=== PATIENT | male | born 1975 | race African-American/Black ===

== ENCOUNTER 2017-11-22 15:20 | Inpatient (IN) | payer MEDICARE, MEDICAID ==
[~2017-11-22 15:20] MED LIST: Atropine Sulfate 1 mg/10 ml Syringe ONE; EPINEPHrine 1 MG/10 ML Abboject SYRINGE ONE; ISOVUE-370 76%-LOCM 1 ML ONE
[2017-11-22] MEDS ORDERED: Atropine Sulfate 1 mg/10 ml Syringe ONE (15:35)
[2017-11-22 16:07] LABS: Actual Bicarbonate (HCO3a) 18.8 mEq/L (22-26); Base Excess (BEa) -6.4 mEq/L (0 (+/-) 2.5); CO2 Tension 36.2 mmHg (35.0-45.0); Hematocrit-ABG 41.8 % (42.0-52.0); O2 Tension (PaO2) 56.2 mmHg (80.0-100.0); pH, Arterial 7.33 (7.35-7.45)
[2017-11-22 16:08] LABS: Analyzer IN Cardio ER; Calcium, Ionized 0.9 mmol/L (1.12-1.30); Puncture Site LRA
--- NOTE | 2017-11-22 16:08 | RAD ---
PORTABLE CHEST: 11/22/17 HISTORY: Dyspnea. Lethargy. Weakness. COMPARISON: 01/05/16. Cardiomegaly. There is vascular congestion. No evidence of focal consolidation. IMPRESSION: Suboptimal study due to overlying artifact. There is evidence of cardiomegaly and mild vascular engor gement. POS: [facility]
[2017-11-22 16:19] LABS: Hemoglobin 12.4 g/dL (14.0-18.0); Mean Corpuscular HGB CONC 31.2 g/dL (32.0-36.0); Mean Corpuscular Hemoglobin 26.2 pg (27.0-31.0); Mean Platelet Volume 6.5 fL (7.4-10.4); Platelet Count 136 thou/uL (130-400); RBC Distribution Width 19.8 % (11.5-14.5); Red Blood Cell (RBC) Count 4.72 mill/uL (4.70-6.10); White Blood Cell (WBC) Count 6.1 thou/uL (4.8-10.8)
[2017-11-22 16:22] LABS: INR-International Normal Ratio 1.5; PTT 34.4 SEC (22.9-36.1); Prothrombin Time 18.9 SEC (12.0-14.7)
--- NOTE | 2017-11-22 16:33 | CT ---
CTA OF CHEST AND ABDOMEN WITH CONTRAST: Date: 11/22/17 COMPARISON: None. HISTORY: Abdominal pain and diarrhea for 4-5 days. Back and abdominal pain. Patient is a dialysis patient. TECHNIQUE: Multiple contiguous axial images were obtained in a CTA of the chest and abdomen with contrast. 3D sa gittal and coronal MIP reformats were performed. FINDINGS: The heart is enlarged. Calcifications are seen in the coronary arteries. No hilar or mediastinal lymp hadenopathy seen. Atelectasis is seen in the lung bases. No suspicious infiltrates are seen. No pneumothorax or pleural effusions are present. The liver, adrenal glands, spleen, and pancreas are unremarkable. The kidneys are small and atrophic. The left kidney contains a hypodensity measuring 1.6 cm in size, which likely represents a cyst. The gallbladder has been removed. There is a small amount of ascites. The large and small bowel are unremarkable. No abdominal adenopat hy is seen. The aorta is normal in caliber without evidence of aneurysmal dilatation or dissection. The celiac tr unk, SMA, and KILO are patent. A single renal artery is seen on each side without significant atherosc lerotic disease. Mild atherosclerotic disease is seen in the distal aorta and common iliac arteries. Diffuse soft tissue anasarca is seen. Degenerative changes are seen in the spine. IMPRESSION: 1. No evidence of aortic dissection or aneurysmal dilatation. 2. Small atrophic kidneys. 3. Left renal cyst. 4. Ascites. POS: [facility]
[2017-11-22 16:40] LABS: CKMB 2.2 ng/mL (0-6.6)
[2017-11-22 16:50] LABS: Acanthocytes SLIGHT = 1-5 cells (100X) (None Seen); Anisocytosis SLIGHT = 6-15 cells (100X) (0-5/hpf); Eosinophils 3 % (0-10); Hypochromia SLIGHT = 6-15 cells (100X) (0-5/hpf); Lymphocytes 9 % (21-51); MDiff Complete? YES; Monocytes 3 % (0-10); Neutrophil 85 % (42-75); PLT Morphology Comment Appears Adequate; Polychromasia SLIGHT = 2-3 cells (100X) (0-2/hpf); Target Cells SLIGHT = 2-5 cells (100X) (0-1/hpf); Tear Drops SLIGHT = 2-5 cells (100X) (0-1/hpf)
[2017-11-22] MEDS ORDERED: Norepinephrine 8 MG/250 ML BAG IVPB SCH ×4 (17:00→19:00)
[2017-11-22 17:02] LABS: ALT (SGPT) 13 U/L (8-55); AST (SGOT) 27 U/L (5-34); Albumin 3.4 g/dL (3.5-5.0); Alkaline Phosphatase 102 U/L (40-150); Anion Gap 25 mmol/L (10-20); BUN (Urea Nitrogen) 84 mg/dL (8.9-20.6); CK (CPK) 52 U/L (30-200); Calc. Creatinine Clearance 0 mL/min (70-130); Calcium 7.7 mg/dL (7.8-10.44); Carbon Dioxide 17 mmol/L (22-29); Chloride 101 mmol/L (98-107); Estimated GFR-MDRD 5; Globulin 3.5 g/dL (2.4-3.5); Glucose 192 mg/dL (70-105); Potassium 6.7 mmol/L (3.5-5.1); Protein, Total 6.9 g/dL (6.0-8.3); Sodium 136 mmol/L (136-145)
[2017-11-22] MEDS ORDERED: Norepinephrine 8 MG/0.9% NS 250 ML IVPB SCH (18:39)
[2017-11-22] MEDS ORDERED: Acetaminophen 325 MG TAB PO PRN (18:39)
[2017-11-22] MEDS ORDERED: Sodium Chloride 0.9% 1,000 ML IV SCH (18:39)
[2017-11-22] MEDS ORDERED: HYDROcodone/Acetaminophen 5/325 mg Tablet PO PRN (18:39)
[2017-11-22] MEDS ORDERED: Piperacillin/Tazobactam 4.5 GM in Sodium Chloride 0.9% 100 ML IVPB SCH ×2 (19:00→23:59)
--- NOTE | 2017-11-22 19:02 | RAD ---
PORTABLE UPRIGHT FRONTAL CHEST RADIOGRAPH 11/22/17 at 6:21 p.m. COMPARISON: 11/22/17 at 3:48 p.m. HISTORY: Central line placement. FINDINGS: There is a left sided vascular catheter inserted via left internal jugular approach, distal tip overl danielle the region of the SVC/brachiocephalic junction. There is enlargement of the cardiac silhouette, stable. Stable pulmonary vascular congestion. Bilateral interstitial prominence noted. IMPRESSION: Left sided vascular catheter with no pneumothorax. POS: [facility]
[2017-11-22 19:46] LABS: Anion Gap 22 mmol/L (10-20); BUN (Urea Nitrogen) 81 mg/dL (8.9-20.6); Calc. Creatinine Clearance 0 mL/min (70-130); Calcium 7.8 mg/dL (7.8-10.44); Carbon Dioxide 16 mmol/L (22-29); Chloride 103 mmol/L (98-107); Estimated GFR-MDRD 5; Glucose 106 mg/dL (70-105); Potassium 4.9 mmol/L (3.5-5.1); Sodium 136 mmol/L (136-145)
[2017-11-22 19:51] LABS: Troponin I 0.217 ng/mL (< 0.028)
[2017-11-22] MEDS: Docusate 100 MG CAP PO SCH (20:19)
[2017-11-22] MEDS: Famotidine/PF 20 mg/2ml Vial SLOW IVP SCH (20:19)
--- NOTE | 2017-11-22 20:53 | HP ---
DATE OF ADMISSION: 11/22/2017 CHIEF COMPLAINT: Acute abdominal pain. HISTORY OF PRESENT ILLNESS: This is a 42-year-old -[place] male with a known history of end-stage renal disease on hemodialysis. Patient was in his usual state of health, undergoing hemodialysis on Mondays, Wednesdays, and Fridays. Last Tuesday, 3 days ago, he started noticing some abdominal pain associated with some diarrhea. It continued until the weekend and this morning , his pain was excruciating with persistent cramps. His pain rated as 8/10 in intensity, associated with cramps and diarrhea, and he has been having multiple episodes of diarrhea, which is more watery in nature and not associated with any blood in the stool. He came to the ER, his blood pressures were in 70s and his heart rate was 40 and had an EKG which showed bradycardia with a possible heart block, but patient was given IV fluid hydration with 2 liters of fluid boluses. His blood pressures went up to like 90s and he was being still very lethargic, so he was started on BiPAP as his saturations were low. Following which, he became more alert. Patient was started on Levophed for his persistent low blood pressures. Patient otherwise suffers with high blood pressures at home. Patient was seen in the ICU, he was alert and oriented and he was having hypothermia, so he was started on warming blankets while in the ICU and on Levophed drip. Critical Care was consulted from the ER and also Cardiology was called because of the bradycardia. Patient denies having any chest pain at this time. No nausea at this time. No vomiting. His diarrhea has stopped at 12:00 noon this morning. PAST MEDICAL HISTORY: 1. End-stage renal disease. 2. Hypertension. PAST SURGICAL HISTORY: 1. AV fistula on his right arm. 2. Cholecystectomy. 3. Skull tonsillectomy. FAMILY HISTORY: His cousin is on dialysis and multiple members of his family who are diabetic and with high blood pressures. SOCIAL HISTORY: Patient is a known smoker. He continues to smoke. No history of alcohol, no history of illicit drug use. ALLERGIES: No known drug allergies. HOME MEDICATIONS: 1. Amoxicillin and azithromycin. 2. Coreg 25 mg p.o. b.i.d. 3. Clonidine 0.3 mg p.o. t.i.d. 4. Lasix 80 mg p.o. b.i.d. 5. Hydralazine 50 mg p.o. b.i.d. 6. Nifedipine 90 mg p.o. daily. 7. Pantoprazole 40 mg p.o. b.i.d. REVIEW OF SYSTEMS: All 12 systems are reviewed with the patient thoroughly and found to be negative at this time, except the one was described in the HPI. The following complete review of systems was negative, unless otherwise mentioned in the HPI or below: Constitutional: Weight loss or gain, sense of well-being, ability to conduct usual activities, exercise tolerance. Skin/ Breast: Rash, itching, changes in hair growth or loss, nail changes, breast lumps, tenderness, swelling, nipple discharge. Eyes: Vision, double vision, tearing, blind spots, pain. ENT/Mouth: Headaches (location, time of onset, duration, precipitating factors), vertigo, lightheadedness, injury. Vision, double vision, tearing, blind spots, pain, nose bleeding, colds, obstruction, discharge, dental difficulties, gingival bleeding, dentures, neck stiffness, pain, tenderness, masses in thyroid or other areas. Cardiovascular: Precordial pain, substernal distress, palpitations, syncope, dyspnea on exertion , orthopnea, nocturnal paroxysmal dyspnea, edema, cyanosis, hypertension, heart murmurs, varicosities, phlebitis, claudication. Respiratory: Pain, shortness of breath, wheezing, stridor, cough, hemoptysis, fever or night sweats. Gastrointestinal: Poor appetite, dysphagia, indigestion, abdominal pain, heartburn, eructation, nausea, vomiting, hematemesis, jaundice, constipation, or diarrhea, abnormal stools (isidra-colored, tarry, bloody, greasy, foul-smelling ), flatulence, hemorrhoids, recent changes in bowel habits. Genitourinary: Urgency, frequency, dysuria, nocturia, hematuria, polyuria, oliguria, unusual ( or change in) color of urine, stones, hesitancy, change in size of stream, dribbling, acute retention or incontinence, libido, potency. Musculoskeletal: Pain, swelling, redness or heat of muscles or joints, limitation, of motion, muscular weakness, atrophy, cramps. Neurologic/Psychiatric: Convulsions, paralyzes, tremor, incoordination, paresthesias, difficulties with memory of speech, sensory or motor disturbances, or muscular coordination (ataxia, tremor) , emotional problems, anxiety, depression, previous psychiatric care, unusual perceptions, hallucinations. Allergy/Immunologic: Skin rash, anemia, bleeding tendency, polydipsia, polyuria, intolerance to heat or cold. PHYSICAL EXAMINATION: VITAL SIGNS: Blood pressures were 95/58 on Levophed drip. GENERAL: The patient is seen lying in the bed, supine, does not appear to be in acute distress at this time. HEENT: Atraumatic, normocephalic. PERRLA. Extraocular movements were intact. Oral mucosa is pink and moist. NECK: No JVD, No thyromegaly CARDIOVASCULAR: S1, S2 normal. No murmurs, rubs, or gallops. LUNGS: Bilateral air entry was equal. No wheezing, no crackles. ABDOMEN: Soft, nontender, no guarding, no rebound tenderness. Bowel sounds normal. MUSCULOSKELETAL: No calf tenderness. No pedal edema. No joint tenderness, no joint swelling. SKIN: No cyanosis, no erythema, no rash, no pallor. 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 No focal deficits were noted. PSYCHIATRIC: No signs of consolidation. No signs of alex. LYMPHADENOPATHY: No evidence of generized lymphnodes noted. LABORATORY DATA: Sodium is 136, potassium is 6.7, chloride is 101, BUN is 84, creatinine is 12.8. Blood sugar is 192. Lactic acid is 2.2. Troponin is 0.210. BNP is 11,143. WBC 6.1, hemoglobin is 12.4, hematocrit is 39.6, platelets are 136. Blood gases initially was 7.3, pH and pCO2 of 36, pO2 was 56.2. ASSESSMENT AND PLAN: 1. Acute hypotension, likely cardiogenic shock. 2. Acute diarrhea with severe dehydration. 3. Acute hypothermia. 4. Acute bradycardia. 5. Acute hyperkalemia. 6. Non ST-elevation myocardial infarction. 7. Acute hypoxic respiratory failure. PLAN: 1. Plan is to admit this patient to the ICU and closely monitor the patient. Patient has been started on Levophed while in the ER. I will continue with the Levophed at this time, as the patient has signs of septic shock, but no source of infection could be found, as patient had come in because of severe diarrhea with crampy abdominal pain and with low blood pressures with mildly elevated CRP. At this time, we will treat the patient empirically with antibiotics with Zosyn and levofloxacin. We will get the blood cultures and stool cultures. 2. Patient has acute hypoxic respiratory failure when he came in and was improved on the BiPAP. We will closely monitor his respiratory status while he is in the ICU and Pulmonary and Critical Care has been consulted. His chest x- ray looks fine. There is no evidence of any acute infiltrate at this time. 3. Possibly acute cardiogenic shock, patient has markedly elevated BNP with no evidence of an acute volume overload status and evidence of hypotension and bradycardia, possibly patient could have had acute cardiogenic shock. We will consult Cardiology at this time and we will follow up with their recommendations. We will do a 2D echo to look for any evidence of wall-motion abnormality and we will closely follow the heart enzymes. 4. The patient had hyperkalemia. Nephrology has been consulted, who planned to see the patient and possibly do the dialysis today. 5. Deep venous thrombosis prophylaxis as SCDs and we will continue the patient on Lovenox 30 mg. I spent 70 minutes with this patient of this one hour as critical care time. MANAS
[2017-11-22 20:55] VITALS: BMI 37.0
[2017-11-23 00:13] LABS: HBCM Index 0.07 S/CO (0-0.79); HBSAg Index 0.56 S/CO (0-0.99); Hep A IgM AB Non-Reactive (NonReactive); Hep A IgM S/CO 0.15 S/CO (0-0.79); Hep B Surf Ag Non-Reactive S/CO (NonReactive); Hep C IgG Ab Non-Reactive (NonReactive); Hep C Index 0.12 S/CO (0-0.79); Hepatitis B Core IGM Abs Non-Reactive (NonReactive)
--- NOTE | 2017-11-23 00:18 | CON ---
DATE OF CONSULTATION: 11/22/2017 NEPHROLOGY CONSULT NOTE CONSULTING PHYSICIAN: Jared Rodriguez MD REASON FOR CONSULTATION: End-stage renal disease evaluation and care. REASON FOR ADMISSION: Abdominal pain. HISTORY OF PRESENT ILLNESS: A 42-year-old male with history of end-stage renal disease, hypertension , who came to the hospital with abdominal pain and Nephrology was consulted. Patient was found to villalpando ve potassium of 6.9 with fluid overload and hypotension and respiratory failure, and hypoxemia. The patient denies any chest pain, no fever or chills. Complains of abdominal pain, no nausea, vomit ing, no fever or chills. No skin rash. PAST MEDICAL HISTORY: Positive for end-stage renal disease and hypotension. PAST SURGICAL HISTORY: AV fistula placement, cholecystectomy, tonsillectomy. HOME MEDICATIONS: Coreg, clonidine, Lasix, hydralazine, nifedipine, pantoprazole. ALLERGIES: No known drug allergies. SOCIAL HISTORY: No smoking, alcohol, or illicit drug abuse. FAMILY HISTORY: No history of kidney disease. REVIEW OF SYSTEMS: The following complete review of systems was negative, unless otherwise mentioned in the HPI or below: Constitutional: Weight loss or gain, ability to conduct usual activities. Sk in: Rash, itching. Eyes: Double vision, pain. ENT/Mouth: Nose bleeding, neck stiffness, pain, te nderness. Cardiovascular: Palpitations, dyspnea on exertion, orthopnea. Respiratory: Shortness of breath, wheezing, cough, hemoptysis, fever or night sweats. Gastrointestinal: Poor appetite, abdom inal pain, heartburn, nausea, vomiting, constipation, or diarrhea. Genitourinary: Urgency, frequenc y, dysuria, nocturia. Musculoskeletal: Pain, swelling. Neurologic/Psychiatric: Anxiety, depressio n. Allergy/Immunologic: Skin rash, bleeding tendency. PHYSICAL EXAMINATION: GENERAL: This is an obese male, in no apparent distress. VITAL SIGNS: Temperature 97.5, pulse 83, respiratory 21, blood pressure 102/75. HEENT: Atraumatic, normocephalic. Oral mucosa is moist. NECK: Supple, no masses. HEART: S1, S2 heard. Rate and rhythm regular. RESPIRATORY: Clear. MUSCULOSKELETAL: No tenderness, no edema. DERMATOLOGIC: No skin rash. NEUROLOGIC: Alert, awake. PSYCHIATRIC: Normal affect. LABS: Hemoglobin is 12.4, potassium is 4.9, BUN is 81, creatinine 0.8. ASSESSMENT AND PLAN: 1. End-stage renal disease. Plan is to have dialysis as elevated BNP, fluid overload. Plan is to r emove fluid. 2. Acidosis, better. 3. Hypertension, stable. 4. Anemia. Hemoglobin is stable. Plan is to have emergent dialysis. Dialysis nurse notified. We will continue on dialysis as tolerat ed. Limit potassium in the diet. Thank you for the consult.
[2017-11-23 05:57] LABS: Cardiac Risk 4.4 (Less than 4.5)
--- NOTE | 2017-11-23 08:44 | CON ---
DATE OF CONSULTATION: 11/22/2017 REASON FOR CONSULTATION: Third degree AV block. HISTORY OF PRESENT ILLNESS: Mr. Rodriguez is an unfortunate 42-year-old gentleman with previous histo ry of end-stage renal disease, he recently missed dialysis. He states he had gastroenteritis with si gnificant diarrhea. He presented to the emergency room with weakness, fatigue, and diarrhea, in octavia tion to abdominal discomfort. On my visit, his abdominal discomfort has improved. His potassium was 6.7. He appeared to have 2:1 AV block versus third degree AV block. Blood pressure initially was m arginal, but then was in the 90s-100s. Heart rate was also in the 80s. Narrow complex noted. PAST MEDICAL HISTORY: As above including hypertension. PAST SURGICAL HISTORY: Cholecystectomy, tonsillectomy. FAMILY HISTORY: Negative for CAD. SOCIAL HISTORY: Positive tobacco use. Negative alcohol use. ALLERGIES: None. HOME MEDICATIONS: Include Coreg, clonidine, Lasix, hydralazine, nifedipine, pantoprazole. REVIEW OF SYSTEMS: Ten-point review of systems is reviewed and is as above, otherwise negative. PHYSICAL EXAMINATION: GENERAL: Patient is a pleasant male who is in no acute distress. He does appear older than his stat ed age. VITAL SIGNS: Blood pressure 120/89, pulse 80, respirations 20. NEUROLOGIC: The patient is alert and oriented times 3 with no focal neurologic deficits. HEENT: Sclerae without icterus. Mouth has moist mucous membranes with normal pallor. NECK: No JVD. Carotid upstroke brisk. No bruits bilaterally. LUNGS: Clear to auscultation with unlabored respirations. BACK: No scoliosis or kyphosis. CARDIAC: Regular rate and rhythm with normal S1 and S2. No S3 or S4 noted. No significant rubs, mu rmurs, thrills, or gallops noted throughout the precordium. PMI is not displaced. There is no wyatt ternal heave. ABDOMEN: Soft, nontender, nondistended. No peritoneal signs present. No hepatosplenomegaly. No ab normal striae. EXTREMITIES: 2+ femoral and 2+ dorsalis pedis pulses. No cyanosis, clubbing, or edema. SKIN: No gross abnormalities. PERTINENT LABORATORY DATA AND IMAGING: Hemoglobin 12.4, potassium as above. EKG as above. IMPRESSION: 1. Third degree AV block. 2. Hyperkalemia. 3. End-stage renal disease. RECOMMENDATIONS: From a CV standpoint, third degree AV block is likely secondary to hyperkalemia. U rgent dialysis will ensue. I did contemplate to proceeding with a temporary pacemaker. I have reass ured we can get his potassium down once dialysis started within 20-30 minutes, which would be the rolando e at a time needed for urgent temporary pacemaker. At this point, since he appears stable, we will o bserve. If he developed some mental status changes or worsening bradycardia, we would then proceed w ith temporary pacemaker. He did respond to atropine in the ER, which can also be used. I did spend 40 minutes of critical care time.
[2017-11-23] MEDS ORDERED: Piperacillin/Tazobactam 2.25 GM in Sodium Chloride 0.9% 100 ML IVPB SCH (09:00)
--- NOTE | 2017-11-23 09:10 | CON ---
DATE OF CONSULTATION: 11/23/2017 CONSULTING PHYSICIAN: Hospitalist group. REASON FOR CONSULTATION: Acute respiratory failure. HISTORY OF PRESENT ILLNESS: A 42-year-old male, who is end-stage renal disease patient. He missed d ialysis on Tuesday, because he felt so poorly. He has been having abdominal pain and diarrhea. Becau se of the abdominal pain and weakness, he presented to the ER last night. He was found to be in deco mpensated heart failure. He was acutely dialyzed. He also had complete heart block when he came in that resolved with dialysis. It is suspected that he may have a heart valve infection on an echo don e this morning, but final read from the cobbler apprentice is pending. He feels better this morning. He i s not having near as much short of breath, though still having some abdominal pain. PAST MEDICAL HISTORY: 1. End-stage renal disease. 2. Hypertension. 3. Obesity. 4. Diastolic cardiac dysfunction. PAST SURGICAL HISTORY: Cholecystectomy, AV fistula right arm, and tonsillectomy. FAMILY MEDICAL HISTORY: Remarkable for end-stage renal disease in multiple family members with diabe augusto mellitus and hypertension. SOCIAL HISTORY: Smoker. Does not consume alcohol. ALLERGIES: None. MEDICATIONS: Prior to admission, amoxicillin, Coreg, clonidine, Lasix, hydralazine, nifedipine, and pantoprazole. REVIEW OF SYSTEMS: Twelve-point review of systems is otherwise negative except as mentioned above. PHYSICAL EXAMINATION: VITAL SIGNS: Temperature 98, pulse 77, blood pressure 120/89, O2 sat 97%, respiratory rate 18. GENERAL: He is awake and alert and in no profound distress. HEENT EXAM: Sclerae muddy. Oropharynx clear. NECK: No JVD. LUNGS: Clear to auscultation. CARDIOVASCULAR: S1 and S2 regular. ABDOMEN: Soft, slightly protuberant. EXTREMITIES: Has a large right forearm AV fistula. LABORATORY DATA: White blood cell count 6.1, hematocrit 39.6, platelet count 136. Sodium 136, potas sium 4.9, chloride 103, CO2 of 16, BUN 81, creatinine 12.8, glucose 106. Chest x-ray showed cardiome cortes with changes consistent with congestive heart failure. ASSESSMENT: 1. Possible endocarditis. 2. Decompensated renal failure. 3. Congestive heart failure. 4. History of end-stage renal disease. PLAN: His respiratory status is better with dialysis. We will await the findings of the Cardiology group in regard to endocarditis. He is continuing empiric IV antibiotics. It looks like he has been weaned off the vasopressors. We will follow closely with you. The above encompassed 40 minutes of critical care time.
[2017-11-23] MEDS: Docusate 100 MG CAP PO SCH ×2 (09:18→22:18)
[2017-11-23] MEDS: Aspirin 325 MG TAB PO SCH (09:18)
[2017-11-23] MEDS: Enoxaparin Sodium 30 MG/0.3 ML SYRINGE SC SCH (09:19)
[2017-11-23] MEDS ORDERED: Loratadine 10 MG TAB PO PRN (13:05)
[2017-11-23] MEDS ORDERED: VANCOMYCIN IVPB PRN (13:38)
--- NOTE | 2017-11-23 13:39 | PDOC.PN ---
- Subjective Encounter Start Date: 11/23/17 Encounter Start Time: 13:00 Samantha is seen today, he feels much beter, c/o Cogh and congestion, Echo was done today with possible signs of vegetation but waiting on official report. - Objective Resuscitation Status: Resuscitation Status FULL:Full Resuscitation MAR Reviewed: Yes Vital Signs & Weight: Vital Signs (12 hours) Temp Pulse Resp Pulse Ox 11/23/17 12:00 98.3 F 11/23/17 08:05 98.2 F 75 20 94 L 11/23/17 08:00 98.2 F 11/23/17 07:08 92 L 11/23/17 03:00 98 F Weight Weight 229 lb 4.492 oz Most Recent Monitor Data Heart Rate from ECG 82 NIBP 154/108 NIBP BP-Mean 123 Respiration from ECG 18 SpO2 95 I&O: 11/22/17 11/23/17 11/24/17 06:59 06:59 06:59 Intake Total 1146 490 Output Total 0 Balance 1146 490 Result Diagrams: 11/22/17 15:42 11/22/17 19:00 Radiology Reviewed by me: Yes EKG Reviewed by me: Yes Phys Exam - Physical Examination HEENT: PERRLA, moist MMs Neck: no nodes, no JVD Respiratory: no wheezing, no rales Cardiovascular: RRR, no significant murmur Gastrointestinal: soft, non-tender Musculoskeletal: no edema, pulses present Neurological: non-focal, normal sensation Psychiatric: normal affect, A&O x 3 Dx/Plan (1) Septic shock Code(s): A41.9 - SEPSIS, UNSPECIFIED ORGANISM; R65.21 - SEVERE SEPSIS WITH SEPTIC SHOCK Status: Acute Comment: Will continue with IV Levoflox, Zosyn and Vancomycin, for possible source of infection Endocarditis, Will Consult ID if Endocarditis is confirmed, blood Cultures pending. (2) Endocarditis Code(s): I38 - ENDOCARDITIS, VALVE UNSPECIFIED Status: Acute Comment: Waiitng on official Report, Cardiology following. Added vancomycin per renal dosing. (3) Bradycardia Code(s): R00.1 - BRADYCARDIA, UNSPECIFIED Status: Acute Comment: Stable Now , Likely resolved with HD and Correction hyperkalemia. (4) Hyperkalemia Code(s): E87.5 - HYPERKALEMIA Status: Acute (5) Hypertension Code(s): I10 - ESSENTIAL (PRIMARY) HYPERTENSION Status: Acute Comment: Poorly controlled now, Will restart his home MEds. start hydralzine, will avoid BB and Clonidine for their HR reducing effects. (6) ESRD (end stage renal disease) on dialysis Code(s): N18.6 - END STAGE RENAL DISEASE; Z99.2 - DEPENDENCE ON RENAL DIALYSIS Status: Chronic Comment: Pt will recieve HD today per renal. Will continue to Monitor. - Plan cont current plan of care, continue antibiotics, PT/OT, incentive spirometry, DVT proph w/lovenox * . - Discharge Day Encounter end time: 13:35 Review of Systems - Review of Systems Constitutional: negative: fever, chills, sweats, weakness, malaise, other Eyes: negative: Pain, Vision Change, Conjunctivae Inflammation, Eyelid Inflammation, Redness, Other ENT: negative: Ear Pain, Ear Discharge, Nose Pain, Nose Discharge, Nose Congestion, Mouth Pain, Mouth Swelling, Throat Pain, Throat Swelling, Other Respiratory: Cough, Sputum Cardiovascular: negative: chest pain, palpitations, orthopnea, paroxysmal nocturnal dyspnea, edema, light headedness, other Gastrointestinal: negative: Nausea, Vomiting, Abdominal Pain, Diarrhea, Constipation, Melena, Hematochezia, Other Genitourinary: negative: Dysuria, Frequency, Incontinence, Hematuria, Retention , Other Skin: negative: Rash, Lesions, Vlad, Bruising, Other Neurological: negative: Weakness, Numbness, Incoordination, Change in Speech, Confusion, Seizures, Other - Medications/Allergies Allergies/Adverse Reactions: Allergies Allergy/AdvReac Type Severity Reaction Status Date / Time No Known Allergies Allergy Verified 11/22/17 23:28 Medications: Current Medications Acetaminophen (Tylenol) 650 mg PO Q4H PRN PRN Reason: Headache/Fever or Pain Hydrocodone Bitart/Acetaminophen (Corona 5/325) 1 tab PO Q4H PRN PRN Reason: Moderate Pain (4-6) Aspirin (Aspirin) 325 mg PO DAILY [facility] Last Admin: 11/23/17 09:18 Dose: 325 mg Benzonatate (Tessalon) 100 mg PO TID [facility] Docusate Sodium (Colace) 100 mg PO BID [facility] Last Admin: 11/23/17 09:18 Dose: Not Given Enoxaparin Sodium (Lovenox) 30 mg SC 0900 [facility] Last Admin: 11/23/17 09:19 Dose: 30 mg Famotidine (Pepcid) 20 mg SLOW IVP QPM [facility] Last Admin: 11/22/17 20:19 Dose: 20 mg Hydralazine HCl (Apresoline) 100 mg PO BID [facility] Norepinephrine Bitartrate 8 mg (/ Sodium Chloride) 258 mls @ 0 mls/hr IVPB INF MARAH; As Directed PRN Reason: Protocol Levofloxacin 500 mg/ Device 100 mls @ 100 mls/hr IVPB Q2D [facility] Piperacillin Sod/Tazobactam (Sod 2.25 gm/ Sodium Chloride) 100 mls @ 200 mls/ hr IVPB 0900,2100 [facility] Last Admin: 11/23/17 12:43 Dose: 100 mls Vancomycin HCl 1 gm/ Device 200 mls @ 200 mls/hr IVPB Q12HR [facility] Loratadine (Claritin) 10 mg PO DAILYPRN PRN PRN Reason: Allergies Miscellaneous Medication (Pharmacy To Dose) 1 each IVPB PRN PRN PRN Reason: . Pantoprazole Sodium (Protonix) 40 mg PO BID [facility] Last Admin: 11/23/17 09:18 Dose: 40 mg
[2017-11-23] MEDS ORDERED: Vancomycin HCl 750 MG in Sodium Chloride 0.9% 250 ML 250 ML IVPB SCH (13:45)
[2017-11-23] MEDS ORDERED: Vancomycin HCl 1 GM in Premix Bag 1 BAG IVPB SCH ×2 (13:45→21:00)
[2017-11-23] MEDS ORDERED: Vancomycin HCl 1.25 GM in Sodium Chloride 0.9% 250 ML 250 ML IVPB SCH (13:45)
[2017-11-23] MEDS ORDERED: HOLD VANCOMYCIN FOR LEVEL >20 FS SCH (13:45)
[2017-11-23] MEDS ORDERED: Vancomycin HCl 500 MG in Sodium Chloride 0.9% 100 ML IVPB SCH (13:45)
[2017-11-23] MEDS ORDERED: Vancomycin Sliding Scale 1 EACH FS ONE (13:45)
[2017-11-23] MEDS ORDERED: Vancomycin HCl 1.5 GM in Sodium Chloride 0.9% 250 ML 300 ML IVPB SCH (13:45)
[2017-11-23 13:55] LABS: Hemoglobin 12.6 g/dL (14.0-18.0); Mean Corpuscular HGB CONC 30.9 g/dL (32.0-36.0); Mean Corpuscular Hemoglobin 26.2 pg (27.0-31.0); Mean Corpuscular Volume 84.8 fl (80.0-94.0); Mean Platelet Volume 6.6 fL (7.4-10.4); Platelet Count 129 thou/uL (130-400); RBC Distribution Width 19.6 % (11.5-14.5); Red Blood Cell (RBC) Count 4.81 mill/uL (4.70-6.10); White Blood Cell (WBC) Count 6.9 thou/uL (4.8-10.8)
[2017-11-23 14:05] LABS: Anion Gap 18 mmol/L (10-20); BUN (Urea Nitrogen) 30 mg/dL (8.9-20.6); Calc. Creatinine Clearance 22 mL/min (70-130); Calcium 8.3 mg/dL (7.8-10.44); Carbon Dioxide 24 mmol/L (22-29); Chloride 101 mmol/L (98-107); Estimated GFR-MDRD 11; Glucose 117 mg/dL (70-105); Potassium 3.7 mmol/L (3.5-5.1); Sodium 139 mmol/L (136-145)
[2017-11-23 14:11] LABS: Anisocytosis MODERATE=16-30 cells (100X) (0-5/hpf); Elliptocytes SLIGHT = 2-5 cells (100X) (0-1/hpf); Eosinophils 2 % (0-10); Hypochromia SLIGHT = 6-15 cells (100X) (0-5/hpf); Lymphocytes 10 % (21-51); MDiff Complete? YES; Monocytes 3 % (0-10); Neutrophil 85 % (42-75); Ovalocytes SLIGHT = 2-5 cells (100X) (0-1/hpf); PLT Morphology Comment Appears Decreased; Polychromasia MODERATE = 3-4 cells (100X) (0-2/hpf); Schistocytes SLIGHT = 2-5 cells (100X) (0-1/hpf); Target Cells MODERATE= 6-15 cells (100X) (0-1/hpf); Tear Drops SLIGHT = 2-5 cells (100X) (0-1/hpf)
--- NOTE | 2017-11-23 15:37 | EKG ---
Test Reason : Blood Pressure : / mmHG Vent. Rate : 057 BPM Atrial Rate : 074 BPM P-R Int : 000 ms QRS Dur : 112 ms QT Int : 548 ms P-R-T Axes : 054 267 144 degrees QTc Int : 533 ms Sinus rhythm with 2nd degree A-V block (Mobitz I) Incomplete right bundle branch block T wave abnormality, consider lateral ischemia Abnormal ECG Confirmed by TANYA PERALTA ([id number]) on 11/23/2017 3:37:22 PM Referred By: JOE Confirmed By:TANYA PERALTA
[2017-11-23] MEDS: Benzonatate 100 MG CAP PO SCH ×2 (16:18→22:18)
[2017-11-23] MEDS: hydrALAZINE 25 MG TAB PO SCH (17:41)
--- NOTE | 2017-11-23 18:54 | PRG ---
DATE OF SERVICE: 11/23/2017 HISTORY OF PRESENT ILLNESS: Mr. Rodriguez is doing much better. His potassium has normalized. His A V block has dissipated. He is now in sinus rhythm. PHYSICAL EXAMINATION: VITAL SIGNS: Blood pressure 144/112, pulse 80, temperature afebrile. LUNGS: Clear to auscultation. HEART: Regular rate and rhythm. ABDOMEN: Soft, nontender, nondistended. EXTREMITIES: No edema. IMPRESSION: 1. Third degree arteriovenous block. 2. End-stage renal disease. RECOMMENDATIONS: AV block secondary to hyperkalemia. This is not resolved as has his complete heart block. At this point, I would continue current treatment. We will review his echo. Otherwise, I h ave no further recommendations.
--- NOTE | 2017-11-23 19:06 | PRG ---
DATE OF SERVICE: 11/23/2017 SUBJECTIVE: Patient was seen and examined at bedside and overnight events noted. Patient denies any shortness of breath or chest pain or palpitation. No history of nausea or vomiting or diarrhea or f ever or chills or cramps. OBJECTIVE: GENERAL: This is an obese male, in no apparent distress, seen in the ICU, feeling better. VITAL SIGNS: Temperature 98.0, pulse 91, respiratory rate 20, blood pressure 144/112. HEENT: Atraumatic, normocephalic, oral mucosa is moist. NECK: Supple. CARDIOVASCULAR: S1, S2 heard, rate and rhythm regular. RESPIRATORY: Clear to auscultation. GASTROINTESTINAL: Abdomen is soft. MUSCULOSKELETAL: 1+ edema. DERMATOLOGIC: No skin rash. NEUROLOGIC: Alert and awake and oriented x3. No focal neurologic deficits. Moving all the extremit ies. PSYCHIATRIC: Mood and affect normal. LABORATORY DATA: Potassium is 3.7, BUN is 30, creatinine is 6.6. ASSESSMENT AND PLAN: 1. End-stage renal disease. Had dialysis yesterday. Plan is to have dialysis today then continue d ialysis Tuesday, Tuesday, and Tuesday. 2. Hypertension, stable. 3. Edema, controlled. 4. Fluid overload. 5. Acute hypoxic respiratory failure, breathing better, feeling better. 6. Hypoalbuminemia. 7. Anemia, which is chronic and seems to be from chronic kidney disease. Continue dialysis as tolerated. The patient again advised to limit salt and fluid intake. We will aziza andre.
[2017-11-23] MEDS: Famotidine/PF 20 mg/2ml Vial SLOW IVP SCH (22:18)
[2017-11-24] MEDS: Piperacillin/Tazobactam 2.25 GM in Sodium Chloride 0.9% 100 ML IVPB SCH ×2 (01:51→13:26)
[2017-11-24 05:12] LABS: #Basophils 0.1 thou/uL (0.0-0.2); #Eosinphils 0.1 thou/uL (0.0-0.7); #Lymphocytes 1.2 thou/uL (1.20-3.40); #Monocytes 0.5 thou/uL (0.11-0.59); #Neutrophils 3.2 thou/uL (1.40-6.50); %Basophils 1.2 % (0.0-1.0); %Eosinophils 2.1 % (0.0-10.0); %Lymphocytes 23.5 % (21.0-51.0); %Monocytes 9.8 % (0.0-10.0); %Neutrophils 63.4 % (42.0-75.0); Hemoglobin 12.3 g/dL (14.0-18.0); Mean Corpuscular HGB CONC 31.1 g/dL (32.0-36.0); Mean Corpuscular Hemoglobin 26.6 pg (27.0-31.0); Mean Corpuscular Volume 85.6 fl (80.0-94.0); Mean Platelet Volume 6.4 fL (7.4-10.4); Platelet Count 123 thou/uL (130-400); RBC Distribution Width 19.6 % (11.5-14.5)
[2017-11-24 05:28] LABS: Anion Gap 15 mmol/L (10-20); BUN (Urea Nitrogen) 39 mg/dL (8.9-20.6); Calc. Creatinine Clearance 18 mL/min (70-130); Calcium 8.3 mg/dL (7.8-10.44); Carbon Dioxide 28 mmol/L (22-29); Chloride 102 mmol/L (98-107); Estimated GFR-MDRD 9; Glucose 78 mg/dL (70-105); Potassium 4.4 mmol/L (3.5-5.1); Sodium 141 mmol/L (136-145)
--- NOTE | 2017-11-24 08:09 | PRG ---
DATE OF SERVICE: 11/24/2017 The patient is awake, alert, doing well this morning, he has no complaints. PHYSICAL EXAMINATION: VITAL SIGNS: Temperature is 98.4, pulse 72, respiration 20, O2 sat 97% on room air, blood pressure 1 43/108, 24 hour intake 2000, output 1000 all through hemodialysis. HEENT: Unremarkable. NECK: No JVD. CHEST: Clear, without wheezes or rhonchi. CARDIAC: S1, S2 regular, without murmur. ABDOMEN: Soft, nontender. EXTREMITIES: No edema. LABORATORY DATA: White blood cell count 5, hematocrit 39.4, platelet count 123. Sodium 141, potassi um 4.4, chloride 102, CO2 28, BUN 39, creatinine 8.0, glucose 78. ASSESSMENT: 1. Possible endocarditis - had a suspected vegetation on mitral valve. 2. Decompensated renal failure. 3. Congestive heart failure. 4. History of end-stage renal disease. PLAN: 1. He can be transferred out to telemetry. 2. He may end up needing a MCKENNA - I will defer to Cardiology on this. 3. In the meantime he will continue antibiotic therapy and renal replacement therapy as indicated by the Nephrology Service. 4. He no longer needs BiPAP.
[2017-11-24] MEDS: Enoxaparin Sodium 30 MG/0.3 ML SYRINGE SC SCH (09:48)
[2017-11-24] MEDS: hydrALAZINE 25 MG TAB PO SCH ×2 (09:48→21:30)
[2017-11-24] MEDS: Aspirin 325 MG TAB PO SCH (09:48)
[2017-11-24] MEDS: Benzonatate 100 MG CAP PO SCH ×3 (09:49→21:31)
[2017-11-24] MEDS: Docusate 100 MG CAP PO SCH ×2 (09:49→21:30)
--- NOTE | 2017-11-24 10:34 | PRG ---
Patient Name: JORGE SHEIKH Date of service: 11/24/2017 Subjective: Patient was seen and examined at bedside and overnight events noted. Patient denies any shortness of breath or chest pain or palpitation. No history of nausea or vomiting or diarrhea or fever or chills or cramps. Objective: General: This is an obese male in no apparent distress. Vital signs: Temperature 98.4, pulse 94, respiratory rate 20, blood pressure 143/108. HEENT: Atraumatic, normocephalic. Oral mucosa is moist. Neck: Supple. Cardiovascular: S1 S2 heard. Rate and rhythm regular. Respiratory: Clear to auscultation. Gastrointestinal: Abdomen is soft. Musculoskeletal: No tenderness. No edema. Dermatologic: No skin rash. Neurologic: Alert and awake and oriented X3. No focal neurologic deficits. Moving all the extremit ies. Psychiatric: Mood and affect normal. LABORATORY DATA: Potassium is 4.4, BUN 39, creatinine 3.02. ASSESSMENT AND PLAN: 1. End-stage renal disease. We will continue on dialysis Tuesday, Tuesday, and Tuesday 2. Hypertension, stable. 3. Edema. We will remove fluid with dialysis and fluid overload. Advised to limit fluid intake. 4. Acute hypoxic respiratory failure. 5. Anemia. Plan is to continue on dialysis as tolerated.
[2017-11-24] MEDS ORDERED: NIFEdipine XL 90 MG TAB PO SCH (14:30)
[2017-11-24] MEDS ORDERED: cloNIDine 0.3 MG TAB PO SCH (14:30)
[2017-11-24] MEDS ORDERED: guaiFENesin/Codeine Phosphate 200 mg/20 mg 10 ml UD Cup PO PRN (16:48)
[2017-11-24] MEDS ORDERED: Loperamide HCl 2 MG CAP PO PRN (16:49)
[2017-11-24] MEDS: Saccharomyces boulardii 250 MG CAP PO SCH (21:30)
[2017-11-24] MEDS: Famotidine 20 MG TAB PO SCH (21:30)
[2017-11-24] MEDS: cloNIDine 0.3 MG TAB PO SCH (21:30)
[2017-11-25] MEDS: Piperacillin/Tazobactam 2.25 GM in Sodium Chloride 0.9% 100 ML IVPB SCH ×2 (00:47→12:05)
[2017-11-25] MEDS: Docusate 100 MG CAP PO SCH ×2 (08:52→20:37)
[2017-11-25] MEDS: Benzonatate 100 MG CAP PO SCH ×3 (08:53→20:37)
[2017-11-25] MEDS ORDERED: NIFEdipine XL 90 MG TAB PO SCH (09:00)
[2017-11-25] MEDS ORDERED: Fluticasone Propionate Nasal Spray 16 gm Bottle NASAL SCH (09:00)
[2017-11-25] MEDS: cloNIDine 0.3 MG TAB PO SCH ×2 (09:01→20:38)
[2017-11-25] MEDS: hydrALAZINE 25 MG TAB PO SCH ×2 (09:01→20:38)
[2017-11-25] MEDS: Aspirin 325 MG TAB PO SCH (09:02)
[2017-11-25] MEDS: Enoxaparin Sodium 30 MG/0.3 ML SYRINGE SC SCH (09:02)
[2017-11-25] MEDS: Saccharomyces boulardii 250 MG CAP PO SCH ×3 (09:02→20:39)
[2017-11-25 11:25] VITALS: TEMP 97.6
[2017-11-25] MEDS ORDERED: diphenhydrAMINE 50 MG CAP PO PRN (12:17)
[2017-11-25] MEDS ORDERED: diphenhydrAMINE 25 MG CAP PO PRN (12:17)
--- NOTE | 2017-11-25 15:27 | DIS ---
DATE OF ADMISSION: 11/22/2017 DATE OF DISCHARGE: 11/25/2017 ADMITTING DIAGNOSIS: Acute cardiogenic shock. DISCHARGE DIAGNOSIS: Acute cardiogenic shock. SECONDARY DIAGNOSES: 1. Severe diarrhea with dehydration. 2. Possible endocarditis which is ruled out. 3. Acute hypothermia. 4. Acute bradycardia. 5. Acute hyperkalemia. 6. Non-ST elevation myocardial infarction from demand ischemia. 7. Acute hypoxic respiratory failure. CONSULTANTS INVOLVED IN THIS CARE: 1. Dr. Cameron Espinal. 2. Cardiology, Dr. Dalton. 3. Dr. Charles. INVESTIGATIONS DONE DURING THIS ADMISSION: A 2D echo showing an evidence of good ejection fraction a nd has a suspicious evidence of vegetation of the mitral valve leaflet, which was later ruled out by Cardiology. There were no other clinical signs and no murmur. HISTORY OF PRESENT ILLNESS AND HOSPITAL COURSE: In brief, this is a 42-year-old -[place] mal e who presented with a sudden onset of weakness and abdominal pain, found to have a sudden drop in hi s blood pressures and bradycardic to 40s and had a sudden decompensated heart failure. The patient w as acutely dialyzed and was also found to have a complete heart block. When he came to the ER, the p atient had a severe hyperkalemia. Following dialysis, the patient's symptoms improved and the heart rate has gone up to 80. He had a 2D echo did not show any evidence of valvular abnormalities, but sh owed a suspicion for a heart valve vegetation, which was later ruled out by Cardiology. The patient was initially empirically started on IV antibiotics with vancomycin, Zosyn and levofloxacin. Patient continues to have cough which has been there for a long time according to him, has severe allergies. 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 The patient showed good improvement and there was no evidence of endocarditis per Ca rdiology, so all the antibiotics were discontinued and the patient was discharged home in stable cond ition. PHYSICAL EXAMINATION: VITAL SIGNS: Blood pressure is 133/89, heart rate is 82, respirations 14, saturation 92% on room air . GENERAL: The patient is moderately built, moderately nourished, does not appear to be in any acute d istress. CARDIOVASCULAR: S1, S2 normal. No murmurs, rubs or gallops. LUNGS: Bilateral air entry was equal. No wheezing, no crackles. ABDOMEN: Soft, nontender. No guarding or rebound tenderness. Bowel sounds normal. MUSCULOSKELETAL: No calf tenderness. No pedal edema. No joint tenderness. No joint swelling. SKIN: No cyanosis, no erythema, no rash, no pallor. CENTRAL NERVOUS SYSTEM: Cranial nerve examination II-XII intact. No focal deficits were noted. DISCHARGE MEDICATIONS: 1. Coreg 25 mg p.o. daily. 2. Clonidine 0.3 mg p.o. b.i.d. 3. Nifedipine 90 mg p.o. daily. 4. Hydralazine 100 mg p.o. b.i.d. 5. Pantoprazole 40 mg p.o. b.i.d. HOME MEDICATIONS AND NEW MEDICATIONS: 1. Aspirin 325 mg p.o. daily. 2. Nasonex spray. 3. Afrin nasal spray. 4. Loratadine 10 mg p.o. daily. 5. Guaifenesin cough drops 10 mL q.6 hours p.r.n. for cough. DISCHARGE INSTRUCTIONS: 1. Continue activity as tolerated. Advised to follow up with Nephrology per his schedule. 2. Advised to follow up with Cardiology in 1-2 weeks. 3. Advised to follow up with primary care physician in 1-2 weeks. 4. Continue renal diet. Dictation physician, Jared Rodriguez, has spent 35 minutes with this patient on the day of discharge.
[2017-11-25] MEDS: Famotidine 20 MG TAB PO SCH (20:38)
[2017-11-25 20:41] VITALS: BP 131/88
[2017-11-25] MEDS ORDERED: Oxymetazoline HCl 0.05% ( 15 ML ) NASAL SCH (21:00)
--- NOTE | 2017-11-26 07:35 | PRG ---
DATE OF SERVICE: 11/25/2017 SUBJECTIVE: Patient was seen and examined at bedside and overnight events noted. Patient denies any shortness of breath or chest pain or palpitation. No history of nausea or vomiting or diarrhea or f ever or chills or cramps. OBJECTIVE: GENERAL: This is a well-built male in no acute distress. VITAL SIGNS: Temperature 97, pulse 82, respiratory rate 18, blood pressure 183/89. HEENT: Atraumatic, normocephalic, oral mucosa is moist. NECK: Supple. CARDIOVASCULAR: S1, S2, heard. Rate and rhythm regular. RESPIRATORY: Clear to auscultation. GASTROINTESTINAL: Abdomen is soft. MUSCULOSKELETAL: No tenderness, no edema. DERMATOLOGIC: No skin rash. NEUROLOGIC: Alert and awake and oriented x3, no focal neurologic deficits. Moving all the extremiti es. PSYCHIATRIC: Mood and affect normal LABORATORY DATA: Potassium is 4.4, BUN 79, creatinine 8.02. ASSESSMENT AND PLAN: 1. End-stage renal disease, on hemodialysis. 2. Hypertension. 3. Edema. Continue on dialysis Tuesday, Tuesday, and Tuesday.
--- NOTE | 2017-11-26 19:48 | EKG ---
Test Reason : ER INDICATION Blood Pressure : / mmHG Vent. Rate : 047 BPM Atrial Rate : 063 BPM P-R Int : 000 ms QRS Dur : 110 ms QT Int : 584 ms P-R-T Axes : 013 248 145 degrees QTc Int : 516 ms Complete Heart Block Right superior axis deviation Pulmonary disease pattern T wave abnormality, consider anterolateral ischemia Prolonged QT Left ventricular hypertrophy Abnormal ECG Confirmed by KAREY ACOSTA, ALICIA Sherman ([id number]), editor map SUMAYA NAIR ([id number]) on 11/26/2017 7:48:34 PM Referred By: Confirmed By:ALICIA EDEN MD
== END 2017-11-25 20:57 | disposition home or self-care (01) | DRG 280 ==
LOC: ERS 15:20 → CCU 16:48 → 2NO 11-24 13:37
PROVIDERS: ADMIT Family Medicine; ATTEND Family Medicine
PROC: 5A1D70Z Performance of Urinary Filtration, Intermittent, Less than 6 Hours Per Day (ICD-10-PCS; principal; 2017-11-22)
PROC: 02HV33Z Insertion of Infusion Device into Superior Vena Cava, Percutaneous Approach (ICD-10-PCS; 2017-11-22)
PROC: 5A09357 Assistance with Respiratory Ventilation, Less than 24 Consecutive Hours, Continuous Positive Airway Pressure (ICD-10-PCS; 2017-11-22)
PROC: 5A1D70Z Performance of Urinary Filtration, Intermittent, Less than 6 Hours Per Day (ICD-10-PCS; 2017-11-23)
PROC: 5A1D70Z Performance of Urinary Filtration, Intermittent, Less than 6 Hours Per Day (ICD-10-PCS; 2017-11-25)
DX: I13.2 Hypertensive heart and chronic kidney disease with heart failure and with stage 5 chronic kidney disease, or end stage renal disease (principal); R57.0 Cardiogenic shock; I21.A1 Myocardial infarction type 2; J96.01 Acute respiratory failure with hypoxia; I44.2 Atrioventricular block, complete; I95.9 Hypotension, unspecified; T68.XXXA Hypothermia, initial encounter; N18.6 End stage renal disease; E87.5 Hyperkalemia; I12.0 Hypertensive chronic kidney disease with stage 5 chronic kidney disease or end stage renal disease; R00.1 Bradycardia, unspecified; E88.09 Other disorders of plasma-protein metabolism, not elsewhere classified; Z99.2 Dependence on renal dialysis; F17.210 Nicotine dependence, cigarettes, uncomplicated; R19.7 Diarrhea, unspecified; E86.0 Dehydration; E66.9 Obesity, unspecified; Z68.37 Body mass index [BMI] 37.0-37.9, adult; D63.1 Anemia in chronic kidney disease; Z79.82 Long term (current) use of aspirin; I50.9 Heart failure, unspecified
CPT/HCPCS: 36415; 36556; 71045; 71275; 80048; 80053; 80061; 80074; 82550; 82553; 82805; 83605; 83630; 83880; 84484; 85025; 85610; 85652; 85730; 86140; 87040; 87045; 87046; 87324; 87449; 87899; 90935; 93005; 93010; 93306; 94660; 94760; 96360; 96361; 96374; 99292; A4216; G0257; J0171; J0461; J1650; J1956; J2543; J3370; J7050; S0028

== ENCOUNTER 2018-12-14 10:15 | Day surgery (SDC) | payer MEDICARE, MEDICAID ==
[2018-12-13 10:47] VITALS: BMI 32.9
[2018-12-14] MEDS ORDERED: Lidocaine 1% PF 5 ML VIAL ONE (12:54)
[2018-12-14] MEDS ORDERED: PHENYLEPHRINE-NS 100 MCG/ML 10 ML SYRINGE ONE (12:54)
[2018-12-14] MEDS ORDERED: PROPOFOL 200 MG/20 ML VIAL ONE (12:54)
--- NOTE | 2018-12-14 13:48 | OP ---
DATE OF PROCEDURE: 12/14/2018 VALANCE CUTTER SURGEON: None. PROCEDURE PERFORMED: Colonoscopy with snare polypectomy. INDICATIONS: A 43-year-old man with history of colon polyps seen on last colonoscopy on 08/31/2018. Polypectomy could not be performed on that exam due to the patient's intolerance and oxygen desaturation. He is here for repeat colonoscopy with polypectomy. MEDICATIONS: See Anesthesia record. FINDINGS: After discussion of the risks, benefits, and alternatives of the procedure, informed consent was obtained and witnessed. Pre-endoscopic cardiopulmonary examination was satisfactory. Time-out was performed before sedation was achieved. Sedation was achieved with Anesthesia assistance in the endoscopy unit. Digital rectal exam was performed, which demonstrated some external hemorrhoids. A Pentax adult colonoscope was inserted into the anus and passed forward to the cecum in the usual fashion. The cecal base was identified by the appendiceal orifice as well as the ileocecal valve. The terminal ileum was not intubated. The colonoscope was slowly withdrawn in a gradual and circumferential manner with careful examination of the entire colonic mucosa. The quality of the prep was adequate. In the ascending colon, there was a 15-mm pedunculated polyp. This was completely removed with hot snare and retrieved for pathology. In the transverse colon, there was a 20-mm pedunculated polyp. This was completely removed with hot snare and retrieved for pathology. In the sigmoid colon, there was another approximately 20 mm polyp. This was also pedunculated. It was completely removed with hot snare and retrieved for pathology. There was some scattered diverticulosis noted. Retroflexion in the rectum demonstrated some internal hemorrhoids. The colonoscope was completely withdrawn and the patient allowed to recover. The patient tolerated the procedure well. There were no immediate postprocedure complications. IMPRESSION: 1. A 15-mm ascending colon polyp, completely removed with hot snare and retrieved for pathology. 2. A 20-mm transverse colon polyp, completely removed with hot snare and retrieved for pathology. 3. A 20-mm sigmoid colon polyp, completely removed with hot snare and retrieved for pathology. 4. Scattered diverticulosis. 5. Internal and external hemorrhoids. RECOMMENDATIONS: 1. Follow up pathology on the colon polyps. 2. Plan to repeat colonoscopy at a 3-year interval for surveillance. 3. Any of the patient's siblings over age 32 should also be screened for colon cancer. Job ID: [id number]
== END 2018-12-14 15:00 | disposition home or self-care (01) ==
LOC: SDC 10:15
PROVIDERS: ATTEND Internal Medicine
PROC: 0DBK8ZX Excision of Ascending Colon, Via Natural or Artificial Opening Endoscopic, Diagnostic (ICD-10-PCS; principal; 2018-12-14)
PROC: 0DBL8ZX Excision of Transverse Colon, Via Natural or Artificial Opening Endoscopic, Diagnostic (ICD-10-PCS; 2018-12-14)
PROC: 0DBN8ZX Excision of Sigmoid Colon, Via Natural or Artificial Opening Endoscopic, Diagnostic (ICD-10-PCS; 2018-12-14)
DX: D12.2 Benign neoplasm of ascending colon (principal); D12.3 Benign neoplasm of transverse colon; D12.5 Benign neoplasm of sigmoid colon; K57.30 Diverticulosis of large intestine without perforation or abscess without bleeding; K64.8 Other hemorrhoids; F17.210 Nicotine dependence, cigarettes, uncomplicated; I12.0 Hypertensive chronic kidney disease with stage 5 chronic kidney disease or end stage renal disease; N18.6 End stage renal disease; G47.33 Obstructive sleep apnea (adult) (pediatric); Z79.899 Other long term (current) drug therapy; Z99.2 Dependence on renal dialysis; Z98.890 Other specified postprocedural states
CPT/HCPCS: 88305; J2001; J2704

== ENCOUNTER 2018-12-19 17:17 | Observation (INO) | payer MEDICARE, MEDICAID ==
[~2018-12-19 17:17] MED LIST changes: -Atropine Sulfate 1 mg/10 ml Syringe ONE; -EPINEPHrine 1 MG/10 ML Abboject SYRINGE ONE; -ISOVUE-370 76%-LOCM 1 ML ONE; +PROPOFOL 200 MG/20 ML VIAL ONE
[2018-12-19 17:43] LABS: #Basophils 0.1 thou/uL (0.0-0.2); #Eosinphils 0.3 thou/uL (0.0-0.7); #Lymphocytes 1.5 thou/uL (1.20-3.40); #Monocytes 0.7 thou/uL (0.11-0.59); #Neutrophils 4.3 thou/uL (1.40-6.50); %Basophils 1.1 % (0.0-1.0); %Eosinophils 4.9 % (0.0-10.0); %Monocytes 10.6 % (0.0-10.0); %Neutrophils 61.4 % (42.0-75.0); Hemoglobin 12.5 g/dL (14.0-18.0); Mean Corpuscular HGB CONC 30.2 g/dL (32.0-36.0); Mean Corpuscular Hemoglobin 25.2 pg (27.0-31.0); Mean Corpuscular Volume 83.4 fL (78.0-98.0); Mean Platelet Volume 11.8 fL (7.4-10.4); Platelet Count 171 thou/uL (130-400); RBC Distribution Width 18.5 % (11.5-14.5); Red Blood Cell (RBC) Count 4.96 mill/uL (4.70-6.10)
[2018-12-19 18:07] LABS: ALT (SGPT) 11 U/L (8-55); AST (SGOT) 12 U/L (5-34); Albumin 3.3 g/dL (3.5-5.0); Alkaline Phosphatase 134 U/L (40-150); Anion Gap 15 mmol/L (10-20); BUN (Urea Nitrogen) 36 mg/dL (8.9-20.6); Bilirubin, Total 0.6 mg/dL (0.2-1.2); Calc. Creatinine Clearance 0 mL/min (70-130); Calcium 8.8 mg/dL (7.8-10.44); Carbon Dioxide 34 mmol/L (22-29); Chloride 100 mmol/L (98-107); Estimated GFR-MDRD 8; Glucose 79 mg/dL (70-105); Potassium 4.1 mmol/L (3.5-5.1); Protein, Total 6.3 g/dL (6.0-8.3); Sodium 145 mmol/L (136-145)
[2018-12-19 19:34] LABS: INR-International Normal Ratio 1.2; PTT 34.5 SEC (22.9-36.1); Prothrombin Time 15.4 SEC (12.0-14.7)
--- NOTE | 2018-12-19 21:27 | RAD ---
CHEST ONE VIEW 12/19/18 HISTORY: Chest pain. COMPARISON: Radiograph 11/22/17. Heart size is markedly enlarged. Moderate edema. Small effusions. No pneumothorax. IMPRESSION: Findings suggesting mild decompensated congestive heart failure. POS: [facility]
[2018-12-20] MEDS ORDERED: Zolpidem Tartrate 5 MG TAB PO PRN (00:25)
[2018-12-20] MEDS ORDERED: Acetaminophen 325 MG TAB PO PRN (00:25)
[2018-12-20] MEDS ORDERED: Ondansetron PF 4 MG/2 ML Vial IVP PRN (00:25)
[2018-12-20] MEDS ORDERED: cloNIDine 0.1 MG TAB PO PRN (00:27)
[2018-12-20] MEDS ORDERED: Promethazine HCl 25 MG/ML VIAL IM/IV PRN (02:15)
[2018-12-20] MEDS ORDERED: Ondansetron HCl/PF 4 MG/2 ML Vial IVP PRN (02:15)
--- NOTE | 2018-12-20 02:16 | CON ---
DATE OF CONSULTATION: 12/19/2018 HISTORY OF PRESENT ILLNESS: Mr. Rodriguez is a pleasant 43-year-old gentleman, whom I was asked to see by the emergency room physician secondary to rectal bleeding. He underwent a colonoscopy on 12/14 with three large polyps removed; one 14 mm in the ascending colon, one 2 cm pedunculated in the transverse colon, another 1.1 x 2 cm pedunculated in the transverse colon as well. These were all removed by hot snare polypectomy. He did well until today, when he began to have bleeding. He has passed nothing but blood, probably 10 times today. It is fairly red. There has been no associated pain. He has not been having chest pain or shortness of breath. His hemoglobin on arrival today here 12.5 at 1735 hours, white count was 7, platelets were 171. INR is 1.2. BUN and creatinine of 36 and 8.8. Sodium 145 and potassium 4.1. He has a history of end-stage renal disease, on dialysis secondary to hypertension. He dialyzes on Tuesday, Tuesday, and Tuesday. He is without complaints presently. PAST MEDICAL HISTORY: 1. End-stage renal disease, on dialysis. 2. He had gastric ulcers, which were benign with no H pylori on 11/22/2015. 3. Hypertension. PAST SURGICAL HISTORY: Includes cholecystectomy and tonsillectomy as well. ALLERGIES: NONE KNOWN. MEDICATIONS: At home, 1. Coreg. 2. Nifedipine. 3. Lasix. 4. Hydralazine. 5. Clonidine. SOCIAL HISTORY: He does not smoke. He does not drink. FAMILY HISTORY: Noncontributory. PHYSICAL EXAMINATION: VITAL SIGNS: Blood pressure 146/108, pulse has been in the 80s. He is afebrile. GENERAL: He is alert and oriented to person, place, and time. He is sitting comfortably in bed. He has no IV fluids going. NECK: Supple. LUNGS: Clear. HEART: Regular rate and rhythm without clicks or murmurs. ABDOMEN: Soft and nontender. There is no rebound or guarding. EXTREMITIES: No clubbing, cyanosis, or edema. LABORATORY STUDIES: As per HPI. ASSESSMENT: Lower gastrointestinal bleeding likely related to postpolypectomy bleed from large polyps removed on the of this month. PLAN: I have asked Operating Room to go to endoscopy now. He has not eaten since 4:00 p.m. I will do unprepped colonoscopy for control of bleeding. Job ID: [id number]
--- NOTE | 2018-12-20 02:35 | OP ---
DATE OF PROCEDURE: 12/19/2018 PROCEDURE PERFORMED: Colonoscopy with control of hemorrhage. PREPROCEDURE DIAGNOSIS: Lower gastrointestinal hemorrhage, hemoglobin 12.5, stable vital signs. He has been bleeding for 3 days. He came to the emergency room today. He underwent a colonoscopy with polypectomy with three large polyps removed, one from the transverse, one from the ascending, and one from the sigmoid and this was on 12/14. These were all over 3 cm in size, pedunculated. POSTPROCEDURE DIAGNOSES: 1. There was a polypectomy site at cecum area. Proximal colon was nonbleeding. There were two other polypectomy sites, one in the transverse and one in the sigmoid with a visible vessel. These both were injected with 1:10,000 epinephrine, 2 mL each and then clipped with hemoclips, the more distal has had 2 clips on. Both these sites had active oozing at the time of endoscopy. At the conclusion of procedure, there was no active bleeding. 2. Diverticulosis, nonbleeding. RECOMMENDATIONS: 1. H and H in the morning. Hep-Lock IV. Clear liquids. 2. Comprehensive metabolic profile in the morning. This patient is a dialysis patient. He may need to be dialyzed here tomorrow. ANESTHESIA: TIVA. DESCRIPTION OF PROCEDURE: The patient was informed of the risks, benefits, and possible complications of endoscopy including perforation, reaction to medication, aspiration as well as the indication of his control of hemorrhage from the large polypectomy sites from five days ago. The patient signed informed consent. He was brought unprepped to the endoscopy suite. He had last eaten 7 hours previously. He was sedated gradually and he remained stable throughout the procedure. The endoscope was advanced through the anal canal and gently advanced through the colon to the cecum. There was old blood but no large clots. This was irrigated with about a liter of sterile water. The polypectomy site in the very proximal ascending colon was identified. This may have been in the cecum, but no active bleeding was identified. No visible vessel seen with clot. In the ascending colon, hepatic flexure region possibly is difficult to tell. There was a visible vessel with clot. It was oozing. It was injected with 1:10,000 epinephrine and clip was placed here with hemostasis achieved. Another polypectomy site was identified in the left colon with slight oozing. It was injected with epinephrine as well and then clipped x2 with good hemostasis. At the conclusion of this, the entire colon was re-evaluated. No active bleeding sites were identified. No reaccumulation of fresh blood was noted. Retroflexed views in the rectum were normal. There were scattered diverticulosis throughout the colon. The scope was removed. The patient tolerated the procedure well. There were no complications. Job ID: [id number]
--- NOTE | 2018-12-20 03:54 | HP ---
CHIEF COMPLAINT: Bright red blood per rectum. Patient was recently having a colonoscopy and had multiple polyps removed. Patient was discharged, cleared, and stable at time of discharge, presented to the hospital with GI bleeding, bright red blood per rectum post scope. Patient had been evaluated by GI in the ER. Patient was taken to the OR for colonoscopy emergently due to the bleed. Patient otherwise states he had no other associated symptoms or complaints. No alleviating or aggravating factors noted. Patient was seen and examined. All questions answered. REVIEW OF SYSTEMS: All other systems reviewed. Pertinent positive noted in the HPI, otherwise negative. PAST MEDICAL HISTORY: Positive for CHF; hypertension; ESRD, dialysis Tuesday, Tuesday, and Tuesday; and GI bleed. ALLERGIES: NO KNOWN DRUG ALLERGIES. HOME MEDICATIONS: Coreg, p.r.n. clonidine, and nifedipine. FAMILY HISTORY: Negative. SOCIAL HISTORY: Nonsmoker and nondrinker. PHYSICAL EXAMINATION: VITAL SIGNS: Blood pressure 158/114, pulse of 84, respiratory rate of 16, temperature of 98.1, and O2 saturations of 95% on room air. GENERAL: Patient is lying in bed comfortably, in no acute distress. HEENT: Pupils equal, round, and reactive to light and accommodation. Extraocular muscles intact. Oral cavity moist and pink. NECK: Supple, mobile, and nontender. Thyroid noted. RESPIRATORY: Regular respiratory rate. No respiratory distress. Clear to auscultation bilaterally. CARDIOVASCULAR: Sinus rhythm. S1, S2. No murmurs, rubs, or gallops appreciated. ABDOMINAL: Positive bowel sounds. Soft and nontender. No rebound or guarding noted. EXTREMITIES: 2+ peripheral pulses noted. No cyanosis, clubbing, or edema. NEUROLOGICAL: Cranial nerves 2 through 12 intact. Alert and x3. LABORATORY: CBC shows normal, except for hemoglobin of 12.5. Basic metabolic panel normal, except for creatinine of 8.84. ASSESSMENT AND PLAN: 1. Gastrointestinal bleed. 2. Hypertension. 3. Anemia. 4. End-stage renal disease. 5. Metabolic bone disease. PLAN: 1. Patient to go to scope per GI to rule out GI bleed. 2. We will consult Nephrology as well for dialysis. We will trend the hemoglobin with transfusion if blood transfusion is needed. Otherwise, patient wishes to remain a full code. Further management per patient's progression through the case. Case and plan were discussed with the patient at length. He understood and agreed to this plan. Job ID: [id number]
[2018-12-20 06:59] LABS: #Basophils 0.1 thou/uL (0.0-0.2); #Eosinphils 0.3 thou/uL (0.0-0.7); #Lymphocytes 1.4 thou/uL (1.20-3.40); #Monocytes 0.8 thou/uL (0.11-0.59); #Neutrophils 6.1 thou/uL (1.40-6.50); %Basophils 1.1 % (0.0-1.0); %Lymphocytes 15.7 % (21.0-51.0); %Monocytes 9.4 % (0.0-10.0); %Neutrophils 70.7 % (42.0-75.0); Hemoglobin 10.8 g/dL (14.0-18.0); Mean Corpuscular HGB CONC 30.5 g/dL (32.0-36.0); Mean Corpuscular Hemoglobin 25.3 pg (27.0-31.0); Mean Platelet Volume 11.6 fL (7.4-10.4); Platelet Count 160 thou/uL (130-400); RBC Distribution Width 18.2 % (11.5-14.5); Red Blood Cell (RBC) Count 4.26 mill/uL (4.70-6.10); White Blood Cell (WBC) Count 8.6 thou/uL (4.8-10.8)
[2018-12-20 07:31] LABS: Anion Gap 18 mmol/L (10-20); BUN (Urea Nitrogen) 42 mg/dL (8.9-20.6); Calc. Creatinine Clearance 13 mL/min (70-130); Calcium 8.6 mg/dL (7.8-10.44); Carbon Dioxide 24 mmol/L (22-29); Chloride 100 mmol/L (98-107); Estimated GFR-MDRD 8; Glucose 74 mg/dL (70-105); Potassium 4.2 mmol/L (3.5-5.1); Sodium 138 mmol/L (136-145)
[2018-12-20] MEDS ORDERED: Carvedilol 25 MG TAB PO SCH (08:00)
[2018-12-20] MEDS ORDERED: NIFEdipine XL 90 MG TAB PO SCH (09:00)
[2018-12-20 16:00] VITALS: BMI 32.1
[2018-12-20 16:13] LABS: HBSAg Index 0.24 S/CO (0-0.99); Hep B Surf Ag Non-Reactive S/CO (NonReactive)
[2018-12-20 16:18] LABS: HBSAB Concentration 289.32 mIU/mL; Hep B Surf AB Reactive (NonReactive)
[2018-12-20 18:15] VITALS: BP 130/90; TEMP 98.5
--- NOTE | 2018-12-21 03:44 | CON ---
DATE OF CONSULTATION: 12/20/2018 CONSULTING PHYSICIAN: Chema Delatorre DO REASON FOR CONSULTATION: End-stage renal disease evaluation. REASON FOR ADMISSION: GI bleed. HISTORY OF PRESENT ILLNESS: A 43-year-old male with history of CHF, hypertension, came to the hospital with GI bleed and was evaluated by GI and had procedures done. Nephrology consult for maintenance hemodialysis. He gets dialysis on Tuesday, Tuesday, and Tuesday, dialysis for today. The patient is still weak since he has not started eating. PAST MEDICAL HISTORY: Positive for CHF, hypertension, end-stage renal disease, and GI bleed. PAST SURGICAL HISTORY: Dialysis access placement, fistula placement, and cholecystectomy. HOME MEDICATIONS: Reviewed. ALLERGIES: TO COCONUT. SOCIAL HISTORY: No smoking, alcohol, or illicit drugs. FAMILY HISTORY: No history of any kidney disease. REVIEW OF SYSTEMS: CONSTITUTIONAL: Negative for weight loss or gain, ability to conduct usual activities. SKIN: Negative for rash, itching. EYES: Negative for double vision, pain. ENT/MOUTH: Negative for nose bleeding, neck stiffness, pain, tenderness. CARDIOVASCULAR: Negative for palpitations, dyspnea on exertion, orthopnea. RESPIRATORY: Negative for shortness of breath, wheezing, cough, hemoptysis, fever or night sweats. GASTROINTESTINAL: Negative for poor appetite, abdominal pain, heartburn, nausea, vomiting, constipation, or diarrhea. GENITOURINARY: Negative for urgency, frequency, dysuria, nocturia. PHYSICAL EXAMINATION: GENERAL: Reveals a well-built male, in no apparent distress. VITAL SIGNS: Temperature 98.1, pulse 79, respiratory rate 18, and blood pressure 94/57. HEENT: Atraumatic and normocephalic. Oral mucosa is moist. NECK: Supple. CVS: S1 and S2 heard. Regular rate and rhythm. RESPIRATORY: Clear. GASTROINTESTINAL: Abdomen is soft. MUSCULOSKELETAL: 1+ edema. DERMATOLOGIC: No skin rash. NEUROLOGIC: Alert and awake. PSYCHIATRIC: Mood and affect normal. LABORATORY DATA: Hemoglobin is 11.0. Potassium is 4.2, BUN is 42, and creatinine is 9.3. ASSESSMENT AND PLAN: 1. End-stage renal disease. Continue dialysis today and then Tuesday, Tuesday, and Tuesday as tolerated. 2. Hyperkalemia, mild. 3. Edema, controlled. 4. Hypertension. 5. Anemia. Follow with GI. 6. Plan is to continue on dialysis as tolerated. Job ID: [id number]
--- NOTE | 2018-12-21 04:55 | DIS ---
DATE OF ADMISSION: 12/19/2018 DATE OF DISCHARGE: 12/20/2018 CONDITION: At the time of discharge, stable and improved. DISCHARGED DISPOSITION: Home. PRIMARY CARE PHYSICIAN: Dr. Homero Gonzales. DISCHARGE DIAGNOSES: 1. Acute gastrointestinal bleed due to post polypectomy bleeding. H and H stable now. 2. End-stage renal disease, on chronic hemodialysis. SECONDARY DISCHARGE DIAGNOSES: 1. Hypertension. 2. Recent gastrointestinal bleed, status post colonoscopy with polypectomy. DISCHARGE MEDICATIONS: As follows: 1. Carvedilol 25 p.o. b.i.d. 2. Catapres 0.1 mg p.o. p.r.n. 3. Nifedipine 90 mg daily. IN-HOUSE CONSULTATION: Gastroenterology, Dr. Greenwood. PROCEDURES DONE IN THE HOSPITAL: 1. Colonoscopy by Dr. Greenwood which showed polypectomy site bleed which was injected with epinephrine and clipped with hemoclips. Diverticulosis without bleeding was seen. 2. Maintenance hemodialysis. HISTORY OF PRESENTING ILLNESS: Mr. Rodriguez is a 43-year-old male with past medical history as mentioned above, who has recently undergone removal of 3 large polyps on 12/14/2018 due to rectal bleed; came back to the emergency room for persistent more rectal bleed for 3 days. His hemoglobin dropped down from 12.5 to 10.8 and GI was consulted and he was admitted for further evaluation and care. Please see admission history and physical dictated by Dr. Delatorre on 12/20/2018. HOSPITAL COURSE: Dr. Greenwood took the patient for colonoscopy again and he was found to have post polypectomy bleeding, which was injected with epinephrine and hemoclipped. His H and H were trended and improved and remained stable throughout. Discharge hemoglobin is 11. He is eating a regular diet. He underwent hemodialysis by his sales and merchandising associate, Dr. Charles, while in the hospital. He was seen and examined prior to discharge. PHYSICAL EXAMINATION: VITAL SIGNS: Temperature 98.1, heart rate 79, blood pressure 91/56 and 92/54. GENERAL: No acute distress. Awake, alert, and oriented x3. CHEST: Clear to auscultation bilaterally. Rate rhythm is regular. The patient will be discharged home if his blood pressure stays stable and does not drop any further, and if he does not have any evidence of dizziness or lightheadedness. Job ID: [id number]
== END 2018-12-20 18:24 | disposition home or self-care (01) ==
LOC: ERS 17:17 → ERHOLD 21:32 → 2SW 12-20 02:01
PROVIDERS: ADMIT Internal Medicine; ATTEND Internal Medicine
PROC: 0W3P8ZZ Control Bleeding in Gastrointestinal Tract, Via Natural or Artificial Opening Endoscopic (ICD-10-PCS; principal; 2018-12-19)
DX: K91.840 Postprocedural hemorrhage of a digestive system organ or structure following a digestive system procedure (principal); K57.30 Diverticulosis of large intestine without perforation or abscess without bleeding; G47.33 Obstructive sleep apnea (adult) (pediatric); I13.2 Hypertensive heart and chronic kidney disease with heart failure and with stage 5 chronic kidney disease, or end stage renal disease; N18.6 End stage renal disease; I50.9 Heart failure, unspecified; D63.1 Anemia in chronic kidney disease; F17.210 Nicotine dependence, cigarettes, uncomplicated; E88.89 Other specified metabolic disorders; E87.5 Hyperkalemia; Z79.899 Other long term (current) drug therapy; Z91.018 Allergy to other foods; Z99.2 Dependence on renal dialysis
CPT/HCPCS: 45382; 71045; 80048; 80053; 82274; 85014; 85018; 85025 ×2; 85610; 85730; 86706; 86850; 86900; 86901; 87340; 96360; 99285; G0378; 36415; 90935; G0257; J2704

== ENCOUNTER 2020-09-08 07:22 | Inpatient (IN) | payer MEDICARE, MEDICAID ==
[2020-09-08] MEDS ORDERED: Ketamine 50 MG/ML (10ML VIAL) ONE (07:35)
[2020-09-08] MEDS ORDERED: Norepinephrine 8 MG/0.9% NS 250 ML ONE (07:37)
[2020-09-08] MEDS ORDERED: EPINEPHrine 1 MG/ML AMP ONE (07:44)
[2020-09-08] MEDS ORDERED: EPINEPHrine 1 MG/10 ML Abboject SYRINGE ONE ×2 (07:45)
[2020-09-08 07:50] LABS: Actual Bicarbonate (HCO3a) 9.7 mEq/L (22-28); Analyzer IN Cardio ER; Base Excess (BEa) -18.7 mEq/L (-2.0 to +3.0); CO2 Tension 31.5 mmHg (35.0-45.0); Calcium, Ionized (arterial) 1.63 mmol/L (1.12-1.30); Carboxyhemoglobin (COHb) 1.1 gm% (0.0-3.0); Hemoglobin (Hb) 14.1 g/dL (14.0-18.0); O2 Tension (PaO2), arterial 141.7 mmHg (80.0-100.0); Potassium - ABG Lab 6.36 mmol/L (3.70-5.30)
[2020-09-08 07:51] LABS: pH, Arterial 7.11 (7.35-7.45)
[2020-09-08 07:52] LABS: ALV-art Gradient 531.925 mmHg (0-20); Peep/CPAP 7.5 cmH2O; Puncture Site RFA
[2020-09-08 07:56] LABS: Hemoglobin 13.9 g/dL (14.0-18.0); Mean Corpuscular HGB CONC 31.1 g/dL (32.0-36.0); Mean Corpuscular Hemoglobin 24.9 pg (27.0-31.0); Platelet Count 180 thou/uL (130-400); RBC Distribution Width 22.5 % (11.5-14.5); Red Blood Cell (RBC) Count 5.58 mill/uL (4.70-6.10); White Blood Cell (WBC) Count 16.5 thou/uL (4.8-10.8)
[2020-09-08 08:01] LABS: ALT (SGPT) 14 U/L (8-55); AST (SGOT) 27 U/L (5-34); Alkaline Phosphatase 168 U/L (40-110); Anion Gap 32 mmol/L (10-20); BUN (Urea Nitrogen) 35 mg/dL (8.9-20.6); Bilirubin, Total 1.9 mg/dL (0.2-1.2); Calc. Creatinine Clearance 0 mL/min (70-130); Calcium 10.5 mg/dL (7.8-10.44); Carbon Dioxide 10 mmol/L (22-29); Chloride 99 mmol/L (98-107); Globulin 4.8 g/dL (2.4-3.5); Glucose 95 mg/dL (70-105); Protein, Total 7.8 g/dL (6.0-8.3); Sodium 133 mmol/L (136-145)
[2020-09-08 08:03] LABS: INR-International Normal Ratio 2.4; Prothrombin Time 26.9 sec (12.0-14.7)
[2020-09-08 08:04] LABS: PTT 51.9 sec (22.9-36.1)
[2020-09-08 08:14] LABS: Potassium 8.1 mmol/L (3.5-5.1)
[2020-09-08 08:17] LABS: Anisocytosis MODERATE=16-30 cells (100X) (0-5/hpf); Band 2 % (5-11); Lymphocytes 11 % (21-51); MDiff Complete? YES; Monocytes 2 % (0-10); Neutrophil 85 % (42-75); Nucleated RBC 3 % (0); Platelet Morphology Comment Appears Adequate; Polychromasia MODERATE = 3-4 cells (100X) (0-2/hpf); Target Cells SLIGHT = 2-5 cells (100X) (0-1/hpf)
[2020-09-08 08:44] LABS: SARS-CoV-2 NAA Rapid Test Not Detected (NotDetected)
--- NOTE | 2020-09-08 09:07 | RAD ---
PORTABLE CHEST 1 VIEW: DATE: 09/08/2020. TIME: 8:54 AM. HISTORY: Central line placement, respiratory failure. FINDINGS/IMPRESSION: There has been interval placement of a left internal jugular central venous catheter with tip in the projection of the confluence of the brachiocephalic veins. No pneumothoraces are seen. The remainde r of the exam is otherwise stable. POS: OFF
[2020-09-08] MEDS ORDERED: Ondansetron PF 4 MG/2 ML Vial IVP PRN (09:38)
[2020-09-08] MEDS ORDERED: Senokot S 8.6-50 MG TAB PER TUBE PRN (09:38)
[2020-09-08] MEDS ORDERED: Acetaminophen 325 MG TAB PER TUBE PRN (09:38)
[2020-09-08] MEDS ORDERED: Bisacodyl 10 MG SUPP PR PRN (09:38)
[2020-09-08] MEDS ORDERED: Ventilator Sedation Protocol 1 EACH FS SCH (09:38)
[2020-09-08] MEDS ORDERED: Calcium Carbonate 500 MG ChewTAB PER TUBE PRN (09:38)
[2020-09-08] MEDS ORDERED: hydrALAZINE 20 MG/ML VIAL SLOW IVP PRN (09:38)
[2020-09-08] MEDS ORDERED: Ondansetron ODT 4 MG TAB SL PRN (09:38)
[2020-09-08] MEDS ORDERED: Propofol 1,000 MG/100 ML VIAL IV PRN (09:45)
[2020-09-08] MEDS ORDERED: Fentanyl BOLUS 250 ML IVPB PRN (09:45)
[2020-09-08] MEDS ORDERED: Morphine 2 MG/ML VIAL SLOW IVP PRN (09:45)
[2020-09-08] MEDS ORDERED: fentaNYL Citrate/PF 2,000 MCG in Sodium Chloride 0.9% 60 ML IV SCH (09:45)
[2020-09-08] MEDS ORDERED: Lorazepam 2 MG/ML VIAL SLOW IVP PRN (09:45)
[2020-09-08] MEDS ORDERED: Propofol BOLUS 1,000 MG/100 ML VIAL IV PRN (09:45)
[2020-09-08 10:00] LABS: HBSAg Index 0.15 S/CO (0-0.99); Hep B Surf Ag Non-Reactive S/CO (NonReactive)
--- NOTE | 2020-09-08 11:00 | PDOC.HHP ---
Hospitalist HPI - History of Present Illness Cardiac arrest History of Present Illness: 45-year-old -[place] male who was transferred from [place] emergency room to [facility] for higher level of treatment, patient had a cardiac arrest, patient had successful resuscitation and subsequently he was transferred here. Patient is intubated so unable to obtain any history but based on medical record early this morning he was taken to [place] emergency room, patient was unresponsive, he had no pulse and CPR was started, IV access was also obtained and patient was intubated, As per report patient had ventricular fibrillation required shock, patient was found with hyperkalemia, patient was treated with D50 with insulin, sodium bicarbonate, patient was started on amiodarone drip, Initially patient was hypotensive, after intubation chest x-ray was done which showed cardiomegaly and pulmonary vascular congestion, EKG showed A. fib, After transfer patient was evaluated by nephrology, patient was transferred to our hospital with helicopter, when I saw this patient at that time patient condition was critical, ED Course: Patient was given epinephrine drip, sodium bicarbonate, dextrose 50 in water, calcium chloride, 8 g emergency room Hospitalist ROS - Review of Systems ROS unobtainable: due to endotracheal tube - Medication Medications: Vital Signs (12 hours) Pulse BP Pulse Ox 09/08/20 09:05 78 136/117 H 94 L Weight Weight 188 lb 4.396 oz Medication Instructions Recorded Confirmed Type cloNIDine [Catapres] 0.2 mg PO TID 01/05/16 08/28/20 History Acetaminophen [Tylenol] 650 mg PO BID PRN 08/27/20 08/27/20 History Amiodarone [Cordarone] 200 mg PO BID 08/27/20 08/27/20 History Amoxicillin/Potassium Clav 500 mg PO DAILY 08/27/20 08/27/20 History [Augmentin] Apixaban [Eliquis] 2.5 mg PO BID 08/27/20 08/27/20 History Benzonatate [Tessalon] 100 mg PO TID PRN 08/27/20 08/27/20 History Lactobacillus Rhamnosus GG 1 capsule PO DAILY 08/27/20 08/27/20 History [Culturelle] Metoprolol Tartrate [Lopressor] 25 mg PO BID 08/27/20 08/27/20 History Midodrine HCl [ProAmatine] 5 mg PO TID 08/27/20 08/27/20 History Pantoprazole [Protonix] 40 mg PO BID 08/27/20 08/27/20 History Potassium Chloride [K-Dur] 40 meq PO BID 08/27/20 08/27/20 History Sevelamer Carbonate [Renvela] 3,200 mg PO TID 08/27/20 08/27/20 History Resuscitation Status - Order Detail: 09/08/20 08:50 Resuscitation Status Routine Resuscitation Status: FULL: Full Resuscitation Allergies coconut Allergy (Unknown, Verified 12/23/19 02:55) Anaphylaxis patient reported throat swells kiwi Allergy (Unknown, Verified 08/27/20 21:25) lisinopril Allergy (Unknown, Verified 08/27/20 21:25) losartan Allergy (Unknown, Verified 08/27/20 21:25) Hospitalist History - Past Medical History Other Medical History: Chronic diastolic heart failure Hypertension ESRD on hemodialysis Hypertensive heart disease Restrictive cardiomyopathy Anemia of renal disease Chronic anticoagulation Atrial fibrillation Secondary hyperparathyroidism of renal origin Education noncompliance Obesity - Past Surgical History Other Surgical History: Fistula right arm Cholecystectomy Past psychiatric history reviewed and negative - Family History Other Family History: No strong family history of premature coronary artery disease stroke or cancer - Social History Other Social History: Patient has history of smoking about 1 pack/day, no alcohol or other illicit drug abuse - Exam General Appearance: NAD, ill appearing General - other findings: Intubated Eye: PERRL, anicteric sclera ENT: normocephalic atraumatic, no oropharyngeal lesions Neck: supple Neck - other findings: Elevated JVD, left IJ central line Heart: no murmur, no gallops, irregular Respiratory - other findings: bilateral coarse breath sound Gastrointestinal: soft, non-distended, normal bowel sounds Extremities: no clubbing, 1+ LE edema Skin: normal turgor Hospitalist Results - Labs Result Diagrams: 09/08/20 07:35 09/08/20 07:35 Lab results: WBC 16.5 thou/uL (4.8-10.8) H 09/08/20 07:35 Hgb 13.9 g/dL (14.0-18.0) L 09/08/20 07:35 Hct 44.7 % (42.0-52.0) 09/08/20 07:35 MCV 80.0 fL (78.0-98.0) 09/08/20 07:35 Plt Count 180 thou/uL (130-400) 09/08/20 07:35 Band Neuts % (Manual) 2 % (5-11) L 09/08/20 07:35 ABG pH 7.11 (7.35-7.45) L* 09/08/20 07:43 ABG pCO2 31.5 mmHg (35.0-45.0) L 09/08/20 07:43 ABG pO2 141.7 mmHg (80.0-100.0) H 09/08/20 07:43 Sodium 133 mmol/L (136-145) L 09/08/20 07:35 Potassium 8.1 mmol/L (3.5-5.1) H* 09/08/20 07:35 Chloride 99 mmol/L (98-107) 09/08/20 07:35 Carbon Dioxide 10 mmol/L (22-29) L 09/08/20 07:35 BUN 35 mg/dL (8.9-20.6) H 09/08/20 07:35 Creatinine 7.75 mg/dL (0.7-1.3) H 09/08/20 07:35 Glucose 95 mg/dL (70-105) 09/08/20 07:35 Lactic Acid 13.2 mmol/L (0.5-2.2) H* 09/08/20 07:44 Calcium 10.5 mg/dL (7.8-10.44) H 09/08/20 07:35 Total Bilirubin 1.9 mg/dL (0.2-1.2) H 09/08/20 07:35 AST 27 U/L (5-34) 09/08/20 07:35 ALT 14 U/L (8-55) 09/08/20 07:35 Alkaline Phosphatase 168 U/L (40-110) H 09/08/20 07:35 Troponin I 0.057 ng/mL (< 0.028) H 09/08/20 07:35 Serum Total Protein 7.8 g/dL (6.0-8.3) 09/08/20 07:35 Albumin 3.0 g/dL (3.5-5.0) L 09/08/20 07:35 - EKG Interpretation EKG: EKG showing currently sinus rhythm first-degree AV block, LVH - Radiology Interpretation Chest x-ray Status: image reviewed by me Additional Comment: Chest x-ray after central line placement showed no complication chest x-ray after intubation showing cardiomegaly pulmonary vascular congestion Hospitalist H&P A/P - Problem (1) Metabolic acidosis Code(s): E87.2 - ACIDOSIS Status: Acute Assessment and Plan: Bicarbonate given (2) Lactic acidosis Code(s): E87.2 - ACIDOSIS Status: Acute Assessment and Plan: Due to poor perfusion (3) Type 2 myocardial infarction due to arrhythmia Code(s): I49.9 - CARDIAC ARRHYTHMIA, UNSPECIFIED; I21.A1 - MYOCARDIAL INFARCTION TYPE 2 Status: Acute Assessment and Plan: Due to demand ischemia (4) Hyperkalemia Code(s): E87.5 - HYPERKALEMIA Status: Acute Assessment and Plan: Hyperkalemia cocktail treatment given (5) Cardiac arrest Code(s): I46.9 - CARDIAC ARREST, CAUSE UNSPECIFIED Status: Acute Assessment and Plan: S/p resuscitation, cardiac arrest most likely related with ventricular fibrillation from hyperkalemia (6) Ventricular fibrillation Code(s): I49.01 - VENTRICULAR FIBRILLATION Status: Acute Assessment and Plan: Required DC shock, likely due to hyperkalemia (7) Successful cardiopulmonary resuscitation Code(s): Z92.89 - PERSONAL HISTORY OF OTHER MEDICAL TREATMENT Status: Acute (8) Acute respiratory failure with hypoxia Code(s): J96.01 - ACUTE RESPIRATORY FAILURE WITH HYPOXIA Status: Acute (9) Obesity (BMI 30-39.9) Code(s): E66.9 - OBESITY, UNSPECIFIED Status: Chronic (10) Secondary hyperparathyroidism (of renal origin) Code(s): N25.81 - SECONDARY HYPERPARATHYROIDISM OF RENAL ORIGIN Status: Chronic (11) Anemia of renal disease Code(s): N18.9 - CHRONIC KIDNEY DISEASE, UNSPECIFIED; D63.1 - ANEMIA IN CHRONIC KIDNEY DISEASE Status: Chronic (12) Hypertension Code(s): I10 - ESSENTIAL (PRIMARY) HYPERTENSION Status: Chronic (13) ESRD (end stage renal disease) on dialysis Code(s): N18.6 - END STAGE RENAL DISEASE; Z99.2 - DEPENDENCE ON RENAL DIALYSIS Status: Chronic - Plan Plan: Plan Pulmonology consulted for ventilator management Nephrology consulted for immediate hemodialysis for hyperkalemia and metabolic acidosis Hypothermia protocol after resuscitation We will closely monitor in ICU Prognosis poor DVT prophylaxis heparin 5000 units subcu twice daily GI prophylaxis Protonix 40 mg IV daily CODE STATUS full code
[2020-09-08 11:01] LABS: Troponin I 0.082 ng/mL (< 0.028)
--- NOTE | 2020-09-08 11:21 | CON ---
DATE OF CONSULTATION: HISTORY OF PRESENT ILLNESS: Malachi Rodriguez is a 45-year-old gentleman, who was transferred from [facility], after he had an episode of what appears to be a ventricular arrhythmias. He is intubated and transferred here to [facility]. Apparently, he was hypoxic. His saturations were in the 70s as per the note. Now intubated. He is on Levophed, epinephrine, and amiodarone. In the ER locally here, he was found to be in ventricular tachycardia, where he was shocked and started on amiodarone drip. He has known history of hypertension. Severe deconditioning. He has been in this hospital here numerous times. PAST MEDICAL HISTORY: Previous extensive medical history well outlined includes past medical history of end-stage renal disease, he be on dialysis. History of respiratory failure and history of hypertension. PREVIOUS SURGERIES: Access. MEDICATIONS: His home medicine from the shelter includes; 1. Catapres 0.2. 2. Protonix 40. 3. . 4. Lopressor 25. 5. Amiodarone 200 b.i.d. ALLERGIES: LISINOPRIL AND LOSARTAN. PHYSICAL EXAMINATION: GENERAL: He has proptosis. VITAL SIGNS: His temperature is 97, his respiratory rate 22, saturations are 98%, and blood pressure is elevated at 159/118. CHEST: No rhonchi or crackles. CARDIAC: Normal S1 and S2. No gallops. ABDOMEN: No masses. NEUROLOGIC: Basically, he is unresponsive. He has no sedation on board right now. LABORATORY DATA: White count 16,000, H and H 13 and 43, and platelet count is normal. X-ray shows diffuse bilateral infiltrates. His pO2 is 141, pCO2 is 31, on 100%, PEEP of 7, pressure support 10, rate of 20. Creatinine 7, bicarb 35, potassium was 8, and lactic acid 3.2. Coronavirus negative. ASSESSMENT: 1. Status post cardiac arrest, appears underlying rhythm was ventricular in nature. 2. End-stage renal disease. 3. History of cardiomyopathy. He has a history of previous cardiac arrhythmias. 4. Respiratory failure. PLAN: Labs being ordered. Vent is being adjusted. Try and wean him off his pressors. Emergency dialysis for elevated potassium. Pulmonary/Critical Care will follow while in the ICU. He has seen Dr. Espinal here in our office. We will notify him. A 45-minute critical care time. Job ID: [id number]
[2020-09-08 11:59] LABS: Lactic Acid 13.3 mmol/L (0.5-2.2)
[2020-09-08] MEDS ORDERED: Norepinephrine 8 MG/0.9% NS 250 ML IVPB SCH (12:45)
--- NOTE | 2020-09-08 13:02 | CON ---
DATE OF CONSULTATION: 09/08/2020 CONSULTING PHYSICIAN: Dr. Tanner. REASON FOR CONSULTATION: End-stage renal disease evaluation and care. REASON FOR ADMISSION: Hyperkalemia and code blue with VFib arrest and altered mentation. HISTORY OF PRESENT ILLNESS: A 45-year-old male with history of end-stage renal disease, hypertension, atrial fibrillation, congestive heart failure, came to the hospital with above complaints. The patient was at the rehab in [place] and was found to have altered mentation and was unresponsive this morning, was found to be in VFib and had CPR with shocks. His potassium was elevated at 8 and was transferred life flighted to [place] and is currently in ICU, waiting for emergent dialysis. He remains intubated. No family members available. On review of the records and talking with the outpatient dialysis, he has not missed any dialysis, last dialysis was on Tuesday. PAST MEDICAL HISTORY: Positive for; 1. End-stage renal disease. 2. Hypertension. 3. CHF. 4. Atrial fibrillation. PAST SURGICAL HISTORY: 1. Dialysis access. 2. Cholecystectomy. HOME MEDICATIONS: Reviewed. ALLERGIES: COCONUT, LISINOPRIL, AND LOSARTAN. FAMILY HISTORY: No history of kidney disease. REVIEW OF SYSTEMS: Could not be obtained as he is intubated. PHYSICAL EXAMINATION: GENERAL: This is a well-built male, intubated. HEENT: Intubated. VITAL SIGNS: Reviewed. NECK: Supple. CVS: S1, S2 heard. RESPIRATORY: Coarse. GI: Abdomen is obese. MUSCULOSKELETAL: 1+ edema. NEUROLOGICAL: Intubated. LABORATORY DATA: Potassium 8.1, BUN is 35, creatinine 7.7. Lactate is 13.2. ASSESSMENT AND PLAN: 1. End-stage renal disease. Plan to have dialysis today emergently. 2. Hyperkalemia. 3. Hyponatremia. 4. Acidosis. 5. Lactic acidosis. 6. Acute hypoxic respiratory failure, intubated. 7. Hypoalbuminemia. 8. Cardiorenal syndrome. Prognosis is poor. Plan is to have emergent dialysis, dialysis nurse notified. Orders placed and consent signed. Thank you for the consult. We will follow. Job ID: [id number]
[2020-09-08] MEDS: Amiodarone 450 MG, Admixture Fee 1 EACH in Dextrose 5% in Water 250 ML IVPB SCH (13:15)
[2020-09-08] MEDS ORDERED: Sodium Bicarb 50 MEQ/50 ML Abboject 8.4% SYRINGE ONE (13:18)
[2020-09-08] MEDS ORDERED: Calcium Chloride 1 GM/10 ML Abboject SYRINGE ONE (13:18)
[2020-09-08 14:01] LABS: Troponin I 0.172 ng/mL (< 0.028)
[2020-09-08] MEDS: Heparin 5,000 UNITS/ML VIAL SC SCH ×2 (14:30→20:45)
[2020-09-08 15:28] LABS: Potassium 4.4 mmol/L (3.5-5.1)
--- NOTE | 2020-09-08 17:22 | CON ---
DATE OF CONSULTATION: REASON FOR CONSULTATION: Ventricular event. HISTORY OF PRESENT ILLNESS: Mr. Rodriguez is a 45-year-old gentleman who is in rehab. His potassium level was 8.1. He had a ventricular event. CPR ensued. He is currently intubated and sedated. Most of the history was obtained from his mother. She states he was not feeling well recently. No significant episodes of chest pain, pressure, or other associated symptoms were present. The patient does have a previous history of 2:1 block, but again was baring episode of hyperkalemia. He currently appears to be in atrial fibrillation. PAST MEDICAL HISTORY: End-stage renal disease, hypertension. MEDICATIONS: Include; 1. Catapres. 2. Protonix. 3. Lopressor. 4. Amiodarone. ALLERGIES: LISINOPRIL, LOSARTAN. REVIEW OF SYSTEMS: Unobtainable. He is currently intubated and sedated. PHYSICAL EXAMINATION: GENERAL: He is currently intubated and sedated. VITAL SIGNS: Blood pressure 104/82, pulse 100, respirations 20. NEUROLOGIC: The patient is alert and oriented x3 with no focal neurologic deficits. HEENT: Sclerae without icterus. Mouth has moist mucous membranes with normal pallor. NECK: No JVD. Carotid upstroke brisk. No bruits bilaterally. LUNGS: Clear to auscultation with unlabored respirations. BACK: No scoliosis or kyphosis. CARDIAC: Regular rate and rhythm with normal S1 and S2. No S3 or S4 noted. No significant rubs, murmurs, thrills, or gallops noted throughout the precordium. PMI is not displaced. There is no parasternal heave. ABDOMEN: Soft, nontender, nondistended. No peritoneal signs present. No hepatosplenomegaly. No abnormal striae. EXTREMITIES: 2+ femoral and 2+ dorsalis pedis pulses. No cyanosis, clubbing, or edema. SKIN: No gross abnormalities. PERTINENT LABS: Include a hemoglobin of 13.9. Creatinine 7.75. Lactic acid level 13.2. Potassium 8.1, now down to 4.4. IMPRESSION: 1. Ventricular event. 2. End-stage renal disease. 3. Hyperkalemia. RECOMMENDATIONS: As recent demise likely secondary to hyperkalemia, his potassium level has now been normalized on dialysis. We will recommend echo with Doppler. We will await the findings on his echo. His troponin has been within the margin noted for dialysis. Again, we will await his neurologic status for any further recommendations. Job ID: [id number]
[2020-09-09] MEDS ORDERED: Sodium Chloride For Inhalation 0.9% 3 ML NEB ONE (02:00)
[2020-09-09 04:57] LABS: ALT (SGPT) 37 U/L (8-55); AST (SGOT) 78 U/L (5-34); Albumin 2.5 g/dL (3.5-5.0); Alkaline Phosphatase 151 U/L (40-110); Anion Gap 22 mmol/L (10-20); BUN (Urea Nitrogen) 28 mg/dL (8.9-20.6); Calc. Creatinine Clearance 19 mL/min (70-130); Calcium 9.5 mg/dL (7.8-10.44); Carbon Dioxide 23 mmol/L (22-29); Chloride 98 mmol/L (98-107); Globulin 4.1 g/dL (2.4-3.5); Protein, Total 6.6 g/dL (6.0-8.3); Sodium 138 mmol/L (136-145)
[2020-09-09 05:08] LABS: Glucose 30 mg/dL (70-105)
[2020-09-09] MEDS ORDERED: Dextrose 50% Abboject 50 ML SYRINGE ONE ×2 (05:11→05:59)
[2020-09-09 05:18] LABS: Anisocytosis MODERATE=16-30 cells (100X) (0-5/hpf); Band 4 % (5-11); Hemoglobin 12.1 g/dL (14.0-18.0); Lymphocytes 14 % (21-51); MDiff Complete? YES; Mean Corpuscular HGB CONC 30.8 g/dL (32.0-36.0); Mean Corpuscular Hemoglobin 24.1 pg (27.0-31.0); Mean Corpuscular Volume 78.2 fL (78.0-98.0); Mean Platelet Volume 6.7 fL (7.4-10.4); Monocytes 5 % (0-10); Neutrophil 77 % (42-75); Nucleated RBC 1 % (0); Platelet Count 173 thou/uL (130-400); RBC Distribution Width 20.9 % (11.5-14.5); Red Blood Cell (RBC) Count 5.01 mill/uL (4.70-6.10); Target Cells SLIGHT = 2-5 cells (100X) (0-1/hpf); White Blood Cell (WBC) Count 13.8 thou/uL (4.8-10.8)
[2020-09-09] MEDS: Amiodarone 450 MG, Admixture Fee 1 EACH in Dextrose 5% in Water 250 ML IVPB SCH (05:25)
[2020-09-09] MEDS ORDERED: Dextrose 5% in Water 1,000 ML IV PRN (05:45)
[2020-09-09 08:02] LABS: Actual Bicarbonate (HCO3a) 24.7 mEq/L (22-28); Base Excess (BEa) 3.4 mEq/L (-2.0 to +3.0); Calcium, Ionized (arterial) 1.17 mmol/L (1.12-1.30); Carboxyhemoglobin (COHb) 1.2 gm% (0.0-3.0); Hemoglobin (Hb) 12.8 g/dL (14.0-18.0); O2 Tension (PaO2), arterial 103.1 mmHg (80.0-100.0); Potassium - ABG Lab 4.65 mmol/L (3.70-5.30)
[2020-09-09 08:03] LABS: pH, Arterial 7.56 (7.35-7.45)
[2020-09-09 08:04] LABS: Puncture Site LRA
--- NOTE | 2020-09-09 08:08 | RAD ---
Portable frontal chest radiograph: 09/09/2020 COMPARISON: 09/08/2020 HISTORY: Ventilated patient FINDINGS: Endotracheal tube and nasogastric tube in stable position. Stable left-sided vascular emani ter, distal tip directed towards the right subclavian region as before. Stable enlargement of the cardiac silhouette, which may signify cardiomegaly and/or pericardial effusion. Small bilateral pleur al effusions are suspected. Hazy nonspecific airspace disease noted bilaterally, most prominent in the right upper lobe region and the left base. IMPRESSION: Stable lines and tubes. Enlarged cardiac silhouette with interstitial and alveolar opacit y bilaterally suggesting pulmonary edema, infectious pneumonitis, and/or aspiration.
[2020-09-09] MEDS: Dextrose 50% Abboject 50 ML SYRINGE IVP PRN (08:10)
[2020-09-09] MEDS ORDERED: ZOSYN IVPB PRN (08:19)
[2020-09-09] MEDS: Dextrose 10% in Water 1,000 ML IV SCH ×2 (08:20→18:36)
--- NOTE | 2020-09-09 08:39 | PRG ---
DATE OF SERVICE: 09/09/2020 35 minutes critical care time. SUBJECTIVE: The patient remains intubated on mechanical ventilation. He will follow commands without difficulty. OBJECTIVE: VITAL SIGNS: Temperature 99.5, pulse 101, blood pressure 104/76. He is currently on amiodarone drip. 24-hour intake 447 mL, output 2100 by dialysis. HEENT: Unremarkable. NECK: Has a left IJ central line. LUNGS: Fairly clear. CARDIAC: S1, S2. Slightly tachycardic. ABDOMEN: Soft and nontender. EXTREMITIES: Have a right forearm AV fistula. LABORATORY DATA: Sodium , potassium 5, chloride 98, CO2 of 23, BUN 28, creatinine 5.8, glucose 30, has since been given D50 and his blood sugar is now 96. pH of 7.56, pCO2 of 28, PO2 of 103 on SIMV rate 20, tidal volume 500, PEEP 5, pressure support 10, FiO2 of 40%. White blood cell count 13.8, hematocrit 39.2, and platelet count 173. IMAGING DATA: His chest x-ray demonstrates cardiomegaly with a right upper lobe infiltrate versus pulmonary edema. The pulmonary edema has improved significantly since the film yesterday. ASSESSMENT: 1. Acute respiratory failure, requiring mechanical ventilation. 2. Status post cardiac arrest, secondary to ventricular arrhythmia. 3. Likely fluid overload at the time of admission - has since improved with dialysis. 4. End-stage renal disease. PLAN: 1. Decrease respiratory rate. The patient will likely need one more session of dialysis before considering extubation. 2. I have decreased his respiratory rate on mechanical ventilation. 3. He is on Protonix for GI prophylaxis and heparin for DVT prophylaxis. He is currently on no antibiotic coverage with the supposition that most of his respiratory failure is due to fluid overload. I would anticipate extubation as early as tomorrow. Job ID: [id number]
[2020-09-09] MEDS: Pantoprazole 40 MG VIAL IVP SCH (08:43)
[2020-09-09] MEDS: Heparin 5,000 UNITS/ML VIAL SC SCH ×2 (08:45→21:02)
--- NOTE | 2020-09-09 09:16 | PRG ---
DATE OF SERVICE: 09/09/2020 SUBJECTIVE: Mr. Rodriguez is awake. He is still intubated. He is sedated. He is off all pressors. He is following commands per the nurse. OBJECTIVE: VITAL SIGNS: Blood pressure 104/76, pulse 104, respirations 20. LUNGS: Rhonchi and rales bilaterally. HEART: Irregularly regular. ABDOMEN: Soft, nontender, nondistended. EXTREMITIES: No edema. LABORATORY DATA: Hemoglobin 12.1. Creatinine 5.87, glucose 30, potassium 5.0. IMPRESSION: 1. Ventricular dysrhythmia. 2. Atrial fibrillation. 3. End-stage renal disease. RECOMMENDATIONS: Mr. Rodriguez's ventricular dysrhythmia is likely secondary to hyperkalemia. He also has atrial fibrillation. After reviewing his previous EKGs, his last EKG in the hospital was in 2018 and was in sinus rhythm. It is unknown how long he has been in atrial fibrillation. At this point, would recommend discontinuing amiodarone and continuing rate control. We will likely consider anticoagulation therapy. Glucose is being treated by primary team. Echo with Doppler has been ordered to assess LVEF. Job ID: [id number]
[2020-09-09] MEDS: Piperacillin/Tazobactam 2.25 GM in Sodium Chloride 0.9% 100 ML IVPB SCH ×2 (14:28→21:02)
--- NOTE | 2020-09-09 17:11 | PRG ---
DATE OF SERVICE: SUBJECTIVE: The patient was seen and examined at ICU, remains intubated. OBJECTIVE: GENERAL: This is a well-built male, intubated, seen in ICU. VITAL SIGNS: Temperature 99.3, pulse 122, respiratory rate 27, blood pressure 100/66. HEENT: Intubated. CV: S1 and S2 heard. Tachycardia. RESPIRATORY: Coarse. GI: Abdomen is distended. MUSCULOSKELETAL: 1+ edema. DERMATOLOGIC: No skin rash. NEUROLOGIC: Intubated. LABORATORY DATA: Hemoglobin is 12.1. Potassium 5.0, BUN is 28, creatinine is 5.87. ASSESSMENT AND PLAN: 1. End-stage renal disease, on hemodialysis. Plan is to have dialysis today for mild hyperkalemia and fluid overload. We will continue dialysis Tuesday, Tuesday, and Tuesday. We will attempt to have dialysis tomorrow too. 2. Hyperkalemia, much better. 3. Hyponatremia. 4. Acidosis. 5. Acute hypoxic respiratory failure. 6. Hypoalbuminemia. 7. Cardiorenal syndrome. 8. We will attempt to remove fluid dialysis as tolerated. 9. Severe hypoalbuminemia. We will follow. We will continue dialysis. Plan to have dialysis today and then attempt to have dialysis tomorrow too. Job ID: [id number]
[2020-09-09] MEDS: Acetaminophen 650 MG/20.3 ML UDCUP PER TUBE PRN (21:37)
[2020-09-10] MEDS: Dextrose 10% in Water 1,000 ML IV SCH ×2 (04:53→08:16)
[2020-09-10 05:36] LABS: Anion Gap 19 mmol/L (10-20); BUN (Urea Nitrogen) 27 mg/dL (8.9-20.6); Calc. Creatinine Clearance 19 mL/min (70-130); Calcium 9.3 mg/dL (7.8-10.44); Carbon Dioxide 25 mmol/L (22-29); Chloride 95 mmol/L (98-107); Glucose 94 mg/dL (70-105); Potassium 4.9 mmol/L (3.5-5.1); Sodium 134 mmol/L (136-145)
[2020-09-10] MEDS: Piperacillin/Tazobactam 2.25 GM in Sodium Chloride 0.9% 100 ML IVPB SCH ×3 (05:52→21:17)
[2020-09-10 07:25] LABS: Hemoglobin 12.1 g/dL (14.0-18.0); Mean Corpuscular HGB CONC 30.2 g/dL (32.0-36.0); Mean Corpuscular Volume 79.5 fL (78.0-98.0); Mean Platelet Volume 7.7 fL (7.4-10.4); Platelet Count 147 thou/uL (130-400); Red Blood Cell (RBC) Count 5.03 mill/uL (4.70-6.10); White Blood Cell (WBC) Count 15.2 thou/uL (4.8-10.8)
--- NOTE | 2020-09-10 07:32 | PDOC.HOSPP ---
- Subjective Encounter Date: 09/09/20 Encounter Time: 14:00 Subjective: Patient intubated awake. - Objective Vital Signs & Weight: Vital Signs (12 hours) Temp Pulse Resp Pulse Ox 09/10/20 07:12 126 H 23 H 09/09/20 23:17 114 H 24 H 95 09/09/20 22:07 99.9 F H 09/09/20 21:37 100.5 F H 09/09/20 20:00 100.5 F H 93 L Weight Admit Weight 186 lb Weight 184 lb 1.376 oz Most Recent Monitor Data Heart Rate from ECG 106 NIBP 128/94 NIBP BP-Mean 105 Respiration from ECG 35 SpO2 94 I&O: 09/09/20 09/10/20 09/11/20 06:59 06:59 06:59 Intake Total 447 2321.3 Output Total 100 0 Balance 347 2321.3 Result Diagrams: 09/10/20 04:50 09/10/20 04:50 Additional Labs: Accuchecks 09/10/20 09/09/20 09/09/20 04:59 23:38 20:53 POC Glucose 83 99 95 09/09/20 09/09/20 09/09/20 16:17 11:58 08:29 POC Glucose 88 93 127 H 09/09/20 09/09/20 07:58 05:10 POC Glucose 58 L* 30 L* Hospitalist ROS - Review of Systems Other: Patient intubated - Medication Medications: Active Medications Generic Name Dose Route Start Last Admin Trade Name Freq PRN Reason Stop Dose Admin Acetaminophen 650 mg 09/09/20 21:10 09/09/20 21:37 Acetaminophen 650 Mg/20.3 Ml Udcup PER TUBE 650 mg Q4H PRN Administration Headache/Fever or Pain Albuterol/Ipratropium 3 ml 09/08/20 19:00 09/10/20 07:12 Ipratropium/Albuterol Sulfate 3 Ml Neb NEB 3 ml [id number] MARAH Administration Dextrose/Water 25 gm 09/09/20 05:45 09/09/20 08:10 Dextrose 50% Abboject 50 Ml Syringe IVP 25 gm PRN PRN Administration HYPOGLYCEMIA PROTOCOL Heparin Sodium (Porcine) 5,000 units 09/08/20 09:38 09/09/20 21:02 Heparin 5,000 Units/Ml Vial SC 5,000 units Q12HR MARAH Administration Dextrose/Water 1,000 mls @ 100 mls/hr 09/09/20 08:15 09/10/20 04:53 Dextrose 10% In Water IV 1,000 mls .Q10H MARAH Administration Piperacillin Sod/Tazobactam 100 mls @ 200 mls/hr 09/09/20 14:00 09/10/20 05:52 Sod 2.25 gm/ Sodium Chloride IVPB 100 mls Q8HR MARAH Administration Pantoprazole Sodium 40 mg 09/09/20 09:00 09/09/20 08:43 Pantoprazole 40 Mg Vial IVP 40 mg DAILY MARAH Administration - Exam Heart: negative: RRR, no murmur, no gallops, no rubs, normal peripheral pulses, irregular, diminshed peripheral pulses, murmur present, II/IV, III/IV Respiratory: negative: CTAB, no wheezes, no rales, no ronchi, normal chest expansion, no tachypnea, normal percussion, rales, rhonchi, tachypneic, wheezes Gastrointestinal: negative: soft, non-tender, non-distended, normal bowel sounds, no palpable masses, no hepatomegaly, no splenomegaly, no bruit, no guarding, no rigidity, tender to palpation, distended, diminished bowl sounds, voluntary guarding Extremities: 1+ LE edema Hosp A/P (1) Acute respiratory failure with hypoxia Code(s): J96.01 - ACUTE RESPIRATORY FAILURE WITH HYPOXIA Status: Acute (2) Cardiac arrest Code(s): I46.9 - CARDIAC ARREST, CAUSE UNSPECIFIED Status: Acute (3) Lactic acidosis Code(s): E87.2 - ACIDOSIS Status: Acute (4) Metabolic acidosis Code(s): E87.2 - ACIDOSIS Status: Acute (5) Successful cardiopulmonary resuscitation Code(s): Z92.89 - PERSONAL HISTORY OF OTHER MEDICAL TREATMENT Status: Acute (6) Ventricular fibrillation Code(s): I49.01 - VENTRICULAR FIBRILLATION Status: Acute (7) Anemia of renal disease Code(s): N18.9 - CHRONIC KIDNEY DISEASE, UNSPECIFIED; D63.1 - ANEMIA IN CHRONIC KIDNEY DISEASE Status: Chronic (8) ESRD (end stage renal disease) on dialysis Code(s): N18.6 - END STAGE RENAL DISEASE; Z99.2 - DEPENDENCE ON RENAL DIALYSIS Status: Chronic (9) Hyperkalemia Code(s): E87.5 - HYPERKALEMIA Status: Acute - Plan Patient continues to be intubated however off sedation and is awake. Mother is at the bedside who was updated. Patient's mother states that he recently was discharged from [facility] and was treated for cellulitis, diarrhea and pneumonia. He was then transferred to the swing bed for rehabilitation. We will get records from [facility]. Electrolytes are stable status post dialysis. Will start patient on antibiotics for possible aspiration pneumonia. Patient on DVT prophylaxis.
--- NOTE | 2020-09-10 08:04 | RAD ---
Portable frontal chest radiograph: 09/10/2020 COMPARISON: 09/09/2020 HISTORY: Ventilated patient FINDINGS: The endotracheal tube has been removed. Stable left-sided vascular catheter and nasogastric tube. Stable marked prominence of the cardiac silhouette suggesting cardiomegaly and/or pericardial effusion. There is diffuse interstitial and alveolar opacity bilaterally, similar when co mpared to the prior exam. IMPRESSION: No significant interval change aside from interval removal of the endotracheal tube.
--- NOTE | 2020-09-10 08:45 | PRG ---
DATE OF SERVICE: 09/10/2020 SUBJECTIVE: I was able to extubate the patient yesterday afternoon. He remains in the ICU. He is very somnolent, but he will wake up and follow commands for me appropriately. OBJECTIVE: VITAL SIGNS: Temperature 97.7, pulse 106, blood pressure 128/94, O2 saturation 94% on nasal cannula. HEENT: Unremarkable. NECK: No JVD. LUNGS: With crackles anteriorly. CARDIOVASCULAR: S1, S2. Regular. ABDOMEN: Soft. EXTREMITIES: Edematous. LABORATORY DATA: White blood cell count 15.2, hematocrit 40, platelet count 147. Sodium 139, potassium 4.9, chloride 95, CO2 of 25, BUN 27, creatinine 5.8, glucose 94. It should be noted he is on D10 drip at 100 mL/h. His x-ray shows pulmonary edema. ASSESSMENT: 1. Status post out of hospital arrest secondary to ventricular tachycardia. 2. Chronic renal failure, requiring intermittent hemodialysis. 3. Hypoglycemia, etiology unclear. PLAN: 1. I would keep him in the ICU today. 2. Decrease the D10 as the patient is becoming fluid overloaded. 3. Dialysis is expected today. 4. Try to start an enteral tube feeds as he does not appear to be in good shape to start a diet at this time. Job ID: [id number]
[2020-09-10 09:34] LABS: Anisocytosis MODERATE=16-30 cells (100X) (0-5/hpf); Band 2 % (5-11); Hypochromia SLIGHT = 6-15 cells (100X) (0-5/hpf); Lymphocytes 6 % (21-51); MDiff Complete? YES; Monocytes 9 % (0-10); Neutrophil 82 % (42-75); Nucleated RBC 1 % (0); Platelet Morphology Comment Appears Adequate; Polychromasia MODERATE = 3-4 cells (100X) (0-2/hpf); Schistocytes SLIGHT = 2-5 cells (100X) (0-1/hpf); Target Cells MODERATE= 6-15 cells (100X) (0-1/hpf)
[2020-09-10] MEDS: Heparin 5,000 UNITS/ML VIAL SC SCH ×2 (09:56→21:18)
[2020-09-10] MEDS: Pantoprazole 40 MG VIAL IVP SCH (09:56)
--- NOTE | 2020-09-10 11:45 | PRG ---
DATE OF SERVICE: 09/10/2020 SUBJECTIVE: The patient was seen at bedside. He was extubated yesterday. He is doing dialysis today with his schedule and is tolerating well. He is more awake today. OBJECTIVE: GENERAL: This is a well-built male in no apparent distress. VITAL SIGNS: Temperature 99.9, pulse 119, respiratory rate 20, blood pressure 119/80. HEENT: Atraumatic, normocephalic. NECK: Supple. CARDIOVASCULAR: S1 and S2 heard. Regular. RESPIRATORY: Coarse breath sounds. GASTROINTESTINAL: Abdomen is distended. MUSCULOSKELETAL: 1+ edema. DERMATOLOGIC: Chronic dry skin. NEUROLOGIC: Alert and awake. LABORATORY DATA: Potassium 4.9, BUN is 27, creatinine is 5.8. ASSESSMENT AND PLAN: 1. End-stage renal disease. Continue on dialysis. The patient is seen on dialysis and tolerating well. Attempt to have dialysis with fluid removal if tolerated. The patient got extubated yesterday. 2. Acute hypoxic respiratory failure, extubated yesterday. 3. Hyperkalemia, better. Monitor and limit potassium intake. 4. Hyponatremia. Limit fluid intake. 5. Acidosis. 6. Hypoalbuminemia. 7. Cardiorenal syndrome. 8. Severe hypoalbuminemia. The patient is status post recent cardiac arrest, ventricular fibrillation arrest, ventricular dysrhythmia. The patient remains high risk for complication during dialysis, so far tolerating okay. We will continue on dialysis as tolerated. Job ID: [id number]
[2020-09-10] MEDS ORDERED: Metoprolol Tartrate 5 MG/5 ML VIAL IVP ONE (20:45)
[2020-09-10] MEDS: Acetaminophen 650 MG/20.3 ML UDCUP PER TUBE PRN (21:17)
[2020-09-11 04:58] LABS: Anion Gap 17 mmol/L (10-20); BUN (Urea Nitrogen) 25 mg/dL (8.9-20.6); Calc. Creatinine Clearance 24 mL/min (70-130); Calcium 9.1 mg/dL (7.8-10.44); Carbon Dioxide 28 mmol/L (22-29); Chloride 95 mmol/L (98-107); Glucose 67 mg/dL (70-105); Potassium 4.5 mmol/L (3.5-5.1); Sodium 135 mmol/L (136-145)
[2020-09-11 05:20] LABS: Anisocytosis MODERATE=16-30 cells (100X) (0-5/hpf); Eosinophils 1 % (0-10); Hemoglobin 12.1 g/dL (14.0-18.0); Hypochromia SLIGHT = 6-15 cells (100X) (0-5/hpf); Lymphocytes 9 % (21-51); MDiff Complete? YES; Mean Corpuscular HGB CONC 30.7 g/dL (32.0-36.0); Mean Corpuscular Hemoglobin 24.2 pg (27.0-31.0); Mean Corpuscular Volume 78.7 fL (78.0-98.0); Mean Platelet Volume 6.7 fL (7.4-10.4); Monocytes 15 % (0-10); Neutrophil 75 % (42-75); Nucleated RBC 1 % (0); Platelet Count 136 thou/uL (130-400); RBC Distribution Width 22.5 % (11.5-14.5); Red Blood Cell (RBC) Count 5.02 mill/uL (4.70-6.10); Target Cells MODERATE= 6-15 cells (100X) (0-1/hpf); White Blood Cell (WBC) Count 13.4 thou/uL (4.8-10.8)
[2020-09-11] MEDS: Piperacillin/Tazobactam 2.25 GM in Sodium Chloride 0.9% 100 ML IVPB SCH ×3 (05:48→21:53)
--- NOTE | 2020-09-11 07:39 | PRG ---
DATE OF SERVICE: 09/11/2020 SUBJECTIVE: The patient is actually much more awake and interactive today. I had a good conversation with him. OBJECTIVE: VITAL SIGNS: Temperature 98.6, pulse 117, blood pressure 122/82, O2 saturation 98%. 24-hour intake 1851, output zero by urine, but 3000 by dialysis. HEENT: Unremarkable. NECK: No adenopathy or JVD. LUNGS: Fairly clear anteriorly. CARDIAC: S1 and S2. Regular. ABDOMEN: Soft and nontender. EXTREMITIES: Very little edema. IMAGING DATA: Chest x-ray shows cardiomegaly with maybe some mild pulmonary edema. LABORATORY DATA: White blood cell count 13.4, hematocrit 39.4, and platelet count 136. Sodium 135, potassium 4.5, chloride 95, CO2 of 28, BUN 25, creatinine 4.5, glucose 67. ASSESSMENT: 1. Status post acute hypoxic respiratory failure requiring mechanical ventilation. 2. Improving pulmonary edema. 3. Status post out of hospital arrest secondary to ventricular tachycardia. 4. Chronic renal failure, requiring intermittent hemodialysis. 5. Hypoglycemia of unclear etiology. PLAN: From my standpoint, the patient is stable enough to transfer to the intermediate care unit. He is on D10 drip at 30 mL/h. Hopefully with nutrition, his blood sugars will start to improve. His pulmonary status is stable. He does not need serial x-rays from this point going forward. Job ID: [id number]
--- NOTE | 2020-09-11 08:53 | RAD ---
PORTABLE CHEST: COMPARISON: Prior day's study. HISTORY: Respiratory distress. FINDINGS: Heart size is markedly enlarged. Unchanged position of the central line. NG tube has been removed. The interstitial alveolar lung changes are felt to be similar to the prior exam. IMPRESSION: Interval removal of the nasogastric tube. Otherwise, essentially stable chest. POS: AUDREY
--- NOTE | 2020-09-11 09:07 | PDOC.HOSPP ---
- Subjective Encounter Date: 09/10/20 Encounter Time: 12:30 Subjective: Patient up in bed extubated today. - Objective Vital Signs & Weight: Vital Signs (12 hours) Temp Pulse Resp Pulse Ox 09/11/20 08:51 108 H 27 H 09/11/20 04:00 98.6 F 09/11/20 00:00 99.1 F 09/10/20 23:28 114 H 24 H 96 Weight Admit Weight 186 lb Weight 182 lb 1.629 oz Most Recent Monitor Data Heart Rate from ECG 117 NIBP 122/82 NIBP BP-Mean 95 Respiration from ECG 26 SpO2 98 I&O: 09/10/20 09/11/20 09/12/20 06:59 06:59 06:59 Intake Total 2321.3 1851.8 Output Total 0 0 Balance 2321.3 1851.8 Result Diagrams: 09/11/20 03:50 09/11/20 03:50 Additional Labs: Accuchecks 09/11/20 09/10/20 04:02 12:31 POC Glucose 66 L 101 H Hospitalist ROS - Review of Systems Cardiovascular: denies: chest pain, palpitations, orthopnea, paroxysmal noc. dyspnea, edema, light headedness, other Gastrointestinal: denies: nausea, vomiting, abdominal pain, diarrhea, constipation, melena, hematochezia, other Genitourinary: denies: dysuria, frequency, incontinence, hematuria, retention, other - Medication Medications: Active Medications Generic Name Dose Route Start Last Admin Trade Name Freq PRN Reason Stop Dose Admin Acetaminophen 650 mg 09/09/20 21:10 09/10/20 21:17 Acetaminophen 650 Mg/20.3 Ml Udcup PER TUBE 650 mg Q4H PRN Administration Headache/Fever or Pain Albuterol/Ipratropium 3 ml 09/08/20 19:00 09/11/20 08:51 Ipratropium/Albuterol Sulfate 3 Ml Neb NEB 3 ml [id number] MARAH Administration Dextrose/Water 25 gm 09/09/20 05:45 09/09/20 08:10 Dextrose 50% Abboject 50 Ml Syringe IVP 25 gm PRN PRN Administration HYPOGLYCEMIA PROTOCOL Heparin Sodium (Porcine) 5,000 units 09/08/20 09:38 09/10/20 21:18 Heparin 5,000 Units/Ml Vial SC 5,000 units Q12HR MARAH Administration Piperacillin Sod/Tazobactam 100 mls @ 200 mls/hr 09/09/20 14:00 09/11/20 05:48 Sod 2.25 gm/ Sodium Chloride IVPB 100 mls Q8HR MARAH Administration Dextrose/Water 1,000 mls @ 30 mls/hr 09/10/20 08:06 09/10/20 08:16 Dextrose 10% In Water IV 1,000 mls .Q24H MARAH Administration - Exam Neck: negative: supple, symmetric, no JVD, no thyromegaly, no lymphadenopathy, no carotid bruit, JVD Heart: negative: RRR, no murmur, no gallops, no rubs, normal peripheral pulses, irregular, diminshed peripheral pulses, murmur present, II/IV, III/IV Respiratory: negative: CTAB, no wheezes, no rales, no ronchi, normal chest expansion, no tachypnea, normal percussion, rales, rhonchi, tachypneic, wheezes Hosp A/P (1) Acute respiratory failure with hypoxia Code(s): J96.01 - ACUTE RESPIRATORY FAILURE WITH HYPOXIA Status: Acute (2) Cardiac arrest Code(s): I46.9 - CARDIAC ARREST, CAUSE UNSPECIFIED Status: Acute (3) Lactic acidosis Code(s): E87.2 - ACIDOSIS Status: Acute (4) Metabolic acidosis Code(s): E87.2 - ACIDOSIS Status: Acute (5) Successful cardiopulmonary resuscitation Code(s): Z92.89 - PERSONAL HISTORY OF OTHER MEDICAL TREATMENT Status: Acute (6) Ventricular fibrillation Code(s): I49.01 - VENTRICULAR FIBRILLATION Status: Acute (7) Anemia of renal disease Code(s): N18.9 - CHRONIC KIDNEY DISEASE, UNSPECIFIED; D63.1 - ANEMIA IN CHRONIC KIDNEY DISEASE Status: Chronic (8) ESRD (end stage renal disease) on dialysis Code(s): N18.6 - END STAGE RENAL DISEASE; Z99.2 - DEPENDENCE ON RENAL DIALYSIS Status: Chronic (9) Hyperkalemia Code(s): E87.5 - HYPERKALEMIA Status: Acute - Plan Patient continues to be intubated however off sedation and is awake. Mother is at the bedside who was updated. Patient's mother states that he recently was discharged from [facility] and was treated for cellulitis, diarrhea and pneumonia. He was then transferred to the swing bed for rehabilitation. We will get records from [facility]. Electrolytes are stable status post dialysis. Will start patient on antibiotics for possible aspiration pneumonia. Patient on DVT prophylaxis. 09/10 patient extubated today doing well so far. no records from [facility] as of yet. We will continue antibiotic for now. Will replace electrolytes. Patient to be started on a diet. D10 discontinued. Blood sugars are stable. We will start patient on a low-dose metoprolol for tachycardia. He was on amiodarone which has been discontinued by cardiology.
[2020-09-11] MEDS: Pantoprazole 40 MG GRANULES PACKET PER TUBE SCH (09:46)
[2020-09-11] MEDS: Acetaminophen 650 MG/20.3 ML UDCUP PER TUBE PRN (09:46)
[2020-09-11] MEDS: Heparin 5,000 UNITS/ML VIAL SC SCH ×2 (09:47→21:53)
[2020-09-11] MEDS: Dextrose 10% in Water 1,000 ML IV SCH (09:55)
--- NOTE | 2020-09-11 11:33 | PRG ---
DATE OF SERVICE: 09/11/2020 SUBJECTIVE: Patient was seen and examined at bedside and overnight events noted. Patient denies shortness of breath or cramps or chest pain or palpitation. No Nausea or vomiting or diarrhea or fever or chills. OBJECTIVE: GENERAL: He is a well-built male, in no apparent distress. VITAL SIGNS: Temperature 98.2, pulse 87, respiratory rate 14, blood pressure 105/70. Musculoskeletal : No tenderness, No edema HEENT: Atraumatic normocephalic Neck: Supple Cardiovascular: S1S2 heard, Rate and rhythm regular Respiratory: Clear to auscultation Gastrointestinal: Abdomen is soft Dermatologic : No skin rash Neurologic: Alert and awake and oriented X3 No focal neurologic deficits. Moving all the extremities. Psychiatric: Mood and affect normal LABORATORY DATA: Potassium 4.5, BUN is 25, creatinine is . ASSESSMENT AND PLAN: 1. End-stage renal disease. We will continue on dialysis on Tuesday, Tuesday, and Tuesday. No dialysis today. The patient's fluid overload and hyperkalemia are better. 2. Acute hypoxic respiratory failure, extubated and moved to IMCU today. 3. Hyperkalemia, better and stable. 4. Hyponatremia. 5. Acidosis. 6. Cardiorenal syndrome. 7. Severe hypoalbuminemia. PLAN: Encourage protein intake and limit fluid intake. We will continue dialysis Tuesday, Tuesday, and Tuesday. Job ID: [id number] [facility]
--- NOTE | 2020-09-11 19:09 | PDOC.HOSPP ---
- Subjective Encounter Date: 09/11/20 Encounter Time: 13:00 Subjective: Patient seen for follow-up regarding acute hypoxic respiratory failure. Denies chest pain or shortness of breath. - Objective Vital Signs & Weight: Vital Signs (12 hours) Temp Pulse Resp Pulse Ox 09/11/20 18:05 20 96 09/11/20 17:44 98.0 F 110 H 20 96 09/11/20 16:47 97.5 F L 09/11/20 13:38 118 H 29 H 09/11/20 12:00 94 L 09/11/20 08:51 108 H 27 H 09/11/20 08:00 99 Weight Admit Weight 186 lb Weight 182 lb 1.629 oz Most Recent Monitor Data Heart Rate from ECG 110 NIBP 112/91 NIBP BP-Mean 98 Respiration from ECG 38 SpO2 75 I&O: 09/10/20 09/11/20 09/12/20 06:59 06:59 06:59 Intake Total 2321.3 1851.8 500 Output Total 0 0 Balance 2321.3 1851.8 500 Result Diagrams: 09/11/20 03:50 09/11/20 03:50 Additional Labs: Accuchecks 09/11/20 09/11/20 12:03 04:02 POC Glucose 96 66 L I reviewed patient's labs and [facility] Hospitalist ROS - Review of Systems Cardiovascular: denies: chest pain, palpitations, orthopnea, paroxysmal noc. dyspnea, edema, light headedness Gastrointestinal: denies: nausea, vomiting, abdominal pain, diarrhea, constipation, melena, hematochezia - Medication Medications: Active Medications Generic Name Dose Route Start Last Admin Trade Name Freping PRN Reason Stop Dose Admin Acetaminophen 650 mg 09/09/20 21:10 09/11/20 09:46 Acetaminophen 650 Mg/20.3 Ml Udcup PER TUBE 650 mg Q4H PRN Administration Headache/Fever or Pain Albuterol/Ipratropium 3 ml 09/08/20 19:00 09/11/20 13:38 Ipratropium/Albuterol Sulfate 3 Ml Neb NEB 3 ml [id number] MARAH Administration Dextrose/Water 25 gm 09/09/20 05:45 09/09/20 08:10 Dextrose 50% Abboject 50 Ml Syringe IVP 25 gm PRN PRN Administration HYPOGLYCEMIA PROTOCOL Heparin Sodium (Porcine) 5,000 units 09/08/20 09:38 09/11/20 09:47 Heparin 5,000 Units/Ml Vial SC 5,000 units Q12HR MARAH Administration Piperacillin Sod/Tazobactam 100 mls @ 200 mls/hr 09/09/20 14:00 09/11/20 14:53 Sod 2.25 gm/ Sodium Chloride IVPB 100 mls Q8HR MARAH Administration Dextrose/Water 1,000 mls @ 30 mls/hr 09/10/20 08:06 09/11/20 09:55 Dextrose 10% In Water IV 1,000 mls .Q24H MARAH Administration Pantoprazole Sodium 40 mg 09/11/20 09:00 09/11/20 09:46 Pantoprazole 40 Mg Granules Packet PER TUBE 40 mg DAILY MARAH Administration - Exam General Appearance: awake alert ENT: moist mucosa Neck: supple Heart: RRR Respiratory: CTAB Gastrointestinal: soft Skin: no rashes Psychiatric: normal affect Hosp A/P - Plan - Assessment (1) Acute respiratory failure with hypoxia Code(s): J96.01 - ACUTE RESPIRATORY FAILURE WITH HYPOXIA Status: Acute (2) Lactic acidosis Code(s): E87.2 - ACIDOSIS Status: Acute (3) Metabolic acidosis Code(s): E87.2 - ACIDOSIS Status: Acute (4) Successful cardiopulmonary resuscitation Code(s): Z92.89 - PERSONAL HISTORY OF OTHER MEDICAL TREATMENT Status: Acute (5) Ventricular fibrillation Code(s): I49.01 - VENTRICULAR FIBRILLATION Status: Acute (6) Anemia of renal disease Code(s): N18.9 - CHRONIC KIDNEY DISEASE, UNSPECIFIED; D63.1 - ANEMIA IN CHRONIC KIDNEY DISEASE Status: Chronic (7) ESRD (end stage renal disease) on dialysis Code(s): N18.6 - END STAGE RENAL DISEASE; Z99.2 - DEPENDENCE ON RENAL DIALYSIS Status: Chronic (8) Hyperkalemia Code(s): E87.5 - HYPERKALEMIA Status: Resolved (9) Cardiac arrest Code(s): I46.9 - CARDIAC ARREST, CAUSE UNSPECIFIED Status: Resolved - Plan Was extubated yesterday, moved to [facility]. Dialysis per nephrology service. Hyponatremia mild, likely asymptomatic. COVID-19 test negative. Continue Zosyn.
[2020-09-12] MEDS: Acetaminophen 650 MG/20.3 ML UDCUP PER TUBE PRN (02:56)
[2020-09-12] MEDS: Piperacillin/Tazobactam 2.25 GM in Sodium Chloride 0.9% 100 ML IVPB SCH ×3 (05:45→22:25)
[2020-09-12 06:25] LABS: Anion Gap 20 mmol/L (10-20); BUN (Urea Nitrogen) 38 mg/dL (8.9-20.6); Calc. Creatinine Clearance 18 mL/min (70-130); Carbon Dioxide 24 mmol/L (22-29); Chloride 94 mmol/L (98-107); Glucose 76 mg/dL (70-105); Potassium 4.7 mmol/L (3.5-5.1); Sodium 133 mmol/L (136-145)
[2020-09-12 06:45] LABS: Band 1 % (5-11); Hemoglobin 12.6 g/dL (14.0-18.0); Lymphocytes 14 % (21-51); MDiff Complete? YES; Mean Corpuscular Hemoglobin 25.9 pg (27.0-31.0); Mean Corpuscular Volume 78.5 fL (78.0-98.0); Mean Platelet Volume 6.4 fL (7.4-10.4); Monocytes 12 % (0-10); Neutrophil 73 % (42-75); Platelet Count 121 thou/uL (130-400); Platelet Morphology Comment Appears Adequate; RBC Distribution Width 22.4 % (11.5-14.5); Red Blood Cell (RBC) Count 4.88 mill/uL (4.70-6.10)
[2020-09-12] MEDS ORDERED: Midazolam HCl 2 mg/2 ml Vial ONE (07:16)
[2020-09-12] MEDS ORDERED: Fentanyl 100 MCG/2 ML VIAL ONE (07:16)
--- NOTE | 2020-09-12 07:48 | PRG ---
DATE OF SERVICE: 09/11/2020 SUBJECTIVE: Mr. Rodriguez has been extubated. He is confused. He has no current complaints. He continues to be in atrial fibrillation likely chronic. OBJECTIVE: VITAL SIGNS: Blood pressure 123/99, pulse 110, respirations 20. LUNGS: Clear to auscultation. HEART: Irregular regular. ABDOMEN: Soft, nontender, nondistended. EXTREMITY: Edema. PERTINENT LABORATORY DATA: Hemoglobin 12.6, hematocrit 38.3. Creatinine 4.64. Sodium 135. Echo with Doppler shows LVEF 30% to 35% with RV pressure overload. [id number] LVH present. IMPRESSION: 1. Ventricular tachycardia. 2. Hyperkalemia. 3. Cardiomyopathy. 4. End-stage renal disease. RECOMMENDATIONS: Mr. Rodriguez is at high risk for underlying coronary artery disease. His LVEF is diminished. He has underlying atrial fibrillation. Based on his recent presentation, this could certainly be due to hyperkalemia, but cannot completely exclude ischemia. We therefore recommend coronary angiography plus PCI. The patient is not able to consent. Discussed the procedure in full detail with his mother at 6:30 on 09/11/2020. The risks of the procedure were also discussed. The risks of the procedure include but are not limited to the following: , stroke, [place], need for emergency surgery, loss of limb, bleeding, and infection, as well as a reaction to the dye causing kidney failure and needing long-term dialysis. I also discussed the risks of PCI to include all of the above including coronary dissection and perforation in addition to acute stent thrombosis and restenosis. All questions about the procedure were answered. Given the above, the patient's mother agreed to proceed with above procedure. She does state there are no contraindications and he can be compliant with medical therapy. So we will proceed with a drug coated stent placement if needed. Job ID: [id number]
[2020-09-12] MEDS: Dextrose 50% Abboject 50 ML SYRINGE IVP PRN ×2 (09:33→16:51)
--- NOTE | 2020-09-12 09:59 | PRG ---
DATE OF SERVICE: SUBJECTIVE: The patient had a cardiac catheterization this morning which was negative. His echo shows EF of 30% to 35%, and he has a moderate amount of left ventricular hypertrophy. He is somnolent after the catheterization. He is currently receiving hemodialysis. OBJECTIVE: VITAL SIGNS: Temperature 97.8, pulse 104, blood pressure 111/89, O2 saturation 99%. HEENT: Unremarkable. NECK: No adenopathy or JVD. LUNGS: Clear anteriorly. CARDIAC: S1 and S2, regular. ABDOMEN: Soft. EXTREMITIES: No edema. LABORATORY DATA: White blood cell count 9, hematocrit 38.3, and platelet count 121. Sodium 133, potassium 4.7, chloride 94, CO2 of 24, BUN 38, creatinine 6.1, glucose 76. ASSESSMENT: 1. Status post cardiopulmonary arrest. 2. Status post respiratory failure requiring mechanical ventilation. 3. End-stage renal disease. 4. Hypoglycemia of unclear etiology. PLAN: The patient is stable in the IMCU. He is on antibiotics per Internal Medicine. His respiratory status is stable. He may need enteral tube feeds. Job ID: [id number]
[2020-09-12] MEDS: Heparin 5,000 UNITS/ML VIAL SC SCH (10:27)
[2020-09-12] MEDS ORDERED: Nitroglycerin 0.4 MG TAB (25 Tab Bottle) SL PRN (10:52)
[2020-09-12] MEDS ORDERED: Sodium Chloride 0.9% 200 ML IV PRN (10:52)
[2020-09-12] MEDS ORDERED: Acetaminophen/Codeine 30-300mg Tablet PO PRN (10:52)
[2020-09-12] MEDS ORDERED: Heparin 10,000 UNITS/ 10 ML VIAL SLOW IVP SCH (11:00)
[2020-09-12 11:26] LABS: Hemoglobin 12.8 g/dL (14.0-18.0); Platelet Count 116 thou/uL (130-400)
[2020-09-12] MEDS: Pantoprazole 40 MG GRANULES PACKET PER TUBE SCH (12:28)
[2020-09-12] MEDS: Dextrose 10% in Water 1,000 ML IV SCH (12:46)
[2020-09-12] MEDS ORDERED: Iopamidol 370 76% 100 ML VIAL ONE (12:52)
--- NOTE | 2020-09-12 15:17 | PDOC.HOSPP ---
- Subjective Encounter Date: 09/12/20 Encounter Time: 07:00 Subjective: Patient seen for follow-up regarding acute hypoxic respiratory failure. Sleepy but arousable, not talking, could not complete review of systems. - Objective Vital Signs & Weight: Vital Signs (12 hours) Temp Pulse Resp Pulse Ox 09/12/20 13:03 98.1 F 18 97 09/12/20 12:27 96.5 F L 09/12/20 10:52 98.3 F 106 H 22 H 09/12/20 08:00 97 09/12/20 04:00 97.8 F 24 H 95 Weight Admit Weight 188 lb 4.396 oz Weight 183 lb Most Recent Monitor Data Heart Rate from ECG 110 NIBP 121/92 NIBP BP-Mean 101 Respiration from ECG 27 SpO2 80 I&O: 09/11/20 09/12/20 09/13/20 06:59 06:59 06:59 Intake Total 1851.8 1700 860 Output Total 0 0 Balance 1851.8 1700 860 Result Diagrams: 09/12/20 11:09 09/12/20 05:40 Additional Labs: Accuchecks 09/12/20 09/12/20 09/11/20 09:15 04:03 23:46 POC Glucose 68 L 102 H 92 09/11/20 09/11/20 09/10/20 20:12 17:26 21:35 POC Glucose 73 76 86 09/10/20 09/10/20 09/10/20 16:39 16:37 08:26 POC Glucose 68 L 39 L* 78 Labs and MAR reviewed by me EKG Reviewed by me: Yes (Telemetry shows normal sinus rhythm) Hospitalist ROS - Review of Systems ROS unobtainable: due to mental status - Medication Medications: Active Medications Generic Name Dose Route Start Last Admin Trade Name Freq PRN Reason Stop Dose Admin Acetaminophen 650 mg 09/09/20 21:10 09/12/20 02:56 Acetaminophen 650 Mg/20.3 Ml Udcup PER TUBE 650 mg Q4H PRN Administration Headache/Fever or Pain Albuterol/Ipratropium 3 ml 09/08/20 19:00 09/12/20 06:53 Ipratropium/Albuterol Sulfate 3 Ml Neb NEB Not Given [id number] MARAH Dextrose/Water 25 gm 09/09/20 05:45 09/12/20 09:33 Dextrose 50% Abboject 50 Ml Syringe IVP 25 gm PRN PRN Administration HYPOGLYCEMIA PROTOCOL Piperacillin Sod/Tazobactam 100 mls @ 200 mls/hr 09/09/20 14:00 09/12/20 05:45 Sod 2.25 gm/ Sodium Chloride IVPB 100 mls Q8HR MARAH Administration Dextrose/Water 1,000 mls @ 30 mls/hr 09/10/20 08:06 09/12/20 12:46 Dextrose 10% In Water IV 1,000 mls .Q24H MARAH Administration Pantoprazole Sodium 40 mg 09/11/20 09:00 09/12/20 12:28 Pantoprazole 40 Mg Granules Packet PER TUBE 40 mg DAILY MARAH Administration - Exam Eye: anicteric sclera ENT: moist mucosa Neck: supple Heart: RRR Respiratory: CTAB Gastrointestinal: soft, non-tender Skin: no rashes Psychiatric: normal affect, normal behavior Hosp A/P - Plan - Assessment (1) Acute respiratory failure with hypoxia Code(s): J96.01 - ACUTE RESPIRATORY FAILURE WITH HYPOXIA Status: Acute (2) Lactic acidosis Code(s): E87.2 - ACIDOSIS Status: Acute (3) Metabolic acidosis Code(s): E87.2 - ACIDOSIS Status: Acute (4) Successful cardiopulmonary resuscitation Code(s): Z92.89 - PERSONAL HISTORY OF OTHER MEDICAL TREATMENT Status: Acute (5) Ventricular fibrillation Code(s): I49.01 - VENTRICULAR FIBRILLATION Status: Acute (6) Anemia of renal disease Code(s): N18.9 - CHRONIC KIDNEY DISEASE, UNSPECIFIED; D63.1 - ANEMIA IN CHRONIC KIDNEY DISEASE Status: Chronic (7) ESRD (end stage renal disease) on dialysis Code(s): N18.6 - END STAGE RENAL DISEASE; Z99.2 - DEPENDENCE ON RENAL DIALYSIS Status: Chronic (8) Hyperkalemia Code(s): E87.5 - HYPERKALEMIA Status: Resolved (9) Cardiac arrest Code(s): I46.9 - CARDIAC ARREST, CAUSE UNSPECIFIED Status: Resolved - Plan Patient clinically improving. Nephrology service following for maintenance dialysis. Patient had cardiac catheterization, no significant coronary artery disease. EP service consulted. Hyponatremia mild, likely asymptomatic. COVID-19 test negative. Patient is on Zosyn.
[2020-09-12] MEDS: Heparin 25,000 units/D5W 500 ML IVPB SCH (16:00)
--- NOTE | 2020-09-12 17:51 | PRG ---
DATE OF SERVICE: 09/12/2020 SUBJECTIVE: Patient was seen and examined at bedside and overnight events noted. Patient denies any shortness of breath or chest pain or palpitation. No history of nausea or vomiting or diarrhea or fever or chills or cramps. OBJECTIVE: GENERAL: This is a well-built male, in no apparent distress. VITAL SIGNS: Temperature 96.9. Heart Rate 112. Respiratory rate 20. Blood pressure 114/82. HEENT: Atraumatic, normocephalic. Oral mucosa is moist. NECK: Supple. CARDIOVASCULAR: S1, S2 heard. Rate and rhythm regular. RESPIRATORY: Clear to auscultation. GASTROINTESTINAL: Abdomen is soft. MUSCULOSKELETAL: No tenderness. No edema. DERMATOLOGIC: No skin rash. NEUROLOGIC: Alert and awake and oriented x3. No focal neurologic deficits. Moving all the extremities. PSYCHIATRIC: Mood and affect normal. LABORATORY DATA: Potassium 4.7, BUN is 38, creatinine is 6.1. ASSESSMENT AND PLAN: 1. End-stage renal disease. Continue dialysis Tuesday, Tuesday, and Tuesday. 2. Acute hypoxic respiratory failure. 3. Hyperkalemia. 4. Hyponatremia. 5. Acidosis. 6. Cardiorenal syndrome. 7. Severe hypoalbuminemia. We will continue dialysis Tuesday, Tuesday, and Tuesday as tolerated. Job ID: [id number]
--- NOTE | 2020-09-12 18:28 | CON ---
DATE OF CONSULTATION: 09/12/2020 REASON FOR CONSULTATION: I am seeing Mr. Rodriguez at our [facility] ICU for electrophysiology consultation. His problems are: 1. Recurrent ventricular arrest. a. Current admission after resuscitated cardiac arrest in the setting of hyperkalemia at 8.1. 2. Chronic atrial fibrillation. 3. Chronic systolic congestive heart failure with nonischemic cardiomyopathy. a. History of reduced LVEF at 35% to 40% in 2013, currently 30% to 35%, myketbzq-pj-ifwvzh concentric LVH, culp-ob-hxtynssg MR, moderate pulmonary pressure elevation. b. Left heart catheterization from 09/08/2020 demonstrates mild distal vessel disease only. 4. History of 2:1 AV block in the setting of electrolyte abnormalities in the past. 5. End-stage renal disease, on hemodialysis. 6. History of a gastrointestinal polypectomy and related GI bleed in the past. 7. History of anemia of renal disease. ALLERGIES: COCONUT, KIWI, LISINOPRIL, AND LOSARTAN. MEDICATIONS: At home, included: 1. Catapres. 2. Protonix. 3. Potassium chloride. 4. ProAmatine. 5. Lopressor. 6. Culturelle. 7. Tessalon. 8. Eliquis. 9. Augmentin. 10. Amiodarone 200 mg twice a day. 11. Tylenol. 12. Renvela. SUBJECTIVE: Mr. Rodriguez still has some moderate confusion. He is alert and oriented x2 only. He has been on rehab facility in [place], where he went to hemodialysis for [facility]. While he was being transferred for dialysis, he had developed sudden cardiac arrest, requiring resuscitation, CPR, intubation. The patient was defibrillated, something might be hyperkalemic, which treated with D50 and insulin and sodium bicarb. Amiodarone drip was initiated. He was also hypotensive, requiring pressors. He was evaluated in our facility and treated with emergent dialysis. His potassium levels improved. He was also extubated on 09/09/2020. Since then, his mental status gradually improved, but still not completely fully recovered yet. He has no recollection of the events. He has no PND or orthopnea. No lower extremity edema. No fever, chills, or cough. No stroke-like symptoms. No neurological deficits. Respiratory system otherwise unremarkable. PAST MEDICAL HISTORY: As above. SOCIAL HISTORY: The patient denies current history of smoking, EtOH, or drug abuse. FAMILY HISTORY: Not contributory. OBJECTIVE DATA: VITAL SIGNS: Blood pressure 115/96, heart rate 105, respiratory rate is 26, and temperature 98.1 degrees Fahrenheit. GENERAL: This is an alert and oriented man, x2 only, in no apparent distress. NECK: Supple. Jugular veins not distended. CHEST: Coarse without crackles. HEART: Sounds are irregularly irregular. S1 is variable. No murmur or gallop. ABDOMEN: Benign. Bowel sounds positive. EXTREMITIES: Lower extremities without edema, clubbing, or cyanosis. Right upper extremity AV fistula is noted for dialysis access. NEUROLOGIC: The patient is nonfocal. MUSCULOSKELETAL: Without joint swelling or deformities. SKIN: Without rash. DATABASE: EKG is reviewed, revealing ongoing atrial fibrillation, narrow QRS, nonspecific ST-T changes. EKG from 09/08/2020 reveals atrial fibrillation, nonspecific interventricular conduction delay, prolonged QT interval with QTc 524 milliseconds, QRS duration is 160 milliseconds. LABORATORY DATA: White cell count is 9, hemoglobin 12.6, and platelet count is 121. INR 2.4 on 09/08. ABG, pH 7.56, PO2 of 103, and pCO2 of 28. Sodium 133, potassium 4.7, BUN is 38, and creatinine 6.13. COVID serology was negative. Chest x-ray shows no pneumothorax, stable exam. ASSESSMENT AND PLAN: Mr. Rodriguez is a 45-year-old man with prior history of end-stage renal disease, persisting atrial fibrillation. He presented after ventricular fibrillation arrest in the setting of extreme hyperkalemia. He also was noted to have severely reduced left ventricular ejection fraction, worsened since the prior echo back in 2012. He has only nonobstructive coronary artery disease. Even though, this current event seems to be provoked by marked hyperkalemia. He seems to have difficult time to achieving adequate potassium level. Also his reduced LVEF output in the range of where ICD implant should be highly advised despite of his end-stage renal disease. At this point, I would like to have further improvement in his mental status prior to proceeding with implant, discussed with his family and consider near date. Thank you again for allowing me to participate in the care of this patient. Job ID: [id number] [facility]
[2020-09-13] MEDS: Lorazepam 2 MG/ML VIAL SLOW IVP PRN ×2 (00:29→09:10)
[2020-09-13 04:28] LABS: Anion Gap 17 mmol/L (10-20); BUN (Urea Nitrogen) 26 mg/dL (8.9-20.6); Calc. Creatinine Clearance 24 mL/min (70-130); Calcium 8.7 mg/dL (7.8-10.44); Carbon Dioxide 26 mmol/L (22-29); Chloride 97 mmol/L (98-107); Glucose 93 mg/dL (70-105); Potassium 3.7 mmol/L (3.5-5.1); Sodium 136 mmol/L (136-145)
[2020-09-13 05:01] LABS: Eosinophils 4 % (0-10); Hemoglobin 12.4 g/dL (14.0-18.0); Hypochromia SLIGHT = 6-15 cells (100X) (0-5/hpf); Lymphocytes 11 % (21-51); MDiff Complete? YES; Mean Corpuscular HGB CONC 31.2 g/dL (32.0-36.0); Mean Corpuscular Hemoglobin 24.6 pg (27.0-31.0); Mean Corpuscular Volume 78.9 fL (78.0-98.0); Monocytes 10 % (0-10); Neutrophil 75 % (42-75); Platelet Count 117 thou/uL (130-400); Platelet Morphology Comment Appears Adequate; RBC Distribution Width 22.9 % (11.5-14.5); Red Blood Cell (RBC) Count 5.04 mill/uL (4.70-6.10); White Blood Cell (WBC) Count 7.4 thou/uL (4.8-10.8)
[2020-09-13] MEDS: Piperacillin/Tazobactam 2.25 GM in Sodium Chloride 0.9% 100 ML IVPB SCH ×3 (07:35→22:40)
[2020-09-13] MEDS: Dextrose 10% in Water 1,000 ML IV SCH (09:10)
[2020-09-13] MEDS: Pantoprazole 40 MG GRANULES PACKET PER TUBE SCH (09:10)
--- NOTE | 2020-09-13 16:01 | PRG ---
DATE OF SERVICE: 09/13/2020 SUBJECTIVE: Mr. Rodriguez has been extubated. He is still confused and is talking about going fishing. He is having moderate amount of pain in his right leg with a posterior ulcer. He denies any cough or sputum, fevers or chills. OBJECTIVE: VITAL SIGNS: Blood pressure today 127/103, receiving oxygen 4 L cannula, heart rate 117. He is afebrile. GENERAL: Confused. HEENT: Shows no adenopathy. He has no JVD. LUNGS: Show rhonchi, but no wheezing. HEART: Regular rate and rhythm. ABDOMEN: Soft. He has an ulcer with bandage over the posterior portion of the right lower calf. 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 LABORATORY DATA: None today. IMPRESSION: 1. Status post cardiopulmonary arrest with resuscitation. 2. End-stage renal disease, on hemodialysis. 3. Known cardiomyopathy with ejection fraction of approximately 30% to 35%. 4. Altered mentation. PLAN: Dialysis will be at the direction of the Nephrology Service. He has also been seen in the consultation by the Cardiology Service and is receiving empiric antibiotics for possible infection as a precipitating cause. We will continue current therapies. Job ID: [id number]
--- NOTE | 2020-09-13 16:10 | PDOC.HOSPP ---
- Subjective Encounter Date: 09/13/20 Encounter Time: 10:00 Subjective: Patient seen for follow-up regarding acute encephalopathy. Confused today, occasionally agitated. - Objective Vital Signs & Weight: Vital Signs (12 hours) Temp Pulse Resp BP Pulse Ox 09/13/20 15:20 97.7 F 117 H 20 127/103 H 97 09/13/20 11:51 97.7 F 124 H 20 93 L 09/13/20 08:00 96 09/13/20 07:47 97.5 F L 122 H 20 114/97 H Weight Admit Weight 188 lb 4.396 oz Weight 173 lb 8.061 oz Most Recent Monitor Data Heart Rate from ECG 123 NIBP 121/104 NIBP BP-Mean 109 Respiration from ECG 29 SpO2 92 I&O: 09/12/20 09/13/20 09/14/20 06:59 06:59 06:59 Intake Total 1700 2048.4 776 Output Total 0 3000 Balance 1700 -951.6 776 Result Diagrams: 09/13/20 03:50 09/13/20 03:50 Additional Labs: Accuchecks 09/13/20 09/13/20 09/13/20 15:55 12:10 08:50 POC Glucose 61 L 87 81 09/13/20 03:47 POC Glucose 94 I reviewed patient's labs and MAR EKG Reviewed by me: Yes (Normal sinus rhythm on telemetry) Hospitalist ROS - Review of Systems ROS unobtainable: due to mental status - Medication Medications: Active Medications Generic Name Dose Route Start Last Admin Trade Name Freq PRN Reason Stop Dose Admin Acetaminophen 650 mg 09/09/20 21:10 09/12/20 02:56 Acetaminophen 650 Mg/20.3 Ml Udcup PER TUBE 650 mg Q4H PRN Administration Headache/Fever or Pain Albuterol/Ipratropium 3 ml 09/08/20 19:00 09/13/20 15:22 Ipratropium/Albuterol Sulfate 3 Ml Neb NEB Not Given [id number] MARAH Dextrose/Water 25 gm 09/09/20 05:45 09/12/20 16:51 Dextrose 50% Abboject 50 Ml Syringe IVP 25 gm PRN PRN Administration HYPOGLYCEMIA PROTOCOL Heparin Sodium (Porcine) 0 units 09/12/20 11:00 09/12/20 15:59 Heparin 10,000 Units/ 10 Ml Vial SLOW IVP 4,000 unit ASDIR MARAH Administration Protocol Piperacillin Sod/Tazobactam 100 mls @ 200 mls/hr 09/09/20 14:00 09/13/20 13:07 Sod 2.25 gm/ Sodium Chloride IVPB 100 mls Q8HR MARAH Administration Dextrose/Water 1,000 mls @ 30 mls/hr 09/10/20 08:06 09/13/20 09:10 Dextrose 10% In Water IV 1,000 mls .Q24H MARAH Administration Heparin Sodium/Dextrose 500 mls @ 0 mls/hr 09/12/20 14:00 09/12/20 16:00 Heparin 25,000 Units/D5w IVPB 500 mls INF MARAH Administration Protocol Per Protocol Lorazepam 1 mg 09/13/20 00:12 09/13/20 09:10 Lorazepam 2 Mg/Ml Vial SLOW IVP 1 mg Q4H PRN Administration Anxiety/Agitation Pantoprazole Sodium 40 mg 09/11/20 09:00 09/13/20 09:10 Pantoprazole 40 Mg Granules Packet PER TUBE 40 mg DAILY MARAH Administration Sodium Chloride 10 ml 09/12/20 21:00 09/13/20 09:11 Flush - Normal Saline 10 Ml Syringe IVF 10 ml Q12HR MARAH Administration - Exam General Appearance: awake alert ENT: normocephalic atraumatic Neck: no thyromegaly Respiratory: CTAB Gastrointestinal: soft Skin - other findings: Lesion as documented Psychiatric - other findings: Unable to assess Hosp A/P - Plan - Assessment (1) Acute respiratory failure with hypoxia Code(s): J96.01 - ACUTE RESPIRATORY FAILURE WITH HYPOXIA Status: Acute (2) Lactic acidosis Code(s): E87.2 - ACIDOSIS Status: Acute (3) Metabolic acidosis Code(s): E87.2 - ACIDOSIS Status: Acute (4) Successful cardiopulmonary resuscitation Code(s): Z92.89 - PERSONAL HISTORY OF OTHER MEDICAL TREATMENT Status: Acute (5) Ventricular fibrillation Code(s): I49.01 - VENTRICULAR FIBRILLATION Status: Acute (6) Anemia of renal disease Code(s): N18.9 - CHRONIC KIDNEY DISEASE, UNSPECIFIED; D63.1 - ANEMIA IN CHRONIC KIDNEY DISEASE Status: Chronic (7) ESRD (end stage renal disease) on dialysis Code(s): N18.6 - END STAGE RENAL DISEASE; Z99.2 - DEPENDENCE ON RENAL DIALYSIS Status: Chronic (8) Hyperkalemia Code(s): E87.5 - HYPERKALEMIA Status: Resolved (9) Cardiac arrest Code(s): I46.9 - CARDIAC ARREST, CAUSE UNSPECIFIED Status: Resolved - Plan Patient continues to be confused and agitated. Continues dialysis per nephrology service. Appreciate cardiology and EP services input. Hyponatremia mild, likely asymptomatic. COVID-19 test negative. Continue Zosyn.
--- NOTE | 2020-09-13 17:00 | PRG ---
DATE OF SERVICE: 09/13/2020 SUBJECTIVE: Patient was seen and examined at bedside and overnight events noted. Patient denies any shortness of breath or chest pain or palpitation. No history of nausea or vomiting or diarrhea or fever or chills or cramps. OBJECTIVE: GENERAL: This is a well-built male, in no apparent distress. VITAL SIGNS: Temperature 97.7. Heart rate 117. Respiratory rate 20. Blood pressure 118/82. HEENT: Atraumatic, normocephalic. Oral mucosa is moist NECK: Supple. CARDIOVASCULAR: S1, S2 heard. Rate and rhythm regular. RESPIRATORY: Clear to auscultation. GASTROINTESTINAL: Abdomen is soft. MUSCULOSKELETAL: No tenderness. No edema. DERMATOLOGIC: No skin rash. NEUROLOGIC: Alert and awake and oriented X3. No focal neurologic deficits. Moving all the extremities. PSYCHIATRIC: Mood and affect normal. LABORATORY DATA: Potassium 3.7, BUN is 26, creatinine is 4.6. ASSESSMENT AND PLAN: 1. End-stage renal disease. Continue dialysis Tuesday, Tuesday, and Tuesday. 2. Acute hypoxic respiratory failure, extubated. 3. Hyperkalemia, better. 4. Hyponatremia. 5. Cardiorenal syndrome. Continue dialysis Tuesday, Tuesday, and Tuesday. Job ID: [id number]
[2020-09-13] MEDS: Heparin 25,000 units/D5W 500 ML IVPB SCH (20:50)
[2020-09-14] MEDS: Lorazepam 2 MG/ML VIAL SLOW IVP PRN ×5 (02:57→23:59)
[2020-09-14 05:36] LABS: Anion Gap 20 mmol/L (10-20); BUN (Urea Nitrogen) 37 mg/dL (8.9-20.6); Calc. Creatinine Clearance 18 mL/min (70-130); Calcium 8.9 mg/dL (7.8-10.44); Carbon Dioxide 24 mmol/L (22-29); Chloride 95 mmol/L (98-107); Glucose 87 mg/dL (70-105); Potassium 3.9 mmol/L (3.5-5.1); Sodium 135 mmol/L (136-145)
[2020-09-14 05:50] LABS: Band 1 % (5-11); Eosinophils 1 % (0-10); Hemoglobin 11.8 g/dL (14.0-18.0); Lymphocytes 15 % (21-51); MDiff Complete? YES; Mean Corpuscular HGB CONC 32.8 g/dL (32.0-36.0); Mean Corpuscular Hemoglobin 25.8 pg (27.0-31.0); Mean Corpuscular Volume 78.8 fL (78.0-98.0); Mean Platelet Volume 6.8 fL (7.4-10.4); Monocytes 16 % (0-10); Neutrophil 67 % (42-75); Platelet Count 123 thou/uL (130-400); Platelet Morphology Comment Appears Adequate; RBC Distribution Width 22.7 % (11.5-14.5); Red Blood Cell (RBC) Count 4.55 mill/uL (4.70-6.10); Target Cells MODERATE= 6-15 cells (100X) (0-1/hpf); White Blood Cell (WBC) Count 2.1 thou/uL (4.8-10.8)
[2020-09-14] MEDS: Piperacillin/Tazobactam 2.25 GM in Sodium Chloride 0.9% 100 ML IVPB SCH ×3 (06:25→20:48)
[2020-09-14] MEDS: Dextrose 10% in Water 1,000 ML IV SCH ×2 (09:29→15:39)
[2020-09-14] MEDS: Pantoprazole 40 MG GRANULES PACKET PER TUBE SCH (10:24)
[2020-09-14 15:57] LABS: Hemoglobin 11.9 g/dL (14.0-18.0); Platelet Count 126 thou/uL (130-400)
--- NOTE | 2020-09-14 16:08 | PRG ---
DATE OF SERVICE: 09/14/2020 SUBJECTIVE: Mr. Rodriguez has been extubated. He is still not very conversant and clearly not appropriate. I do not get him to follow commands for me today. He remains on oxygen 5 L. PHYSICAL EXAMINATION: VITAL SIGNS: Blood pressure is 132/98, heart rate 119, saturation 96%, and he is afebrile. LUNGS: Show rhonchi. HEART: Regular rate and rhythm. ABDOMEN: Soft. He has a right forearm AV fistula, which is quite aneurysmal. LABORATORY DATA: White count 7400, hemoglobin is 12.4, and platelets 117. Chemistry includes sodium 135, potassium 3.9, chloride 95, CO2 is 24, BUN 37, and creatinine 5.96. IMPRESSION: 1. Status post cardiopulmonary arrest with resuscitation. Affect remains blunted and presumably not yet at baseline. 2. End-stage renal disease. PLAN: He remains on low-flow oxygen nasal cannula. We will try to wean as tolerated. A decision regarding timing of his next dialysis treatment is deferred to the Nephrology Service. Job ID: [id number]
--- NOTE | 2020-09-14 16:18 | PRG ---
DATE OF SERVICE: 09/14/2020 SUBJECTIVE: Patient was seen and examined at bedside and overnight events noted. Patient denies any shortness of breath or chest pain or palpitation. No history of nausea or vomiting or diarrhea or fever or chills or cramps. OBJECTIVE: GENERAL: This is a well-built male, in no apparent distress. VITAL SIGNS: Temperature 97.3. Heart Rate 100. Respiratory rate 30. Blood pressure 132/98. HEENT: Atraumatic, normocephalic. Oral mucosa is moist. NECK: Supple. CARDIOVASCULAR: S1, S2 heard. Rate and rhythm regular. RESPIRATORY: Clear to auscultation. GASTROINTESTINAL: Abdomen is soft. MUSCULOSKELETAL: No tenderness. No edema. DERMATOLOGIC: No skin rash. NEUROLOGIC: Alert and awake and oriented x3. No focal neurologic deficits. Moving all the extremities. PSYCHIATRIC: Mood and affect normal. LABORATORY DATA: Potassium 3.9, BUN is 37, creatinine is 5.9. ASSESSMENT AND PLAN: 1. End-stage renal disease. Continue on dialysis Tuesday, Tuesday, and Tuesday. 2. Acute hypoxic respiratory failure. 3. Hyperkalemia. 4. Hyponatremia. 5. Cardiorenal syndrome. We will monitor renal function closely. Continue dialysis as tolerated Tuesday, Tuesday, and Tuesday. Job ID: [id number]
--- NOTE | 2020-09-14 18:33 | PDOC.HOSPP ---
- Subjective Encounter Date: 09/14/20 Encounter Time: 13:00 Subjective: Patient seen for follow-up regarding hypoxic respiratory failure. He is confused, could not complete review of systems. - Objective Vital Signs & Weight: Vital Signs (12 hours) Temp 09/14/20 15:56 97.2 F L 09/14/20 11:42 97.3 F L 09/14/20 07:50 97.2 F L Weight Admit Weight 188 lb 4.396 oz Weight 194 lb 7.163 oz Most Recent Monitor Data Heart Rate from ECG 118 NIBP 142/102 NIBP BP-Mean 115 Respiration from ECG 22 SpO2 87 I&O: 09/13/20 09/14/20 09/15/20 06:59 06:59 06:59 Intake Total 2288.4 1616 Output Total 3000 0 Balance -711.6 1616 0 Result Diagrams: 09/14/20 15:46 09/14/20 05:00 Additional Labs: Accuchecks 09/14/20 09/14/20 09/14/20 15:35 09:19 05:01 POC Glucose 88 66 L 76 09/14/20 09/13/20 00:35 20:54 POC Glucose 105 H 91 Labs and MAR reviewed by me EKG Reviewed by me: Yes (Telemetry shows normal sinus rhythm) Hospitalist ROS - Review of Systems ROS unobtainable: due to mental status - Medication Medications: Active Medications Generic Name Dose Route Start Last Admin Trade Name Freq PRN Reason Stop Dose Admin Acetaminophen 650 mg 09/09/20 21:10 09/12/20 02:56 Acetaminophen 650 Mg/20.3 Ml Udcup PER TUBE 650 mg Q4H PRN Administration Headache/Fever or Pain Albuterol/Ipratropium 3 ml 09/08/20 19:00 09/14/20 14:04 Ipratropium/Albuterol Sulfate 3 Ml Neb NEB Not Given [id number] MARAH Dextrose/Water 25 gm 09/09/20 05:45 09/12/20 16:51 Dextrose 50% Abboject 50 Ml Syringe IVP 25 gm PRN PRN Administration HYPOGLYCEMIA PROTOCOL Heparin Sodium (Porcine) 0 units 09/12/20 11:00 09/12/20 15:59 Heparin 10,000 Units/ 10 Ml Vial SLOW IVP 4,000 unit ASDIR MARAH Administration Protocol Dextrose/Water 1,000 mls @ 0 mls/hr 09/09/20 05:45 09/14/20 02:58 D5w IV 1,000 mls INF PRN Administration HYPOGLYCEMIA PROTOCOL As Directed Piperacillin Sod/Tazobactam 100 mls @ 200 mls/hr 09/09/20 14:00 09/14/20 15:23 Sod 2.25 gm/ Sodium Chloride IVPB 100 mls Q8HR MARAH Administration Dextrose/Water 1,000 mls @ 30 mls/hr 09/10/20 08:06 09/14/20 15:39 Dextrose 10% In Water IV 1,000 mls .Q24H MARAH Administration Heparin Sodium/Dextrose 500 mls @ 0 mls/hr 09/12/20 14:00 09/13/20 20:50 Heparin 25,000 Units/D5w IVPB 500 mls INF MARAH Administration Protocol Per Protocol Lorazepam 1 mg 09/13/20 00:12 09/14/20 15:24 Lorazepam 2 Mg/Ml Vial SLOW IVP 1 mg Q4H PRN Administration Anxiety/Agitation Pantoprazole Sodium 40 mg 09/11/20 09:00 09/14/20 10:24 Pantoprazole 40 Mg Granules Packet PER TUBE 40 mg DAILY MARAH Administration Sodium Chloride 10 ml 09/12/20 21:00 09/14/20 10:25 Flush - Normal Saline 10 Ml Syringe IVF 10 ml Q12HR MARAH Administration - Exam General - other findings: Sleepy but arousable ENT: no oropharyngeal lesions Neck: supple Heart: RRR Respiratory: CTAB Gastrointestinal: soft, non-tender Skin: no rashes Psychiatric - other findings: Unable to assess Hosp A/P - Plan - Assessment (1) Acute respiratory failure with hypoxia Code(s): J96.01 - ACUTE RESPIRATORY FAILURE WITH HYPOXIA Status: Acute (2) Metabolic acidosis Code(s): E87.2 - ACIDOSIS Status: Acute (3) Lactic acidosis Code(s): E87.2 - ACIDOSIS Status: Acute (4) Successful cardiopulmonary resuscitation Code(s): Z92.89 - PERSONAL HISTORY OF OTHER MEDICAL TREATMENT Status: Acute (5) Ventricular fibrillation Code(s): I49.01 - VENTRICULAR FIBRILLATION Status: Acute (6) Anemia of renal disease Code(s): N18.9 - CHRONIC KIDNEY DISEASE, UNSPECIFIED; D63.1 - ANEMIA IN CHRONIC KIDNEY DISEASE Status: Chronic (7) ESRD (end stage renal disease) on dialysis Code(s): N18.6 - END STAGE RENAL DISEASE; Z99.2 - DEPENDENCE ON RENAL DIALYSIS Status: Chronic (8) Hyperkalemia Code(s): E87.5 - HYPERKALEMIA Status: Resolved (9) Cardiac arrest Code(s): I46.9 - CARDIAC ARREST, CAUSE UNSPECIFIED Status: Resolved - Plan Etiology of confusion is unclear at this time. Nephrology following for dialysis. Appreciate cardiology and EP services input. Hyponatremia mild, likely asymptomatic. COVID-19 test negative. Patient is on IV Zosyn.
[2020-09-15] MEDS: Heparin 25,000 units/D5W 500 ML IVPB SCH (00:45)
[2020-09-15] MEDS: Lorazepam 2 MG/ML VIAL SLOW IVP PRN (05:15)
[2020-09-15] MEDS: Piperacillin/Tazobactam 2.25 GM in Sodium Chloride 0.9% 100 ML IVPB SCH ×3 (05:18→23:14)
[2020-09-15 07:05] LABS: Hemoglobin 11.7 g/dL (14.0-18.0); Mean Corpuscular HGB CONC 31.2 g/dL (32.0-36.0); Mean Corpuscular Hemoglobin 24.4 pg (27.0-31.0); Mean Platelet Volume 7.9 fL (7.4-10.4); Platelet Count 153 thou/uL (130-400); RBC Distribution Width 23.1 % (11.5-14.5); Red Blood Cell (RBC) Count 4.79 mill/uL (4.70-6.10); White Blood Cell (WBC) Count 8.8 thou/uL (4.8-10.8)
[2020-09-15 07:14] LABS: Anion Gap 24 mmol/L (10-20); BUN (Urea Nitrogen) 47 mg/dL (8.9-20.6); Calc. Creatinine Clearance 15 mL/min (70-130); Calcium 8.5 mg/dL (7.8-10.44); Carbon Dioxide 21 mmol/L (22-29); Chloride 95 mmol/L (98-107); Glucose 83 mg/dL (70-105); Potassium 3.9 mmol/L (3.5-5.1); Sodium 136 mmol/L (136-145)
[2020-09-15 08:14] LABS: Hypochromia SLIGHT = 6-15 cells (100X) (0-5/hpf); MDiff Complete? YES; Microcytosis SLIGHT = 6-15 cells (100X) (0-5/hpf); Platelet Morphology Comment Appears Adequate; Polychromasia MODERATE = 3-4 cells (100X) (0-2/hpf); Target Cells MODERATE= 6-15 cells (100X) (0-1/hpf)
--- NOTE | 2020-09-15 08:34 | PRG ---
DATE OF SERVICE: 09/15/2020 SUBJECTIVE: A 45-year-old gentleman, being seen for end-stage renal disease. The patient denies any nausea, vomiting, or chest pain. OBJECTIVE: General: The patient is awake and alert. Vital Signs: Afebrile, pulse 75, breathing at 16, blood pressure 135/101. HEENT: Head normocephalic and atraumatic. Eyes intact, no ulcers. Nose intact, no ulcers. Ears intact, no ulcers. Neck: Supple. No JVD. Chest: Symmetrical and clear. Cardiovascular: Shows S1 and S2, no rub, no murmur. Gastrointestinal: Abdomen is soft, bowel sounds positive. Extremities: Show no edema or ulcers. Skin: Shows no rash or petechiae. Musculoskeletal: Shows no joint swelling or stiffness. Genitourinary: Shows no Villanueva or CVA tenderness. Neurologic: Motor intact. Cranial nerves intact. LABORATORY DATA: Labs show hemoglobin 11.7. ASSESSMENT AND PLAN: 1. Stage 6 chronic kidney disease, plan dialysis per schedule. 2. Hypertension, stable. 3. Anemia, stable. 4. Medication based on GFR appropriate. 5. Congestive heart failure. Job ID: [id number]
[2020-09-15] MEDS: Dextrose 10% in Water 1,000 ML IV SCH ×2 (09:58→23:15)
--- NOTE | 2020-09-15 10:59 | PRG ---
DATE OF SERVICE: 09/15/2020 SUBJECTIVE: The patient remains encephalopathic. OBJECTIVE: VITAL SIGNS: Temperature 97.0, pulse 118, blood pressure 138/112. HEENT: Unchanged. NECK: No JVD. LUNGS: Clear. CARDIAC: S1 and S2. Regular. ABDOMEN: Soft. EXTREMITIES: Edematous. LABORATORY DATA: White blood cell count 8.8, hematocrit 37, and platelet count 153. Sodium 136, potassium 3.9, chloride 95, CO2 of 21, BUN 47, creatinine 7.1, glucose 83. ASSESSMENT: 1. Status post endotracheal intubation after cardiopulmonary arrest. 2. Encephalopathy. 3. End-stage renal disease. PLAN: I think most of his issues are encephalopathic related to anoxic brain injury from cardiopulmonary arrest. I would advocate stopping the antibiotics after 7 days. I think he is probably stable enough to transfer to the floor, but I do not think he will do well fdc. Job ID: [id number]
[2020-09-15] MEDS: Pantoprazole 40 MG GRANULES PACKET PER TUBE SCH (11:36)
--- NOTE | 2020-09-15 17:41 | PDOC.EP ---
- Subjective Date: 09/15/20 Time: 09:00 - Review of Systems ROS unobtainable: due to mental status (Still AOx1) Constitutional: denies: chills, fever, malaise, sweats, weakness, other Cardiology: denies: chest pain Gastrointestinal: denies: abdominal pain Neurological: denies: vision changes - Objective Allergies/Adverse Reactions: Allergies Allergy/AdvReac Type Severity Reaction Status Date / Time coconut Allergy Unknown Anaphylaxis Verified 12/23/19 02:55 kiwi Allergy Unknown Verified 08/27/20 21:25 lisinopril Allergy Unknown Verified 08/27/20 21:25 losartan Allergy Unknown Verified 08/27/20 21:25 Current Medications Acetaminophen (Acetaminophen 650 Mg/20.3 Ml Udcup) 650 mg PER TUBE Q4H PRN PRN Reason: Headache/Fever or Pain Last Admin: 09/12/20 02:56 Dose: 650 mg Documented by: Acetaminophen/Codeine Phosphate (Acetaminophen/Codeine 30-300mg Tablet) 1 tab PO Q4H PRN PRN Reason: Mild Pain (1-3) Albuterol/Ipratropium (Ipratropium/Albuterol Sulfate 3 Ml Neb) 3 ml NEB [id number] PRN PRN Reason: SOB &/or Wheezing Bisacodyl (Bisacodyl 10 Mg Supp) 10 mg ME DAILYPRN PRN PRN Reason: Constipation Calcium Carbonate (Calcium Carbonate 500 Mg Chewtab) 1,000 mg PER TUBE Q4H PRN PRN Reason: Heartburn or Indigestion Dextrose/Water (Dextrose 50% Abboject 50 Ml Syringe) 25 gm IVP PRN PRN PRN Reason: HYPOGLYCEMIA PROTOCOL Last Admin: 09/12/20 16:51 Dose: 25 gm Documented by: Glucagon (Glucagon 1 Mg/Ml Vial) 1 mg IM PRN PRN PRN Reason: HYPOGLYCEMIA PROTOCOL Heparin Sodium (Porcine) (Heparin 10,000 Units/ 10 Ml Vial) 0 units SLOW IVP ASDIR [facility]; Protocol Last Admin: 09/12/20 15:59 Dose: 4,000 unit Documented by: Hydralazine HCl (Hydralazine 20 Mg/Ml Vial) 10 mg SLOW IVP Q4H PRN PRN Reason: SBP > 180 and HR < 70 Dextrose/Water (D5w) 1,000 mls @ 0 mls/hr IV INF PRN PRN Reason: HYPOGLYCEMIA PROTOCOL Last Admin: 09/14/20 02:58 Dose: 1,000 mls Documented by: Piperacillin Sod/Tazobactam (Sod 2.25 gm/ Sodium Chloride) 100 mls @ 200 mls/hr IVPB Q8HR [facility] Last Admin: 09/15/20 05:18 Dose: 100 mls Documented by: Dextrose/Water (Dextrose 10% In Water) 1,000 mls @ 30 mls/hr IV .Q24H [facility] Last Admin: 09/15/20 09:58 Dose: Not Given Documented by: Heparin Sodium/Dextrose (Heparin 25,000 Units/D5w) 500 mls @ 0 mls/hr IVPB INF [facility]; Protocol Last Admin: 09/15/20 00:45 Dose: 500 mls Documented by: Lorazepam (Lorazepam 2 Mg/Ml Vial) 1 mg SLOW IVP Q4H PRN PRN Reason: Anxiety/Agitation Last Admin: 09/15/20 05:15 Dose: 1 mg Documented by: Miscellaneous Medication (Zosyn) 1 each IVPB PRN PRN PRN Reason: Pharmacy to dose Nitroglycerin (Nitroglycerin 0.4 Mg Tab (25 Tab Bottle)) 0.4 mg SL Q5MIN PRN PRN Reason: Chest Pain Ondansetron HCl (Ondansetron Pf 4 Mg/2 Ml Vial) 4 mg IVP Q6H PRN PRN Reason: Nausea/Vomiting Ondansetron HCl (Ondansetron Odt 4 Mg Tab) 4 mg SL Q6H PRN PRN Reason: Nausea/Vomiting Pantoprazole Sodium (Pantoprazole 40 Mg Granules Packet) 40 mg PER TUBE DAILY [facility] Last Admin: 09/15/20 11:36 Dose: Not Given Documented by: Senna/Docusate Sodium (Senokot S 8.6-50 Mg Tab) 2 tab PER TUBE BID PRN PRN Reason: Constipation Sodium Chloride (Flush - Normal Saline 10 Ml Syringe) 10 ml IVF Q12HR [facility] Last Admin: 09/15/20 11:36 Dose: 10 ml Documented by: Sodium Chloride (Flush - Normal Saline 10 Ml Syringe) 10 ml IVF PRN PRN PRN Reason: Saline Flush Vital Signs & Weight: Vital Signs Temp Pulse Resp Pulse Ox 09/15/20 11:00 97.4 F L 12/14/20 08:13 119 H 20 92 L 09/15/20 07:47 97.0 F L Admit Weight 188 lb 4.396 oz Weight 181 lb 10.574 oz I/O: I/O 09/14/20 09/15/20 09/16/20 06:59 06:59 06:59 Intake Total 1616 776 Output Total 0 0 Balance 1616 776 0 - Quality Measures CV meds: Warfarin: Yes - Physical Exam General: other (A/Ox1) Neck: midline trachea, no JVD/HJR Cardiology: no murmur, irregularly irregular. negative: tachycardia Lungs: clear to auscultation, no wheezes Neurology: grossly intact Abdomen: unremarkable, soft, non-tender Extremities: warm Musculoskeletal: no pain - Labs Result Diagrams: 09/15/20 05:35 09/15/20 05:35 - EKG Interpretation EKG Method: Telemetry EKG shows: Atrial fibrillation - Assessment/Plan Assessment/Plan: Mr. Rodriguez is a 45-year-old man with prior history of end-stage renal disease, persisting atrial fibrillation. He presented after ventricular fibrillation arrest in the setting of extreme hyperkalemia. He also was noted to have severely reduced left ventricular ejection fraction, worsened since the prior echo back in 2012. He has only nonobstructive coronary artery disease. 1. Ventricular fibrillation -cardiac arrest.S/P resucitation. Mild anoxic encephalopathy-improving, a. Current admission after resuscitated cardiac arrest in the setting of hyperkalemia at 8.1. 2. Chronic atrial fibrillation. 3. Chronic systolic congestive heart failure with nonischemic cardiomyopathy. a. History of reduced LVEF at 35% to 40% in 2012, currently 30% to 35%, [id number] concentric LVH, [id number] MR, moderate pulmonary pressure elevation. b. Left heart catheterization from 09/08/2020 demonstrates mild distal vessel disease only. 4. History of 2:1 AV block in the setting of electrolyte abnormalities in the past. 5. End-stage renal disease, on hemodialysis. 6. History of a gastrointestinal polypectomy and related GI bleed in the past. 7. History of anemia of renal disease. Even though, this current event seems to be provoked by marked hyperkalemia. He seems to have difficult time to achieving adequate potassium level. Also his reduced LVEF output in the range of where ICD implant should be highly advised despite of his end-stage renal disease. He is not adequate candidate for life vest. At this point, I would like to proceeding with implant, discussed with his mother and she is agreeable.
--- NOTE | 2020-09-15 19:32 | PDOC.HOSPP ---
- Subjective Encounter Date: 09/15/20 Encounter Time: 13:30 Subjective: Patient seen for follow-up for acute hypoxic respiratory failure. He is confused, could not complete review of systems. - Objective Vital Signs & Weight: Vital Signs (12 hours) Temp Pulse Resp Pulse Ox 09/15/20 19:16 98.6 F 09/15/20 11:00 97.4 F L 09/15/20 08:13 119 H 20 92 L 09/15/20 07:47 97.0 F L Weight Admit Weight 188 lb 4.396 oz Weight 181 lb 10.574 oz Most Recent Monitor Data Heart Rate from ECG 120 NIBP 119/87 NIBP BP-Mean 97 Respiration from ECG 28 SpO2 90 I&O: 09/14/20 09/15/20 09/16/20 06:59 06:59 06:59 Intake Total 1616 776 Output Total 0 0 Balance 1616 776 0 Result Diagrams: 09/15/20 05:35 09/15/20 05:35 Additional Labs: Accuchecks 09/15/20 09/15/20 09/15/20 12:30 08:57 05:32 POC Glucose 78 88 108 H 09/15/20 09/14/20 09/14/20 00:43 20:31 10:43 POC Glucose 95 107 H 61 L 09/13/20 09/12/20 09/12/20 01:02 18:56 18:49 POC Glucose 89 92 58 L* 09/12/20 09/12/20 09/12/20 16:47 16:44 12:51 POC Glucose 58 L* 56 L* 63 L I reviewed patient's labs and MAR EKG Reviewed by me: Yes (Ulises keene on telemetry) Hospitalist ROS - Review of Systems ROS unobtainable: due to mental status - Medication Medications: Active Medications Generic Name Dose Route Start Last Admin Trade Name Freq PRN Reason Stop Dose Admin Acetaminophen 650 mg 09/09/20 21:10 09/12/20 02:56 Acetaminophen 650 Mg/20.3 Ml Udcup PER TUBE 650 mg Q4H PRN Administration Headache/Fever or Pain Dextrose/Water 25 gm 09/09/20 05:45 09/12/20 16:51 Dextrose 50% Abboject 50 Ml Syringe IVP 25 gm PRN PRN Administration HYPOGLYCEMIA PROTOCOL Heparin Sodium (Porcine) 0 units 09/12/20 11:00 09/12/20 15:59 Heparin 10,000 Units/ 10 Ml Vial SLOW IVP 4,000 unit ASDIR MARAH Administration Protocol Dextrose/Water 1,000 mls @ 0 mls/hr 09/09/20 05:45 09/14/20 02:58 D5w IV 1,000 mls INF PRN Administration HYPOGLYCEMIA PROTOCOL As Directed Piperacillin Sod/Tazobactam 100 mls @ 200 mls/hr 09/09/20 14:00 09/15/20 05:18 Sod 2.25 gm/ Sodium Chloride IVPB 100 mls Q8HR [facility] Administration Dextrose/Water 1,000 mls @ 30 mls/hr 09/10/20 08:06 09/15/20 09:58 Dextrose 10% In Water IV Not Given .Q24H [facility]AH Heparin Sodium/Dextrose 500 mls @ 0 mls/hr 09/12/20 14:00 09/15/20 00:45 Heparin 25,000 Units/D5w IVPB 500 mls INF [facility] Administration Protocol Per Protocol Lorazepam 1 mg 09/13/20 00:12 09/15/20 05:15 Lorazepam 2 Mg/Ml Vial SLOW IVP 1 mg Q4H PRN Administration Anxiety/Agitation Pantoprazole Sodium 40 mg 09/11/20 09:00 09/15/20 11:36 Pantoprazole 40 Mg Granules Packet PER TUBE Not Given DAILY [facility] Sodium Chloride 10 ml 09/12/20 21:00 09/15/20 11:36 Flush - Normal Saline 10 Ml Syringe IVF 10 ml Q12HR [facility] Administration - Exam ENT: moist mucosa Neck: supple Heart: irregular Respiratory: CTAB Gastrointestinal: soft Skin: no rashes Psychiatric - other findings: Unable to assess Hosp A/P - Plan - Assessment (1) Acute respiratory failure with hypoxia Code(s): J96.01 - ACUTE RESPIRATORY FAILURE WITH HYPOXIA Status: Acute (2) Metabolic acidosis Code(s): E87.2 - ACIDOSIS Status: Acute (3) Lactic acidosis Code(s): E87.2 - ACIDOSIS Status: Acute (4) Successful cardiopulmonary resuscitation Code(s): Z92.89 - PERSONAL HISTORY OF OTHER MEDICAL TREATMENT Status: Acute (5) Ventricular fibrillation Code(s): I49.01 - VENTRICULAR FIBRILLATION Status: Acute (6) Anemia of renal disease Code(s): N18.9 - CHRONIC KIDNEY DISEASE, UNSPECIFIED; D63.1 - ANEMIA IN CHRONIC KIDNEY DISEASE Status: Chronic (7) ESRD (end stage renal disease) on dialysis Code(s): N18.6 - END STAGE RENAL DISEASE; Z99.2 - DEPENDENCE ON RENAL DIALYSIS Status: Chronic (8) Hyperkalemia Code(s): E87.5 - HYPERKALEMIA Status: Resolved (9) Cardiac arrest Code(s): I46.9 - CARDIAC ARREST, CAUSE UNSPECIFIED Status: Resolved - Plan Etiology of confusion is unclear at this time, likely related to cardiac arrest. Dialysis per nephrology service. Appreciate cardiology and EP services input. Patient currently on heparin drip. Hyponatremia mild, likely asymptomatic. COVID-19 test negative. Patient is on IV Zosyn.
--- NOTE | 2020-09-15 21:30 | RAD ---
Exam: Chest one view HISTORY:Central line placement. Patient pulled out previous central line. Comparison: 09/11/2020 FINDINGS: Cardiac silhouette:Markedly enlarged cardiac silhouette, unchanged Aorta: Atherosclerotic and elongated Pulmonary vessels: Normal Costophrenic angles: Clear LUNGS: Persistent interstitial and alveolar opacities, with a predominantly perihilar distribution. Pneumothorax: None Osseous abnormalities: None Lines and tubes: Redemonstration of a left-sided vascular catheter. Based on the current image, the p osterior arterial access cannot be excluded. Distal tip projects over the right aspect of the cardiomediastinal silhouette. IMPRESSION: 1. Congestive heart failure 2. Redemonstration of a left-sided subclavian vascular catheter. Based on images provided, the possib ility of arterial access cannot be excluded. Results of study conveyed to Dr. Gilbert 09/15/2020 at 9:27 PM Code CR
[2020-09-16] MEDS: Lorazepam 2 MG/ML VIAL SLOW IVP PRN ×2 (03:15→11:55)
[2020-09-16 04:44] LABS: ALT (SGPT) 16 U/L (8-55); AST (SGOT) 19 U/L (5-34); Albumin 2.6 g/dL (3.5-5.0); Alkaline Phosphatase 144 U/L (40-110); Bilirubin, Direct 0.9 mg/dL (0.1-0.3); Bilirubin, Total 1.3 mg/dL (0.2-1.2)
[2020-09-16 04:45] LABS: Anion Gap 17 mmol/L (10-20); BUN (Urea Nitrogen) 28 mg/dL (8.9-20.6); Calc. Creatinine Clearance 23 mL/min (70-130); Calcium 8.5 mg/dL (7.8-10.44); Carbon Dioxide 26 mmol/L (22-29); Chloride 95 mmol/L (98-107); Glucose 83 mg/dL (70-105); Potassium 3.3 mmol/L (3.5-5.1); Sodium 135 mmol/L (136-145)
[2020-09-16 04:50] LABS: Hemoglobin 11.3 g/dL (14.0-18.0); Lymphocytes 13 % (21-51); MDiff Complete? YES; Mean Corpuscular HGB CONC 31.4 g/dL (32.0-36.0); Mean Corpuscular Volume 79.6 fL (78.0-98.0); Mean Platelet Volume 7.8 fL (7.4-10.4); Monocytes 8 % (0-10); Neutrophil 78 % (42-75); Platelet Count 176 thou/uL (130-400); Platelet Morphology Comment Appears Adequate; RBC Distribution Width 23.7 % (11.5-14.5); Red Blood Cell (RBC) Count 4.53 mill/uL (4.70-6.10); Target Cells SLIGHT = 2-5 cells (100X) (0-1/hpf); White Blood Cell (WBC) Count 9.6 thou/uL (4.8-10.8)
[2020-09-16] MEDS: Piperacillin/Tazobactam 2.25 GM in Sodium Chloride 0.9% 100 ML IVPB SCH ×2 (05:50→15:21)
[2020-09-16] MEDS ORDERED: Gentamicin 80 MG/2 ML VIAL ONE (07:00)
[2020-09-16] MEDS ORDERED: CEFAZOLIN 1 GM VIAL ONE (07:00)
[2020-09-16] MEDS ORDERED: Propofol 1,000 MG/100 ML VIAL IV ONE (07:31)
[2020-09-16] MEDS ORDERED: Phenylephrine 10 MG/ML VIAL ONE (07:31)
[2020-09-16] MEDS ORDERED: Ketamine 50 MG/ML (10ML VIAL) ONE (07:41)
--- NOTE | 2020-09-16 10:26 | RAD ---
XR Chest 1 View Portable HISTORY: ICD placement COMPARISON: Previous day FINDINGS: There has been interval placement of a left-sided AICD since the previous days exam. No pne umothorax is seen. Bilateral interstitial alveolar opacities demonstrate interval worsening.
[2020-09-16] MEDS ORDERED: Lidocaine 1% PF 5 ML VIAL ONE (10:37)
[2020-09-16] MEDS: Pantoprazole 40 MG GRANULES PACKET PER TUBE SCH (11:09)
[2020-09-16 11:30] LABS: Hemoglobin 11.4 g/dL (14.0-18.0); Platelet Count 168 thou/uL (130-400)
--- NOTE | 2020-09-16 11:37 | PRG ---
DATE OF SERVICE: 09/16/2020 SUBJECTIVE: A 45-year-old gentleman, being seen for end-stage renal disease. The patient denies any nausea, vomiting, or chest pain. PHYSICAL EXAMINATION: General: The patient is awake and alert. Vital Signs: Afebrile, pulse 75, breathing at 16, blood pressure 123/102. HEENT: Head normocephalic and atraumatic. Eyes intact, no ulcers. Nose intact, no ulcers. Ears intact, no ulcers. Neck: Supple. No JVD. Chest: Symmetrical and clear. Cardiovascular: Shows S1 and S2, no rub, no murmur. Gastrointestinal: Abdomen is soft, bowel sounds positive. Extremities: Show no edema or ulcers. Skin: Shows no rash or petechiae. Musculoskeletal: Shows no joint swelling or stiffness. Genitourinary: Shows no Villanueva or CVA tenderness. Neurologic: The patient is confused. LABORATORY DATA: Show potassium 3.3. ASSESSMENT AND PLAN: 1. Stage 6 chronic kidney disease, plan dialysis tomorrow. 2. Hypertension, stable. 3. Hypokalemia, recommend high potassium diet. 4. Medication based on GFR, appropriate. Job ID: [id number]
[2020-09-16] MEDS ORDERED: Acetaminophen/Codeine 30-300mg Tablet PO PRN (16:00)
[2020-09-16] MEDS: Cephalexin 250 MG CAP PO SCH ×2 (16:54→20:53)
[2020-09-16] MEDS: Acetaminophen/Codeine 30-300mg Tablet PO PRN (16:55)
[2020-09-16 17:21] LABS: INR-International Normal Ratio 1.2
[2020-09-16] MEDS: Warfarin Sodium 5 MG TAB PO SCH (18:22)
--- NOTE | 2020-09-16 19:49 | PDOC.HOSPP ---
- Subjective Encounter Date: 09/16/20 Encounter Time: 12:00 Subjective: Patient seen for acute respiratory failure. He is able to tell me his name, place and the year. He denies any complaints. - Objective Vital Signs & Weight: Vital Signs (12 hours) Temp 09/16/20 15:00 97.6 F 09/16/20 11:25 97.5 F L Weight Admit Weight 188 lb 4.396 oz Weight 174 lb 2.643 oz Most Recent Monitor Data Heart Rate from ECG 123 NIBP 146/108 NIBP BP-Mean 120 Respiration from ECG 28 SpO2 87 I&O: 09/15/20 09/16/20 09/17/20 06:59 06:59 06:59 Intake Total 776 850 780 Output Total 0 2500 0 Balance 776 -1650 780 Result Diagrams: 09/16/20 11:06 09/16/20 04:11 Additional Labs: Accuchecks 09/16/20 09/16/20 09/16/20 17:23 10:49 04:32 POC Glucose 109 H 84 83 09/16/20 09/15/20 09/15/20 00:03 20:21 18:05 POC Glucose 78 57 L* 73 09/13/20 15:50 POC Glucose 27 L* Labs and MAR reviewed by me EKG Reviewed by me: Yes (Sinus tachycardia on telemetry) Hospitalist ROS - Review of Systems Cardiovascular: denies: chest pain, palpitations, orthopnea, paroxysmal noc. dyspnea, edema, light headedness Gastrointestinal: denies: nausea, vomiting, abdominal pain, diarrhea, constipation, melena, hematochezia - Medication Medications: Active Medications Generic Name Dose Route Start Last Admin Trade Name Freq PRN Reason Stop Dose Admin Acetaminophen 650 mg 09/09/20 21:10 09/12/20 02:56 Acetaminophen 650 Mg/20.3 Ml Udcup PER TUBE 650 mg Q4H PRN Administration Headache/Fever or Pain Acetaminophen/Codeine Phosphate 2 tab 09/16/20 16:00 09/16/20 16:55 Acetaminophen/Codeine 30-300mg Tablet PO 2 tab Q4H PRN Administration Moderate Pain (4-6) Cephalexin 250 mg 09/16/20 17:00 09/16/20 16:54 Cephalexin 250 Mg Cap PO 09/23/20 13:01 250 mg QID MARAH Administration Dextrose/Water 25 gm 09/09/20 05:45 09/12/20 16:51 Dextrose 50% Abboject 50 Ml Syringe IVP 25 gm PRN PRN Administration HYPOGLYCEMIA PROTOCOL Dextrose/Water 1,000 mls @ 0 mls/hr 09/09/20 05:45 09/14/20 02:58 D5w IV 1,000 mls INF PRN Administration HYPOGLYCEMIA PROTOCOL As Directed Dextrose/Water 1,000 mls @ 30 mls/hr 09/10/20 08:06 09/15/20 23:15 Dextrose 10% In Water IV 1,000 mls .Q24H [facility] Administration Lorazepam 1 mg 09/13/20 00:12 09/16/20 11:55 Lorazepam 2 Mg/Ml Vial SLOW IVP 1 mg Q4H PRN Administration Anxiety/Agitation Pantoprazole Sodium 40 mg 09/11/20 09:00 09/16/20 11:09 Pantoprazole 40 Mg Granules Packet PER TUBE Not Given DAILY [facility] Sodium Chloride 10 ml 09/12/20 21:00 09/16/20 11:09 Flush - Normal Saline 10 Ml Syringe IVF 10 ml Q12HR [facility] Administration Warfarin Sodium 5 mg 09/16/20 17:00 09/16/20 18:22 Warfarin Sodium 5 Mg Tab PO 5 mg 1700 MARAH Administration - Exam General Appearance: awake alert Eye: anicteric sclera Heart - other findings: S1, S2, regular and tachycardic Respiratory: CTAB Gastrointestinal: soft, non-tender Skin: no rashes Psychiatric: normal affect, normal behavior Hosp A/P - Plan - Assessment (1) Acute respiratory failure with hypoxia Code(s): J96.01 - ACUTE RESPIRATORY FAILURE WITH HYPOXIA Status: Acute (2) Metabolic acidosis Code(s): E87.2 - ACIDOSIS Status: Acute (3) Lactic acidosis Code(s): E87.2 - ACIDOSIS Status: Acute (4) Successful cardiopulmonary resuscitation Code(s): Z92.89 - PERSONAL HISTORY OF OTHER MEDICAL TREATMENT Status: Acute (5) Ventricular fibrillation Code(s): I49.01 - VENTRICULAR FIBRILLATION Status: Acute (6) Anemia of renal disease Code(s): N18.9 - CHRONIC KIDNEY DISEASE, UNSPECIFIED; D63.1 - ANEMIA IN CHRONIC KIDNEY DISEASE Status: Chronic (7) ESRD (end stage renal disease) on dialysis Code(s): N18.6 - END STAGE RENAL DISEASE; Z99.2 - DEPENDENCE ON RENAL DIALYSIS Status: Chronic (8) Hyperkalemia Code(s): E87.5 - HYPERKALEMIA Status: Resolved (9) Cardiac arrest Code(s): I46.9 - CARDIAC ARREST, CAUSE UNSPECIFIED Status: Resolved - Plan Acute metabolic encephalopathy is improving, likely related to cardiac arrest. Nephrology following for dialysis. Awaiting ICD placement. Hyponatremia mild, likely asymptomatic. COVID-19 test negative. Discontinue IV Zosyn.
[2020-09-17] MEDS: Lorazepam 2 MG/ML VIAL SLOW IVP PRN ×2 (00:35→23:02)
[2020-09-17 04:40] LABS: INR-International Normal Ratio 1.2; Prothrombin Time 15.5 sec (12.0-14.7)
[2020-09-17 04:54] LABS: Anion Gap 21 mmol/L (10-20); BUN (Urea Nitrogen) 38 mg/dL (8.9-20.6); Calc. Creatinine Clearance 16 mL/min (70-130); Calcium 8.4 mg/dL (7.8-10.44); Carbon Dioxide 24 mmol/L (22-29); Chloride 95 mmol/L (98-107); Glucose 98 mg/dL (70-105); Potassium 3.3 mmol/L (3.5-5.1); Sodium 137 mmol/L (136-145)
[2020-09-17 05:24] LABS: Band 17 % (5-11); Hemoglobin 11.2 g/dL (14.0-18.0); Hypochromia SLIGHT = 6-15 cells (100X) (0-5/hpf); Lymphocytes 25 % (21-51); MDiff Complete? YES; Mean Corpuscular HGB CONC 32.6 g/dL (32.0-36.0); Mean Corpuscular Volume 79.7 fL (78.0-98.0); Mean Platelet Volume 6.4 fL (7.4-10.4); Monocytes 16 % (0-10); Neutrophil 42 % (42-75); Platelet Count 171 thou/uL (130-400); Platelet Morphology Comment Appears Adequate; RBC Distribution Width 23.9 % (11.5-14.5); Red Blood Cell (RBC) Count 4.31 mill/uL (4.70-6.10); White Blood Cell (WBC) Count 7.2 thou/uL (4.8-10.8)
[2020-09-17] MEDS ORDERED: Albumin 25% 25 GM/100 ML BOT IVPB SCH (08:45)
[2020-09-17] MEDS: Pantoprazole 40 MG GRANULES PACKET PER TUBE SCH (08:48)
[2020-09-17] MEDS: Cephalexin 250 MG CAP PO SCH ×4 (08:48→20:11)
[2020-09-17] MEDS: Acetaminophen/Codeine 30-300mg Tablet PO PRN (08:54)
[2020-09-17] MEDS: Dextrose 10% in Water 1,000 ML IV SCH (08:54)
--- NOTE | 2020-09-17 09:15 | CON ---
DATE OF CONSULTATION: 09/17/2020 HISTORY OF PRESENT ILLNESS: Mr. Rodriguez underwent ICD placement yesterday. He continues to have metabolic encephalopathy, although slightly improving. PHYSICAL EXAMINATION: VITAL SIGNS: Blood pressure 100/82, pulse 114, respirations 20. LUNGS: Clear to auscultation. HEART: Irregularly irregular. ABDOMEN: Soft, nontender, nondistended. EXTREMITIES: No edema. PERTINENT LABORATORY DATA: Hemoglobin 11.2, hematocrit 34.4, creatinine 6.57. IMPRESSION: 1. Atrial fibrillation with rapid ventricular response. 2. End-stage renal disease. 3. Nonischemic cardiomyopathy. 4. Ventricular tachycardia. RECOMMENDATIONS: We will try and get better rate control Mr. Rodriguez. We will add digoxin IV. Blood pressure appears marginal. He is currently not on rate control. Coumadin has been started. We will add p.o. beta henri therapy low-dose. Job ID: [id number]
[2020-09-17] MEDS: Metoprolol Tartrate 25 MG TAB PO SCH ×2 (09:22→20:11)
--- NOTE | 2020-09-17 09:58 | PDOC.EP ---
- Subjective Date: 09/17/20 Time: 07:30 Interval History: s/p ICD implant 09/16. Encephalopathy persists but improving. A/O x3 - Review of Systems ROS unobtainable: due to mental status Constitutional: denies: chills, fever, malaise Respiratory: denies: cough, dry, hemoptysis Cardiology: denies: chest pain, edema, heart racing, light headedness Gastrointestinal: denies: abdominal pain, constipation, diarrhea - Objective Allergies/Adverse Reactions: Allergies Allergy/AdvReac Type Severity Reaction Status Date / Time coconut Allergy Unknown Anaphylaxis Verified 12/23/19 02:55 kiwi Allergy Unknown Verified 08/27/20 21:25 lisinopril Allergy Unknown Verified 08/27/20 21:25 losartan Allergy Unknown Verified 08/27/20 21:25 Current Medications Acetaminophen (Acetaminophen 650 Mg/20.3 Ml Udcup) 650 mg PER TUBE Q4H PRN PRN Reason: Headache/Fever or Pain Last Admin: 09/12/20 02:56 Dose: 650 mg Documented by: Acetaminophen/Codeine Phosphate (Acetaminophen/Codeine 30-300mg Tablet) 1 tab PO Q4H PRN PRN Reason: Mild Pain (1-3) Acetaminophen/Codeine Phosphate (Acetaminophen/Codeine 30-300mg Tablet) 2 tab PO Q4H PRN PRN Reason: Moderate Pain (4-6) Last Admin: 09/17/20 08:54 Dose: 2 tab Documented by: Albumin Human (Albumin 25% 25 Gm/100 Ml Bot) 25 gm IVPB NOW [facility] Stop: 09/17/20 16:00 Albuterol/Ipratropium (Ipratropium/Albuterol Sulfate 3 Ml Neb) 3 ml NEB [id number] PRN PRN Reason: SOB &/or Wheezing Bisacodyl (Bisacodyl 10 Mg Supp) 10 mg [place] DAILYPRN PRN PRN Reason: Constipation Calcium Carbonate (Calcium Carbonate 500 Mg Chewtab) 1,000 mg PER TUBE Q4H PRN PRN Reason: Heartburn or Indigestion Cephalexin (Cephalexin 250 Mg Cap) 250 mg PO QID [facility] Stop: 09/23/20 13:01 Last Admin: 09/17/20 08:48 Dose: 250 mg Documented by: Dextrose/Water (Dextrose 50% Abboject 50 Ml Syringe) 25 gm IVP PRN PRN PRN Reason: HYPOGLYCEMIA PROTOCOL Last Admin: 09/12/20 16:51 Dose: 25 gm Documented by: Glucagon (Glucagon 1 Mg/Ml Vial) 1 mg IM PRN PRN PRN Reason: HYPOGLYCEMIA PROTOCOL Hydralazine HCl (Hydralazine 20 Mg/Ml Vial) 10 mg SLOW IVP Q4H PRN PRN Reason: SBP > 180 and HR < 70 Dextrose/Water (D5w) 1,000 mls @ 0 mls/hr IV INF PRN PRN Reason: HYPOGLYCEMIA PROTOCOL Last Admin: 09/14/20 02:58 Dose: 1,000 mls Documented by: Dextrose/Water (Dextrose 10% In Water) 1,000 mls @ 30 mls/hr IV .Q24H [facility] Last Admin: 09/17/20 08:54 Dose: 1,000 mls Documented by: Lorazepam (Lorazepam 2 Mg/Ml Vial) 1 mg SLOW IVP Q4H PRN PRN Reason: Anxiety/Agitation Last Admin: 09/17/20 00:35 Dose: 1 mg Documented by: Metoprolol Tartrate (Metoprolol Tartrate 25 Mg Tab) 12.5 mg PO BID [facility] Last Admin: 09/17/20 09:22 Dose: 12.5 mg Documented by: Miscellaneous Medication (Zosyn) 1 each IVPB PRN PRN PRN Reason: Pharmacy to dose Nitroglycerin (Nitroglycerin 0.4 Mg Tab (25 Tab Bottle)) 0.4 mg SL Q5MIN PRN PRN Reason: Chest Pain Ondansetron HCl (Ondansetron Pf 4 Mg/2 Ml Vial) 4 mg IVP Q6H PRN PRN Reason: Nausea/Vomiting Ondansetron HCl (Ondansetron Odt 4 Mg Tab) 4 mg SL Q6H PRN PRN Reason: Nausea/Vomiting Pantoprazole Sodium (Pantoprazole 40 Mg Granules Packet) 40 mg PER TUBE DAILY [facility] Last Admin: 09/17/20 08:48 Dose: 40 mg Documented by: Senna/Docusate Sodium (Senokot S 8.6-50 Mg Tab) 2 tab PER TUBE BID PRN PRN Reason: Constipation Sodium Chloride (Flush - Normal Saline 10 Ml Syringe) 10 ml IVF Q12HR [facility] Last Admin: 12/16/20 08:48 Dose: 10 ml Documented by: Sodium Chloride (Flush - Normal Saline 10 Ml Syringe) 10 ml IVF PRN PRN PRN Reason: Saline Flush Warfarin Sodium (Warfarin Sodium 5 Mg Tab) 5 mg PO 1700 [facility] Last Admin: 09/16/20 18:22 Dose: 5 mg Documented by: Vital Signs & Weight: Vital Signs Temp 09/17/20 07:00 98.0 F 09/17/20 03:58 98.7 F 09/16/20 23:58 98.0 F Admit Weight 188 lb 4.396 oz Weight 175 lb 11.335 oz I/O: I/O 09/16/20 09/17/20 09/18/20 06:59 06:59 06:59 Intake Total 850 1320 210 Output Total 2500 0 Balance -1650 1320 210 - Quality Measures CV meds: Warfarin: Yes - Physical Exam General: no apparent distress. negative: appears well, affect appropriate HEENT: mucus membranes moist, normocephaly Neck: supple neck, midline trachea, no JVD/HJR Cardiology: irregularly irregular, tachycardia Lungs: no wheeze, rales, rhonchi, decreased breath sounds Abdomen: unremarkable, active bowel sounds, HJR negative Extremities: dry, strong pulses, warm Skin: device site stable w/o swelling, bruising, left sided device. negative: drainage, erosion - Labs Result Diagrams: 09/17/20 04:01 09/17/20 04:01 - EKG Interpretation EKG Method: Telemetry EKG shows: Sinus rhythm - Device Device: dual, defibrillator Device Result: [employer] - Assessment/Plan Assessment/Plan: Mr. Rodriguez is a 45-year-old man with prior history of end-stage renal disease, persisting atrial fibrillation. He presented after ventricular fibrillation arrest in the setting of extreme hyperkalemia. He also was noted to have severely reduced left ventricular ejection fraction, worsened since the prior echo back in 2012. He has only nonobstructive coronary artery disease. 1. Ventricular fibrillation -cardiac arrest.S/P resucitation. Mild anoxic encephalopathy-improving, a. Current admission after resuscitated cardiac arrest in the setting of hyperkalemia at 8.1. 2. Chronic atrial fibrillation. 3. Chronic systolic congestive heart failure with nonischemic cardiomyopathy. a. History of reduced LVEF at 35% to 40% in 2013, currently 30% to 35%, [id number] concentric LVH, [id number] MR, moderate pulmonary pressure elevation. b. Left heart catheterization from 09/08/2020 demonstrates mild distal vessel disease only. 4. History of 2:1 AV block in the setting of electrolyte abnormalities in the past. 5. End-stage renal disease, on hemodialysis. 6. History of a gastrointestinal polypectomy and related GI bleed in the past. 7. History of anemia of renal disease. 8. ICD implant 09/16 -CXR post implant stable. No pneumothorax - on anbx x7 days post implant,off zosyn 09/17 - device check stable this AM Stable post ICD implant. Cardiology plans to add Dig for AF rate control
--- NOTE | 2020-09-17 10:14 | OP ---
DATE OF PROCEDURE: 09/15/2020 PREOPERATIVE DIAGNOSES: Cardiopulmonary arrest, end-stage renal disease, poor IV access, the patient confused and pull out IV right arm fistula. PROCEDURE PERFORMED: Left IJ triple-lumen catheter ultrasound guidance. ANESTHESIA: 1% Xylocaine. DESCRIPTION OF PROCEDURE: With the patient at bedside, who is in the [facility]. His shoulder roll was placed. Neck and chest were prepared with ChloraPrep and draped in routine fashion. Local anesthetic was infiltrated in the skin and subcutaneous tissue. Ultrasound used to guided trocar catheter into the internal jugular vein, J-wire threaded, trocar catheter removed. Seldinger technique used to place a triple-lumen catheter. The patient tolerated the procedure well as catheter was secured two sutures of 3-0 silk. Each port aspirated for blood, flushed with saline solution. Job ID: [id number]
[2020-09-17] MEDS: Warfarin Sodium 5 MG TAB PO SCH (18:01)
--- NOTE | 2020-09-17 19:39 | PDOC.HOSPP ---
- Subjective Encounter Date: 09/17/20 Encounter Time: 13:00 Subjective: Seen for follow-up regarding hypoxic respiratory failure. More alert today. - Objective Vital Signs & Weight: Vital Signs (12 hours) Temp 09/17/20 15:00 97.6 F 09/17/20 11:00 98.5 F Weight Admit Weight 188 lb 4.396 oz Weight 175 lb 11.335 oz Most Recent Monitor Data Heart Rate from ECG 119 NIBP 107/89 NIBP BP-Mean 95 Respiration from ECG 27 SpO2 84 I&O: 09/16/20 09/17/20 09/18/20 06:59 06:59 06:59 Intake Total 850 1320 750 Output Total 2500 0 1200 Balance -1650 1320 -450 Result Diagrams: 09/17/20 04:01 09/17/20 04:01 Additional Labs: Accuchecks 09/17/20 09/17/20 09/17/20 16:13 12:04 08:47 POC Glucose 89 109 H 91 09/16/20 09/16/20 23:44 20:05 POC Glucose 96 107 H I reviewed patient's labs and MAR Hospitalist ROS - Review of Systems Constitutional: denies: fever, chills, sweats, weakness, malaise Cardiovascular: denies: chest pain, palpitations, orthopnea, paroxysmal noc. dyspnea, edema, light headedness Skin: denies: rash, lesions, kostas, bruising - Medication Medications: Active Medications Generic Name Dose Route Start Last Admin Trade Name Freq PRN Reason Stop Dose Admin Acetaminophen 650 mg 09/09/20 21:10 09/12/20 02:56 Acetaminophen 650 Mg/20.3 Ml Udcup PER TUBE 650 mg Q4H PRN Administration Headache/Fever or Pain Acetaminophen/Codeine Phosphate 2 tab 09/16/20 16:00 09/17/20 08:54 Acetaminophen/Codeine 30-300mg Tablet PO 2 tab Q4H PRN Administration Moderate Pain (4-6) Cephalexin 250 mg 09/16/20 17:00 09/17/20 18:01 Cephalexin 250 Mg Cap PO 09/23/20 13:01 250 mg QID [facility] Administration Dextrose/Water 25 gm 09/09/20 05:45 09/12/20 16:51 Dextrose 50% Abboject 50 Ml Syringe IVP 25 gm PRN PRN Administration HYPOGLYCEMIA PROTOCOL Dextrose/Water 1,000 mls @ 0 mls/hr 09/09/20 05:45 09/14/20 02:58 D5w IV 1,000 mls INF PRN Administration HYPOGLYCEMIA PROTOCOL As Directed Dextrose/Water 1,000 mls @ 30 mls/hr 09/10/20 08:06 09/17/20 08:54 Dextrose 10% In Water IV 1,000 mls .Q24H [facility] Administration Lorazepam 1 mg 09/13/20 00:12 09/17/20 00:35 Lorazepam 2 Mg/Ml Vial SLOW IVP 1 mg Q4H PRN Administration Anxiety/Agitation Metoprolol Tartrate 12.5 mg 09/17/20 09:00 09/17/20 09:22 Metoprolol Tartrate 25 Mg Tab PO 12.5 mg BID [facility] Administration Pantoprazole Sodium 40 mg 09/11/20 09:00 09/17/20 08:48 Pantoprazole 40 Mg Granules Packet PER TUBE 40 mg DAILY [facility] Administration Sodium Chloride 10 ml 09/12/20 21:00 09/17/20 08:48 Flush - Normal Saline 10 Ml Syringe IVF 10 ml Q12HR [facility] Administration Warfarin Sodium 5 mg 09/16/20 17:00 09/17/20 18:01 Warfarin Sodium 5 Mg Tab PO 5 mg 1700 [facility] Administration - Exam General Appearance: awake alert ENT: moist mucosa Neck: supple Heart: RRR Gastrointestinal: soft Skin: no rashes Psychiatric: normal affect, normal behavior, oriented to person, oriented to place Hosp A/P - Plan - Assessment (1) Acute respiratory failure with hypoxia Code(s): J96.01 - ACUTE RESPIRATORY FAILURE WITH HYPOXIA Status: Acute (2) Metabolic acidosis Code(s): E87.2 - ACIDOSIS Status: Acute (3) Lactic acidosis Code(s): E87.2 - ACIDOSIS Status: Acute (4) Successful cardiopulmonary resuscitation Code(s): Z92.89 - PERSONAL HISTORY OF OTHER MEDICAL TREATMENT Status: Acute (5) Ventricular fibrillation Code(s): I49.01 - VENTRICULAR FIBRILLATION Status: Acute (6) Anemia of renal disease Code(s): N18.9 - CHRONIC KIDNEY DISEASE, UNSPECIFIED; D63.1 - ANEMIA IN CHRONIC KIDNEY DISEASE Status: Chronic (7) ESRD (end stage renal disease) on dialysis Code(s): N18.6 - END STAGE RENAL DISEASE; Z99.2 - DEPENDENCE ON RENAL DIALYSIS Status: Chronic (8) Hyperkalemia Code(s): E87.5 - HYPERKALEMIA Status: Resolved (9) Cardiac arrest Code(s): I46.9 - CARDIAC ARREST, CAUSE UNSPECIFIED Status: Resolved - Plan Acute metabolic encephalopathy is improving. Dialysis per nephrology service. Status post ICD placement. Continue Keflex. Hyponatremia mild, likely asymptomatic. COVID-19 test negative.
[2020-09-18] MEDS ORDERED: Metoprolol Tartrate 5 MG/5 ML VIAL ONE ×2 (02:04→02:40)
[2020-09-18] MEDS ORDERED: Labetalol HCl 100 MG/20 ML VIAL ONE (02:04)
[2020-09-18] MEDS: Metoprolol Tartrate 5 MG/5 ML VIAL IVP PRN ×2 (02:05→02:45)
[2020-09-18 02:39] LABS: Hemoglobin 11.9 g/dL (14.0-18.0); Mean Corpuscular HGB CONC 33.7 g/dL (32.0-36.0); Mean Corpuscular Hemoglobin 27.2 pg (27.0-31.0); Mean Corpuscular Volume 80.8 fL (78.0-98.0); Platelet Count 188 thou/uL (130-400); RBC Distribution Width 23.7 % (11.5-14.5); Red Blood Cell (RBC) Count 4.39 mill/uL (4.70-6.10); White Blood Cell (WBC) Count 8.8 thou/uL (4.8-10.8)
[2020-09-18 02:40] LABS: Band 1 % (5-11); Lymphocytes 23 % (21-51); MDiff Complete? YES; Monocytes 11 % (0-10); Neutrophil 65 % (42-75); Platelet Morphology Comment Appears Adequate
[2020-09-18 02:58] LABS: Anion Gap 18 mmol/L (10-20); BUN (Urea Nitrogen) 21 mg/dL (8.9-20.6); Calc. Creatinine Clearance 25 mL/min (70-130); Calcium 8.7 mg/dL (7.8-10.44); Carbon Dioxide 27 mmol/L (22-29); Chloride 95 mmol/L (98-107); Glucose 88 mg/dL (70-105); Magnesium 1.7 mg/dL (1.6-2.6); Potassium 3.6 mmol/L (3.5-5.1); Sodium 136 mmol/L (136-145)
[2020-09-18] MEDS: Diltiazem 125 MG in Sodium Chloride 0.9% 100 ML IVPB SCH ×2 (04:13→17:44)
--- NOTE | 2020-09-18 04:49 | PDOC.EVN ---
Event Note - Event Note Event Note: Nursing called, patient afib rvr. Started on oral BB today by cardiology. Plan to start digoxin per cardiology, however, may have been post-poned d/t poor kidney function. Gave metoprolol IVPB with little effect. Ordered cardizem bolus and drip for rate control. Discussed with attending, Dr. Dominguez.
[2020-09-18] MEDS: Pantoprazole 40 MG GRANULES PACKET PER TUBE SCH (09:44)
[2020-09-18] MEDS: Cephalexin 250 MG CAP PO SCH ×4 (09:44→22:11)
--- NOTE | 2020-09-18 09:48 | PRG ---
DATE OF SERVICE: 09/18/2020 SUBJECTIVE: The patient was restarted on Cardizem drip last night for atrial fibrillation with rapid right ventricular response. He is awake, alert, and eating this morning. OBJECTIVE: VITAL SIGNS: Temperature 97.8, pulse 100, blood pressure 137/90. HEENT: Unremarkable. NECK: No JVD. CARDIAC: S1, S2. Irregular. LUNGS: Clear. ABDOMEN: Soft. EXTREMITIES: No edema. ASSESSMENT: 1. Atrial fibrillation. 2. Status post arrest. PLAN: Basically, his atrial fibrillation is keeping him from being and will transfer to a lower level of care. That issue is being addressed by Cardiology. There are no active pulmonary concerns. We will sign off. Job ID: [id number]
[2020-09-18 11:14] LABS: Hemoglobin 11.5 g/dL (14.0-18.0); Platelet Count 209 thou/uL (130-400)
--- NOTE | 2020-09-18 12:28 | PRG ---
DATE OF SERVICE: 09/18/2020 SUBJECTIVE: A 45-year-old gentleman, being seen for end-stage renal disease. The patient denied nausea, vomiting, or chest pain. PHYSICAL EXAMINATION: General: The patient is awake and alert. Vital Signs: Afebrile, pulse 85, breathing 16, blood pressure 124/92. HEENT: Head normocephalic and atraumatic. Eyes intact, no ulcers. Nose intact, no ulcers. Ears intact, no ulcers. Neck: Supple. No JVD. Chest: Symmetrical and clear. Cardiovascular: Shows S1 and S2, no rub, no murmur. Gastrointestinal: Abdomen is soft, bowel sounds positive. Extremities: Show no edema or ulcers. Skin: Shows no rash or petechiae. Musculoskeletal: Shows no joint swelling or stiffness. Genitourinary: Shows no Villanueva or CVA tenderness. Neurologic: Motor intact. Cranial nerves intact. LABORATORY DATA: Labs reviewed. ASSESSMENT AND PLAN: 1. Stage 6 chronic kidney disease, plan dialysis. 2. Hypertension, stable. 3. Anemia, stable. 4. Medication based on GFR appropriate. Job ID: [id number]
--- NOTE | 2020-09-18 13:23 | PRG ---
DATE OF SERVICE: 09/17/2020 SUBJECTIVE: A 45-year-old gentleman, being seen for end-stage renal disease. The patient denied nausea, vomiting, or chest pain. OBJECTIVE: General: The patient is awake and alert. Vital Signs: Afebrile, pulse 122, breathing at 16, blood pressure 132/85. HEENT: Head normocephalic and atraumatic. Eyes intact, no ulcers. Nose intact, no ulcers. Ears intact, no ulcers. Neck: Supple. No JVD. Chest: Symmetrical and clear. Cardiovascular: Shows S1 and S2, no rub, no murmur. Gastrointestinal: Abdomen is soft, bowel sounds positive. Extremities: Show no edema or ulcers. Skin: Shows no rash or petechiae. Musculoskeletal: Shows no joint swelling or stiffness. Genitourinary: Shows no Villanueva or CVA tenderness. Neurologic: Motor intact. Cranial nerves intact. LABORATORY DATA: Reviewed. ASSESSMENT AND PLAN: 1. Stage 3 chronic kidney disease. Plan dialysis. 2. Hypertension, stable. 3. Anemia, stable. 4. Medication based on GFR appropriate. Job ID: [id number]
--- NOTE | 2020-09-18 16:12 | PRG ---
DATE OF SERVICE: 09/18/2020 SUBJECTIVE: Mr. Rodriguez had increased heart rate overnight. He did have IV Cardizem started. IV Cardizem or further titration in p.o. Cardizem or beta-henri therapy was not instituted yesterday due to hypotension. Blood pressure appears more stable today. He likely has chronic atrial fibrillation. OBJECTIVE: VITAL SIGNS: Blood pressure 155/106, pulse 86, and respirations 20. LUNGS: Clear to auscultation. HEART: Irregularly irregular. ABDOMEN: Soft, nontender, and nondistended. EXTREMITIES: No edema. IMPRESSION: 1. Nonischemic cardiomyopathy. 2. Atrial fibrillation. 3. End-stage renal disease. RECOMMENDATIONS: I have changed the metoprolol tartrate to metoprolol succinate. We will start 25 mg p.o. b.i.d. We will try and titrate down his IV Cardizem and titrate up his metoprolol as needed. P.o. Coumadin has been started and would try and achieve an INR of 2.0. Job ID: [id number]
--- NOTE | 2020-09-18 17:10 | PDOC.EP ---
- Subjective Date: 09/18/20 Time: 08:00 Interval History: AF RVR overnight. - Review of Systems Constitutional: denies: chills, fever, malaise, sweats, weakness, other Respiratory: reports: shortness of breath. denies: cough, dry, hemoptysis, pleuritic pain, SOB with excertion, sputum, wheezing, other Cardiology: denies: chest pain, edema, heart racing, light headedness, paroxysmal noc. dyspnea, orthopnea, palpitations, passing out, pleuritic pain, pressure, swelling, other Gastrointestinal: denies: abdominal pain, constipation, diarrhea, hematochezia, melena, nausea, vomitting, other - Objective Allergies/Adverse Reactions: Allergies Allergy/AdvReac Type Severity Reaction Status Date / Time coconut Allergy Unknown Anaphylaxis Verified 12/23/19 02:55 kiwi Allergy Unknown Verified 08/27/20 21:25 lisinopril Allergy Unknown Verified 08/27/20 21:25 losartan Allergy Unknown Verified 08/27/20 21:25 Current Medications Acetaminophen (Acetaminophen 650 Mg/20.3 Ml Udcup) 650 mg PER TUBE Q4H PRN PRN Reason: Headache/Fever or Pain Last Admin: 09/12/20 02:56 Dose: 650 mg Documented by: Acetaminophen/Codeine Phosphate (Acetaminophen/Codeine 30-300mg Tablet) 1 tab PO Q4H PRN PRN Reason: Mild Pain (1-3) Acetaminophen/Codeine Phosphate (Acetaminophen/Codeine 30-300mg Tablet) 2 tab PO Q4H PRN PRN Reason: Moderate Pain (4-6) Last Admin: 09/17/20 08:54 Dose: 2 tab Documented by: Albuterol/Ipratropium (Ipratropium/Albuterol Sulfate 3 Ml Neb) 3 ml NEB [id number] PRN PRN Reason: SOB &/or Wheezing Bisacodyl (Bisacodyl 10 Mg Supp) 10 mg [place] DAILYPRN PRN PRN Reason: Constipation Calcium Carbonate (Calcium Carbonate 500 Mg Chewtab) 1,000 mg PER TUBE Q4H PRN PRN Reason: Heartburn or Indigestion Cephalexin (Cephalexin 250 Mg Cap) 250 mg PO QID [facility] Stop: 09/23/20 13:01 Last Admin: 09/18/20 14:13 Dose: 250 mg Documented by: Dextrose/Water (Dextrose 50% Abboject 50 Ml Syringe) 25 gm IVP PRN PRN PRN Reason: HYPOGLYCEMIA PROTOCOL Last Admin: 09/12/20 16:51 Dose: 25 gm Documented by: Glucagon (Glucagon 1 Mg/Ml Vial) 1 mg IM PRN PRN PRN Reason: HYPOGLYCEMIA PROTOCOL Hydralazine HCl (Hydralazine 20 Mg/Ml Vial) 10 mg SLOW IVP Q4H PRN PRN Reason: SBP > 180 and HR < 70 Dextrose/Water (D5w) 1,000 mls @ 0 mls/hr IV INF PRN PRN Reason: HYPOGLYCEMIA PROTOCOL Last Admin: 09/14/20 02:58 Dose: 1,000 mls Documented by: Dextrose/Water (Dextrose 10% In Water) 1,000 mls @ 30 mls/hr IV .Q24H [facility] Last Admin: 09/17/20 08:54 Dose: 1,000 mls Documented by: Diltiazem HCl 125 mg/ Sodium (Chloride) 125 mls @ 5 mls/hr IVPB INF [facility]; Protocol Last Admin: 09/18/20 04:13 Dose: 125 mls Documented by: Lorazepam (Lorazepam 2 Mg/Ml Vial) 1 mg SLOW IVP Q4H PRN PRN Reason: Anxiety/Agitation Last Admin: 09/17/20 23:02 Dose: 1 mg Documented by: Metoprolol Succinate (Metoprolol Succinate Xl 25 Mg Tab) 25 mg PO BID [facility] Last Admin: 09/18/20 09:44 Dose: 25 mg Documented by: Miscellaneous Medication (Zosyn) 1 each IVPB PRN PRN PRN Reason: Pharmacy to dose Nitroglycerin (Nitroglycerin 0.4 Mg Tab (25 Tab Bottle)) 0.4 mg SL Q5MIN PRN PRN Reason: Chest Pain Ondansetron HCl (Ondansetron Pf 4 Mg/2 Ml Vial) 4 mg IVP Q6H PRN PRN Reason: Nausea/Vomiting Ondansetron HCl (Ondansetron Odt 4 Mg Tab) 4 mg SL Q6H PRN PRN Reason: Nausea/Vomiting Pantoprazole Sodium (Pantoprazole 40 Mg Granules Packet) 40 mg PER TUBE DAILY [facility] Last Admin: 09/18/20 09:44 Dose: 40 mg Documented by: Senna/Docusate Sodium (Senokot S 8.6-50 Mg Tab) 2 tab PER TUBE BID PRN PRN Reason: Constipation Sodium Chloride (Flush - Normal Saline 10 Ml Syringe) 10 ml IVF Q12HR [facility] Last Admin: 09/18/20 09:44 Dose: 10 ml Documented by: Sodium Chloride (Flush - Normal Saline 10 Ml Syringe) 10 ml IVF PRN PRN PRN Reason: Saline Flush Warfarin Sodium (Warfarin Sodium 5 Mg Tab) 5 mg PO 1700 [facility] Last Admin: 09/17/20 18:01 Dose: 5 mg Documented by: Vital Signs & Weight: Vital Signs Temp Pulse Ox 09/18/20 16:46 97.3 F L 09/18/20 12:21 97.4 F L 09/18/20 08:00 92 L 09/18/20 07:21 97.8 F Admit Weight 188 lb 4.396 oz Weight 173 lb 1.006 oz I/O: I/O 09/17/20 09/18/20 09/19/20 06:59 06:59 06:59 Intake Total 1320 1370 1300 Output Total 0 1200 Balance 1012 320 0583 - Quality Measures CV meds: Warfarin: Yes - Physical Exam General: alert & oriented x3, appears well, no apparent distress, speech clear, affect appropriate HEENT: mucus membranes moist, normocephaly Neck: supple neck, midline trachea, no JVD/HJR Cardiology: irregularly irregular, tachycardia Lungs: clear to auscultation, decreased breath sounds Neurology: cranial nerve 2-12 intact, grossly intact, coordination normal Abdomen: unremarkable, active bowel sounds, HJR negative - Labs Result Diagrams: 09/18/20 10:43 09/18/20 02:00 - EKG Interpretation EKG Method: Telemetry EKG shows: Atrial fibrillation - Assessment/Plan Assessment/Plan: Mr. Rodriguez is a 45-year-old man with prior history of end-stage renal disease, persisting atrial fibrillation. He presented after ventricular fibrillation arrest in the setting of extreme hyperkalemia. He also was noted to have severely reduced left ventricular ejection fraction, worsened since the prior echo back in 2012. He has only nonobstructive coronary artery disease. 1. Ventricular fibrillation -cardiac arrest.S/P resucitation. Mild anoxic encephalopathy-improving, a. Current admission after resuscitated cardiac arrest in the setting of hyperkalemia at 8.1. 2. Chronic atrial fibrillation. 3. Chronic systolic congestive heart failure with nonischemic cardiomyopathy. a. History of reduced LVEF at 35% to 40% in 2012, currently 30% to 35%, [id number] concentric LVH, [id number] MR, moderate pulmonary pressure elevation. b. Left heart catheterization from 09/08/2020 demonstrates mild distal vessel disease only. 4. History of 2:1 AV block in the setting of electrolyte abnormalities in the past. 5. End-stage renal disease, on hemodialysis. 6. History of a gastrointestinal polypectomy and related GI bleed in the past. 7. History of anemia of renal disease. 8. ICD implant 09/16 -CXR post implant stable. No pneumothorax - on anbx x7 days post implant,off zosyn 09/17 - device check stable this AM Stable post ICD implant. AF RVR overnight,rate control being managed by Cardiology started BB. ICD function is stable. EP signing off.
[2020-09-18] MEDS: Warfarin Sodium 5 MG TAB PO SCH (17:43)
--- NOTE | 2020-09-18 18:06 | PDOC.HOSPP ---
- Subjective Encounter Date: 09/18/20 Encounter Time: 07:30 Subjective: Pt seen for followup re: hypoxic resp failure. More alert today, feels better. - Objective Vital Signs & Weight: Vital Signs (12 hours) Temp Pulse Ox 09/18/20 16:46 97.3 F L 09/18/20 12:21 97.4 F L 09/18/20 08:00 92 L 09/18/20 07:21 97.8 F Weight Admit Weight 188 lb 4.396 oz Weight 173 lb 1.006 oz Most Recent Monitor Data Heart Rate from ECG 91 NIBP 155/106 NIBP BP-Mean 122 Respiration from ECG 24 SpO2 89 I&O: 09/17/20 09/18/20 09/19/20 06:59 06:59 06:59 Intake Total 1320 1370 1300 Output Total 0 1200 Balance 2719 251 3283 Result Diagrams: 09/18/20 10:43 09/18/20 02:00 Additional Labs: Accuchecks 09/18/20 09/18/20 09/18/20 16:19 12:10 08:59 POC Glucose 80 81 85 09/17/20 09/17/20 23:53 19:39 POC Glucose 82 102 H Labs and MAR reviewed by me EKG Reviewed by me: Yes (Telemetry shows atrial fibrillation) Hospitalist ROS - Review of Systems Cardiovascular: denies: chest pain, palpitations, orthopnea, paroxysmal noc. dyspnea, edema, light headedness Gastrointestinal: denies: nausea, vomiting, abdominal pain, diarrhea, constipation, melena, hematochezia - Medication Medications: Active Medications Generic Name Dose Route Start Last Admin Trade Name Sav PRN Reason Stop Dose Admin Acetaminophen 650 mg 09/09/20 21:10 09/12/20 02:56 Acetaminophen 650 Mg/20.3 Ml Udcup PER TUBE 650 mg Q4H PRN Administration Headache/Fever or Pain Acetaminophen/Codeine Phosphate 2 tab 09/16/20 16:00 09/17/20 08:54 Acetaminophen/Codeine 30-300mg Tablet PO 2 tab Q4H PRN Administration Moderate Pain (4-6) Cephalexin 250 mg 09/16/20 17:00 09/18/20 17:43 Cephalexin 250 Mg Cap PO 09/23/20 13:01 250 mg QID MARAH Administration Dextrose/Water 25 gm 09/09/20 05:45 09/12/20 16:51 Dextrose 50% Abboject 50 Ml Syringe IVP 25 gm PRN PRN Administration HYPOGLYCEMIA PROTOCOL Dextrose/Water 1,000 mls @ 0 mls/hr 09/09/20 05:45 09/14/20 02:58 D5w IV 1,000 mls INF PRN Administration HYPOGLYCEMIA PROTOCOL As Directed Dextrose/Water 1,000 mls @ 30 mls/hr 09/10/20 08:06 09/17/20 08:54 Dextrose 10% In Water IV 1,000 mls .Q24H MARAH Administration Diltiazem HCl 125 mg/ Sodium 125 mls @ 5 mls/hr 09/18/20 03:45 09/18/20 17:44 Chloride IVPB 125 mls INF MARAH Administration Protocol 5 MG/HR Lorazepam 1 mg 09/13/20 00:12 09/17/20 23:02 Lorazepam 2 Mg/Ml Vial SLOW IVP 1 mg Q4H PRN Administration Anxiety/Agitation Metoprolol Succinate 25 mg 09/18/20 09:00 09/18/20 09:44 Metoprolol Succinate Xl 25 Mg Tab PO 25 mg BID MARAH Administration Pantoprazole Sodium 40 mg 09/11/20 09:00 09/18/20 09:44 Pantoprazole 40 Mg Granules Packet PER TUBE 40 mg DAILY MARAH Administration Sodium Chloride 10 ml 09/12/20 21:00 09/18/20 09:44 Flush - Normal Saline 10 Ml Syringe IVF 10 ml Q12HR MARAH Administration Warfarin Sodium 5 mg 09/16/20 17:00 09/18/20 17:43 Warfarin Sodium 5 Mg Tab PO 5 mg 1700 MARAH Administration - Exam General Appearance: awake alert ENT: moist mucosa Neck: supple Heart - other findings: S1, S2, tachy and irregular Respiratory: rhonchi Gastrointestinal: soft, non-tender Skin: no rashes Psychiatric: normal affect, normal behavior, oriented to person, oriented to place Hosp A/P - Plan - Assessment (1) Acute respiratory failure with hypoxia Code(s): J96.01 - ACUTE RESPIRATORY FAILURE WITH HYPOXIA Status: Acute (2) A. fib with RVR Status: Acute (3) Lactic acidosis Code(s): E87.2 - ACIDOSIS Status: Acute (4) Successful cardiopulmonary resuscitation Code(s): Z92.89 - PERSONAL HISTORY OF OTHER MEDICAL TREATMENT Status: Acute (5) Ventricular fibrillation Code(s): I49.01 - VENTRICULAR FIBRILLATION Status: Acute (6) Anemia of renal disease Code(s): N18.9 - CHRONIC KIDNEY DISEASE, UNSPECIFIED; D63.1 - ANEMIA IN CHRONIC KIDNEY DISEASE Status: Chronic (7) ESRD (end stage renal disease) on dialysis Code(s): N18.6 - END STAGE RENAL DISEASE; Z99.2 - DEPENDENCE ON RENAL DIALYSIS Status: Chronic (8) Hyperkalemia Code(s): E87.5 - HYPERKALEMIA Status: Resolved (9) Cardiac arrest Code(s): I46.9 - CARDIAC ARREST, CAUSE UNSPECIFIED Status: Resolved - Plan Clinically improving. Patient has been started on Cardizem drip by cardiology service for A. fib with RVR. Nephrology service following for dialysis. Status post ICD placement. Continue Keflex for total of 1 week. Hyponatremia mild, likely asymptomatic. COVID-19 test negative.
[2020-09-18] MEDS ORDERED: hydrOXYzine 25 MG TAB PO PRN (18:43)
[2020-09-18] MEDS: Dextrose 10% in Water 1,000 ML IV SCH (22:12)
[2020-09-19 05:00] LABS: Anion Gap 18 mmol/L (10-20); BUN (Urea Nitrogen) 33 mg/dL (8.9-20.6); Calc. Creatinine Clearance 17 mL/min (70-130); Calcium 8.9 mg/dL (7.8-10.44); Carbon Dioxide 28 mmol/L (22-29); Chloride 95 mmol/L (98-107); Glucose 90 mg/dL (70-105); Potassium 3.7 mmol/L (3.5-5.1); Sodium 137 mmol/L (136-145)
[2020-09-19 05:58] LABS: Anisocytosis MODERATE=16-30 cells (100X) (0-5/hpf); Band 6 % (5-11); Eosinophils 1 % (0-10); Hemoglobin 11.7 g/dL (14.0-18.0); Lymphocytes 8 % (21-51); MDiff Complete? YES; Mean Corpuscular HGB CONC 31.6 g/dL (32.0-36.0); Mean Corpuscular Hemoglobin 25.3 pg (27.0-31.0); Mean Corpuscular Volume 79.8 fL (78.0-98.0); Monocytes 10 % (0-10); Neutrophil 75 % (42-75); Platelet Count 237 thou/uL (130-400); RBC Distribution Width 23.7 % (11.5-14.5); Red Blood Cell (RBC) Count 4.61 mill/uL (4.70-6.10); Target Cells SLIGHT = 2-5 cells (100X) (0-1/hpf); White Blood Cell (WBC) Count 9.7 thou/uL (4.8-10.8)
[2020-09-19] MEDS: Cephalexin 250 MG CAP PO SCH ×4 (09:00→20:38)
--- NOTE | 2020-09-19 10:41 | PRG ---
DATE OF SERVICE: 09/19/2020 SUBJECTIVE: A 45-year-old gentleman, being seen for end-stage renal disease. The patient denied nausea, vomiting, or chest pain. PHYSICAL EXAMINATION: General: The patient is awake and alert. Vital Signs: Afebrile, pulse 75, breathing at 16, blood pressure 146/84. HEENT: Head normocephalic and atraumatic. Eyes intact, no ulcers. Nose intact, no ulcers. Ears intact, no ulcers. Neck: Supple. No JVD. Chest: Symmetrical and clear. Cardiovascular: Shows S1 and S2, no rub, no murmur. Gastrointestinal: Abdomen is soft, bowel sounds positive. Extremities: Show no edema or ulcers. Skin: Shows no rash or petechiae. Musculoskeletal: Shows no joint swelling or stiffness. Genitourinary: Shows no Villanueva or CVA tenderness. Neurologic: Motor intact. Cranial nerves intact. LABORATORY DATA: Reviewed. ASSESSMENT AND PLAN: 1. Stage 6 chronic kidney disease, plan dialysis. 2. Hypertension, stable. 3. Anemia, stable. 4. Medication based on GFR, appropriate. Job ID: [id number]
[2020-09-19] MEDS ORDERED: Diltiazem 125 MG in Sodium Chloride 0.9% 100 ML IVPB SCH (13:00)
[2020-09-19 13:44] LABS: INR-International Normal Ratio 1.5; Prothrombin Time 18.8 sec (12.0-14.7)
[2020-09-19] MEDS: Pantoprazole 40 MG GRANULES PACKET PER TUBE SCH (14:24)
--- NOTE | 2020-09-19 15:09 | PDOC.CPN ---
- Subjective Date: 09/19/20 Time: 13:00 Interval history: No overnight events. Remains in AF - Review of Systems General: denies: fever/chills, weight/appetite/sleep changes, night sweats, fatigue Respiratory: denies: cough, congestion, shortness of breath, exercise intolerance Cardiovascular: denies: chest pain, palpitation, edema, paroxysmal nocturnal dyspnea, orthopnea Gastrointestinal: denies: nausea, vomiting, diarrhea, constipation, abd pain, GI bleeding Musculoskeletal: denies: pain, tenderness, stiffness, swelling, arthritis/arthralgias Neurological: denies: numbness, syncope, seizure, weakness - Objective Allergies/Adverse Reactions: Allergies Allergy/AdvReac Type Severity Reaction Status Date / Time coconut Allergy Unknown Anaphylaxis Verified 12/23/19 02:55 kiwi Allergy Unknown Verified 08/27/20 21:25 lisinopril Allergy Unknown Verified 08/27/20 21:25 losartan Allergy Unknown Verified 08/27/20 21:25 Visit Medications: Current Medications Acetaminophen (Acetaminophen 650 Mg/20.3 Ml Udcup) 650 mg PER TUBE Q4H PRN PRN Reason: Headache/Fever or Pain Last Admin: 09/12/20 02:56 Dose: 650 mg Documented by: Acetaminophen/Codeine Phosphate (Acetaminophen/Codeine 30-300mg Tablet) 1 tab PO Q4H PRN PRN Reason: Mild Pain (1-3) Acetaminophen/Codeine Phosphate (Acetaminophen/Codeine 30-300mg Tablet) 2 tab PO Q4H PRN PRN Reason: Moderate Pain (4-6) Last Admin: 09/17/20 08:54 Dose: 2 tab Documented by: Albuterol/Ipratropium (Ipratropium/Albuterol Sulfate 3 Ml Neb) 3 ml NEB [id number] PRN PRN Reason: SOB &/or Wheezing Bisacodyl (Bisacodyl 10 Mg Supp) 10 mg AR DAILYPRN PRN PRN Reason: Constipation Calcium Carbonate (Calcium Carbonate 500 Mg Chewtab) 1,000 mg PER TUBE Q4H PRN PRN Reason: Heartburn or Indigestion Cephalexin (Cephalexin 250 Mg Cap) 250 mg PO QID MARAH Stop: 09/23/20 13:01 Last Admin: 09/19/20 14:24 Dose: 250 mg Documented by: Dextrose/Water (Dextrose 50% Abboject 50 Ml Syringe) 25 gm IVP PRN PRN PRN Reason: HYPOGLYCEMIA PROTOCOL Last Admin: 09/12/20 16:51 Dose: 25 gm Documented by: Glucagon (Glucagon 1 Mg/Ml Vial) 1 mg IM PRN PRN PRN Reason: HYPOGLYCEMIA PROTOCOL Hydralazine HCl (Hydralazine 20 Mg/Ml Vial) 10 mg SLOW IVP Q4H PRN PRN Reason: SBP > 180 and HR < 70 Hydroxyzine HCl (Hydroxyzine 25 Mg Tab) 25 mg PO Q8H PRN PRN Reason: Itching Dextrose/Water (D5w) 1,000 mls @ 0 mls/hr IV INF PRN PRN Reason: HYPOGLYCEMIA PROTOCOL Last Admin: 09/14/20 02:58 Dose: 1,000 mls Documented by: Dextrose/Water (Dextrose 10% In Water) 1,000 mls @ 30 mls/hr IV .Q24H [facility] Last Admin: 09/18/20 22:12 Dose: 1,000 mls Documented by: Lorazepam (Lorazepam 2 Mg/Ml Vial) 1 mg SLOW IVP Q4H PRN PRN Reason: Anxiety/Agitation Last Admin: 09/17/20 23:02 Dose: 1 mg Documented by: Metoprolol Succinate (Metoprolol Succinate Xl 50 Mg Tab) 50 mg PO BID [facility] Last Admin: 09/19/20 14:23 Dose: 50 mg Documented by: Miscellaneous Medication (Zosyn) 1 each IVPB PRN PRN PRN Reason: Pharmacy to dose Nitroglycerin (Nitroglycerin 0.4 Mg Tab (25 Tab Bottle)) 0.4 mg SL Q5MIN PRN PRN Reason: Chest Pain Ondansetron HCl (Ondansetron Pf 4 Mg/2 Ml Vial) 4 mg IVP Q6H PRN PRN Reason: Nausea/Vomiting Ondansetron HCl (Ondansetron Odt 4 Mg Tab) 4 mg SL Q6H PRN PRN Reason: Nausea/Vomiting Pantoprazole Sodium (Pantoprazole 40 Mg Granules Packet) 40 mg PER TUBE DAILY [facility] Last Admin: 09/19/20 14:24 Dose: 40 mg Documented by: Senna/Docusate Sodium (Senokot S 8.6-50 Mg Tab) 2 tab PER TUBE BID PRN PRN Reason: Constipation Sodium Chloride (Flush - Normal Saline 10 Ml Syringe) 10 ml IVF Q12HR [facility] Last Admin: 09/19/20 14:24 Dose: 10 ml Documented by: Sodium Chloride (Flush - Normal Saline 10 Ml Syringe) 10 ml IVF PRN PRN PRN Reason: Saline Flush Warfarin Sodium (Warfarin Sodium 5 Mg Tab) 5 mg PO 1700 [facility] Last Admin: 09/18/20 17:43 Dose: 5 mg Documented by: Vital Signs & Weight: Vital Signs Temp Pulse Resp BP Pulse Ox 09/19/20 14:23 96 20 137/80 96 09/19/20 11:59 97.5 F L 87 16 131/85 98 09/19/20 08:39 98.2 F 96 20 174/77 H 98 09/19/20 03:21 98.1 F 82 22 H 146/84 H 98 Admit Weight 188 lb 4.396 oz Weight 174 lb - Physical Exam General: alert & oriented x3 HEENT: mucus membranes moist Neck: supple neck Cardiac: other (IRR iRR) Lungs: clear to auscultation Neuro: grossly intact Abdomen: soft - Labs Result Diagrams: 09/19/20 04:20 09/19/20 04:20 Troponin/CKMB Troponin I 0.172 ng/mL (< 0.028) H 09/08/20 13:23 - Assessment/Plan Assessment/Plan: 1. s/p VF and cardiac arrest with ROSC secondary to hyperkalemia 2. NICMO s/p ICD 3. Persistent AF 4. ESRD Will stop cardizem. increase bblocker. Will d/w RG changing warfarin back to Eliquis to encourage compliance if affordable for patient.
[2020-09-19] MEDS: Warfarin Sodium 5 MG TAB PO SCH (17:30)
--- NOTE | 2020-09-19 18:20 | PDOC.HOSPP ---
- Subjective Encounter Date: 09/19/20 Encounter Time: 09:30 Subjective: Patient seen for follow-up regarding acute encephalopathy. He is more awake and alert today. - Objective Vital Signs & Weight: Vital Signs (12 hours) Temp Pulse Resp BP Pulse Ox 09/19/20 14:23 96 20 137/80 96 09/19/20 11:59 97.5 F L 87 16 131/85 98 09/19/20 08:39 98.2 F 96 20 174/77 H 98 Weight Admit Weight 188 lb 4.396 oz Weight 174 lb Most Recent Monitor Data Heart Rate from ECG 86 NIBP 155/106 NIBP BP-Mean 122 Respiration from ECG 24 SpO2 80 I&O: 09/18/20 09/19/20 09/20/20 06:59 06:59 06:59 Intake Total 1370 2400 840 Output Total 1200 Balance 170 2400 840 Result Diagrams: 09/19/20 04:20 09/19/20 04:20 Additional Labs: Accuchecks 09/19/20 09/19/20 09/19/20 11:58 08:05 04:30 POC Glucose 90 85 87 09/18/20 09/18/20 23:43 19:35 POC Glucose 109 H 94 I reviewed patient's labs and MAR EKG Reviewed by me: Yes (Ulises keene on telemetry) Hospitalist ROS - Review of Systems Gastrointestinal: denies: nausea, vomiting, abdominal pain, diarrhea, constipation, melena, hematochezia Musculoskeletal: denies: neck pain, shoulder pain, arm pain, back pain, hand pain, leg pain, foot pain - Medication Medications: Active Medications Generic Name Dose Route Start Last Admin Trade Name Sav PRN Reason Stop Dose Admin Acetaminophen 650 mg 09/09/20 21:10 09/12/20 02:56 Acetaminophen 650 Mg/20.3 Ml Udcup PER TUBE 650 mg Q4H PRN Administration Headache/Fever or Pain Acetaminophen/Codeine Phosphate 2 tab 09/16/20 16:00 09/17/20 08:54 Acetaminophen/Codeine 30-300mg Tablet PO 2 tab Q4H PRN Administration Moderate Pain (4-6) Cephalexin 250 mg 09/16/20 17:00 09/19/20 17:30 Cephalexin 250 Mg Cap PO 09/23/20 13:01 250 mg QID MARAH Administration Dextrose/Water 25 gm 09/09/20 05:45 09/12/20 16:51 Dextrose 50% Abboject 50 Ml Syringe IVP 25 gm PRN PRN Administration HYPOGLYCEMIA PROTOCOL Dextrose/Water 1,000 mls @ 0 mls/hr 09/09/20 05:45 09/14/20 02:58 D5w IV 1,000 mls INF PRN Administration HYPOGLYCEMIA PROTOCOL As Directed Dextrose/Water 1,000 mls @ 30 mls/hr 09/10/20 08:06 09/18/20 22:12 Dextrose 10% In Water IV 1,000 mls .Q24H MARAH Administration Lorazepam 1 mg 09/13/20 00:12 09/17/20 23:02 Lorazepam 2 Mg/Ml Vial SLOW IVP 1 mg Q4H PRN Administration Anxiety/Agitation Pantoprazole Sodium 40 mg 09/11/20 09:00 09/19/20 14:24 Pantoprazole 40 Mg Granules Packet PER TUBE 40 mg DAILY MARAH Administration Sodium Chloride 10 ml 09/12/20 21:00 09/19/20 14:24 Flush - Normal Saline 10 Ml Syringe IVF 10 ml Q12HR MARAH Administration Warfarin Sodium 5 mg 09/16/20 17:00 09/19/20 17:30 Warfarin Sodium 5 Mg Tab PO 5 mg 1700 MARAH Administration - Exam General Appearance: awake alert Eye: anicteric sclera ENT: normocephalic atraumatic Neck: supple Heart: irregular Respiratory: CTAB Gastrointestinal: soft, non-tender Skin: no rashes Psychiatric: normal affect, normal behavior Hosp A/P - Plan - Assessment (1) Acute respiratory failure with hypoxia Code(s): J96.01 - ACUTE RESPIRATORY FAILURE WITH HYPOXIA Status: Acute (2) A. fib with RVR Status: Acute (3) Lactic acidosis Code(s): E87.2 - ACIDOSIS Status: Acute (4) Successful cardiopulmonary resuscitation Code(s): Z92.89 - PERSONAL HISTORY OF OTHER MEDICAL TREATMENT Status: Acute (5) Ventricular fibrillation Code(s): I49.01 - VENTRICULAR FIBRILLATION Status: Acute (6) Anemia of renal disease Code(s): N18.9 - CHRONIC KIDNEY DISEASE, UNSPECIFIED; D63.1 - ANEMIA IN CHRONIC KIDNEY DISEASE Status: Chronic (7) ESRD (end stage renal disease) on dialysis Code(s): N18.6 - END STAGE RENAL DISEASE; Z99.2 - DEPENDENCE ON RENAL DIALYSIS Status: Chronic (8) Hyperkalemia Code(s): E87.5 - HYPERKALEMIA Status: Resolved (9) Cardiac arrest Code(s): I46.9 - CARDIAC ARREST, CAUSE UNSPECIFIED Status: Resolved - Plan Slowly improving. Patient continues to be in atrial fibrillation, ventricular response controlled. Dialysis per nephrology service. Status post ICD placement. Continue Keflex for total of 1 week. Hyponatremia mild, likely asymptomatic. COVID-19 test negative.
[2020-09-20 04:08] LABS: INR-International Normal Ratio 1.7; Prothrombin Time 20.3 sec (12.0-14.7)
[2020-09-20 04:20] LABS: Anion Gap 17 mmol/L (10-20); BUN (Urea Nitrogen) 19 mg/dL (8.9-20.6); Calc. Creatinine Clearance 23 mL/min (70-130); Calcium 8.6 mg/dL (7.8-10.44); Carbon Dioxide 28 mmol/L (22-29); Chloride 99 mmol/L (98-107); Glucose 98 mg/dL (70-105); Potassium 3.7 mmol/L (3.5-5.1); Sodium 140 mmol/L (136-145)
[2020-09-20 05:06] LABS: Eosinophils 1 % (0-10); Lymphocytes 14 % (21-51); MDiff Complete? YES; Mean Corpuscular HGB CONC 30.7 g/dL (32.0-36.0); Mean Corpuscular Hemoglobin 24.5 pg (27.0-31.0); Mean Corpuscular Volume 79.8 fL (78.0-98.0); Mean Platelet Volume 5.8 fL (7.4-10.4); Monocytes 9 % (0-10); Neutrophil 76 % (42-75); Nucleated RBC 1 % (0); Platelet Count 257 thou/uL (130-400); Polychromasia SLIGHT = 2-3 cells (100X) (0-2/hpf); Red Blood Cell (RBC) Count 4.51 mill/uL (4.70-6.10); Target Cells MODERATE= 6-15 cells (100X) (0-1/hpf); White Blood Cell (WBC) Count 8.8 thou/uL (4.8-10.8)
[2020-09-20] MEDS: Dextrose 10% in Water 1,000 ML IV SCH (06:10)
[2020-09-20] MEDS: Pantoprazole 40 MG GRANULES PACKET PER TUBE SCH (08:29)
[2020-09-20] MEDS: Cephalexin 250 MG CAP PO SCH ×4 (08:29→20:04)
--- NOTE | 2020-09-20 10:20 | PRG ---
DATE OF SERVICE: 09/20/2020 SUBJECTIVE: A 45-year-old gentleman being seen for end-stage renal disease. The patient denies nausea, vomiting, or chest pain. OBJECTIVE: GENERAL: The patient is awake and alert. VITAL SIGNS: Pulse 115, breathing 16, blood pressure 113/85. HEENT: Head normocephalic and atraumatic. Eyes intact, no ulcers. Nose intact, no ulcers. Ears intact, no ulcers. NECK: Supple. No JVD. CHEST: Symmetrical and clear. CARDIOVASCULAR: Shows S1 and S2, no rub, no murmur. GASTROINTESTINAL: Abdomen is soft, bowel sounds positive. EXTREMITIES: Show no edema or ulcers. SKIN: Shows no rash or petechiae. MUSCULOSKELETAL: Shows no joint swelling or stiffness. GENITOURINARY: Shows no Villanueva or CVA tenderness. NEUROLOGIC: Motor intact. Cranial nerves intact. LABORATORY DATA: Reviewed. ASSESSMENT AND PLAN: 1. Stage 6 chronic kidney disease, plan dialysis. 2. Hypertension, stable. 3. Anemia, stable. 4. Medication based on GFR, appropriate. Job ID: [id number]
--- NOTE | 2020-09-20 10:35 | EKG ---
Test Reason : Blood Pressure : / mmHG Vent. Rate : 078 BPM Atrial Rate : 061 BPM P-R Int : 000 ms QRS Dur : 162 ms QT Int : 460 ms P-R-T Axes : 000 265 102 degrees QTc Int : 524 ms Normal sinus rhythm with 1st degree AV block Wide QRS Peaked T waves Non-specific intra-ventricular conduction block Possible Lateral infarct , age undetermined Abnormal ECG Confirmed by KAREY ACOSTA, ALICIA Sherman ([id number]), scientific publications editor NICKI SAINI ([id number]) on 09/20/2020 10:34:41 AM Referred By: Confirmed By:ALICIA EDEN MD
[2020-09-20 12:42] LABS: Platelet Count 205 thou/uL (130-400)
--- NOTE | 2020-09-20 12:50 | PDOC.HOSPP ---
- Subjective Encounter Date: 09/20/20 Encounter Time: 10:00 Subjective: Patient seen for follow-up regarding acute encephalopathy. Denies chest pain or shortness of breath. - Objective Vital Signs & Weight: Vital Signs (12 hours) Temp Pulse Resp BP BP Pulse Ox 09/20/20 12:20 97.9 F 119 H 18 134/98 H 95 09/20/20 07:34 97.8 F 119 H 18 110/74 98 09/20/20 04:00 98.7 F 115 H 20 113/85 95 Weight Admit Weight 188 lb 4.396 oz Weight 165 lb 3.2 oz Most Recent Monitor Data Heart Rate from ECG 86 NIBP 155/106 NIBP BP-Mean 122 Respiration from ECG 24 SpO2 80 I&O: 09/19/20 09/20/20 09/21/20 06:59 06:59 06:59 Intake Total 2400 840 Balance 2400 840 Result Diagrams: 09/20/20 12:33 09/20/20 03:30 Additional Labs: Accuchecks 09/20/20 09/20/20 09/20/20 12:07 07:59 05:35 POC Glucose 80 84 85 09/20/20 09/19/20 09/19/20 04:21 23:40 19:55 POC Glucose 81 72 91 Labs and MAR reviewed by me EKG Reviewed by me: Yes (Ulises keene on telemetry) Hospitalist ROS - Review of Systems Gastrointestinal: denies: nausea, vomiting, abdominal pain, diarrhea, constipation, melena, hematochezia Genitourinary: denies: dysuria, frequency, incontinence, hematuria, retention - Medication Medications: Active Medications Generic Name Dose Route Start Last Admin Trade Name Freq PRN Reason Stop Dose Admin Acetaminophen 650 mg 09/09/20 21:10 09/12/20 02:56 Acetaminophen 650 Mg/20.3 Ml Udcup PER TUBE 650 mg Q4H PRN Administration Headache/Fever or Pain Acetaminophen/Codeine Phosphate 2 tab 09/16/20 16:00 09/17/20 08:54 Acetaminophen/Codeine 30-300mg Tablet PO 2 tab Q4H PRN Administration Moderate Pain (4-6) Cephalexin 250 mg 09/16/20 17:00 09/20/20 08:29 Cephalexin 250 Mg Cap PO 09/23/20 13:01 250 mg QID MARAH Administration Dextrose/Water 25 gm 09/09/20 05:45 09/12/20 16:51 Dextrose 50% Abboject 50 Ml Syringe IVP 25 gm PRN PRN Administration HYPOGLYCEMIA PROTOCOL Dextrose/Water 1,000 mls @ 0 mls/hr 09/09/20 05:45 09/14/20 02:58 D5w IV 1,000 mls INF PRN Administration HYPOGLYCEMIA PROTOCOL As Directed Dextrose/Water 1,000 mls @ 30 mls/hr 09/10/20 08:06 09/20/20 06:10 Dextrose 10% In Water IV 1,000 mls .Q24H MARAH Administration Lorazepam 1 mg 09/13/20 00:12 09/17/20 23:02 Lorazepam 2 Mg/Ml Vial SLOW IVP 1 mg Q4H PRN Administration Anxiety/Agitation Pantoprazole Sodium 40 mg 09/11/20 09:00 09/20/20 08:29 Pantoprazole 40 Mg Granules Packet PER TUBE 40 mg DAILY MARAH Administration Sodium Chloride 10 ml 09/12/20 21:00 09/20/20 08:29 Flush - Normal Saline 10 Ml Syringe IVF 10 ml Q12HR MARAH Administration Warfarin Sodium 5 mg 09/16/20 17:00 09/19/20 17:30 Warfarin Sodium 5 Mg Tab PO 5 mg 1700 MARAH Administration - Exam General Appearance: awake alert Eye: anicteric sclera Neck: no carotid bruit Respiratory: CTAB Gastrointestinal: soft, non-tender Skin: no lesions Psychiatric: normal affect, normal behavior Hosp A/P - Plan - Assessment (1) Acute encephalopathy Status: Acute (2) A. fib with RVR Status: Acute (3) Lactic acidosis Code(s): E87.2 - ACIDOSIS Status: Acute (4) Successful cardiopulmonary resuscitation Code(s): Z92.89 - PERSONAL HISTORY OF OTHER MEDICAL TREATMENT Status: Acute (5) Ventricular fibrillation Code(s): I49.01 - VENTRICULAR FIBRILLATION Status: Acute (6) Anemia of renal disease Code(s): N18.9 - CHRONIC KIDNEY DISEASE, UNSPECIFIED; D63.1 - ANEMIA IN CHRONIC KIDNEY DISEASE Status: Chronic (7) ESRD (end stage renal disease) on dialysis Code(s): N18.6 - END STAGE RENAL DISEASE; Z99.2 - DEPENDENCE ON RENAL DIALYSIS Status: Chronic (8) Hyperkalemia Code(s): E87.5 - HYPERKALEMIA Status: Resolved (9) Cardiac arrest Code(s): I46.9 - CARDIAC ARREST, CAUSE UNSPECIFIED Status: Resolved (10) Acute respiratory failure with hypoxia Code(s): J96.01 - ACUTE RESPIRATORY FAILURE WITH HYPOXIA Status: Acute - Plan Patient continues to improve. Patient continues to be in atrial fibrillation, ventricular response controlled. Nephrology following for dialysis. Status post ICD placement during this hospitalization. Continue Keflex for total of 1 week. Hyponatremia resolved COVID-19 test negative.
--- NOTE | 2020-09-20 13:39 | PDOC.CPN ---
- Subjective Date: 09/20/20 Time: 11:45 Interval history: No complaints. Patient says he is feeling fine. - Review of Systems General: denies: fever/chills, weight/appetite/sleep changes, night sweats, fatigue Respiratory: denies: cough, congestion, shortness of breath, exercise intolerance Cardiovascular: denies: chest pain, palpitation, edema, paroxysmal nocturnal dyspnea, orthopnea Gastrointestinal: denies: nausea, vomiting, diarrhea, constipation, abd pain, GI bleeding Musculoskeletal: denies: pain, tenderness, stiffness, swelling, arthritis/arth ralgias Neurological: denies: numbness, syncope, seizure, weakness - Objective Allergies/Adverse Reactions: Allergies Allergy/AdvReac Type Severity Reaction Status Date / Time coconut Allergy Unknown Anaphylaxis Verified 12/23/19 02:55 kiwi Allergy Unknown Verified 08/27/20 21:25 lisinopril Allergy Unknown Verified 08/27/20 21:25 losartan Allergy Unknown Verified 08/27/20 21:25 Visit Medications: Current Medications Acetaminophen (Acetaminophen 650 Mg/20.3 Ml Udcup) 650 mg PER TUBE Q4H PRN PRN Reason: Headache/Fever or Pain Last Admin: 09/12/20 02:56 Dose: 650 mg Documented by: Acetaminophen/Codeine Phosphate (Acetaminophen/Codeine 30-300mg Tablet) 1 tab PO Q4H PRN PRN Reason: Mild Pain (1-3) Acetaminophen/Codeine Phosphate (Acetaminophen/Codeine 30-300mg Tablet) 2 tab PO Q4H PRN PRN Reason: Moderate Pain (4-6) Last Admin: 09/17/20 08:54 Dose: 2 tab Documented by: Albuterol/Ipratropium (Ipratropium/Albuterol Sulfate 3 Ml Neb) 3 ml NEB [id number] PRN PRN Reason: SOB &/or Wheezing Bisacodyl (Bisacodyl 10 Mg Supp) 10 mg [place] DAILYPRN PRN PRN Reason: Constipation Calcium Carbonate (Calcium Carbonate 500 Mg Chewtab) 1,000 mg PER TUBE Q4H PRN PRN Reason: Heartburn or Indigestion Cephalexin (Cephalexin 250 Mg Cap) 250 mg PO QID MARAH Stop: 09/23/20 13:01 Last Admin: 09/20/20 13:26 Dose: 250 mg Documented by: Dextrose/Water (Dextrose 50% Abboject 50 Ml Syringe) 25 gm IVP PRN PRN PRN Reason: HYPOGLYCEMIA PROTOCOL Last Admin: 09/12/20 16:51 Dose: 25 gm Documented by: Glucagon (Glucagon 1 Mg/Ml Vial) 1 mg IM PRN PRN PRN Reason: HYPOGLYCEMIA PROTOCOL Hydralazine HCl (Hydralazine 20 Mg/Ml Vial) 10 mg SLOW IVP Q4H PRN PRN Reason: SBP > 180 and HR < 70 Hydroxyzine HCl (Hydroxyzine 25 Mg Tab) 25 mg PO Q8H PRN PRN Reason: Itching Dextrose/Water (D5w) 1,000 mls @ 0 mls/hr IV INF PRN PRN Reason: HYPOGLYCEMIA PROTOCOL Last Admin: 09/14/20 02:58 Dose: 1,000 mls Documented by: Dextrose/Water (Dextrose 10% In Water) 1,000 mls @ 30 mls/hr IV .Q24H [facility] Last Admin: 09/20/20 06:10 Dose: 1,000 mls Documented by: Lorazepam (Lorazepam 2 Mg/Ml Vial) 1 mg SLOW IVP Q4H PRN PRN Reason: Anxiety/Agitation Last Admin: 09/17/20 23:02 Dose: 1 mg Documented by: Metoprolol Succinate (Metoprolol Succinate Xl 50 Mg Tab) 75 mg PO BID [facility] Nitroglycerin (Nitroglycerin 0.4 Mg Tab (25 Tab Bottle)) 0.4 mg SL Q5MIN PRN PRN Reason: Chest Pain Ondansetron HCl (Ondansetron Pf 4 Mg/2 Ml Vial) 4 mg IVP Q6H PRN PRN Reason: Nausea/Vomiting Ondansetron HCl (Ondansetron Odt 4 Mg Tab) 4 mg SL Q6H PRN PRN Reason: Nausea/Vomiting Pantoprazole Sodium (Pantoprazole 40 Mg Granules Packet) 40 mg PER TUBE DAILY [facility] Last Admin: 09/20/20 08:29 Dose: 40 mg Documented by: Senna/Docusate Sodium (Senokot S 8.6-50 Mg Tab) 2 tab PER TUBE BID PRN PRN Reason: Constipation Sodium Chloride (Flush - Normal Saline 10 Ml Syringe) 10 ml IVF Q12HR [facility] Last Admin: 09/20/20 08:29 Dose: 10 ml Documented by: Sodium Chloride (Flush - Normal Saline 10 Ml Syringe) 10 ml IVF PRN PRN PRN Reason: Saline Flush Warfarin Sodium (Warfarin Sodium 5 Mg Tab) 5 mg PO 1700 MARAH Last Admin: 09/19/20 17:30 Dose: 5 mg Documented by: Vital Signs & Weight: Vital Signs Temp Pulse Resp BP BP Pulse Ox 09/20/20 12:20 97.9 F 119 H 18 134/98 H 95 09/20/20 07:34 97.8 F 119 H 18 110/74 98 09/20/20 04:00 98.7 F 115 H 20 113/85 95 Admit Weight 188 lb 4.396 oz Weight 165 lb 3.2 oz - Physical Exam General: alert & oriented x3, appears well HEENT: mucus membranes moist Neck: supple neck Cardiac: other (IRR IRR) Lungs: normal breath sounds Neuro: grossly intact Extremities: no edema - Labs Result Diagrams: 09/20/20 12:33 09/20/20 03:30 Troponin/CKMB Troponin I 0.172 ng/mL (< 0.028) H 09/08/20 13:23 - Assessment/Plan Assessment/Plan: 1. s/p VF and cardiac arrest with ROSC secondary to hyperkalemia 2. NICMO s/p ICD 3. Persistent AF 4. ESRD BBlocker increased today. INR 1.7 and pharmacy to manage. RG 09/20 Pt seen and examined. Agree with the above Rac rate control as long as tolerated via BP
[2020-09-20] MEDS: Warfarin Sodium 5 MG TAB PO SCH (16:57)
[2020-09-21 04:43] LABS: INR-International Normal Ratio 2.1; Prothrombin Time 23.6 sec (12.0-14.7)
[2020-09-21 04:55] LABS: Anion Gap 20 mmol/L (10-20); BUN (Urea Nitrogen) 27 mg/dL (8.9-20.6); Calc. Creatinine Clearance 17 mL/min (70-130); Calcium 8.6 mg/dL (7.8-10.44); Carbon Dioxide 22 mmol/L (22-29); Chloride 101 mmol/L (98-107); Glucose 81 mg/dL (70-105); Sodium 139 mmol/L (136-145)
[2020-09-21 05:32] LABS: Hemoglobin 11.4 g/dL (14.0-18.0); Mean Corpuscular HGB CONC 31.1 g/dL (32.0-36.0); Mean Corpuscular Hemoglobin 25.2 pg (27.0-31.0); Mean Corpuscular Volume 80.7 fL (78.0-98.0); Mean Platelet Volume 11.1 fL (7.4-10.4); Platelet Count 255 thou/uL (130-400); RBC Distribution Width 24.2 % (11.5-14.5); Red Blood Cell (RBC) Count 4.52 mill/uL (4.70-6.10); White Blood Cell (WBC) Count 9.4 thou/uL (4.8-10.8)
[2020-09-21 05:33] LABS: Anisocytosis MODERATE=16-30 cells (100X) (0-5/hpf); Band 4 % (5-11); Eosinophils 1 % (0-10); Lymphocytes 16 % (21-51); MDiff Complete? YES; Monocytes 5 % (0-10); Neutrophil 73 % (42-75); Target Cells SLIGHT = 2-5 cells (100X) (0-1/hpf)
[2020-09-21] MEDS: Dextrose 10% in Water 1,000 ML IV SCH (05:51)
[2020-09-21] MEDS: Pantoprazole 40 MG GRANULES PACKET PER TUBE SCH (08:04)
[2020-09-21] MEDS: Cephalexin 250 MG CAP PO SCH ×4 (08:04→20:41)
--- NOTE | 2020-09-21 10:45 | PDOC.CPN ---
- Subjective Date: 09/21/20 Time: 10:43 Interval history: No overnight events. - Review of Systems General: denies: fever/chills, weight/appetite/sleep changes, night sweats, fatigue Respiratory: denies: cough, congestion, shortness of breath, exercise intolerance Cardiovascular: denies: chest pain, palpitation, edema, paroxysmal nocturnal dyspnea, orthopnea Musculoskeletal: denies: pain, tenderness, stiffness, swelling, arthritis/arthralgias Neurological: denies: numbness, syncope, seizure, weakness - Objective Allergies/Adverse Reactions: Allergies Allergy/AdvReac Type Severity Reaction Status Date / Time coconut Allergy Unknown Anaphylaxis Verified 12/23/19 02:55 kiwi Allergy Unknown Verified 08/27/20 21:25 lisinopril Allergy Unknown Verified 08/27/20 21:25 losartan Allergy Unknown Verified 08/27/20 21:25 Visit Medications: Current Medications Acetaminophen (Acetaminophen 650 Mg/20.3 Ml Udcup) 650 mg PER TUBE Q4H PRN PRN Reason: Headache/Fever or Pain Last Admin: 09/12/20 02:56 Dose: 650 mg Documented by: Acetaminophen/Codeine Phosphate (Acetaminophen/Codeine 30-300mg Tablet) 1 tab PO Q4H PRN PRN Reason: Mild Pain (1-3) Acetaminophen/Codeine Phosphate (Acetaminophen/Codeine 30-300mg Tablet) 2 tab PO Q4H PRN PRN Reason: Moderate Pain (4-6) Last Admin: 09/17/20 08:54 Dose: 2 tab Documented by: Albuterol/Ipratropium (Ipratropium/Albuterol Sulfate 3 Ml Neb) 3 ml NEB [id number] PRN PRN Reason: SOB &/or Wheezing Bisacodyl (Bisacodyl 10 Mg Supp) 10 mg [place] DAILYPRN PRN PRN Reason: Constipation Calcium Carbonate (Calcium Carbonate 500 Mg Chewtab) 1,000 mg PER TUBE Q4H PRN PRN Reason: Heartburn or Indigestion Cephalexin (Cephalexin 250 Mg Cap) 250 mg PO QID MARAH Stop: 09/23/20 13:01 Last Admin: 09/21/20 08:04 Dose: 250 mg Documented by: Dextrose/Water (Dextrose 50% Abboject 50 Ml Syringe) 25 gm IVP PRN PRN PRN Reason: HYPOGLYCEMIA PROTOCOL Last Admin: 09/12/20 16:51 Dose: 25 gm Documented by: Diltiazem HCl (Diltiazem Hcl Sr 60 Mg Capsule) 60 mg PO Q8HR [facility] Glucagon (Glucagon 1 Mg/Ml Vial) 1 mg IM PRN PRN PRN Reason: HYPOGLYCEMIA PROTOCOL Hydralazine HCl (Hydralazine 20 Mg/Ml Vial) 10 mg SLOW IVP Q4H PRN PRN Reason: SBP > 180 and HR < 70 Hydroxyzine HCl (Hydroxyzine 25 Mg Tab) 25 mg PO Q8H PRN PRN Reason: Itching Dextrose/Water (D5w) 1,000 mls @ 0 mls/hr IV INF PRN PRN Reason: HYPOGLYCEMIA PROTOCOL Last Admin: 09/14/20 02:58 Dose: 1,000 mls Documented by: Dextrose/Water (Dextrose 10% In Water) 1,000 mls @ 30 mls/hr IV .Q24H [facility] Last Admin: 09/21/20 05:51 Dose: 1,000 mls Documented by: Lorazepam (Lorazepam 2 Mg/Ml Vial) 1 mg SLOW IVP Q4H PRN PRN Reason: Anxiety/Agitation Last Admin: 09/17/20 23:02 Dose: 1 mg Documented by: Metoprolol Succinate (Metoprolol Succinate Xl 50 Mg Tab) 100 mg PO BID [facility] Miscellaneous Medication (Pharmacy To Dose (Warfarin)) 1 each IVPB PRN PRN PRN Reason: Pharmacy to dose (WARFARIN) Nitroglycerin (Nitroglycerin 0.4 Mg Tab (25 Tab Bottle)) 0.4 mg SL Q5MIN PRN PRN Reason: Chest Pain Ondansetron HCl (Ondansetron Pf 4 Mg/2 Ml Vial) 4 mg IVP Q6H PRN PRN Reason: Nausea/Vomiting Ondansetron HCl (Ondansetron Odt 4 Mg Tab) 4 mg SL Q6H PRN PRN Reason: Nausea/Vomiting Pantoprazole Sodium (Pantoprazole 40 Mg Granules Packet) 40 mg PER TUBE DAILY [facility] Last Admin: 09/21/20 08:04 Dose: 40 mg Documented by: Senna/Docusate Sodium (Senokot S 8.6-50 Mg Tab) 2 tab PER TUBE BID PRN PRN Reason: Constipation Sodium Chloride (Flush - Normal Saline 10 Ml Syringe) 10 ml IVF Q12HR [facility] Last Admin: 09/21/20 08:08 Dose: 10 ml Documented by: Sodium Chloride (Flush - Normal Saline 10 Ml Syringe) 10 ml IVF PRN PRN PRN Reason: Saline Flush Warfarin Sodium (Warfarin Sodium 5 Mg Tab) 5 mg PO 1700 [facility] Last Admin: 09/20/20 16:57 Dose: 5 mg Documented by: Vital Signs & Weight: Vital Signs Temp Pulse Resp BP Pulse Ox 09/21/20 07:39 98.5 F 107 H 18 117/76 94 L 09/21/20 03:51 98.6 F 25 H 117/85 97 09/21/20 00:53 99 Admit Weight 188 lb 4.396 oz Weight 165 lb 3.2 oz - Physical Exam General: alert & oriented x3, no apparent distress HEENT: mucus membranes moist Neck: supple neck Cardiac: other (IRR) Lungs: no wheeze, rales, rhonchi Neuro: grossly intact Abdomen: soft, non-tender Extremities: no edema - Labs Result Diagrams: 09/21/20 04:14 09/21/20 04:14 Troponin/CKMB Troponin I 0.172 ng/mL (< 0.028) H 09/08/20 13:23 - Assessment/Plan Assessment/Plan: 1. s/p VF and cardiac arrest with ROSC secondary to hyperkalemia 2. NICMO s/p ICD 3. Persistent AF 4. ESRD Increase bbmaximino and RG added low dose CCB. INR therapeutic. Home one rate improved.
[2020-09-21] MEDS: Acetaminophen/Codeine 30-300mg Tablet PO PRN (11:11)
--- NOTE | 2020-09-21 13:03 | PDOC.BPN ---
- Brief Progress Note Encounter Date: 09/21/20 Encounter Time: 13:03 Subjective: Patient is seen in the room. He does not have new complaints. Review of systems Gen.: No fever, no chills All the 14 systems reviewed except for the ones mentioned above are negative Physical examination Vital Signs (24 hours) Temp Pulse Resp BP Pulse Ox 09/21/20 16:00 98.4 F 106 H 17 112/81 94 L 09/21/20 11:40 98.4 F 103 H 17 130/88 95 09/21/20 07:39 98.5 F 107 H 18 117/76 94 L 09/21/20 03:51 98.6 F 25 H 117/85 97 09/21/20 00:53 99 Intake & Output - 24 hours 09/21/20 09/22/20 06:59 06:59 Intake Total 840 Balance 840 Intake: Intake, IV Amount 360 Oral 480 Other: Voiding Method Urinal Toilet # Unmeasured Voids 3 # Bowel Movements 0 Constitutional: comfortable, not in pain HEENT: Mucous membranes moist, no icterus Neck: Trachea midline, no lymphadenopathy Heart: Regular rate and rhythm; no murmurs; AICD+ Lungs: Air entry equal bilateral; no wheezes Abdomen: Soft; non-tender; no guarding/tenderness/rebound Extremities: Right lower extremity dressing noted, right upper extremity AV fistula Neurological: Patient is awake, following commands Skin: No rash, no ulcers Psychological: Not agitated Labs and Imaging reviewed Laboratory Results - last 24 hr 09/20/20 09/21/20 09/21/20 23:59 04:14 04:14 WBC 9.4 RBC 4.52 L Hgb 11.4 L Hct 36.5 L MCV 80.7 MCH 25.2 L MCHC 31.1 L RDW 24.2 H Plt Count 255 MPV 11.1 H Neutrophils % (Manual) 73 Band Neuts % (Manual) 4 L Lymphocytes % (Manual) 16 L Monocytes % (Manual) 5 Eosinophils % (Manual) 1 Basophils % (Manual) 1 Anisocytosis MODERATE=16-30 cells H Target Cells SLIGHT = 2-5 cells PT INR Sodium 139 Potassium 4.0 Chloride 101 Carbon Dioxide 22 Anion Gap 20 BUN 27 H Creatinine 6.01 H Estimated GFR (MDRD) 12 Glucose 81 POC Glucose 108 H Calcium 8.6 09/21/20 09/21/2009/21/20 04:14 05:00 08:03 WBC RBC Hgb Hct MCV MCH MCHC RDW Plt Count MPV Neutrophils % (Manual) Band Neuts % (Manual) Lymphocytes % (Manual) Monocytes % (Manual) Eosinophils % (Manual) Basophils % (Manual) Anisocytosis Target Cells PT 23.6 H INR 2.1 Sodium Potassium Chloride Carbon Dioxide Anion Gap BUN Creatinine Estimated GFR (MDRD) Glucose POC Glucose 97 74 Calcium 09/21/20 09/21/20 09/21/20 11:15 16:25 20:11 WBC RBC Hgb Hct MCV MCH MCHC RDW Plt Count MPV Neutrophils % (Manual) Band Neuts % (Manual) Lymphocytes % (Manual) Monocytes % (Manual) Eosinophils % (Manual) Basophils % (Manual) Anisocytosis Target Cells PT INR Sodium Potassium Chloride Carbon Dioxide Anion Gap BUN Creatinine Estimated GFR (MDRD) Glucose POC Glucose 79 86 96 Calcium Active Medications Generic Name Dose Route Start Last Admin Trade Name Freq PRN Reason Stop Dose Admin Acetaminophen 650 mg 09/09/20 21:10 09/12/20 02:56 Acetaminophen 650 Mg/20.3 Ml Udcup PER TUBE 650 mg Q4H PRN Administration Headache/Fever or Pain Acetaminophen/Codeine Phosphate 1 tab 09/16/20 16:00 09/21/20 20:42 Acetaminophen/Codeine 30-300mg Tablet PO 1 tab Q4H PRN Administration Mild Pain (1-3) Acetaminophen/Codeine Phosphate 2 tab 09/16/20 16:00 09/21/20 11:11 Acetaminophen/Codeine 30-300mg Tablet PO 2 tab Q4H PRN Administration Moderate Pain (4-6) Albuterol/Ipratropium 3 ml 09/08/20 09:38 Ipratropium/Albuterol Sulfate 3 Ml Neb NEB [id number] PRN SOB &/or Wheezing Bisacodyl 10 mg 09/08/20 09:38 Bisacodyl 10 Mg Supp [place] DAILYPRN PRN Constipation Calcium Carbonate 1,000 mg 09/08/20 09:38 Calcium Carbonate 500 Mg Chewtab PER TUBE Q4H PRN Heartburn or Indigestion Cephalexin 250 mg 09/16/20 17:00 09/21/20 20:41 Cephalexin 250 Mg Cap PO 09/23/20 13:01 250 mg QID MARAH Administration Dextrose/Water 25 gm 09/09/20 05:45 09/12/20 16:51 Dextrose 50% Abboject 50 Ml Syringe IVP 25 gm PRN PRN Administration HYPOGLYCEMIA PROTOCOL Diltiazem HCl 60 mg 09/21/20 14:00 09/21/20 13:05 Diltiazem Hcl Sr 60 Mg Capsule PO 60 mg Q8HR MARAH Administration Glucagon 1 mg 09/09/20 05:45 Glucagon 1 Mg/Ml Vial IM PRN PRN HYPOGLYCEMIA PROTOCOL Hydralazine HCl 10 mg 09/08/20 09:38 Hydralazine 20 Mg/Ml Vial SLOW IVP Q4H PRN SBP > 180 and HR < 70 Hydroxyzine HCl 25 mg 09/18/20 18:43 09/21/20 16:09 Hydroxyzine 25 Mg Tab PO 25 mg Q8H PRN Administration Itching Dextrose/Water 1,000 mls @ 0 mls/hr 09/09/20 05:45 09/14/20 02:58 D5w IV 1,000 mls INF PRN Administration HYPOGLYCEMIA PROTOCOL As Directed Dextrose/Water 1,000 mls @ 30 mls/hr 09/10/20 08:06 09/21/20 05:51 Dextrose 10% In Water IV 1,000 mls .Q24H MARAH Administration Lorazepam 1 mg 09/13/20 00:12 09/17/20 23:02 Lorazepam 2 Mg/Ml Vial SLOW IVP 1 mg Q4H PRN Administration Anxiety/Agitation Metoprolol Succinate 100 mg 09/21/20 21:00 09/21/20 20:41 Metoprolol Succinate Xl 50 Mg Tab PO 100 mg BID MARAH Administration Miscellaneous Medication 1 each 09/20/20 13:45 Pharmacy To Dose (Warfarin) IVPB PRN PRN Pharmacy to dose (WARFARIN) Nitroglycerin 0.4 mg 09/12/20 10:52 Nitroglycerin 0.4 Mg Tab (25 Tab Bottle) SL Q5MIN PRN Chest Pain Ondansetron HCl 4 mg 09/08/20 09:38 Ondansetron Pf 4 Mg/2 Ml Vial IVP Q6H PRN Nausea/Vomiting Ondansetron HCl 4 mg 09/08/20 09:38 Ondansetron Odt 4 Mg Tab SL Q6H PRN Nausea/Vomiting Pantoprazole Sodium 40 mg 09/11/20 09:00 09/21/20 08:04 Pantoprazole 40 Mg Granules Packet PER TUBE 40 mg DAILY MARAH Administration Senna/Docusate Sodium 2 tab 09/08/20 09:38 Senokot S 8.6-50 Mg Tab PER TUBE BID PRN Constipation Sodium Chloride 10 ml 09/12/20 21:00 09/21/20 20:41 Flush - Normal Saline 10 Ml Syringe IVF 10 ml Q12HR MRAAH Administration Sodium Chloride 10 ml 09/16/20 16:00 Flush - Normal Saline 10 Ml Syringe IVF PRN PRN Saline Flush Warfarin Sodium 5 mg 09/20/20 17:00 09/21/20 16:10 Warfarin Sodium 5 Mg Tab PO 5 mg 1700 MARAH Administration Assessment and plan CKD stage Hypertension Anemia Cardiac arrest status post AICD placement Patient had hemodialysis on Tuesday. Anticipate dialysis tomorrow. Patient's INR is 2.1, he is on Coumadin. Continue to monitor hemoglobin and transfuse PRBC as needed target hemoglobin greater than 8. Patient's blood pressure is stable. Discussed with RN Thank you for allowing me to participate in the management of this pt
[2020-09-21] MEDS: Diltiazem HCl SR 60 mg Capsule PO SCH ×2 (13:05→22:58)
--- NOTE | 2020-09-21 15:28 | PDOC.HOSPP ---
- Subjective Encounter Date: 09/21/20 Encounter Time: 11:00 Subjective: Patient seen in follow-up regarding acute encephalopathy. Awake and alert, denies chest pain or shortness of breath. - Objective Vital Signs & Weight: Vital Signs (12 hours) Temp Pulse Resp BP Pulse Ox 09/21/20 11:40 98.4 F 103 H 17 130/88 95 09/21/20 07:39 98.5 F 107 H 18 117/76 94 L 09/21/20 03:51 98.6 F 25 H 117/85 97 Weight Admit Weight 188 lb 4.396 oz Weight 165 lb 3.2 oz Most Recent Monitor Data Heart Rate from ECG 86 NIBP 155/106 NIBP BP-Mean 122 Respiration from ECG 24 SpO2 80 I&O: 09/20/20 09/21/20 09/22/20 06:59 06:59 06:59 Intake Total 840 Balance 840 Result Diagrams: 09/21/20 04:14 09/21/20 04:14 Additional Labs: Accuchecks 09/21/20 09/21/20 09/21/20 11:15 08:03 05:00 POC Glucose 79 74 97 09/20/20 09/20/20 23:59 20:05 POC Glucose 108 H 93 I reviewed patient's labs and MAR EKG Reviewed by me: Yes (Telemetry: A. yecenia) Hospitalist ROS - Review of Systems Constitutional: denies: fever, chills, sweats, weakness Cardiovascular: denies: chest pain, palpitations, orthopnea, paroxysmal noc. dyspnea, edema, light headedness Gastrointestinal: denies: nausea, vomiting, abdominal pain, diarrhea, constipation, melena, hematochezia - Medication Medications: Active Medications Generic Name Dose Route Start Last Admin Trade Name Freq PRN Reason Stop Dose Admin Acetaminophen 650 mg 09/09/20 21:10 09/12/20 02:56 Acetaminophen 650 Mg/20.3 Ml Udcup PER TUBE 650 mg Q4H PRN Administration Headache/Fever or Pain Acetaminophen/Codeine Phosphate 2 tab 09/16/20 16:00 09/21/20 11:11 Acetaminophen/Codeine 30-300mg Tablet PO 2 tab Q4H PRN Administration Moderate Pain (4-6) Cephalexin 250 mg 09/16/20 17:00 09/21/20 13:05 Cephalexin 250 Mg Cap PO 12/22/20 13:01 250 mg QID MARAH Administration Dextrose/Water 25 gm 09/09/20 05:45 09/12/20 16:51 Dextrose 50% Abboject 50 Ml Syringe IVP 25 gm PRN PRN Administration HYPOGLYCEMIA PROTOCOL Diltiazem HCl 60 mg 09/21/20 14:00 09/21/20 13:05 Diltiazem Hcl Sr 60 Mg Capsule PO 60 mg Q8HR MARAH Administration Dextrose/Water 1,000 mls @ 0 mls/hr 09/09/20 05:45 09/14/20 02:58 D5w IV 1,000 mls INF PRN Administration HYPOGLYCEMIA PROTOCOL As Directed Dextrose/Water 1,000 mls @ 30 mls/hr 09/10/20 08:06 09/21/20 05:51 Dextrose 10% In Water IV 1,000 mls .Q24H MARAH Administration Lorazepam 1 mg 09/13/20 00:12 09/17/20 23:02 Lorazepam 2 Mg/Ml Vial SLOW IVP 1 mg Q4H PRN Administration Anxiety/Agitation Pantoprazole Sodium 40 mg 09/11/20 09:00 09/21/20 08:04 Pantoprazole 40 Mg Granules Packet PER TUBE 40 mg DAILY MARAH Administration Sodium Chloride 10 ml 09/12/20 21:00 09/21/20 08:08 Flush - Normal Saline 10 Ml Syringe IVF 10 ml Q12HR MARAH Administration Warfarin Sodium 5 mg 09/20/20 17:00 09/20/20 16:57 Warfarin Sodium 5 Mg Tab PO 5 mg 1700 MARAH Administration - Exam General Appearance: awake alert Eye: anicteric sclera ENT: normocephalic atraumatic Neck: supple Heart: irregular Respiratory: CTAB Gastrointestinal: soft, non-tender Skin: no rashes Psychiatric: normal affect, normal behavior Hosp A/P - Plan Patient is a pleasant 45-year-old gentleman who was admitted to the hospital on September 08, 2020 transfer from another emergency room following cardiac arrest and successful resuscitation in an intubated state. He was found to be hyperkalemic. He was seen by nephrology for end-stage renal disease on hemodialysis and dialysis was continued. He was also found to be in atrial fibrillation and seen by cardiology service. 2D echocardiogram showed left ventricle ejection fraction of 30 to 35%. He was seen by electrophysiology service and underwent AICD placement. He had altered mental status, which continues to improve gradually. On September 17 he also had a central line placed by general surgery service. - Assessment (1) Acute encephalopathy Status: Acute (2) A. fib with RVR Status: Acute (3) Lactic acidosis Code(s): E87.2 - ACIDOSIS Status: Acute (4) Successful cardiopulmonary resuscitation Code(s): Z92.89 - PERSONAL HISTORY OF OTHER MEDICAL TREATMENT Status: Acute (5) Ventricular fibrillation Code(s): I49.01 - VENTRICULAR FIBRILLATION Status: Acute (6) Anemia of renal disease Code(s): N18.9 - CHRONIC KIDNEY DISEASE, UNSPECIFIED; D63.1 - ANEMIA IN CHRONIC KIDNEY DISEASE Status: Chronic (7) ESRD (end stage renal disease) on dialysis Code(s): N18.6 - END STAGE RENAL DISEASE; Z99.2 - DEPENDENCE ON RENAL DIALYSIS Status: Chronic (8) Hyperkalemia Code(s): E87.5 - HYPERKALEMIA Status: Resolved (9) Cardiac arrest Code(s): I46.9 - CARDIAC ARREST, CAUSE UNSPECIFIED Status: Resolved (10) Acute respiratory failure with hypoxia Code(s): J96.01 - ACUTE RESPIRATORY FAILURE WITH HYPOXIA Status: Acute - Plan Patient slowly improving. atrial fibrillation, ventricular response controlled. Maintenance dialysis per nephrology service. Status post ICD placement during this hospitalization. Continue Keflex for total of 1 week. Hyponatremia resolved COVID-19 test negative.
[2020-09-21] MEDS: Warfarin Sodium 5 MG TAB PO SCH (16:10)
[2020-09-22] MEDS: Diltiazem HCl SR 60 mg Capsule PO SCH ×3 (05:56→21:27)
[2020-09-22] MEDS: Dextrose 10% in Water 1,000 ML IV SCH (05:57)
--- NOTE | 2020-09-22 07:51 | PDOC.HOSPP ---
- Subjective Encounter Date: 09/22/20 Encounter Time: 09:30 Subjective: Patient seen in dialysis. No complaints. Feels weak since the cardiac arrest. Working with PT. - Objective Vital Signs & Weight: Vital Signs (12 hours) Temp Pulse Resp BP BP BP Pulse Ox 09/22/20 07:46 98.5 F 75 16 116/93 H 95 09/22/20 07:01 94 L 09/22/20 03:55 120/88 09/22/20 03:43 97.7 F 92 14 88/68 L 94 L 09/22/20 00:11 94 L 09/21/20 20:00 98.5 F 115 H 18 112/90 94 L Weight Admit Weight 188 lb 4.396 oz Weight 165 lb 3.2 oz Most Recent Monitor Data Heart Rate from ECG 86 NIBP 155/106 NIBP BP-Mean 122 Respiration from ECG 24 SpO2 80 I&O: 09/21/20 09/22/20 09/23/20 06:59 06:59 06:59 Intake Total 840 Balance 840 Result Diagrams: 09/22/20 09:35 09/22/20 09:35 Additional Labs: Accuchecks 09/22/20 09/21/20 09/21/20 05:47 20:11 16:25 POC Glucose 81 96 86 09/21/20 09/21/20 11:15 08:03 POC Glucose 79 74 Hospitalist ROS - Review of Systems Constitutional: denies: fever, chills Respiratory: denies: cough, shortness of breath Cardiovascular: denies: chest pain, palpitations Gastrointestinal: denies: nausea, vomiting, abdominal pain - Medication Medications: Active Medications Generic Name Dose Route Start Last Admin Trade Name Freq PRN Reason Stop Dose Admin Acetaminophen 650 mg 09/09/20 21:10 09/12/20 02:56 Acetaminophen 650 Mg/20.3 Ml Udcup PER TUBE 650 mg Q4H PRN Administration Headache/Fever or Pain Acetaminophen/Codeine Phosphate 1 tab 09/16/20 16:00 09/21/20 20:42 Acetaminophen/Codeine 30-300mg Tablet PO 1 tab Q4H PRN Administration Mild Pain (1-3) Acetaminophen/Codeine Phosphate 2 tab 09/16/20 16:00 09/21/20 11:11 Acetaminophen/Codeine 30-300mg Tablet PO 2 tab Q4H PRN Administration Moderate Pain (4-6) Cephalexin 250 mg 09/16/20 17:00 09/21/20 20:41 Cephalexin 250 Mg Cap PO 09/23/20 13:01 250 mg QID MARAH Administration Dextrose/Water 25 gm 09/09/20 05:45 09/12/20 16:51 Dextrose 50% Abboject 50 Ml Syringe IVP 25 gm PRN PRN Administration HYPOGLYCEMIA PROTOCOL Diltiazem HCl 60 mg 09/21/20 14:00 09/22/20 05:56 Diltiazem Hcl Sr 60 Mg Capsule PO 60 mg Q8HR MARAH Administration Hydroxyzine HCl 25 mg 09/18/20 18:43 09/21/20 16:09 Hydroxyzine 25 Mg Tab PO 25 mg Q8H PRN Administration Itching Dextrose/Water 1,000 mls @ 0 mls/hr 09/09/20 05:45 09/14/20 02:58 D5w IV 1,000 mls INF PRN Administration HYPOGLYCEMIA PROTOCOL As Directed Dextrose/Water 1,000 mls @ 30 mls/hr 09/10/20 08:06 09/22/20 05:57 Dextrose 10% In Water IV 1,000 mls .Q24H MARAH Administration Lorazepam 1 mg 09/13/20 00:12 09/17/20 23:02 Lorazepam 2 Mg/Ml Vial SLOW IVP 1 mg Q4H PRN Administration Anxiety/Agitation Metoprolol Succinate 100 mg 09/21/20 21:00 09/21/20 20:41 Metoprolol Succinate Xl 50 Mg Tab PO 100 mg BID MARAH Administration Pantoprazole Sodium 40 mg 09/11/20 09:00 09/21/20 08:04 Pantoprazole 40 Mg Granules Packet PER TUBE 40 mg DAILY MARAH Administration Sodium Chloride 10 ml 09/12/20 21:00 09/21/20 20:41 Flush - Normal Saline 10 Ml Syringe IVF 10 ml Q12HR AMRAH Administration Warfarin Sodium 5 mg 09/20/20 17:00 09/21/20 16:10 Warfarin Sodium 5 Mg Tab PO 5 mg 1700 MARAH Administration - Exam General Appearance: NAD, awake alert ENT: moist mucosa Heart: RRR, no murmur, no gallops, no rubs Respiratory: CTAB, no wheezes, no rales, no ronchi Gastrointestinal: soft, non-tender, non-distended, normal bowel sounds Psychiatric: normal affect, normal behavior, A&O x 3 Hosp A/P - Plan (1) Acute encephalopathy Status: Acute- improved (2) A. fib with RVR Status: Acute (3) Lactic acidosis Code(s): E87.2 - ACIDOSIS Status: Acute (4) Successful cardiopulmonary resuscitation Code(s): Z92.89 - PERSONAL HISTORY OF OTHER MEDICAL TREATMENT Status: Acute (5) Ventricular fibrillation Code(s): I49.01 - VENTRICULAR FIBRILLATION Status: Acute (6) Anemia of renal disease Code(s): N18.9 - CHRONIC KIDNEY DISEASE, UNSPECIFIED; D63.1 - ANEMIA IN CHRONIC KIDNEY DISEASE Status: Chronic (7) ESRD (end stage renal disease) on dialysis Code(s): N18.6 - END STAGE RENAL DISEASE; Z99.2 - DEPENDENCE ON RENAL DIALYSIS Status: Chronic (8) Hyperkalemia Code(s): E87.5 - HYPERKALEMIA Status: Resolved (9) Cardiac arrest Code(s): I46.9 - CARDIAC ARREST, CAUSE UNSPECIFIED Status: Resolved (10) Acute respiratory failure with hypoxia Code(s): J96.01 - ACUTE RESPIRATORY FAILURE WITH HYPOXIA Status: Acute Patient slowly improving. atrial fibrillation, ventricular response controlled. Maintenance dialysis per nephrology service. Status post ICD placement during this hospitalization. Continue Keflex for total of 1 week (last day 09/23/2020) Hyponatremia resolved COVID-19 test negative. Will likely need rehab vs. SNF per PT evaluation though family had planned on going home with .
[2020-09-22] MEDS: Cephalexin 250 MG CAP PO SCH ×4 (08:37→21:23)
[2020-09-22] MEDS: Pantoprazole 40 MG GRANULES PACKET PER TUBE SCH (08:38)
[2020-09-22 10:31] LABS: INR-International Normal Ratio 2.8; Prothrombin Time 30.1 sec (12.0-14.7)
[2020-09-22 10:34] LABS: Hemoglobin 11.1 g/dL (14.0-18.0); Platelet Count 238 thou/uL (130-400)
[2020-09-22 10:44] LABS: Anion Gap 19 mmol/L (10-20); BUN (Urea Nitrogen) 32 mg/dL (8.9-20.6); Calc. Creatinine Clearance 16 mL/min (70-130); Calcium 8.3 mg/dL (7.8-10.44); Carbon Dioxide 26 mmol/L (22-29); Chloride 99 mmol/L (98-107); Glucose 89 mg/dL (70-105); Potassium 3.9 mmol/L (3.5-5.1); Sodium 140 mmol/L (136-145)
--- NOTE | 2020-09-22 12:10 | PRG ---
DATE OF SERVICE: SUBJECTIVE: A 45-year-old gentleman being seen for end-stage renal disease. The patient denies any nausea, vomiting, or chest pain. PHYSICAL EXAMINATION: General: The patient is awake and alert. Vital Signs: Afebrile, pulse 84, breathing at 16, blood pressure 111/66. HEENT: Head normocephalic and atraumatic. Eyes intact, no ulcers. Nose intact, no ulcers. Ears intact, no ulcers. Neck: Supple. No JVD. Chest: Symmetrical and clear. Cardiovascular: Shows S1 and S2, no rub, no murmur. Gastrointestinal: Abdomen is soft, bowel sounds positive. Extremities: Show no edema or ulcers. Skin: Shows no rash or petechiae. Musculoskeletal: Shows no joint swelling or stiffness. Genitourinary: Shows no Villanueva or CVA tenderness. Neurologic: Motor intact. Cranial nerves intact. LABORATORY DATA: Reviewed. ASSESSMENT AND PLAN: Stage 6 chronic kidney disease, plan dialysis. Hypertension, stable. Anemia, stable. Medication based on GFR appropriate. Job ID: [id number]
[2020-09-22 13:11] LABS: Anisocytosis MODERATE=16-30 cells (100X) (0-5/hpf); Eosinophils 2 % (0-10); Hemoglobin 11.1 g/dL (14.0-18.0); Hypochromia SLIGHT = 6-15 cells (100X) (0-5/hpf); Lymphocytes 9 % (21-51); MDiff Complete? YES; Mean Corpuscular HGB CONC 31.5 g/dL (32.0-36.0); Mean Corpuscular Hemoglobin 25.4 pg (27.0-31.0); Mean Corpuscular Volume 80.6 fL (78.0-98.0); Mean Platelet Volume 11.3 fL (7.4-10.4); Monocytes 6 % (0-10); Neutrophil 79 % (42-75); Platelet Count 247 thou/uL (130-400); Platelet Morphology Comment Appears Adequate; Polychromasia MODERATE = 3-4 cells (100X) (0-2/hpf); RBC Distribution Width 24.5 % (11.5-14.5); Reactive Lymphocytes 2 % (0-10); Red Blood Cell (RBC) Count 4.39 mill/uL (4.70-6.10); Target Cells MODERATE= 6-15 cells (100X) (0-1/hpf); White Blood Cell (WBC) Count 9.4 thou/uL (4.8-10.8)
[2020-09-22 14:31] VITALS: BMI 27.5
--- NOTE | 2020-09-22 16:19 | PDOC.CPN ---
- Subjective Date: 09/22/20 Time: 09:00 Interval history: No overnight events. Improved rate-control. - Review of Systems General: denies: fever/chills, weight/appetite/sleep changes, night sweats, fatigue Respiratory: denies: cough, congestion, shortness of breath, exercise intolerance Cardiovascular: denies: chest pain, palpitation, edema, paroxysmal nocturnal dyspnea, orthopnea Gastrointestinal: denies: nausea, vomiting, diarrhea, constipation, abd pain, GI bleeding Musculoskeletal: denies: pain, tenderness, stiffness, swelling, arthritis/arthralgias Neurological: denies: numbness, syncope, seizure, weakness - Objective Allergies/Adverse Reactions: Allergies Allergy/AdvReac Type Severity Reaction Status Date / Time coconut Allergy Unknown Anaphylaxis Verified 12/23/19 02:55 kiwi Allergy Unknown Verified 08/27/20 21:25 lisinopril Allergy Unknown Verified 08/27/20 21:25 losartan Allergy Unknown Verified 08/27/20 21:25 Visit Medications: Current Medications Acetaminophen (Acetaminophen 650 Mg/20.3 Ml Udcup) 650 mg PER TUBE Q4H PRN PRN Reason: Headache/Fever or Pain Last Admin: 09/12/20 02:56 Dose: 650 mg Documented by: Acetaminophen/Codeine Phosphate (Acetaminophen/Codeine 30-300mg Tablet) 1 tab PO Q4H PRN PRN Reason: Mild Pain (1-3) Last Admin: 09/21/20 20:42 Dose: 1 tab Documented by: Acetaminophen/Codeine Phosphate (Acetaminophen/Codeine 30-300mg Tablet) 2 tab PO Q4H PRN PRN Reason: Moderate Pain (4-6) Last Admin: 09/21/20 11:11 Dose: 2 tab Documented by: Albuterol/Ipratropium (Ipratropium/Albuterol Sulfate 3 Ml Neb) 3 ml NEB [id number] PRN PRN Reason: SOB &/or Wheezing Bisacodyl (Bisacodyl 10 Mg Supp) 10 mg NM DAILYPRN PRN PRN Reason: Constipation Calcium Carbonate (Calcium Carbonate 500 Mg Chewtab) 1,000 mg PER TUBE Q4H PRN PRN Reason: Heartburn or Indigestion Cephalexin (Cephalexin 250 Mg Cap) 250 mg PO QID MARAH Stop: 09/23/20 13:01 Last Admin: 09/22/20 14:11 Dose: 250 mg Documented by: Dextrose/Water (Dextrose 50% Abboject 50 Ml Syringe) 25 gm IVP PRN PRN PRN Reason: HYPOGLYCEMIA PROTOCOL Last Admin: 09/12/20 16:51 Dose: 25 gm Documented by: Diltiazem HCl (Diltiazem Hcl Sr 60 Mg Capsule) 60 mg PO Q8HR [facility] Last Admin: 09/22/20 14:11 Dose: 60 mg Documented by: Glucagon (Glucagon 1 Mg/Ml Vial) 1 mg IM PRN PRN PRN Reason: HYPOGLYCEMIA PROTOCOL Hydralazine HCl (Hydralazine 20 Mg/Ml Vial) 10 mg SLOW IVP Q4H PRN PRN Reason: SBP > 180 and HR < 70 Hydroxyzine HCl (Hydroxyzine 25 Mg Tab) 25 mg PO Q8H PRN PRN Reason: Itching Last Admin: 09/21/20 16:09 Dose: 25 mg Documented by: Dextrose/Water (D5w) 1,000 mls @ 0 mls/hr IV INF PRN PRN Reason: HYPOGLYCEMIA PROTOCOL Last Admin: 09/14/20 02:58 Dose: 1,000 mls Documented by: Dextrose/Water (Dextrose 10% In Water) 1,000 mls @ 30 mls/hr IV .Q24H [facility] Last Admin: 09/22/20 05:57 Dose: 1,000 mls Documented by: Lorazepam (Lorazepam 2 Mg/Ml Vial) 1 mg SLOW IVP Q4H PRN PRN Reason: Anxiety/Agitation Last Admin: 09/17/20 23:02 Dose: 1 mg Documented by: Metoprolol Succinate (Metoprolol Succinate Xl 50 Mg Tab) 100 mg PO BID [facility] Last Admin: 09/22/20 08:37 Dose: 100 mg Documented by: Miscellaneous Medication (Pharmacy To Dose (Warfarin)) 1 each IVPB PRN PRN PRN Reason: Pharmacy to dose (WARFARIN) Nitroglycerin (Nitroglycerin 0.4 Mg Tab (25 Tab Bottle)) 0.4 mg SL Q5MIN PRN PRN Reason: Chest Pain Ondansetron HCl (Ondansetron Pf 4 Mg/2 Ml Vial) 4 mg IVP Q6H PRN PRN Reason: Nausea/Vomiting Ondansetron HCl (Ondansetron Odt 4 Mg Tab) 4 mg SL Q6H PRN PRN Reason: Nausea/Vomiting Pantoprazole Sodium (Pantoprazole 40 Mg Granules Packet) 40 mg PER TUBE DAILY [facility] Last Admin: 09/22/20 08:38 Dose: Not Given Documented by: Senna/Docusate Sodium (Senokot S 8.6-50 Mg Tab) 2 tab PER TUBE BID PRN PRN Reason: Constipation Sodium Chloride (Flush - Normal Saline 10 Ml Syringe) 10 ml IVF Q12HR [facility] Last Admin: 09/22/20 08:38 Dose: 10 ml Documented by: Sodium Chloride (Flush - Normal Saline 10 Ml Syringe) 10 ml IVF PRN PRN PRN Reason: Saline Flush Warfarin Sodium (Warfarin Sodium 5 Mg Tab) 5 mg PO 1700 [facility] Last Admin: 09/21/20 16:10 Dose: 5 mg Documented by: Vital Signs & Weight: Vital Signs Temp Pulse Pulse Resp BP BP Pulse Ox 09/22/20 14:33 77 136/81 09/22/20 11:37 97.8 F 84 17 111/66 95 09/22/20 07:46 98.5 F 75 16 116/93 H 95 09/22/20 07:01 94 L Admit Weight 188 lb 4.396 oz Weight 165 lb 3.2 oz - Physical Exam General: alert & oriented x3, no apparent distress HEENT: mucus membranes moist Neck: supple neck Cardiac: other (IRR IRR) Lungs: no wheeze, rales, rhonchi Neuro: grossly intact Abdomen: soft Skin: clear - Labs Result Diagrams: 09/22/20 09:35 09/22/20 09:35 Troponin/CKMB Troponin I 0.172 ng/mL (< 0.028) H 09/08/20 13:23 - Assessment/Plan Assessment/Plan: 1. s/p VF and cardiac arrest with ROSC secondary to hyperkalemia 2. NICMO s/p ICD 3. Persistent AF 4. ESRD Rate improved. INR 2.1 yesterday. Ok for discharge from CV standpoint.
[2020-09-22] MEDS: Warfarin Sodium 5 MG TAB PO SCH (16:22)
[2020-09-22] MEDS: Acetaminophen/Codeine 30-300mg Tablet PO PRN (21:25)
[2020-09-23 04:12] LABS: INR-International Normal Ratio 3.2; Prothrombin Time 33.2 sec (12.0-14.7)
[2020-09-23 05:31] LABS: Calcium 8.5 mg/dL (7.8-10.44); Chloride 98 mmol/L (98-107); Potassium 3.8 mmol/L (3.5-5.1); Sodium 139 mmol/L (136-145)
[2020-09-23 05:32] LABS: Glucose 92 mg/dL (70-105)
[2020-09-23 05:33] LABS: Anion Gap 15 mmol/L (10-20); Carbon Dioxide 30 mmol/L (22-29)
[2020-09-23 05:35] LABS: Calc. Creatinine Clearance 19 mL/min (70-130)
[2020-09-23 05:36] LABS: BUN (Urea Nitrogen) 26 mg/dL (8.9-20.6)
[2020-09-23 05:43] LABS: Hemoglobin 11.8 g/dL (14.0-18.0); Mean Corpuscular HGB CONC 31.8 g/dL (32.0-36.0); Mean Corpuscular Hemoglobin 25.6 pg (27.0-31.0); Mean Corpuscular Volume 80.4 fL (78.0-98.0); Platelet Count 302 thou/uL (130-400); RBC Distribution Width 27.9 % (11.5-14.5); Red Blood Cell (RBC) Count 4.62 mill/uL (4.70-6.10); White Blood Cell (WBC) Count 8.2 thou/uL (4.8-10.8)
[2020-09-23 05:44] LABS: Anisocytosis MODERATE=16-30 cells (100X) (0-5/hpf); MDiff Complete? YES; Target Cells SLIGHT = 2-5 cells (100X) (0-1/hpf)
[2020-09-23] MEDS: Diltiazem HCl SR 60 mg Capsule PO SCH ×2 (06:03→13:06)
--- NOTE | 2020-09-23 07:50 | PDOC.HOSPP ---
- Subjective Encounter Date: 09/23/20 Encounter Time: 09:40 Subjective: Patient sleepy, but no complaints. No chest pain. No SOB. Metoprolol was held this AM due to BP in 90s. - Objective Vital Signs & Weight: Vital Signs (12 hours) Temp Pulse Resp BP BP BP Pulse Ox 09/23/20 07:47 97.7 F 96 17 91/69 90 L 09/23/20 04:00 96.6 F L 97 16 92/66 96 09/23/20 00:00 101 H 100/67 09/22/20 20:00 95 09/22/20 19:58 97.8 F 84 18 91/60 95 Weight Admit Weight 188 lb 4.396 oz Weight 168 lb Most Recent Monitor Data Heart Rate from ECG 86 NIBP 155/106 NIBP BP-Mean 122 Respiration from ECG 24 SpO2 80 I&O: 09/22/20 09/23/20 09/24/20 06:59 06:59 06:59 Intake Total 840 840 Balance 840 840 Result Diagrams: 09/23/20 03:23 09/23/20 05:04 Additional Labs: Accuchecks 09/23/20 09/23/20 09/22/20 07:32 04:25 20:25 POC Glucose 76 93 84 09/22/20 09/22/20 09/22/20 16:25 11:27 08:40 POC Glucose 78 67 L 90 09/20/20 09/19/20 16:49 17:03 POC Glucose 90 80 Hospitalist ROS - Review of Systems Constitutional: denies: fever, chills, weakness Respiratory: denies: cough, shortness of breath Cardiovascular: denies: chest pain, palpitations Gastrointestinal: denies: nausea, vomiting, abdominal pain - Medication Medications: Active Medications Generic Name Dose Route Start Last Admin Trade Name Freq PRN Reason Stop Dose Admin Acetaminophen 650 mg 09/09/20 21:10 09/12/20 02:56 Acetaminophen 650 Mg/20.3 Ml Udcup PER TUBE 650 mg Q4H PRN Administration Headache/Fever or Pain Acetaminophen/Codeine Phosphate 1 tab 09/16/20 16:00 09/21/20 20:42 Acetaminophen/Codeine 30-300mg Tablet PO 1 tab Q4H PRN Administration Mild Pain (1-3) Acetaminophen/Codeine Phosphate 2 tab 09/16/20 16:00 09/22/20 21:25 Acetaminophen/Codeine 30-300mg Tablet PO 2 tab Q4H PRN Administration Moderate Pain (4-6) Cephalexin 250 mg 09/16/20 17:00 09/22/20 21:23 Cephalexin 250 Mg Cap PO 09/23/20 13:01 250 mg QID MARAH Administration Dextrose/Water 25 gm 09/09/20 05:45 09/12/20 16:51 Dextrose 50% Abboject 50 Ml Syringe IVP 25 gm PRN PRN Administration HYPOGLYCEMIA PROTOCOL Diltiazem HCl 60 mg 09/21/20 14:00 09/23/20 06:03 Diltiazem Hcl Sr 60 Mg Capsule PO Not Given Q8HR MARAH Hydroxyzine HCl 25 mg 09/18/20 18:43 09/21/20 16:09 Hydroxyzine 25 Mg Tab PO 25 mg Q8H PRN Administration Itching Dextrose/Water 1,000 mls @ 0 mls/hr 09/09/20 05:45 09/14/20 02:58 D5w IV 1,000 mls INF PRN Administration HYPOGLYCEMIA PROTOCOL As Directed Dextrose/Water 1,000 mls @ 30 mls/hr 09/10/20 08:06 09/22/20 05:57 Dextrose 10% In Water IV 1,000 mls .Q24H MARAH Administration Metoprolol Succinate 100 mg 09/21/20 21:00 09/22/20 21:23 Metoprolol Succinate Xl 50 Mg Tab PO 100 mg BID MARAH Administration Ondansetron HCl 4 mg 09/08/20 09:38 09/23/20 03:27 Ondansetron Odt 4 Mg Tab SL 4 mg Q6H PRN Administration Nausea/Vomiting Pantoprazole Sodium 40 mg 09/11/20 09:00 09/22/20 08:38 Pantoprazole 40 Mg Granules Packet PER TUBE Not Given DAILY MARAH Sodium Chloride 10 ml 09/12/20 21:00 09/22/20 21:31 Flush - Normal Saline 10 Ml Syringe IVF Not Given Q12HR MARAH Warfarin Sodium 5 mg 09/20/20 17:00 09/22/20 16:22 Warfarin Sodium 5 Mg Tab PO 5 mg 1700 MARAH Administration - Exam General Appearance: NAD, awake alert ENT: moist mucosa Heart: RRR, no murmur, no gallops, no rubs Respiratory: CTAB, no wheezes, no rales, no ronchi Gastrointestinal: soft, non-tender, non-distended, normal bowel sounds Extremities: no edema Psychiatric: normal affect, normal behavior, A&O x 3 Hosp A/P - Plan (1) Acute encephalopathy Status: Acute- improved (2) A. fib with RVR Status: Acute (3) Lactic acidosis Code(s): E87.2 - ACIDOSIS Status: Acute (4) Successful cardiopulmonary resuscitation Code(s): Z92.89 - PERSONAL HISTORY OF OTHER MEDICAL TREATMENT Status: Acute (5) Ventricular fibrillation Code(s): I49.01 - VENTRICULAR FIBRILLATION Status: Acute (6) Anemia of renal disease Code(s): N18.9 - CHRONIC KIDNEY DISEASE, UNSPECIFIED; D63.1 - ANEMIA IN CHRONIC KIDNEY DISEASE Status: Chronic (7) ESRD (end stage renal disease) on dialysis Code(s): N18.6 - END STAGE RENAL DISEASE; Z99.2 - DEPENDENCE ON RENAL DIALYSIS Status: Chronic (8) Hyperkalemia Code(s): E87.5 - HYPERKALEMIA Status: Resolved (9) Cardiac arrest Code(s): I46.9 - CARDIAC ARREST, CAUSE UNSPECIFIED Status: Resolved (10) Acute respiratory failure with hypoxia Code(s): J96.01 - ACUTE RESPIRATORY FAILURE WITH HYPOXIA Status: Acute Patient slowly improving. atrial fibrillation, ventricular response controlled. Did have lowish BP this AM so had to hold Toprol XL. Maintenance dialysis per nephrology service. Status post ICD placement during this hospitalization. Continue Keflex for total of 1 week (last day 09/23/2020) Hyponatremia resolved COVID-19 test negative. Will likely need rehab vs. SNF per PT evaluation though family had planned on going home with .
[2020-09-23] MEDS: Pantoprazole 40 MG GRANULES PACKET PER TUBE SCH (08:34)
[2020-09-23] MEDS: Cephalexin 250 MG CAP PO SCH ×2 (08:34→13:06)
[2020-09-23] MEDS: Dextrose 10% in Water 1,000 ML IV SCH (08:35)
--- NOTE | 2020-09-23 09:24 | PRG ---
DATE OF SERVICE: 09/23/2020 SUBJECTIVE: A 45-year-old gentleman being seen for end-stage renal disease. The patient denies nausea, vomiting, or chest pain. OBJECTIVE: GENERAL: The patient is awake and alert. VITAL SIGNS: Afebrile, pulse 96, breathing 16, blood pressure 92/67. HEENT: Head normocephalic and atraumatic. Eyes intact, no ulcers. Nose intact, no ulcers. Ears intact, no ulcers. NECK: Supple. No JVD. CHEST: Symmetrical and clear. CARDIOVASCULAR: Shows S1 and S2, no rub, no murmur. GASTROINTESTINAL: Abdomen is soft, bowel sounds positive. EXTREMITIES: Show no edema or ulcers. SKIN: Shows no rash or petechiae. MUSCULOSKELETAL: Shows no joint swelling or stiffness. GENITOURINARY: Shows no Villanueva or CVA tenderness. NEUROLOGIC: Motor intact. Cranial nerves intact. LABORATORY DATA: Reviewed. ASSESSMENT AND PLAN: 1. Stage 6 chronic kidney disease, dialysis. 2. Hypertension, stable. 3. Anemia, stable. 4. Medication based on GFR appropriate. Job ID: [id number]
--- NOTE | 2020-09-23 10:57 | PRG ---
DATE OF SERVICE: 09/23/2020 SUBJECTIVE: Mr. Rodriguez's status is stable. He has no current complaints. His heart rate appears much more stable on current regime. He is currently on Coumadin with supratherapeutic INR. Hemoglobin 11.8, hematocrit 37.2, and platelet count 302. Creatinine 5.4. OBJECTIVE: VITAL SIGNS: Blood pressure 91/69, pulse 96, and temperature 97.7. LUNGS: Clear to auscultation. HEART: Irregularly irregular. ABDOMEN: Soft, nontender, nondistended. EXTREMITIES: No edema. IMPRESSION: 1. Nonischemic cardiomyopathy. 2. Hyperkalemia, resolved. 3. End-stage renal disease. 4. Atrial fibrillation. RECOMMENDATIONS: Coumadin will be managed by pharmacy. His Coumadin will be held today. His INR was 3.2. From a CV standpoint, he is on current CHF medications including metoprolol succinate 100 mg p.o. b.i.d. ICD has been placed and will be followed by EP. Otherwise, I have no further recommendations. Job ID: [id number]
[2020-09-23] MEDS: Warfarin Sodium 5 MG TAB PO SCH (16:26)
[2020-09-23 18:58] VITALS: BP 102/68; TEMP 97.5
--- NOTE | 2020-09-23 22:13 | DIS ---
DATE OF ADMISSION: 09/08/2020 DATE OF DISCHARGE: 09/23/2020 PRIMARY CARE PHYSICIAN: Homero Gonzales MD REASON FOR ADMISSION: Cardiac arrest status post successful resuscitation. DIAGNOSES AT DISCHARGE: 1. Cardiac arrest, status post successful resuscitation. 2. Hyperkalemia, resolved. 3. Lactic acidosis, resolved. 4. Ventricular fibrillation, resolved. 5. Atrial fibrillation with rapid ventricular rate controlled. 6. Anemia of chronic renal disease. 7. End-stage renal disease on dialysis. 8. Acute respiratory failure with hypoxia resolved. 9. Chronic systolic and diastolic congestive heart failure. PROCEDURES: 1. Cardiac catheterizations showing moderate distal coronary artery disease. 2. Echocardiogram showing ejection fraction of 30% to 35% with moderate to severe concentric left ventricular hypertrophy and diastolic dysfunction unable to be assessed. The patient does have cor pulmonale as well. 3. Implantable cardioverter-defibrillator placement. 4. Left internal jugular triple-lumen catheter placement. CONSULTATIONS: 1. Pulmonology, Juan Mascorro MD. 2. Nephrology, Sony Charles MD. 3. Cardiology, Mannie Dalton MD. 4. Electrophysiology, Ricardo Hayward MD. 5. General Surgery, Rayshawn Gilbert MD. SUMMARY OF HOSPITAL COURSE: This is a 45-year-old male with end-stage renal disease and congestive heart failure. He has a tendency toward hyperkalemia, was brought into the [facility] room in cardiac arrest from ventricular fibrillation. After successful resuscitation was brought to our hospital, was found to be severely hyperkalemic, he had dialysis to remove the potassium. The patient had a slow improvement during his hospitalization, eventually was able to be taken off the ventilator and was breathing well on room air. He had been in rehab prior to admission, but was weakened by his rest and prolonged hospital stay, so he is needed to go back to rehab. He did have trouble with atrial fibrillation with rapid ventricular rate during his hospitalization and Cardiology did adjust his medications. Due to his VFib and the low EF on his echocardiogram along with his tendency toward hyperkalemia, it was decided to put a defibrillator in, which the patient had done without complication. The patient was doing well at the time of discharge and is being discharged to inpatient rehabilitation at [facility]. DISCHARGE MANAGEMENT: Discharged to inpatient rehab at [facility]. ACTIVITY: As tolerated. DIET: Renal high-protein diet with extra sauce and gravy. He is eating a diet with risk of aspiration. Supplements Nephro at night. THERAPY: Occupational, physical, and speech therapy. DISCHARGE MEDICATIONS: 1. Acetaminophen as needed for pain and fever. 2. Acetaminophen with codeine as needed for pain. 3. Dulcolax 10 mg per rectum as needed for constipation. 4. Tums 1000 mg as needed. 5. Diltiazem 60 mg 3 times a day. 6. Hydroxyzine 25 mg every 8 hours as needed. 7. DuoNeb q.6 hours as needed. 8. Metoprolol succinate 100 mg twice a day and to be held for systolic blood pressure less than 100. 9. Zofran 4 mg every 6 hours as needed for nausea and vomiting. 10. Protonix 40 mg daily. 11. Senokot-S two tablets twice a day as needed for constipation. 12. Warfarin 5 mg daily. 13. Renvela 3200 mg 3 times a day. TIME SPENT: Arranging the details of this discharge took 35 minutes. Job ID: [id number]
== END 2020-09-23 18:30 | DRG 224 ==
LOC: ERS 07:22 → CCU 07:27 → IMCU/EMU 09-11 10:54 → 2NO 09-18 21:14
PROVIDERS: ADMIT Internal Medicine; ATTEND Emergency Medicine
PROC: 3E033XZ Introduction of Vasopressor into Peripheral Vein, Percutaneous Approach (ICD-10-PCS; principal; 2020-09-08)
PROC: 5A12012 Performance of Cardiac Output, Single, Manual (ICD-10-PCS; 2020-09-08)
PROC: 5A1945Z Respiratory Ventilation, 24-96 Consecutive Hours (ICD-10-PCS; 2020-09-08)
PROC: 0BH17EZ Insertion of Endotracheal Airway into Trachea, Via Natural or Artificial Opening (ICD-10-PCS; 2020-09-08)
PROC: B2111ZZ Fluoroscopy of Multiple Coronary Arteries using Low Osmolar Contrast (ICD-10-PCS; 2020-09-12)
PROC: B2151ZZ Fluoroscopy of Left Heart using Low Osmolar Contrast (ICD-10-PCS; 2020-09-12)
PROC: 4A023N7 Measurement of Cardiac Sampling and Pressure, Left Heart, Percutaneous Approach (ICD-10-PCS; 2020-09-12)
PROC: 05HN33Z Insertion of Infusion Device into Left Internal Jugular Vein, Percutaneous Approach (ICD-10-PCS; 2020-09-15)
PROC: B544ZZA Ultrasonography of Left Jugular Veins, Guidance (ICD-10-PCS; 2020-09-15)
PROC: 0JH608Z Insertion of Defibrillator Generator into Chest Subcutaneous Tissue and Fascia, Open Approach (ICD-10-PCS; 2020-09-16)
PROC: 02HK3KZ Insertion of Defibrillator Lead into Right Ventricle, Percutaneous Approach (ICD-10-PCS; 2020-09-16)
DX: I49.01 Ventricular fibrillation (principal); N18.6 End stage renal disease; I21.A1 Myocardial infarction type 2; J96.01 Acute respiratory failure with hypoxia; J69.0 Pneumonitis due to inhalation of food and vomit; G93.41 Metabolic encephalopathy; I13.2 Hypertensive heart and chronic kidney disease with heart failure and with stage 5 chronic kidney disease, or end stage renal disease; E87.2 Acidosis; N25.81 Secondary hyperparathyroidism of renal origin; E87.1 Hypo-osmolality and hyponatremia; G93.1 Anoxic brain damage, not elsewhere classified; I50.42 Chronic combined systolic (congestive) and diastolic (congestive) heart failure; E87.5 Hyperkalemia; E88.09 Other disorders of plasma-protein metabolism, not elsewhere classified; Z20.828 Contact with and (suspected) exposure to other viral communicable diseases; D63.1 Anemia in chronic kidney disease; E66.9 Obesity, unspecified; I25.10 Atherosclerotic heart disease of native coronary artery without angina pectoris; R53.81 Other malaise; I48.19 Other persistent atrial fibrillation; I42.8 Other cardiomyopathies; E87.6 Hypokalemia; I47.2 Ventricular tachycardia; E16.2 Hypoglycemia, unspecified; Z79.899 Other long term (current) drug therapy; Z99.2 Dependence on renal dialysis; Z90.49 Acquired absence of other specified parts of digestive tract; Z88.8 Allergy status to other drugs, medicaments and biological substances; Z91.018 Allergy to other foods; Z79.01 Long term (current) use of anticoagulants; Z68.28 Body mass index [BMI] 28.0-28.9, adult; I46.9 Cardiac arrest, cause unspecified
CPT/HCPCS: 33249; 36415; 36416; 36556; 36600; 51702; 71045; 76942; 80048; 80053; 80076; 82805; 83605; 83735; 83880; 85007; 85025; 85027; 85610; 85730; 87340; 90935; 93005; 93010; 93306; 93458; 94002; 94003; 94640; 94760; 96365; 96367; 96368; 96374; 96375; 96376; 97139; 99152; C1777; C1786; C9113; G0257; J0171; J0282; J0690; J1580; J1642; J1644; J2060; J2250; J2370; J2543; J2704; J3010; J3490; J7070; J7620; P9047; Q0162; Q9967; U0002

== ENCOUNTER 2020-09-29 16:56 | Emergency (ER) | payer MEDICARE, MEDICAID | END 2020-09-29 17:17 | disposition left against medical advice (07) | LOC: ERS 16:56 | DX: Z53.21 Procedure and treatment not carried out due to patient leaving prior to being seen by health care provider (principal) ==

== ENCOUNTER 2020-09-30 12:47 | Emergency (ER) | payer MEDICARE, MEDICAID | END 2020-09-30 13:30 | disposition left against medical advice (07) | LOC: ERS 12:47 | DX: Z53.21 Procedure and treatment not carried out due to patient leaving prior to being seen by health care provider (principal) ==

== ENCOUNTER 2020-10-03 08:12 | Inpatient (IN) | payer MEDICARE, MEDICAID ==
[2020-10-03 09:02] LABS: Actual Bicarbonate (HCO3a) 22.2 mEq/L (22-28); Analyzer IN Cardio ER; Base Excess (BEa) -1.2 mEq/L (-2.0 to +3.0); CO2 Tension 30.9 mmHg (35.0-45.0); Calcium, Ionized (arterial) 1.15 mmol/L (1.12-1.30); Hemoglobin (Hb) 6.6 g/dL (14.0-18.0); O2 Tension (PaO2), arterial 73.9 mmHg (80.0-100.0); Potassium - ABG Lab 4.32 mmol/L (3.70-5.30); pH, Arterial 7.48 (7.35-7.45)
[2020-10-03 09:09] LABS: PTT 91.8 sec (22.9-36.1)
[2020-10-03 09:11] LABS: ALV-art Gradient 37.205 mmHg (0-20); Puncture Site LRA
--- NOTE | 2020-10-03 09:17 | RAD ---
EXAM: Chest one view: HISTORY: Generalized weakness with nausea and cough patient on dialysis COMPARISON: 09/16/2020 FINDINGS: Left ICD. Heart size: Marked cardiomegaly. Lungs: Bilateral vascular congestion with interstitial and alveolar opacity changes concerning for ed jose david. No pneumothorax. IMPRESSION: Overall stable chest, minimally improving lung zones from 09/16/2020.
[2020-10-03 09:21] LABS: Anisocytosis MARKED = >30 cells (100X) (0-5/hpf); Band 1 % (5-11); Eosinophils 1 % (0-10); Hemoglobin 3.5 g/dL (14.0-18.0); Hypochromia MODERATE=16-30 cells (100X) (0-5/hpf); Lymphocytes 23 % (21-51); MDiff Complete? YES; Mean Corpuscular HGB CONC 32.1 g/dL (32.0-36.0); Mean Corpuscular Hemoglobin 26.1 pg (27.0-31.0); Mean Corpuscular Volume 81.2 fL (78.0-98.0); Mean Platelet Volume 10.6 fL (7.4-10.4); Metamyelocyte 1 % (0-0); Microcytosis SLIGHT = 6-15 cells (100X) (0-5/hpf); Monocytes 9 % (0-10); Neutrophil 65 % (42-75); Nucleated RBC 3 % (0); Platelet Count 140 thou/uL (130-400); Poikilocytosis SLIGHT = 6-15 cells (100X) (0-5/hpf); Polychromasia MODERATE = 3-4 cells (100X) (0-2/hpf); RBC Distribution Width 26.4 % (11.5-14.5); Red Blood Cell (RBC) Count 1.33 mill/uL (4.70-6.10); Target Cells SLIGHT = 2-5 cells (100X) (0-1/hpf); White Blood Cell (WBC) Count 11.3 thou/uL (4.8-10.8)
[2020-10-03 09:22] LABS: ALT (SGPT) 9 U/L (8-55); AST (SGOT) 22 U/L (5-34); Albumin 2.8 g/dL (3.5-5.0); Alkaline Phosphatase 110 U/L (40-110); Anion Gap 25 mmol/L (10-20); BUN (Urea Nitrogen) 122 mg/dL (8.9-20.6); Bilirubin, Total 0.7 mg/dL (0.2-1.2); Calc. Creatinine Clearance 0 mL/min (70-130); Calcium 9.3 mg/dL (7.8-10.44); Carbon Dioxide 22 mmol/L (22-29); Chloride 97 mmol/L (98-107); Globulin 3.3 g/dL (2.4-3.5); Glucose 78 mg/dL (70-105); Lipase 83 U/L (8-78); Magnesium 1.9 mg/dL (1.6-2.6); Protein, Total 6.1 g/dL (6.0-8.3); Sodium 139 mmol/L (136-145)
[2020-10-03 09:25] LABS: Prothrombin Time Greater than 150.0 sec (12.0-14.7)
[2020-10-03 09:43] LABS: CKMB 0.7 ng/mL (0-6.6)
[2020-10-03] MEDS ORDERED: HUM PROTHROMBIN CPLX IV SCH (10:00)
[2020-10-03] MEDS ORDERED: ADMIXTURE FEE IV SCH (10:00)
[2020-10-03] MEDS ORDERED: [UNRECOGNIZED DRUG - OTHER] IV SCH (10:00)
[2020-10-03] MEDS ORDERED: Pantoprazole 40 MG VIAL ONE ×2 (10:03→14:39)
[2020-10-03] MEDS ORDERED: Phytonadione 10 MG/ML AMP ONE (10:03)
--- NOTE | 2020-10-03 11:34 | CON ---
DATE OF CONSULTATION: REASON FOR CONSULTATION: End-stage renal disease for maintenance hemodialysis. HISTORY OF PRESENT ILLNESS: This is a 45-year-old gentleman, who presented to the hospital with a 3-day history of black stools and hematemesis and hematochezia. The patient was recently discharged for cardiovascular complication. PAST MEDICAL HISTORY: End-stage renal disease, hypertension, nonischemic cardiomyopathy, ventricular tachycardia, secondary hyperparathyroidism, restrictive cardiomyopathy, hyperparathyroidism, obesity, fistula surgery, tunneled dialysis catheter, and central lines. SOCIOECONOMIC HISTORY: No alcohol or drug use. FAMILY HISTORY: Negative for ESRD. ALLERGIES: REVIEWED. MEDICATIONS: Home medications list reviewed. Hospital medications list reviewed. REVIEW OF SYSTEMS: Fifteen-point review of system was performed and negative except for positives noted above. HEENT: Eyes intact, no diplopia. Ears: No hearing loss or earache. Nose: No discharge or bleeding. CHEST: No cough or phlegm. ABDOMEN: No nausea or vomiting. GENITOURINARY: No hematuria. No Villanueva catheter. MUSCULOSKELETAL: No low back pain. No joint swelling or pain. NEUROLOGICAL: No syncope. No seizures. SKIN: No complaints of rash or itching. PSYCHIATRIC: No depression. CONSTITUTIONAL: No weight loss or loss of appetite. PHYSICAL EXAMINATION: GENERAL: On exam, the patient is awake and alert. VITAL SIGNS: Afebrile, pulse 70, breathing at 16, and blood pressure was 90/73. HEENT: Head normocephalic and atraumatic. Eyes intact, no ulcers. Nose intact, no ulcers. Ears intact, no ulcers. NECK: Supple. No JVD. CHEST: Symmetrical and clear. CARDIOVASCULAR: Shows S1 and S2, no rub, no murmur. GASTROINTESTINAL: Abdomen is soft, bowel sounds positive. EXTREMITIES: Show no edema or ulcers. SKIN: Shows no rash or petechiae. MUSCULOSKELETAL: Shows no joint swelling or stiffness. GENITOURINARY: Shows no Villanueva or CVA tenderness. NEUROLOGIC: Motor intact. Cranial nerves intact. LABORATORY DATA: Show hemoglobin is 3.5. Potassium is 5. ASSESSMENT AND PLAN: 1. End-stage renal disease with severe anemia. We would recommend transfusion and we will initiate dialysis. 2. Uremia. Plan dialysis. 3. Anemia. The patient will need 6 units of blood, which can be given with dialysis. Medications based on GFR are appropriate. Overall, prognosis is extremely poor. The patient is in the ICU. Job ID: [id number]
[2020-10-03] MEDS ORDERED: Ondansetron PF 4 MG/2 ML Vial IVP PRN (12:04)
[2020-10-03] MEDS ORDERED: Senokot S 8.6-50 MG TAB PO PRN (12:04)
[2020-10-03] MEDS ORDERED: Ondansetron ODT 4 MG TAB PO PRN (12:04)
[2020-10-03] MEDS ORDERED: HYDROcodone/Acetaminophen 5/325 mg Tablet PO PRN (12:04)
[2020-10-03] MEDS ORDERED: Bisacodyl 10 MG SUPP PR PRN (12:04)
[2020-10-03] MEDS ORDERED: Pantoprazole 80 MG in Sodium Chloride 0.9% 100 ML IVPB SCH (12:04)
[2020-10-03] MEDS ORDERED: Calcium Carbonate 500 MG ChewTAB PO PRN (12:04)
[2020-10-03] MEDS ORDERED: Zolpidem Tartrate 5 MG TAB PO PRN (12:04)
[2020-10-03] MEDS ORDERED: Loperamide HCl 2 MG CAP PO PRN (12:04)
[2020-10-03] MEDS ORDERED: Acetaminophen 325 MG TAB PO PRN (12:04)
[2020-10-03 13:25] LABS: Hemoglobin 6.8 g/dL (14.0-18.0); Mean Corpuscular HGB CONC 32.4 g/dL (32.0-36.0); Mean Corpuscular Volume 86.4 fL (78.0-98.0); RBC Distribution Width 23.1 % (11.5-14.5); Red Blood Cell (RBC) Count 2.44 mill/uL (4.70-6.10)
--- NOTE | 2020-10-03 13:26 | PDOC.HHP ---
Hospitalist HPI - History of Present Illness Generalized weakness History of Present Illness: 45-year-old -[place] male who has multiple medical problem, patient is extremely poor historian, he is not able to provide good history, so most of the history obtained from emergency room record, Patient was brought to emergency room from home by paramedics for generalized weakness, patient has history of ESRD and he is on hemodialysis, his last dialysis was on Tuesday, patient had a couple of visit emergency room for nosebleed, last night he was also having coughing up blood, per patient he was on warfarin but his primary care physician took off from a warfarin due to nosebleed, When he presented to emergency room he was coughing rate is blood, he was also having nasal bleed, in the emergency room he was relatively hypotensive, routine laboratory test done in the emergency room which showed hemoglobin 3.5, he was given 2 units of blood, his INR was also significantly elevated, nephrology evaluated this patient and they are planning to do dialysis in the emergency room, Patient has history of atrial fibrillation as well as systolic heart failure and he had ventricular fibrillation arrest and subsequently defibrillator placed in his left chest 3 weeks ago, subsequently he was discharged to rehab and subsequently he went to home, he denies any black tarry stool, he denies any abdominal pain, he denies any fever or chills, he denies any exposure with COVID-19, Patient has chronic right lower extremity wound which is taken care of by wound care. ED Course: Patient has received 2 units of blood transfusion in emergency room,Patient is also given Kcentra, Protonix, vitamin K and IV fluid VITAL SIGNS TueOct 03, 2020 08:31 MICHELE Park Kelsey BP: 89/47, Pulse: 71, Resp: 16, Temp: 97.7 (Oral), Pain: 0, Time: 10/03/2020 08:31. VITAL SIGNS TueOct 03, 2020 08:41 MICHELE Park Kelsey BP: 85/60, MAP: 68, Time: 10/03/2020 08:41. VITAL SIGNS TueOct 03, 2020 08:45 MICHELE Park Kelsey BP: 90/62, MAP: 71, Pulse: 85, Resp: 16, Pain: 0, End-Tidal CO2: 26, Time: 10/03/2020 08:45. VITAL SIGNS TueOct 03, 2020 08:54 MICHELE Park Kelsey BP: 90/62, Pulse: 84, Resp: 15, Pain: 0, End-Tidal CO2: 37, Time: 10/03/2020 08:54. VITAL SIGNS TueOct 03, 2020 09:34 MICHELE Park Kelsey BP: 93/68, MAP: 73, Pulse: 77, Resp: 19, Pain: 0, End-Tidal CO2: 34, Time: 021 09:34. VITAL SIGNS TueOct 03, 2020 10:15 MICHELE Park Kelsey BP: 82/60, Pulse: 88, Resp: 16, Pain: 0, End-Tidal CO2: 30, Time: 10/03/2020 10:15. VITAL SIGNS TueOct 03, 2020 10:30 MICHELE Park Kelsey BP: 88/60, MAP: 73, Pulse: 87, Resp: 18, Pain: 0, End-Tidal CO2: 25, Time: 10/03/2020 10:30. VITAL SIGNS TueOct 03, 2020 10:46 MICHELE Park Kelsey BP: 99/67, Pulse: 83, Resp: 16, Pain: 0, End-Tidal CO2: 28, Time: 10/03/2020 10:46. VITAL SIGNS TueOct 03, 2020 11:04 MICHELE Park Kelsey BP: 102/62, MAP: 75, Pulse: 84, Resp: 20, Pain: 0, End-Tidal CO2: 29, Time: 10/03/2020 11:04. VITAL SIGNS TueOct 03, 2020 11:14 MICHELE Murphy, [place] Hospitalist ROS - Review of Systems ROS unobtainable: due to mental status - Medication Medications: Allergies coconut Allergy (Unknown, Verified 12/23/19 02:55) Anaphylaxis patient reported throat swells kiwi Allergy (Unknown, Verified 08/27/20 21:25) lisinopril Allergy (Unknown, Verified 08/27/20 21:25) losartan Allergy (Unknown, Verified 08/27/20 21:25) Home medication Medication Instructions Recorded Confirmed Type Sevelamer Carbonate [Renvela] 3,200 mg PO TID 08/27/20 08/27/20 History Diltiazem HCl 60 mg PO TID #90 tablet 12/22/20 Rx Metoprolol Succinate [Toprol XL] 100 mg PO BID #60 tab 09/23/20 Rx Pantoprazole [Protonix] 40 mg PO DAILY #30 pk 09/23/20 Rx Warfarin Sodium [Coumadin] 5 mg PO DAILY@1700 #30 tab 09/23/20 Rx CODE STATUS Resuscitation Status - Order Detail: 10/03/20 12:00 Resuscitation Status Routine Resuscitation Status: FULL: Full Resuscitation Hospitalist History - Past Medical History Other Medical History: Hypertension Chronic systolic heart failure Anemia of chronic disease ESRD on hemodialysis Severe tricuspid regurgitation Pulmonary hypertension - Past Surgical History Other Surgical History: Dialysis access Cholecystectomy Past psychiatric history reviewed and negative - Family History Other Family History: No strong family history of premature coronary artery disease stroke or cancer - Social History Other Social History: Patient lives at home with family, he has history of smoking about 1 pack/day for last 20 years, he denies any alcohol or other illicit drug abuse - Exam General Appearance: NAD, ill appearing Eye: PERRL, anicteric sclera Eye - other findings: Pallor plus ENT: normocephalic atraumatic, no oropharyngeal lesions ENT - other findings: Pale mucous membrane Neck: supple, symmetric, no JVD, no thyromegaly Heart: RRR, no gallops, no rubs Heart - other findings: Systolic murmur parasternally Respiratory: no wheezes, no rales, no ronchi, no tachypnea Respiratory - other findings: Bilateral coarse breath sound but no obvious rales Gastrointestinal: soft, non-tender, non-distended, normal bowel sounds Extremities: 2+ LE edema Extremities - other findings: Right lower extremity wound noted Skin: normal turgor, no lesions Neurological: no focal deficits Neurological - other findings: Patient moves all 4 limbs, Musculoskeletal: normal tone, normal strength Psychiatric: normal affect, normal behavior Hospitalist Results - Labs Result Diagrams: 10/03/20 08:30 10/03/20 08:30 Lab results: WBC 11.3 thou/uL (4.8-10.8) H 10/03/20 08:30 Hgb 3.5 g/dL (14.0-18.0) L* 10/03/20 08:30 Hct 10.8 % (42.0-52.0) L* 10/03/20 08:30 MCV 81.2 fL (78.0-98.0) 10/03/20 08:30 Plt Count 140 thou/uL (130-400) 10/03/20 08:30 Band Neuts % (Manual) 1 % (5-11) L 10/03/20 08:30 ABG pH 7.48 (7.35-7.45) H 10/03/20 08:49 ABG pCO2 30.9 mmHg (35.0-45.0) L 10/03/20 08:49 ABG pO2 73.9 mmHg (80.0-100.0) L 10/03/20 08:49 Sodium 139 mmol/L (136-145) 10/03/20 08:30 Potassium 5.0 mmol/L (3.5-5.1) 10/03/20 08:30 Chloride 97 mmol/L (98-107) L 10/03/20 08:30 Carbon Dioxide 22 mmol/L (22-29) 10/03/20 08:30 BUN 122 mg/dL (8.9-20.6) H 10/03/20 08:30 Creatinine 5.81 mg/dL (0.7-1.3) H 10/03/20 08:30 Glucose 78 mg/dL (70-105) 10/03/20 08:30 Lactic Acid 3.9 mmol/L (0.5-2.2) H 10/03/20 08:30 Calcium 9.3 mg/dL (7.8-10.44) 10/03/20 08:30 Total Bilirubin 0.7 mg/dL (0.2-1.2) 10/03/20 08:30 AST 22 U/L (5-34) 10/03/20 08:30 ALT 9 U/L (8-55) 10/03/20 08:30 Alkaline Phosphatase 110 U/L (40-110) 10/03/20 08:30 CK-MB (CK-2) 0.7 ng/mL (0-6.6) 10/03/20 08:30 Troponin I 0.042 ng/mL (< 0.028) H 10/03/20 08:30 Serum Total Protein 6.1 g/dL (6.0-8.3) 10/03/20 08:30 Albumin 2.8 g/dL (3.5-5.0) L 10/03/20 08:30 Lipase 83 U/L (8-78) H 10/03/20 08:30 - EKG Interpretation EKG: equipment monitor phototypesetting showed no obvious arrhythmia, - Radiology Interpretation Chest x-ray Status: image reviewed by me Additional Comment: FINDINGS: Left ICD. Heart size: Marked cardiomegaly. Lungs: Bilateral vascular congestion with interstitial and alveolar opacity changes concerning for ed jose david. No pneumothorax. IMPRESSION: Overall stable chest, minimally improving lung zones from 09/16/2020. Hospitalist H&P A/P - Problem (1) Symptomatic anemia Code(s): D64.9 - ANEMIA, UNSPECIFIED Status: Acute (2) Warfarin-induced coagulopathy Code(s): D68.32 - HEMORRHAGIC DISORD D/T EXTRINSIC CIRCULATING ANTICOAGULANTS; T45.515A - ADVERSE EFFECT OF ANTICOAGULANTS, INITIAL ENCOUNTER Status: Acute (3) Lactic acidosis Code(s): E87.2 - ACIDOSIS Status: Acute (4) Type 2 myocardial infarction Code(s): I21.A1 - MYOCARDIAL INFARCTION TYPE 2 Status: Acute (5) Hypotension Status: Acute Qualifiers: Hypotension type: hypotension due to drug Qualified Code(s): I95.2 - Hypotension due to drugs (6) Anemia of renal disease Code(s): N18.9 - CHRONIC KIDNEY DISEASE, UNSPECIFIED; D63.1 - ANEMIA IN CHRONIC KIDNEY DISEASE Status: Chronic (7) ESRD (end stage renal disease) on dialysis Code(s): N18.6 - END STAGE RENAL DISEASE; Z99.2 - DEPENDENCE ON RENAL DIALYSIS Status: Chronic (8) Hypertension Code(s): I10 - ESSENTIAL (PRIMARY) HYPERTENSION Status: Chronic Qualifiers: Hypertension type: essential hypertension Qualified Code(s): I10 - Essential (primary) hypertension (9) Obesity (BMI 30-39.9) Code(s): E66.9 - OBESITY, UNSPECIFIED Status: Chronic (10) Secondary hyperparathyroidism (of renal origin) Code(s): N25.81 - SECONDARY HYPERPARATHYROIDISM OF RENAL ORIGIN Status: Chronic - Plan Plan: Because of severe symptomatic anemia we will consider admitting him in ICU, given hypotension as well as ESRD and need for multiple units of blood transfusion to prevent fluid overload Nephrology has been consulted and they are going to do dialysis in the emergency room, patient has received 2 units of PRBC so far, will repeat H&H, if hemoglobin is below 6 then will consider transfusing another unit of blood with the dialysis Gastroenterology has been consulted, for severe symptomatic anemia, to rule out any GI bleeding, meanwhile we will continue with the Protonix drip Patient has been given Kcentra, will repeat check PT/INR later on today along with H&H every 6 hourly Patient has hypertension so we will hold on his antihypertensive medication, will closely monitor his hemodynamics, if he remains stable then will consider transferring him to telemetry floor Prophylaxis SCD GI prophylaxis Protonix drip CODE STATUS patient is full code Disposition plan based on clinical course were expecting patient stay in hospital more than 2 midnights.
[2020-10-03 13:35] LABS: INR-International Normal Ratio 2.6; Prothrombin Time 28.4 sec (12.0-14.7)
[2020-10-03 13:46] LABS: MDiff Complete? YES; Mean Platelet Volume 7.3 fL (7.4-10.4); Platelet Count 118 thou/uL (130-400)
[2020-10-03 13:47] LABS: Anisocytosis MODERATE=16-30 cells (100X) (0-5/hpf); Band 10 % (5-11); Eosinophils 3 % (0-10); Lymphocytes 16 % (21-51); Monocytes 7 % (0-10); Neutrophil 62 % (42-75); Nucleated RBC 2 % (0); Platelet Morphology Comment Appears Decreased; Polychromasia MARKED = >4 cells (100X) (0-2/hpf); Reactive Lymphocytes 1 % (0-10); Schistocytes SLIGHT = 2-5 cells (100X) (0-1/hpf); Target Cells MODERATE= 6-15 cells (100X) (0-1/hpf); Tear Drops SLIGHT = 2-5 cells (100X) (0-1/hpf)
[2020-10-03] MEDS ORDERED: PROTHROMBIN COMPLEX CONCENTRATE IV SCH (14:00)
[2020-10-03 14:33] LABS: INR-International Normal Ratio 1.9; Prothrombin Time 22.1 sec (12.0-14.7)
[2020-10-03 14:46] LABS: SARS-CoV-2 NAA Rapid Test Not Detected (NotDetected)
--- NOTE | 2020-10-03 16:09 | CON ---
DATE OF CONSULTATION: 10/03/2020 CHIEF COMPLAINT: Weakness. HISTORY OF PRESENT ILLNESS: Mr. Rodriguez is a 45-year-old man, who has been on anticoagulation with warfarin and presented with intermittent nosebleeds over the last few days, and then this morning, developed worsening weakness and was brought to the emergency room for further care. He was found to have hypotension and severe anemia with a hemoglobin of 3.5, and he received blood transfusion for that. His INR was greater than the assay limits and he was given Kcentra to reverse the warfarin and his INR has since decreased to 1.9. He was given vitamin K IV. He is on hemodialysis and is receiving dialysis in the emergency room as well. The patient reports that his last bowel movement was 4 days ago. He has had no black stools or red stools. He has had no abdominal pain or nausea or vomiting. His weight has been stable. PAST MEDICAL HISTORY: Congestive heart failure with recent VFib arrest and subsequent defibrillator placement; anemia of chronic disease and end-stage renal disease, on hemodialysis; pulmonary hypertension and tricuspid regurgitation. He had 3 large colon polyps removed back in December of 2018 and did have a subsequent post-polypectomy bleed, which was treated with hemoclip placement. The colon polyps were tubulovillous adenomas. His last upper endoscopy was in 2015 and gastric biopsies were negative for H pylori at that time. PAST SURGICAL HISTORY: Dialysis catheter, defibrillator placement, and cholecystectomy. FAMILY HISTORY: Negative for GI malignancies. SOCIAL HISTORY: He has been a smoker, a pack a day. No drugs or alcohol. ALLERGIES: LISINOPRIL, LOSARTAN, KIWI, AND COCONUT. MEDICATIONS PRIOR TO ADMISSION: Include: 1. Pantoprazole. 2. Warfarin. 3. Metoprolol. 4. Diltiazem. 5. Sevelamer. REVIEW OF SYSTEMS: Negative x10 systems reviewed except as stated in history of present illness. PHYSICAL EXAMINATION: VITAL SIGNS: Temperature 97.5, pulse 74, and blood pressure 102/68. GENERAL: He is in no acute distress. Alert and oriented x3. LUNGS: Clear to auscultation bilaterally. HEART: Regular rate and rhythm. Systolic murmur at the apex and right upper sternal border, 4/6. ABDOMEN: Soft, nontender, and nondistended. Bowel sounds are present. EXTREMITIES: Trace lower extremity edema. RECTAL: Reveals dark brown stool in the rectal vault and no red blood in the rectal vault. There is a very little stool in the rectal vault. No melena or red blood in the stool now. LABORATORY DATA: BUN 122, creatinine 5.81, albumin 2.8. Hemoglobin was 3.5 on presentation this morning, he is receiving transfusion with dialysis now. His INR was above the assay limits this morning with a PT greater than 150. After Kcentra, his INR came down to 2.6 at 11:50 this morning and down to 1.9 at 1416 hours. IMPRESSION: 1. Coumadin toxicity, presenting with PT greater than 150 with INR greater than the assay limits. He has received Kcentra and vitamin K IV. His INR is improved and he is not showing any further overt bleeding at this time. 2. Anemia of acute blood loss on top of chronic underlying anemia of chronic kidney disease and chronic disease. 3. Nosebleeds and possible gastrointestinal bleed. He has not had a bowel movement for the last 4 days and does not have bloody stool in the rectal vault now. He has had multiple nosebleeds over the last several days. Still, he could have swallowed blood or had some bleeding anywhere in his GI tract given the markedly elevated INR and Coumadin toxicity. There is no indication for endoscopy at this time. 4. Cardiomyopathy with recent ventricular fibrillation arrest and automatic implantable cardioverter-defibrillator placement. 5. History of large adenomatous colon polyps removed in December of 2018. He is due for surveillance; however, he is a poor candidate for endoscopy in the immediate future. RECOMMENDATIONS: 1. Proton pump inhibitor. 2. Correct INR to therapeutic range. 3. Transfuse as needed. 4. He is receiving dialysis. 5. He can follow up in GI clinic regarding his history of colon polyps. 6. I will sign off, please call if GI can be of assistance. Job ID: [id number]
[2020-10-03 18:08] LABS: Hemoglobin 8.3 g/dL (14.0-18.0)
--- NOTE | 2020-10-03 23:05 | PDOC.CNTRL ---
Central Line Procedure Note - Description Procedure in Details: INDICATION: unable to obtain peripheral IV or midline PROCEDURE ROOFING MACHINE TENDER: Courtney/Erik/Ran ATTENDING PHYSICIAN: Dr. Tong, In Attendance Y Ultrasound Used: Y CONSENT: Consent was obtained from patient prior to the procedure. Indications, risks, and benefits were explained at length. PROCEDURE SUMMARY: A time out was performed. My hands were washed immediately prior to the procedure. I wore a surgical cap, mask with protective eyewear, sterile gown and sterile gloves throughout the procedure. The LEFT inguinal region was prepped using chlorhexidine scrub and draped in sterile fashion using a full drape and sterile probe cover employed. The femoral pulse was identified. Anesthesia was achieved using 1% lidocaine. Palpating the femoral pulse throughout the procedure, the introducer needle was inserted medial to the femoral artery, inf erior to the inguinal crease and into the femoral vein. Venous blood was withdrawn. The syringe was removed and a guidewire was advanced into the introducer needle. A small incision was made at the skin surface with a scalpel and the introducer needle was exchanged for a dilator over the guidewire. After appropriate dilation was obtained, the dilator was exchanged over the wire for a 3 lumen central venous catheter. The wire was removed and the catheter was sutured in place at the hub. A sterile sorbaview shield was placed over the catheter at the insertion site. The patient tolerated the procedure without any hemodynamic compromise. At time of procedure completion, all ports aspirated and flushed properly. Estimated blood loss is 15 cc. ATTENDING ADDENDUM: I was present for and supervised the entire procedure.
[2020-10-04 01:05] LABS: Hemoglobin 8.2 g/dL (14.0-18.0)
[2020-10-04 05:57] LABS: INR-International Normal Ratio 1.2; Prothrombin Time 15.3 sec (12.0-14.7)
[2020-10-04 06:15] LABS: ALT (SGPT) 10 U/L (8-55); AST (SGOT) 20 U/L (5-34); Albumin 2.6 g/dL (3.5-5.0); Alkaline Phosphatase 117 U/L (40-110); Anion Gap 17 mmol/L (10-20); BUN (Urea Nitrogen) 79 mg/dL (8.9-20.6); Calc. Creatinine Clearance 9 mL/min (70-130); Calcium 8.6 mg/dL (7.8-10.44); Carbon Dioxide 28 mmol/L (22-29); Chloride 96 mmol/L (98-107); Globulin 2.9 g/dL (2.4-3.5); Glucose 79 mg/dL (70-105); Potassium 3.9 mmol/L (3.5-5.1); Protein, Total 5.5 g/dL (6.0-8.3); Sodium 137 mmol/L (136-145)
[2020-10-04 06:58] LABS: Band 2 % (5-11); Hemoglobin 7.5 g/dL (14.0-18.0); Lymphocytes 18 % (21-51); MDiff Complete? YES; Mean Corpuscular Hemoglobin 28.6 pg (27.0-31.0); Mean Corpuscular Volume 86.6 fL (78.0-98.0); Mean Platelet Volume 10.6 fL (7.4-10.4); Monocytes 1 % (0-10); Neutrophil 79 % (42-75); Nucleated RBC 5 % (0); Platelet Count 128 thou/uL (130-400); RBC Distribution Width 21.3 % (11.5-14.5); Red Blood Cell (RBC) Count 2.64 mill/uL (4.70-6.10); White Blood Cell (WBC) Count 11.5 thou/uL (4.8-10.8)
[2020-10-04] MEDS ORDERED: FLU VACC QS2020-21(6MOS UP)/PF 60 MCG/0.5 ML SYRINGE IM ONE (09:00)
[2020-10-04] MEDS: Pantoprazole 40 MG VIAL IVP SCH ×2 (09:24→21:19)
--- NOTE | 2020-10-04 09:28 | PRG ---
DATE OF SERVICE: 10/04/2020 SUBJECTIVE: A 45-year-old gentleman being seen for end-stage renal disease. The patient denies any nausea, vomiting, or chest pain. PHYSICAL EXAMINATION: General: The patient is awake and alert. Vital Signs: Afebrile, pulse , breathing at 16, blood pressure 118/81. HEENT: Head normocephalic and atraumatic. Eyes intact, no ulcers. Nose intact, no ulcers. Ears intact, no ulcers. Neck: Supple. No JVD. Chest: Symmetrical and clear. Cardiovascular: Shows S1 and S2, no rub, no murmur. Gastrointestinal: Abdomen is soft, bowel sounds positive. Extremities: Show no edema or ulcers. Skin: Shows no rash or petechiae. Musculoskeletal: Shows no joint swelling or stiffness. Genitourinary: Shows no Villanueva or CVA tenderness. Neurologic: Motor intact. Cranial nerves intact. LABORATORY DATA: Show hemoglobin 7.5. Potassium of 3.9. ASSESSMENT AND PLAN: Stage 6 chronic kidney disease, plan dialysis with transfusion. Hypertension, stable. Anemia, I would recommend transfusion with next dialysis session. Job ID: [id number]
[2020-10-04] MEDS: Metoprolol Tartrate 25 MG TAB PO SCH ×2 (10:08→21:19)
--- NOTE | 2020-10-04 10:22 | PDOC.HOSPP ---
- Subjective Encounter Date: 10/04/20 Encounter Time: 09:45 Subjective: Patient seen and examined bedside today, patient is baseline, he is not talking, his vitals are stable, he is moving all 4 limbs - Objective Vital Signs & Weight: Vital Signs (12 hours) Temp Pulse Ox 10/04/20 08:00 97.6 F 10/04/20 07:08 95 10/04/20 04:00 98.2 F 10/04/20 00:00 98.4 F Weight Weight 72 lb 3.2 oz Most Recent Monitor Data Heart Rate from ECG 100 NIBP 111/60 NIBP BP-Mean 77 Respiration from ECG 20 SpO2 93 I&O: 10/03/20 10/04/20 10/05/20 06:59 06:59 06:59 Intake Total 481 120 Output Total 0 Balance 481 120 Result Diagrams: 10/04/20 05:45 10/04/20 05:45 EKG Reviewed by me: Yes (Ulises keene) Hospitalist ROS - Review of Systems ROS unobtainable: due to mental status - Medication Medications: Active Medications Generic Name Dose Route Start Last Admin Trade Name Freq PRN Reason Stop Dose Admin Metoprolol Tartrate 12.5 mg 10/04/20 09:00 10/04/20 10:08 Metoprolol Tartrate 25 Mg Tab PO Not Given BID MARAH Pantoprazole Sodium 40 mg 10/04/20 09:00 10/04/20 09:24 Pantoprazole 40 Mg Vial IVP 40 mg Q12HR MARAH Administration Sevelamer Carbonate 3,200 mg 10/04/20 08:00 10/04/20 00:00 Sevelamer Carbonate 800 Mg Tab PO 3,200 mg TID-WM MARAH Administration Sodium Chloride 10 ml 10/04/20 09:00 10/04/20 09:24 Flush - Normal Saline 10 Ml Syringe IVF 10 ml Q12HR MARAH Administration - Exam General Appearance: NAD Eye: PERRL, anicteric sclera ENT: normocephalic atraumatic, no oropharyngeal lesions Neck: supple, symmetric, no JVD, no thyromegaly Heart: no murmur, irregular Respiratory: no wheezes, no rales, no ronchi Gastrointestinal: soft, non-tender, non-distended, normal bowel sounds Extremities: no clubbing, no edema Skin: normal turgor, no lesions Neurological: no focal deficits Neurological - other findings: He moves all 4 limbs Musculoskeletal: normal tone, normal strength Psychiatric: normal affect, normal behavior Hosp A/P (1) Symptomatic anemia Code(s): D64.9 - ANEMIA, UNSPECIFIED Status: Acute (2) Warfarin-induced coagulopathy Code(s): D68.32 - HEMORRHAGIC DISORD D/T EXTRINSIC CIRCULATING ANTICOAGULANTS; T45.515A - ADVERSE EFFECT OF ANTICOAGULANTS, INITIAL ENCOUNTER Status: Resolved (3) Lactic acidosis Code(s): E87.2 - ACIDOSIS Status: Acute (4) Type 2 myocardial infarction Code(s): I21.A1 - MYOCARDIAL INFARCTION TYPE 2 Status: Acute (5) Hypotension Status: Resolved Qualifiers: Hypotension type: hypotension due to drug Qualified Code(s): I95.2 - Hypotension due to drugs (6) Anemia of renal disease Code(s): N18.9 - CHRONIC KIDNEY DISEASE, UNSPECIFIED; D63.1 - ANEMIA IN CHRONIC KIDNEY DISEASE Status: Chronic (7) ESRD (end stage renal disease) on dialysis Code(s): N18.6 - END STAGE RENAL DISEASE; Z99.2 - DEPENDENCE ON RENAL DIALYSIS Status: Chronic (8) Hypertension Code(s): I10 - ESSENTIAL (PRIMARY) HYPERTENSION Status: Chronic Qualifiers: Hypertension type: essential hypertension Qualified Code(s): I10 - Essential (primary) hypertension (9) Obesity (BMI 30-39.9) Code(s): E66.9 - OBESITY, UNSPECIFIED Status: Chronic (10) Secondary hyperparathyroidism (of renal origin) Code(s): N25.81 - SECONDARY HYPERPARATHYROIDISM OF RENAL ORIGIN Status: Chronic - Plan old records reviewed/req We will transfer him to telemetry floor We will start metoprolol 12.5 mg twice daily Gastroenterology recommendation appreciated, no plan for endoscopy Continue hemodialysis as per nephrology We will repeat labs tomorrow Ambulate as tolerated Change to Protonix 40 mg IV twice daily
[2020-10-04 11:26] VITALS: BMI 25.7
[2020-10-04] MEDS: Sevelamer Carbonate 800 MG TAB PO SCH ×3 (12:58→17:38)
--- NOTE | 2020-10-04 13:00 | CON ---
DATE OF CONSULTATION: HISTORY OF PRESENT ILLNESS: A 45-year-old gentleman, end-stage renal disease, presented with weakness, nausea, and apparently cough, his black test was negative, being dialyzed. He came in with significant anemia. His H and H were markedly decreased. Initial vital signs in the ER though revealed that his respiratory rate 16, his blood pressure was 89/47, and temperature 97. PAST MEDICAL HISTORY: Renal disease, atrial fibrillation, and hypertension. PAST SURGICAL HISTORY: Otherwise included access, cholecystectomy. HOME MEDICATIONS: Include: 1. Coumadin 5. 2. . 3. Toprol-XL 100. 4. Cardizem 60 t.i.d. ALLERGIES: LISINOPRIL, LOSARTAN. IT IS UNCLEAR WHOM HE IS SEEING FOR HIS COUMADIN. PHYSICAL EXAMINATION: VITAL SIGNS: In the ICU, this morning, temperature 97, pulse 80, his O2 saturation is 95% on room air, respiratory rate is 18, blood pressure 110/60. CHEST: No wheezing. No crackles. CARDIAC: Normal S1, S2. No gallops. ABDOMEN: No masses. LABORATORY DATA: His initial hemoglobin was 3.5, initial hematocrit was only 10. His creatinine is 4, BUN is 79. X-ray was otherwise clear. IMPRESSION: 1. Massive bleed. 2. Severe anemia. 3. Hypertension. 4. Chronic atrial fibrillation. PLAN: Pulmonary ochoa, we will follow while in the ICU, nothing much to do at this time. GI was consulted. Transfuse to keep hemoglobin over 7. This is a regular consultation note, 50% direct patient care. Job ID: [id number]
[2020-10-04 14:30] LABS: Hemoglobin 8.1 g/dL (14.0-18.0)
[2020-10-05 05:19] LABS: ALT (SGPT) 10 U/L (8-55); AST (SGOT) 19 U/L (5-34); Albumin 2.7 g/dL (3.5-5.0); Alkaline Phosphatase 154 U/L (40-110); Anion Gap 19 mmol/L (10-20); BUN (Urea Nitrogen) 101 mg/dL (8.9-20.6); Bilirubin, Total 0.7 mg/dL (0.2-1.2); Calc. Creatinine Clearance 15 mL/min (70-130); Carbon Dioxide 26 mmol/L (22-29); Chloride 98 mmol/L (98-107); Globulin 3.2 g/dL (2.4-3.5); Glucose 84 mg/dL (70-105); Magnesium 1.7 mg/dL (1.6-2.6); Phosphorus 3.1 mg/dL (2.3-4.7); Protein, Total 5.9 g/dL (6.0-8.3); Sodium 139 mmol/L (136-145)
[2020-10-05 05:43] LABS: Hemoglobin 7.4 g/dL (14.0-18.0); Mean Corpuscular HGB CONC 31.7 g/dL (32.0-36.0); Mean Corpuscular Hemoglobin 27.9 pg (27.0-31.0); Mean Corpuscular Volume 88.2 fL (78.0-98.0); Mean Platelet Volume 10.4 fL (7.4-10.4); Platelet Count 148 thou/uL (130-400); RBC Distribution Width 22.1 % (11.5-14.5); Red Blood Cell (RBC) Count 2.66 mill/uL (4.70-6.10)
[2020-10-05 06:32] LABS: Anisocytosis MODERATE=16-30 cells (100X) (0-5/hpf); Eosinophils 3 % (0-10); Lymphocytes 19 % (21-51); MDiff Complete? YES; Macrocytosis SLIGHT = 6-15 cells (100X) (0-5/hpf); Monocytes 4 % (0-10); Neutrophil 74 % (42-75); Nucleated RBC 9 % (0); Polychromasia MODERATE = 3-4 cells (100X) (0-2/hpf); Target Cells SLIGHT = 2-5 cells (100X) (0-1/hpf); White Blood Cell (WBC) Count 10.4 thou/uL (4.8-10.8)
[2020-10-05] MEDS: Pantoprazole 40 MG VIAL IVP SCH (08:38)
[2020-10-05] MEDS: Sevelamer Carbonate 800 MG TAB PO SCH ×3 (08:38→17:52)
[2020-10-05] MEDS: Metoprolol Tartrate 25 MG TAB PO SCH ×3 (09:47→20:55)
--- NOTE | 2020-10-05 10:16 | PDOC.HOSPP ---
- Subjective Encounter Date: 10/05/20 Encounter Time: 07:45 Subjective: Patient seen and examined bedside today, he is more alert, he denies any bleeding from any site today, his hemoglobin is slightly reduced from yesterday - Objective Vital Signs & Weight: Vital Signs (12 hours) Temp Pulse Resp BP Pulse Ox 10/05/20 07:52 98 F 100 16 97/67 100 10/05/20 04:29 96 10/05/20 04:00 97.8 F 83 18 102/74 10/05/20 00:00 97.5 F L 103 H 18 100/67 Weight Admit Weight 72 lb 3.2 oz Weight 159 lb 2.8 oz Most Recent Monitor Data Heart Rate from ECG 87 NIBP 107/79 NIBP BP-Mean 88 Respiration from ECG 26 SpO2 71 I&O: 10/04/20 10/05/20 10/06/20 06:59 06:59 06:59 Intake Total 481 545 Output Total 0 0 Balance 481 545 Result Diagrams: 10/05/20 04:20 10/05/20 04:20 EKG Reviewed by me: Yes (Atrial fibrillation) Hospitalist ROS - Review of Systems Constitutional: reports: weakness. denies: fever, chills, sweats, malaise, other ENT: denies: ear pain, ear discharge, nose pain, nose discharge, nose congestion, mouth pain, mouth swelling, throat pain, throat swelling, other Respiratory: denies: cough, dry, shortness of breath, hemoptysis, SOB with excertion, pleuritic pain, sputum, wheezing, other Cardiovascular: denies: chest pain, palpitations, orthopnea, paroxysmal noc. dyspnea, edema, light headedness, other Gastrointestinal: denies: nausea, vomiting, abdominal pain, diarrhea, constipation, melena, hematochezia, other Genitourinary: denies: dysuria, frequency, incontinence, hematuria, retention, other Musculoskeletal: denies: neck pain, shoulder pain, arm pain, back pain, hand pain, leg pain, foot pain, other - Medication Medications: Active Medications Generic Name Dose Route Start Last Admin Trade Name Freq PRN Reason Stop Dose Admin Hydrocodone Bitart/Acetaminophen 1 tab 10/03/20 12:04 10/04/20 12:59 Hydrocodone/Acetaminophen 5/325 Mg Tablet PO 1 tab Q4H PRN Administration Moderate Pain (4-6) Metoprolol Tartrate 12.5 mg 10/04/20 09:00 10/05/20 09:47 Metoprolol Tartrate 25 Mg Tab PO Not Given BID MARAH Pantoprazole Sodium 40 mg 10/04/20 09:00 10/05/20 08:38 Pantoprazole 40 Mg Vial IVP 40 mg Q12HR MARAH Administration Sevelamer Carbonate 3,200 mg 10/04/20 08:00 10/05/20 08:38 Sevelamer Carbonate 800 Mg Tab PO 3,200 mg TID-WM MARAH Administration Sodium Chloride 10 ml 10/04/20 09:00 10/05/20 08:37 Flush - Normal Saline 10 Ml Syringe IVF 10 ml Q12HR MARAH Administration - Exam General Appearance: NAD, awake alert Eye: PERRL, anicteric sclera ENT: normocephalic atraumatic, no oropharyngeal lesions Neck: supple, symmetric, no JVD, no thyromegaly Heart: no murmur, no gallops, no rubs, irregular Respiratory: no wheezes, no rales, no ronchi Gastrointestinal: soft, non-tender, non-distended, normal bowel sounds Gastrointestinal - other findings: Obesity Extremities: 1+ LE edema Skin: normal turgor, no lesions Neurological: no focal deficits Musculoskeletal: normal tone, normal strength Psychiatric: normal affect, normal behavior Hosp A/P (1) Symptomatic anemia Code(s): D64.9 - ANEMIA, UNSPECIFIED Status: Acute (2) Warfarin-induced coagulopathy Code(s): D68.32 - HEMORRHAGIC DISORD D/T EXTRINSIC CIRCULATING ANTICOAGULANTS; T45.515A - ADVERSE EFFECT OF ANTICOAGULANTS, INITIAL ENCOUNTER Status: Resolved (3) Lactic acidosis Code(s): E87.2 - ACIDOSIS Status: Acute (4) Type 2 myocardial infarction Code(s): I21.A1 - MYOCARDIAL INFARCTION TYPE 2 Status: Acute (5) Hypotension Status: Resolved Qualifiers: Hypotension type: hypotension due to drug Qualified Code(s): I95.2 - Hypotension due to drugs (6) Anemia of renal disease Code(s): N18.9 - CHRONIC KIDNEY DISEASE, UNSPECIFIED; D63.1 - ANEMIA IN CHRONIC KIDNEY DISEASE Status: Chronic (7) ESRD (end stage renal disease) on dialysis Code(s): N18.6 - END STAGE RENAL DISEASE; Z99.2 - DEPENDENCE ON RENAL DIALYSIS Status: Chronic (8) Hypertension Code(s): I10 - ESSENTIAL (PRIMARY) HYPERTENSION Status: Chronic Qualifiers: Hypertension type: essential hypertension Qualified Code(s): I10 - Essential (primary) hypertension (9) Obesity (BMI 30-39.9) Code(s): E66.9 - OBESITY, UNSPECIFIED Status: Chronic (10) Secondary hyperparathyroidism (of renal origin) Code(s): N25.81 - SECONDARY HYPERPARATHYROIDISM OF RENAL ORIGIN Status: Chronic (11) Atrial fibrillation Code(s): I48.91 - UNSPECIFIED ATRIAL FIBRILLATION Status: Chronic Qualifiers: Atrial fibrillation type: persistent (not longstanding) Qualified Code(s): I48.19 - Other persistent atrial fibrillation; I48.1 - Persistent atrial fibrillation - Plan old records reviewed/req Continue metoprolol 12.5 mg twice daily Patient has drop in his hemoglobin, will monitor 1 more night and repeat CBC BMP tomorrow Hemodialysis as per nephrology Patient has atrial fibrillation but because of concerns of bleeding, will continue to hold on warfarin therapy, patient is not a good candidate for long- term anticoagulation because of noncompliance with monitoring Ambulate as tolerated If hemoglobin remains stable then patient is medically stable for discharge possibly tomorrow on p.o. Protonix Today we will change to Protonix p.o.
--- NOTE | 2020-10-05 11:03 | PRG ---
DATE OF SERVICE: SUBJECTIVE: A 45-year-old gentleman being seen for end-stage renal disease. The patient denied nausea, vomiting, or chest pain. OBJECTIVE: GENERAL: The patient is awake and alert. Vital Signs: Afebrile, pulse 100, breathing at 16, blood pressure 97/67. HEENT: Head normocephalic and atraumatic. Eyes intact, no ulcers. Nose intact, no ulcers. Ears intact, no ulcers. Neck: Supple. No JVD. Chest: Symmetrical and clear. Cardiovascular: Shows S1 and S2, no rub, no murmur. Gastrointestinal: Abdomen is soft, bowel sounds positive. Extremities: Show no edema or ulcers. Skin: Shows no rash or petechiae. Musculoskeletal: Shows no joint swelling or stiffness. Genitourinary: Shows no Villanueva or CVA tenderness. Neurologic: Motor intact. Cranial nerves intact. LABORATORY DATA: Show hemoglobin 7.4. ASSESSMENT: Stage 6 chronic kidney disease, plan dialysis tomorrow. Hypertension, stable. Anemia, we will plan transfusion 2 units with dialysis. Job ID: [id number]
[2020-10-06 04:49] LABS: #Basophils 0.1 thou/uL (0.0-0.2); #Eosinphils 0.2 thou/uL (0.0-0.7); #Lymphocytes 1.8 thou/uL (1.20-3.40); #Monocytes 0.8 thou/uL (0.11-0.59); #Neutrophils 6.8 thou/uL (1.40-6.50); %Basophils 0.6 % (0.0-1.0); %Eosinophils 1.6 % (0.0-10.0); %Lymphocytes 18.9 % (21.0-51.0); %Monocytes 8.2 % (0.0-10.0); %Neutrophils 70.7 % (42.0-75.0); Hemoglobin 7.5 g/dL (14.0-18.0); Mean Corpuscular HGB CONC 30.5 g/dL (32.0-36.0); Mean Corpuscular Hemoglobin 27.1 pg (27.0-31.0); Mean Corpuscular Volume 88.9 fL (78.0-98.0); Mean Platelet Volume 10.1 fL (7.4-10.4); Platelet Count 157 thou/uL (130-400); RBC Distribution Width 22.3 % (11.5-14.5); Red Blood Cell (RBC) Count 2.75 mill/uL (4.70-6.10); White Blood Cell (WBC) Count 9.7 thou/uL (4.8-10.8)
[2020-10-06 05:02] LABS: Albumin 2.8 g/dL (3.5-5.0); Anion Gap 19 mmol/L (10-20); BUN (Urea Nitrogen) 102 mg/dL (8.9-20.6); BUN/Creatinine Ratio 12.91; Calc. Creatinine Clearance 14 mL/min (70-130); Carbon Dioxide 26 mmol/L (22-29); Chloride 98 mmol/L (98-107); Glucose 87 mg/dL (70-105); Phosphorus 3.2 mg/dL (2.3-4.7); Potassium 4.2 mmol/L (3.5-5.1); Sodium 139 mmol/L (136-145)
[2020-10-06] MEDS: Sevelamer Carbonate 800 MG TAB PO SCH ×3 (08:04→16:29)
[2020-10-06] MEDS: Metoprolol Tartrate 25 MG TAB PO SCH ×2 (08:05→20:56)
--- NOTE | 2020-10-06 12:12 | PRG ---
DATE OF SERVICE: 10/06/2020 OBJECTIVE: GENERAL: This is a well-built male, in no apparent distress. VITAL SIGNS: Temperature is 98.2, pulse 96 with blood pressure 110/73. LABORATORY DATA: Potassium 4.2, BUN is 102, creatinine is 7.9. ASSESSMENT: 1. End-stage renal disease. Continue on hemodialysis. 2. controlled. 3. History of hypertension. 4. Anemia of chronic disease. PLAN: 1. To have transfusion today. 2. We will continue on dialysis Tuesday, Tuesday, Tuesday as tolerated. The patient had been on dialysis, tolerated well. Job ID: [id number]
--- NOTE | 2020-10-06 17:54 | PDOC.HOSPP ---
- Subjective Encounter Date: 10/06/20 Subjective: He is sneezing a lot otherwise no specific complaints, he feels better. - Objective Vital Signs & Weight: Vital Signs (12 hours) Temp Pulse Resp BP Pulse Ox 10/06/20 16:21 98.2 F 97 17 112/73 97 10/06/20 13:10 98.4 F 94 16 122/87 96 10/06/20 07:51 98.2 F 96 16 110/73 96 Weight Admit Weight 72 lb 3.2 oz Weight 177 lb 14.4 oz Most Recent Monitor Data Heart Rate from ECG 87 NIBP 107/79 NIBP BP-Mean 88 Respiration from ECG 26 SpO2 71 I&O: 10/05/20 10/06/20 10/07/20 06:59 06:59 06:59 Intake Total 545 1316 Output Total 0 0 Balance 545 1316 Result Diagrams: 10/06/20 04:25 10/06/20 03:30 Hospitalist ROS - Medication Medications: Active Medications Generic Name Dose Route Start Last Admin Trade Name Freq PRN Reason Stop Dose Admin Hydrocodone Bitart/Acetaminophen 1 tab 10/03/20 12:04 10/04/20 12:59 Hydrocodone/Acetaminophen 5/325 Mg Tablet PO 1 tab Q4H PRN Administration Moderate Pain (4-6) Metoprolol Tartrate 12.5 mg 10/04/20 09:00 10/06/20 08:05 Metoprolol Tartrate 25 Mg Tab PO Not Given BID MARAH Pantoprazole Sodium 40 mg 10/06/20 09:00 10/06/20 08:04 Pantoprazole 40 Mg Tab PO 40 mg DAILY MARAH Administration Sevelamer Carbonate 3,200 mg 10/04/20 08:00 10/06/20 16:29 Sevelamer Carbonate 800 Mg Tab PO 3,200 mg TID-WM MARAH Administration Sodium Chloride 10 ml 10/04/20 09:00 10/06/20 08:11 Flush - Normal Saline 10 Ml Syringe IVF 10 ml Q12HR MARAH Administration - Exam General Appearance: awake alert Eye: PERRL ENT: normocephalic atraumatic Neck: supple, symmetric Heart: irregular, murmur present Respiratory: CTAB, no wheezes Gastrointestinal: soft, non-tender Extremities: no cyanosis Neurological: cranial nerve grossly intact Hosp A/P (1) ESRD (end stage renal disease) Code(s): N18.6 - END STAGE RENAL DISEASE Status: Acute (2) Symptomatic anemia Code(s): D64.9 - ANEMIA, UNSPECIFIED Status: Acute (3) Atrial fibrillation Code(s): I48.91 - UNSPECIFIED ATRIAL FIBRILLATION Status: Chronic Qualifiers: Atrial fibrillation type: persistent (not longstanding) Qualified Code(s): I48.19 - Other persistent atrial fibrillation; I48.1 - Persistent atrial fibrillation (4) Warfarin-induced coagulopathy Code(s): D68.32 - HEMORRHAGIC DISORD D/T EXTRINSIC CIRCULATING ANTICOAGULANTS; T45.515A - ADVERSE EFFECT OF ANTICOAGULANTS, INITIAL ENCOUNTER Status: Resolved - Plan He did receive Hemodialysis and got a transfusion. Patient has atrial fibrillation but because of concerns of bleeding, will continue to hold on warfarin therapy, patient is not a good candidate for long- term anticoagulation because of noncompliance with monitoring Ambulate as tolerated If hemoglobin remains stable then patient is medically stable for discharge possibly tomorrow on p.o. Protonix
[2020-10-06] MEDS: Guaifenesin DM 100-10/5 ML UDCUP PO PRN (20:56)
[2020-10-07 04:43] LABS: #Basophils 0.1 thou/uL (0.0-0.2); #Eosinphils 0.1 thou/uL (0.0-0.7); #Lymphocytes 1.4 thou/uL (1.20-3.40); #Monocytes 0.5 thou/uL (0.11-0.59); #Neutrophils 7.4 thou/uL (1.40-6.50); %Basophils 0.6 % (0.0-1.0); %Eosinophils 1.3 % (0.0-10.0); %Monocytes 5.1 % (0.0-10.0); %Neutrophils 78.1 % (42.0-75.0); Hemoglobin 9.3 g/dL (14.0-18.0); Mean Corpuscular HGB CONC 31.9 g/dL (32.0-36.0); Mean Corpuscular Hemoglobin 28.6 pg (27.0-31.0); Mean Corpuscular Volume 89.5 fL (78.0-98.0); Mean Platelet Volume 9.9 fL (7.4-10.4); Platelet Count 147 thou/uL (130-400); RBC Distribution Width 20.5 % (11.5-14.5); Red Blood Cell (RBC) Count 3.24 mill/uL (4.70-6.10); White Blood Cell (WBC) Count 9.4 thou/uL (4.8-10.8)
[2020-10-07 05:02] LABS: Anion Gap 16 mmol/L (10-20); BUN (Urea Nitrogen) 56 mg/dL (8.9-20.6); Calc. Creatinine Clearance 20 mL/min (70-130); Calcium 8.8 mg/dL (7.8-10.44); Carbon Dioxide 28 mmol/L (22-29); Chloride 99 mmol/L (98-107); Glucose 81 mg/dL (70-105); Potassium 3.9 mmol/L (3.5-5.1); Sodium 139 mmol/L (136-145)
[2020-10-07] MEDS: Metoprolol Tartrate 25 MG TAB PO SCH (08:21)
[2020-10-07] MEDS: Sevelamer Carbonate 800 MG TAB PO SCH ×2 (08:21→13:00)
--- NOTE | 2020-10-07 08:37 | PDOC.DS.DS ---
Provider - Provider Date of Admission: 10/03/20 10:27 Date of Discharge: 10/07/20 Admitting Provider: Michelle Tanner MD Primary Care Physician: Homeor Gonzales MD Course - Hospital Course Hospital Course: He was admitted October for generalized weakness, he was having nosebleed and was coughing up blood. His INR was supra-therapeutic, he was given 2 units of PRBC and Kcentra, was initially in ICU, he was seen by GI and there was no indiaction for an EGD as his bleeding was considered mostly form his epistaxis, and his anemia maily acute on chronic. He received HD, he was transfused total of 4 units of PRBC. His metoprolol was decreased to 12.5 mg BID, Coumadin was held. Overnight he did well, sometimes he has episodes of rapid rates, his blood pressure was wnl range but a on the low normal side, I will resume his cardizem but BID instead of TID. I will give him prescription for Protonix. I discussed all the above with his mom, she is working on scheduling him for a Watchman procedure, he is to follow-up with PCP and Cardiology withing 2 weeks. more then 30 min was spent to discharge this patient. Resuscitation Status: 10/03/20 12:00 Resuscitation Status Routine Resuscitation Status: FULL: Full Resuscitation - Labs Lab Results: 10/07/20 03:30 10/07/20 03:30 Abnormal Lab Results - Last 48 hrs 10/03/20 08:30: Crossmatch See Detail 10/06/20 03:30: BUN 102 H, Creatinine 7.90 H, Albumin 2.8 L 10/06/20 04:25: RBC 2.75 L, Hgb 7.5 L, Hct 24.4 L, MCHC 30.5 L, RDW 22.3 H, Lymphocytes % 18.9 L, Neutrophils # 6.8 H, Monocytes # 0.8 H 10/07/20 03:30: BUN 56 H, Creatinine 5.48 H 10/07/20 03:30: RBC 3.24 L, Hgb 9.3 L, Hct 29.0 L, MCHC 31.9 L, RDW 20.5 H, Neutrophils % 78.1 H, Lymphocytes % 15.0 L, Neutrophils # 7.4 H Microbiology - Entire Visit 10/03/20 08:54 Venous blood - Left Arm Blood Culture - Preliminary NO GROWTH AT 48 HOURS 10/03/20 11:49 Venous blood - Left Arm Blood Culture - Preliminary NO GROWTH AT 48 HOURS - Physical Exam Vitals: Vital Signs (12 hours) Temp Pulse Resp BP Pulse Ox 10/07/20 07:15 98.7 F 97 17 111/75 97 10/07/20 04:00 97.6 F 79 16 111/56 L 95 10/07/20 00:00 109 H Weight Admit Weight 72 lb 3.2 oz Weight 176 lb 5.917 oz Most Recent Monitor Data Heart Rate from ECG 87 NIBP 107/79 NIBP BP-Mean 88 Respiration from ECG 26 SpO2 71 Physical Exam: The patient was seen and examined on the day of discharge. Problem - Problem (1) ESRD (end stage renal disease) Code(s): N18.6 - END STAGE RENAL DISEASE Status: Acute (2) Symptomatic anemia Code(s): D64.9 - ANEMIA, UNSPECIFIED Status: Acute (3) Atrial fibrillation Code(s): I48.91 - UNSPECIFIED ATRIAL FIBRILLATION Status: Chronic Qualifiers: Atrial fibrillation type: persistent (not longstanding) Qualified Code(s): I48.19 - Other persistent atrial fibrillation; I48.1 - Persistent atrial fibrillation (4) Warfarin-induced coagulopathy Code(s): D68.32 - HEMORRHAGIC DISORD D/T EXTRINSIC CIRCULATING ANTICOAGULANTS; T45.515A - ADVERSE EFFECT OF ANTICOAGULANTS, INITIAL ENCOUNTER Status: Resolved - Time spent with Patient (mins): 35 Plan - Discharge Medications Prescriptions: Diltiazem HCl 60 mg PO BID #60 tablet Metoprolol Tartrate [Lopressor] 12.5 mg PO BID #60 tab Pantoprazole [Protonix] 40 mg PO DAILY #30 tab Home Medications: Medication Instructions Recorded Confirmed Type Sevelamer Carbonate [Renvela] 3,200 mg PO TID 08/27/20 10/06/20 History Diltiazem HCl 60 mg PO BID #60 tablet 10/07/20 Rx Metoprolol Tartrate [Lopressor] 12.5 mg PO BID #60 tab 10/07/20 Rx Pantoprazole [Protonix] 40 mg PO DAILY #30 tab 10/07/20 Rx Allergies: coconut Allergy (Unknown, Verified 12/23/19 02:55) Anaphylaxis patient reported throat swells kiwi Allergy (Unknown, Verified 08/27/20 21:25) lisinopril Allergy (Unknown, Verified 08/27/20 21:25) losartan Allergy (Unknown, Verified 08/27/20 21:25) - Discharge Instructions Activity:: Activity as Tolerated - Follow up Plan Referrals: Homero Gonzales MD [Primary Care Provider] - Disposition: HOME
[2020-10-07] MEDS: Guaifenesin DM 100-10/5 ML UDCUP PO PRN (10:54)
--- NOTE | 2020-10-07 11:06 | PRG ---
DATE OF SERVICE: 10/07/2020 SUBJECTIVE: Patient was seen and examined at bedside and overnight events noted. Patient denies any shortness of breath or chest pain or palpitation. No history of nausea or vomiting or diarrhea or fever or chills or cramps. OBJECTIVE: General: This is a well-built male, in no apparent distress. Vital Signs: Temperature 98.7. Heart Rate 97. Respiratory rate 18. Blood pressure 111/75. HEENT: Atraumatic, normocephalic. Oral mucosa is moist. Neck: Supple. Cardiovascular: S1, S2 heard. Rate and rhythm regular. Respiratory: Clear to auscultation. Gastrointestinal: Abdomen is soft. Musculoskeletal: No tenderness. No edema. Dermatologic: No skin rash. Neurologic: Alert and awake and oriented x3. No focal neurologic deficits. Moving all the extremities. Psychiatric: Mood and affect normal. LABORATORY DATA: Potassium 3.9, BUN is 156, creatinine is 5.4. ASSESSMENT AND PLAN: 1. End-stage renal disease. Continue dialysis Tuesday, Tuesday, Tuesday. 2. Edema. 3. Hypertension. 4. Anemia of chronic disease. 5. We will continue on dialysis as tolerated. Job ID: [id number]
[2020-10-07 12:05] VITALS: BP 126/89; TEMP 98.4
== END 2020-10-07 12:45 | disposition home or self-care (01) | DRG 813 ==
LOC: ERS 08:12 → ERHOLD 10:27 → CCU 17:11 → 2SE 10-04 19:09 → 2NO 10-05 21:12
PROVIDERS: ADMIT Internal Medicine; ATTEND Internal Medicine
PROC: 30283B1 Transfusion of Nonautologous 4-Factor Prothrombin Complex Concentrate into Vein, Percutaneous Approach (ICD-10-PCS; principal; 2020-10-03)
PROC: 5A1D70Z Performance of Urinary Filtration, Intermittent, Less than 6 Hours Per Day (ICD-10-PCS; 2020-10-03)
PROC: 06HY33Z Insertion of Infusion Device into Lower Vein, Percutaneous Approach (ICD-10-PCS; 2020-10-04)
PROC: 30233N1 Transfusion of Nonautologous Red Blood Cells into Peripheral Vein, Percutaneous Approach (ICD-10-PCS; 2020-10-06)
DX: D68.32 Hemorrhagic disorder due to extrinsic circulating anticoagulants (principal); N18.6 End stage renal disease; I21.A1 Myocardial infarction type 2; Z20.822 Contact with and (suspected) exposure to COVID-19; I48.19 Other persistent atrial fibrillation; I42.8 Other cardiomyopathies; N25.81 Secondary hyperparathyroidism of renal origin; I13.2 Hypertensive heart and chronic kidney disease with heart failure and with stage 5 chronic kidney disease, or end stage renal disease; I50.22 Chronic systolic (congestive) heart failure; E87.2 Acidosis; D62 Acute posthemorrhagic anemia; R04.0 Epistaxis; T45.515A Adverse effect of anticoagulants, initial encounter; D63.1 Anemia in chronic kidney disease; I27.20 Pulmonary hypertension, unspecified; I07.1 Rheumatic tricuspid insufficiency; I95.2 Hypotension due to drugs; E66.9 Obesity, unspecified; Z68.28 Body mass index [BMI] 28.0-28.9, adult; Z28.21 Immunization not carried out because of patient refusal; Z87.891 Personal history of nicotine dependence; Z99.2 Dependence on renal dialysis; Z88.8 Allergy status to other drugs, medicaments and biological substances; Z91.018 Allergy to other foods; Z79.899 Other long term (current) drug therapy; Z79.01 Long term (current) use of anticoagulants; Z90.49 Acquired absence of other specified parts of digestive tract; Z95.810 Presence of automatic (implantable) cardiac defibrillator; Z86.010 Personal history of colon polyps
CPT/HCPCS: 36415; 36430; 36600; 71045; 80048; 80053; 80069; 82553; 82805; 83605; 83690; 83735; 84100; 84484; 85025; 85610; 85730; 86850; 86900; 86901; 87040; 90935; 93005; 94760; 96365; 96366; 96375; 96376; 99292; C9113; C9132; G0257; J3430; P9016; U0002

== ENCOUNTER 2020-11-12 13:18 | Outpatient (CLI) | payer MEDICARE, MEDICAID | END 2020-11-12 13:19 | disposition home or self-care (01) | LOC: SCSRAD 13:18 | PROVIDERS: ATTEND Family Medicine | DX: S91.301A Unspecified open wound, right foot, initial encounter (principal); S91.302A Unspecified open wound, left foot, initial encounter; M25.511 Pain in right shoulder ==

== ENCOUNTER 2021-02-10 10:47 | Emergency (ER) | payer MEDICARE, MEDICAID ==
[2021-02-10] MEDS ORDERED: Metoprolol Tartrate 5 MG/5 ML VIAL ONE (13:26)
[2021-02-10 16:38] LABS: ALT (SGPT) 11 U/L (8-55); AST (SGOT) 15 U/L (5-34); Albumin 2.7 g/dL (3.5-5.0); Alkaline Phosphatase 128 U/L (40-110); Anion Gap 25 mmol/L (10-20); BUN (Urea Nitrogen) 86 mg/dL (8.9-20.6); Bilirubin, Total 0.5 mg/dL (0.2-1.2); Calc. Creatinine Clearance 0 mL/min (70-130); Calcium 8.2 mg/dL (7.8-10.44); Carbon Dioxide 21 mmol/L (22-29); Chloride 97 mmol/L (98-107); Glucose 77 mg/dL (70-105); Potassium 3.9 mmol/L (3.5-5.1); Protein, Total 5.7 g/dL (6.0-8.3); Sodium 139 mmol/L (136-145)
[2021-02-10 16:41] LABS: CKMB 3.7 ng/mL (0-6.6)
[2021-02-10 17:17] LABS: Band 9 % (5-11); Hemoglobin 15.4 g/dL (14.0-18.0); Hypochromia SLIGHT = 6-15 cells (100X) (0-5/hpf); Lymphocytes 14 % (21-51); MDiff Complete? YES; Mean Corpuscular Hemoglobin 24.1 pg (27.0-31.0); Mean Corpuscular Volume 80.2 fL (78.0-98.0); Mean Platelet Volume 7.4 fL (7.4-10.4); Monocytes 14 % (0-10); Neutrophil 57 % (42-75); Platelet Count 121 thou/uL (130-400); Polychromasia SLIGHT = 2-3 cells (100X) (0-2/hpf); RBC Distribution Width 22.1 % (11.5-14.5); Red Blood Cell (RBC) Count 6.39 mill/uL (4.70-6.10); White Blood Cell (WBC) Count 7.9 thou/uL (4.8-10.8)
[2021-02-10 17:18] LABS: Platelet Morphology Comment Appears Decreased; Reactive Lymphocytes 5 % (0-10); Target Cells SLIGHT = 2-5 cells (100X) (0-1/hpf)
== END 2021-02-10 14:36 | disposition home or self-care (01) ==
LOC: ERS 10:47
DX: L97.529 Non-pressure chronic ulcer of other part of left foot with unspecified severity (principal); I48.91 Unspecified atrial fibrillation; E87.70 Fluid overload, unspecified; R79.89 Other specified abnormal findings of blood chemistry; I12.0 Hypertensive chronic kidney disease with stage 5 chronic kidney disease or end stage renal disease; N18.6 End stage renal disease; Z87.891 Personal history of nicotine dependence
CPT/HCPCS: 71045; 80053; 82553; 83605; 83880; 84484; 85025; 87040; 96374

== ENCOUNTER 2021-05-26 11:36 | Outpatient (CLI) | payer MEDICARE, MEDICAID ==
[2021-05-26 12:54] VITALS: BP 127/99
== END 2021-05-26 11:37 | disposition home or self-care (01) ==
LOC: MRI 11:36
PROVIDERS: ATTEND Family Medicine
DX: M79.604 Pain in right leg (principal); R22.41 Localized swelling, mass and lump, right lower limb

== ENCOUNTER 2021-08-31 15:13 | Inpatient (IN) | payer MEDICARE, MEDICAID ==
[~2021-08-31 15:13] MED LIST changes: +Heparin 1,000 UNITS/ML VIAL ONE; +Iopamidol-370 76% 500 ML 1 ML ONE; -PROPOFOL 200 MG/20 ML VIAL ONE
[2021-08-31 16:23] LABS: Hemoglobin 14.3 g/dL (14.0-18.0); Mean Corpuscular HGB CONC 29.8 g/dL (32.0-36.0); Mean Corpuscular Hemoglobin 24.7 pg (27.0-31.0); Mean Corpuscular Volume 82.9 fL (78.0-98.0); Mean Platelet Volume 6.2 fL (7.4-10.4); Platelet Count 204 thou/uL (130-400); RBC Distribution Width 23.9 % (11.5-14.5)
[2021-08-31 16:47] LABS: Anisocytosis MODERATE=16-30 cells (100X) (0-5/hpf); Hypochromia SLIGHT = 6-15 cells (100X) (0-5/hpf); Lymphocytes 11 % (21-51); MDiff Complete? YES; Monocytes 10 % (0-10); Neutrophil 76 % (42-75); Nucleated RBC 4 % (0); Ovalocytes SLIGHT = 2-5 cells (100X) (0-1/hpf); Platelet Morphology Comment Appears Adequate; Poikilocytosis SLIGHT = 6-15 cells (100X) (0-5/hpf); Polychromasia MODERATE = 3-4 cells (100X) (0-2/hpf); Target Cells SLIGHT = 2-5 cells (100X) (0-1/hpf); White Blood Cell (WBC) Count 24.6 thou/uL (4.8-10.8)
[2021-08-31 16:58] LABS: CKMB 5.3 ng/mL (0-6.6)
[2021-08-31 17:30] LABS: Albumin 2.2 g/dL (3.5-5.0)
[2021-08-31 17:31] LABS: Chloride 99 mmol/L (98-107); Potassium 3.6 mmol/L (3.5-5.1); Sodium 140 mmol/L (136-145)
[2021-08-31 17:32] LABS: Calcium 8.1 mg/dL (7.8-10.44); Glucose 69 mg/dL (70-105)
[2021-08-31 17:33] LABS: Globulin 4.1 g/dL (2.4-3.5); Protein, Total 6.3 g/dL (6.0-8.3)
[2021-08-31 17:34] LABS: Anion Gap 21 mmol/L (10-20); Bilirubin, Total 0.6 mg/dL (0.2-1.2); Carbon Dioxide 24 mmol/L (22-29)
[2021-08-31 17:35] LABS: Alkaline Phosphatase 171 U/L (40-110)
[2021-08-31 17:36] LABS: Calc. Creatinine Clearance 0 mL/min (70-130)
[2021-08-31 17:37] LABS: BUN (Urea Nitrogen) 31 mg/dL (8.9-20.6)
[2021-08-31 17:38] LABS: ALT (SGPT) 22 U/L (8-55); AST (SGOT) 47 U/L (5-34); Magnesium 1.7 mg/dL (1.6-2.6)
[2021-08-31 17:39] LABS: Lipase 19 U/L (8-78)
[2021-08-31] MEDS ORDERED: cefTRIAXone\\ROCEPHIN 1 GM VIAL ONE (17:57)
[2021-08-31] MEDS ORDERED: Vancomycin 1 GM/200 ML BAG ONE (17:58)
[2021-08-31 18:22] LABS: SARS-CoV-2 NAA Rapid Test Not Detected (NotDetected)
[2021-08-31] MEDS ORDERED: metroNIDAZOLE 500 MG in Premix Bag 1 BAG IVPB SCH (21:45)
[2021-08-31] MEDS ORDERED: Albumin 25% 25 GM/100 ML BOT IVPB SCH (21:45)
[2021-08-31] MEDS ORDERED: Norepinephrine 8 MG/0.9% NS 250 ML ONE (23:45)
[2021-09-01 00:10] LABS: Lactic Acid 1.7 mmol/L (0.5-2.2)
[2021-09-01 00:18] LABS: Troponin I 0.104 ng/mL (< 0.028)
[2021-09-01] MEDS ORDERED: Dextrose 5% in Water 1,000 ML IV PRN (02:37)
[2021-09-01] MEDS ORDERED: Vancomycin HCl 1.25 GM in Sodium Chloride 0.9% 250 ML 250 ML IVPB SCH (02:45)
[2021-09-01] MEDS ORDERED: Vancomycin HCl 500 MG in Sodium Chloride 0.9% 100 ML IVPB SCH (02:45)
[2021-09-01] MEDS ORDERED: HOLD VANCOMYCIN FOR LEVEL >20 FS SCH (02:45)
[2021-09-01] MEDS ORDERED: Vancomycin HCl 750 MG in Sodium Chloride 0.9% 250 ML 250 ML IVPB SCH (02:45)
[2021-09-01] MEDS ORDERED: Vancomycin 1 GM in Premix Bag 1 BAG IVPB SCH (02:45)
[2021-09-01] MEDS ORDERED: Piperacillin/Tazobactam 3.375 GM in Sodium Chloride 0.9% 100 ML IVPB SCH (03:00)
[2021-09-01 03:44] LABS: Troponin I 0.126 ng/mL (< 0.028)
[2021-09-01 03:46] LABS: ALT (SGPT) 20 U/L (8-55); AST (SGOT) 28 U/L (5-34); Albumin 2.2 g/dL (3.5-5.0); Alkaline Phosphatase 166 U/L (40-110); Anion Gap 14 mmol/L (10-20); BUN (Urea Nitrogen) 24 mg/dL (8.9-20.6); Bilirubin, Direct 0.3 mg/dL (0.1-0.3); Bilirubin, Total 0.6 mg/dL (0.2-1.2); Calc. Creatinine Clearance 22 mL/min (70-130); Calcium 8.4 mg/dL (7.8-10.44); Carbon Dioxide 30 mmol/L (22-29); Chloride 99 mmol/L (98-107); Glucose 86 mg/dL (70-105); Sodium 140 mmol/L (136-145)
[2021-09-01 03:50] LABS: Potassium 2.6 mmol/L (3.5-5.1)
[2021-09-01 03:53] LABS: Hemoglobin 14.1 g/dL (14.0-18.0); Lymphocytes 7 % (21-51); MDiff Complete? YES; Mean Corpuscular HGB CONC 29.7 g/dL (32.0-36.0); Mean Corpuscular Hemoglobin 24.8 pg (27.0-31.0); Mean Corpuscular Volume 83.4 fL (78.0-98.0); Mean Platelet Volume 11.2 fL (7.4-10.4); Monocytes 15 % (0-10); Neutrophil 78 % (42-75); Platelet Count 229 thou/uL (130-400); Platelet Morphology Comment Appears Adequate; RBC Distribution Width 22.9 % (11.5-14.5); RBC Morphology Normal; Red Blood Cell (RBC) Count 5.71 mill/uL (4.70-6.10); White Blood Cell (WBC) Count 9.7 thou/uL (4.8-10.8)
[2021-09-01] MEDS ORDERED: Norepinephrine 8 MG/0.9% NS 250 ML IVPB SCH (04:15)
[2021-09-01] MEDS ORDERED: Potassium Chloride 10 MEQ TAB PO SCH (04:30)
[2021-09-01] MEDS ORDERED: Potassium Chloride 40 MEQ in Premix Bag 1 BAG IVPB SCH (04:30)
[2021-09-01] MEDS: Ondansetron PF 4 MG/2 ML Vial IVP PRN (06:45)
[2021-09-01] MEDS: Famotidine 20 MG TAB PO SCH (08:39)
[2021-09-01] MEDS: Aspirin 81 mg Enteric Coated Tablet PO SCH (08:39)
[2021-09-01] MEDS: Heparin 5,000 UNITS/ML VIAL SC SCH ×3 (08:39→20:21)
[2021-09-01] MEDS: Piperacillin/Tazobactam 3.375 GM in Sodium Chloride 0.9% 100 ML IVPB SCH ×2 (08:40→19:59)
[2021-09-01 11:26] LABS: Magnesium 1.7 mg/dL (1.6-2.6); Potassium 3.4 mmol/L (3.5-5.1)
[2021-09-01] MEDS ORDERED: Electrolyte Replacement Protocol 1 EACH FS SCH (13:45)
[2021-09-01 14:00] LABS: Actual Bicarbonate (HCO3a) 27.1 mEq/L (22-28); Base Excess (BEa) -1.4 mEq/L (-2.0 to +3.0); Calcium, Ionized (arterial) 1.09 mmol/L (1.12-1.30); Carboxyhemoglobin (COHb) 2.4 gm% (0.0-3.0); Hemoglobin (Hb) 14.3 g/dL (14.0-18.0); O2 Tension (PaO2), arterial 85.3 mmHg (80.0-100.0); Potassium - ABG Lab 3.47 mmol/L (3.70-5.30); pH, Arterial 7.26 (7.35-7.45)
[2021-09-01] MEDS ORDERED: Magnesium 2 GM/50 ML 2 GM in Premix Bag 1 BAG IVPB SCH (14:00)
[2021-09-01 14:01] LABS: CO2 Tension 62.2 mmHg (35.0-45.0); Puncture Site LBA
[2021-09-01] MEDS ORDERED: Fentanyl 100 MCG/2 ML VIAL ONE ×2 (15:29→16:46)
[2021-09-01] MEDS ORDERED: Propofol 1,000 MG/100 ML VIAL IV ONE (15:29)
[2021-09-01] MEDS ORDERED: Fentanyl CADD 100 ML ONE (15:51)
[2021-09-01] MEDS ORDERED: Midazolam HCl 2 mg/2 ml Vial ONE ×2 (16:10→16:46)
[2021-09-01] MEDS ORDERED: EPINEPHrine 1 MG/ML AMP ONE (16:27)
[2021-09-01] MEDS ORDERED: Bupivacaine PF 0.5% 30 ML VIAL ONE (16:27)
[2021-09-01] MEDS ORDERED: Fentanyl BOLUS 250 ML IVPB PRN (16:30)
[2021-09-01] MEDS ORDERED: Propofol BOLUS 1,000 MG/100 ML VIAL IV PRN (16:30)
[2021-09-01] MEDS ORDERED: DISCONTINUE PREVIOUS NARCOTIC PAIN MEDICATIONS AND BENZODIAZEPINES FS SCH (16:30)
[2021-09-01] MEDS ORDERED: Ketamine 50 MG/ML (10ML VIAL) ONE (16:46)
[2021-09-01] MEDS ORDERED: Midazolam HCl 2 mg/2 ml Vial IVP SCH (17:00)
[2021-09-01] MEDS ORDERED: Rocuronium Bromide 10 MG/ML (10ML VIAL) ONE (17:08)
[2021-09-01 18:34] LABS: Anion Gap 18 mmol/L (10-20); BUN (Urea Nitrogen) 28 mg/dL (8.9-20.6); Calc. Creatinine Clearance 18 mL/min (70-130); Calcium 7.5 mg/dL (7.8-10.44); Carbon Dioxide 24 mmol/L (22-29); Chloride 101 mmol/L (98-107); Glucose 76 mg/dL (70-105); Potassium 3.3 mmol/L (3.5-5.1); Sodium 140 mmol/L (136-145)
[2021-09-01 19:25] LABS: Actual Bicarbonate (HCO3a) 21.5 mEq/L (22-28); Base Excess (BEa) 0.9 mEq/L (-2.0 to +3.0); Calcium, Ionized (arterial) 1.02 mmol/L (1.12-1.30); Carboxyhemoglobin (COHb) 1.9 gm% (0.0-3.0); Hemoglobin (Hb) 14.2 g/dL (14.0-18.0); O2 Tension (PaO2), arterial 88.4 mmHg (80.0-100.0); Potassium - ABG Lab 3.07 mmol/L (3.70-5.30)
[2021-09-01 19:26] LABS: pH, Arterial 7.56 (7.35-7.45)
[2021-09-01 19:27] LABS: ALV-art Gradient 593.725 mmHg (0-20); CO2 Tension 24.7 mmHg (35.0-45.0); Puncture Site LFA
[2021-09-01] MEDS: Norepinephrine 8 MG in Dextrose 5% in Water 242 ML IVPB PRN (19:59)
[2021-09-01 20:02] LABS: Actual Bicarbonate (HCO3a) 20.1 mEq/L (22-28); Base Excess (BEa) 0.1 mEq/L (-2.0 to +3.0); Calcium, Ionized (arterial) 1.04 mmol/L (1.12-1.30); Carboxyhemoglobin (COHb) 1.8 gm% (0.0-3.0); Hemoglobin (Hb) 14.7 g/dL (14.0-18.0); O2 Tension (PaO2), arterial 85.8 mmHg (80.0-100.0); Potassium - ABG Lab 2.94 mmol/L (3.70-5.30)
[2021-09-01 20:04] LABS: pH, Arterial 7.57 (7.35-7.45)
[2021-09-01 20:05] LABS: CO2 Tension 22.6 mmHg (35.0-45.0); Puncture Site LFA
[2021-09-01] MEDS ORDERED: Potassium Chloride 20 MEQ TAB PO SCH (21:00)
[2021-09-01] MEDS ORDERED: Potassium Bicarbonate/Cit Ac 20 MEQ TAB PO SCH (21:15)
[2021-09-01 21:33] LABS: Magnesium 1.9 mg/dL (1.6-2.6)
[2021-09-01 22:14] LABS: Base Excess (BEa) -1.8 mEq/L (-2.0 to +3.0); CO2 Tension 30.4 mmHg (35.0-45.0); Calcium, Ionized (arterial) 1.07 mmol/L (1.12-1.30); Carboxyhemoglobin (COHb) 2.1 gm% (0.0-3.0); Hemoglobin (Hb) 14.3 g/dL (14.0-18.0); O2 Tension (PaO2), arterial 82.5 mmHg (80.0-100.0); Potassium - ABG Lab 3.03 mmol/L (3.70-5.30); pH, Arterial 7.46 (7.35-7.45)
[2021-09-01 22:16] LABS: Puncture Site LFA
[2021-09-02] MEDS ORDERED: Sodium Chloride 0.9% 500 ML IVPB SCH (00:15)
[2021-09-02] MEDS ORDERED: Diltiazem HCl 125 MG, Admixture Fee 1 EACH in Sodium Chloride 0.9% 100 ML IVPB SCH (00:30)
[2021-09-02] MEDS: Dextrose 50% Abboject 50 ML SYRINGE SLOW IVP PRN (00:53)
[2021-09-02] MEDS ORDERED: Sodium Chloride 0.9% 1,000 ML IV SCH (01:15)
[2021-09-02 04:44] LABS: Lactic Acid 1.8 mmol/L (0.5-2.2)
[2021-09-02] MEDS: Propofol 1,000 MG/100 ML VIAL IV PRN (04:45)
[2021-09-02 04:56] LABS: Anion Gap 16 mmol/L (10-20); BUN (Urea Nitrogen) 32 mg/dL (8.9-20.6); Calc. Creatinine Clearance 18 mL/min (70-130); Calcium 7.9 mg/dL (7.8-10.44); Carbon Dioxide 26 mmol/L (22-29); Chloride 101 mmol/L (98-107); Glucose 86 mg/dL (70-105); Potassium 3.4 mmol/L (3.5-5.1); Sodium 140 mmol/L (136-145)
[2021-09-02] MEDS: Norepinephrine 8 MG in Dextrose 5% in Water 242 ML IVPB PRN ×4 (04:58→20:30)
[2021-09-02 05:00] LABS: Hemoglobin 13.9 g/dL (14.0-18.0); Lymphocytes 13 % (21-51); MDiff Complete? YES; Mean Corpuscular HGB CONC 30.8 g/dL (32.0-36.0); Mean Corpuscular Hemoglobin 25.3 pg (27.0-31.0); Mean Corpuscular Volume 81.9 fL (78.0-98.0); Mean Platelet Volume 6.2 fL (7.4-10.4); Monocytes 7 % (0-10); Neutrophil 80 % (42-75); Nucleated RBC 2 % (0); Platelet Count 214 thou/uL (130-400); Platelet Morphology Comment Appears Adequate; RBC Distribution Width 22.9 % (11.5-14.5); RBC Morphology Normal; Red Blood Cell (RBC) Count 5.49 mill/uL (4.70-6.10); White Blood Cell (WBC) Count 15.4 thou/uL (4.8-10.8)
[2021-09-02 06:14] LABS: Magnesium 1.8 mg/dL (1.6-2.6)
[2021-09-02] MEDS ORDERED: Potassium Bicarbonate/Cit Ac 20 MEQ TAB PER TUBE SCH (06:15)
[2021-09-02] MEDS ORDERED: Magnesium Oxide 400 MG TAB PO SCH (06:30)
[2021-09-02] MEDS ORDERED: Magnesium 2 GM/50 ML 2 GM in Premix Bag 1 BAG IVPB SCH (07:00)
[2021-09-02 07:46] LABS: Actual Bicarbonate (HCO3a) 21.3 mEq/L (22-28); Base Excess (BEa) 0.1 mEq/L (-2.0 to +3.0); CO2 Tension 26.2 mmHg (35.0-45.0); Calcium, Ionized (arterial) 1.05 mmol/L (1.12-1.30); Carboxyhemoglobin (COHb) 1.7 gm% (0.0-3.0); Hemoglobin (Hb) 14.2 g/dL (14.0-18.0); O2 Tension (PaO2), arterial 147.2 mmHg (80.0-100.0); Potassium - ABG Lab 4.08 mmol/L (3.70-5.30); pH, Arterial 7.53 (7.35-7.45)
[2021-09-02 07:54] LABS: Puncture Site LRA
[2021-09-02] MEDS: Piperacillin/Tazobactam 3.375 GM in Sodium Chloride 0.9% 100 ML IVPB SCH ×2 (08:09→19:25)
[2021-09-02] MEDS: Aspirin 81 mg Enteric Coated Tablet PO SCH (08:10)
[2021-09-02] MEDS: Famotidine 20 MG TAB PO SCH (08:10)
[2021-09-02 08:11] LABS: Vancomycin, Random 4.1 ug/mL (See Comment)
[2021-09-02] MEDS: Aspirin Chewable 81 MG TAB PO SCH (08:35)
[2021-09-02] MEDS: Heparin 5,000 UNITS/ML VIAL SC SCH ×3 (08:49→20:30)
[2021-09-02] MEDS: DOBUTamine 500 mg/250 ml 250 ML IVPB SCH (09:28)
[2021-09-02] MEDS ORDERED: VANCOMYCIN 1.25 GM/250 ML BAG 1.25 GM in Premix Bag 1 BAG IVPB SCH (10:15)
[2021-09-02] MEDS ORDERED: Vancomycin HCl 1.25 GM in Sodium Chloride 0.9% 250 ML 250 ML IVPB SCH (10:15)
[2021-09-02] MEDS: DOPamine 400 MG/D5W 250 ML 250 ML IVPB SCH (10:58)
[2021-09-02] MEDS: Fentanyl CADD 100 ML IV SCH (11:42)
[2021-09-02] MEDS ORDERED: Lactated Ringer's 500 ML IV SCH (13:15)
[2021-09-02] MEDS: Acetaminophen 325 MG TAB PO PRN (22:10)
[2021-09-02] MEDS ORDERED: Digoxin 0.5 MG/2 ML AMP SLOW IVP SCH (23:15)
[2021-09-03] MEDS ORDERED: Diltiazem HCl 125 MG, Admixture Fee 1 EACH in Sodium Chloride 0.9% 100 ML IVPB SCH (01:15)
[2021-09-03] MEDS: Norepinephrine 8 MG in Dextrose 5% in Water 242 ML IVPB PRN ×3 (01:41→23:59)
[2021-09-03] MEDS: Propofol 1,000 MG/100 ML VIAL IV PRN (04:32)
[2021-09-03] MEDS: Fentanyl CADD 100 ML IV SCH ×2 (04:32→21:02)
[2021-09-03 04:55] LABS: #Basophils 0.1 thou/uL (0.0-0.2); #Eosinphils 0.1 thou/uL (0.0-0.7); #Lymphocytes 0.9 thou/uL (1.20-3.40); #Monocytes 1.2 thou/uL (0.11-0.59); #Neutrophils 10.7 thou/uL (1.40-6.50); %Basophils 0.6 % (0.0-1.0); %Eosinophils 0.5 % (0.0-10.0); %Lymphocytes 6.9 % (21.0-51.0); %Monocytes 9.3 % (0.0-10.0); %Neutrophils 82.8 % (42.0-75.0); Hemoglobin 12.2 g/dL (14.0-18.0); Mean Corpuscular HGB CONC 30.8 g/dL (32.0-36.0); Mean Corpuscular Hemoglobin 24.9 pg (27.0-31.0); Mean Platelet Volume 6.1 fL (7.4-10.4); Platelet Count 173 thou/uL (130-400); RBC Distribution Width 22.4 % (11.5-14.5); Red Blood Cell (RBC) Count 4.89 mill/uL (4.70-6.10)
[2021-09-03 05:13] LABS: Anion Gap 18 mmol/L (10-20); BUN (Urea Nitrogen) 33 mg/dL (8.9-20.6); Calc. Creatinine Clearance 16 mL/min (70-130); Calcium 7.8 mg/dL (7.8-10.44); Carbon Dioxide 23 mmol/L (22-29); Chloride 99 mmol/L (98-107); Glucose 89 mg/dL (70-105); Potassium 3.7 mmol/L (3.5-5.1); Sodium 136 mmol/L (136-145)
[2021-09-03] MEDS: Heparin 5,000 UNITS/ML VIAL SC SCH ×3 (08:12→20:05)
[2021-09-03] MEDS: Aspirin Chewable 81 MG TAB PO SCH (08:12)
[2021-09-03] MEDS: Piperacillin/Tazobactam 3.375 GM in Sodium Chloride 0.9% 100 ML IVPB SCH ×2 (08:12→20:05)
[2021-09-03] MEDS: Famotidine 20 MG TAB PO SCH (08:12)
[2021-09-03] MEDS: DOBUTamine 500 mg/250 ml 250 ML IVPB SCH (10:42)
[2021-09-03] MEDS: DOPamine 400 MG/D5W 250 ML 250 ML IVPB SCH (10:42)
[2021-09-03] MEDS: Lorazepam 2 MG/ML VIAL SLOW IVP PRN (11:14)
[2021-09-04 05:20] LABS: Hemoglobin 12.2 g/dL (14.0-18.0); Mean Corpuscular HGB CONC 29.7 g/dL (32.0-36.0); Mean Corpuscular Hemoglobin 24.4 pg (27.0-31.0); Mean Corpuscular Volume 81.9 fL (78.0-98.0); Mean Platelet Volume 5.8 fL (7.4-10.4); Platelet Count 173 thou/uL (130-400); RBC Distribution Width 22.6 % (11.5-14.5); Red Blood Cell (RBC) Count 5.01 mill/uL (4.70-6.10); White Blood Cell (WBC) Count 13.1 thou/uL (4.8-10.8)
[2021-09-04 05:28] LABS: Anion Gap 18 mmol/L (10-20); BUN (Urea Nitrogen) 22 mg/dL (8.9-20.6); Calc. Creatinine Clearance 21 mL/min (70-130); Calcium 8.2 mg/dL (7.8-10.44); Carbon Dioxide 23 mmol/L (22-29); Chloride 99 mmol/L (98-107); Glucose 89 mg/dL (70-105); Potassium 4.1 mmol/L (3.5-5.1); Sodium 136 mmol/L (136-145)
[2021-09-04] MEDS: Propofol 1,000 MG/100 ML VIAL IV PRN (05:52)
[2021-09-04 05:56] LABS: #Eosinphils 0.1 thou/uL (0.0-0.7); #Lymphocytes 0.8 thou/uL (1.20-3.40); #Neutrophils 11.3 thou/uL (1.40-6.50); %Basophils 0.2 % (0.0-1.0); %Eosinophils 0.5 % (0.0-10.0); %Lymphocytes 5.8 % (21.0-51.0); %Monocytes 7.6 % (0.0-10.0); %Neutrophils 85.9 % (42.0-75.0)
[2021-09-04] MEDS: Piperacillin/Tazobactam 3.375 GM in Sodium Chloride 0.9% 100 ML IVPB SCH ×2 (08:06→20:05)
[2021-09-04] MEDS: Aspirin Chewable 81 MG TAB PO SCH (08:06)
[2021-09-04] MEDS: Famotidine 20 MG TAB PO SCH (08:06)
[2021-09-04] MEDS: Heparin 5,000 UNITS/ML VIAL SC SCH ×3 (08:06→20:40)
[2021-09-04 08:11] LABS: Vancomycin, Random 13.7 ug/mL (See Comment)
[2021-09-04] MEDS ORDERED: Prevnar 13-Val Conj/PF 0.5 ML SYRINGE IM ONE (09:00)
[2021-09-04] MEDS: Lorazepam 2 MG/ML VIAL SLOW IVP PRN (10:28)
[2021-09-04] MEDS: Fentanyl CADD 100 ML IV SCH (16:37)
[2021-09-05] MEDS: Norepinephrine 8 MG in Dextrose 5% in Water 242 ML IVPB PRN ×2 (05:00→18:05)
[2021-09-05 05:14] LABS: Anion Gap 16 mmol/L (10-20); BUN (Urea Nitrogen) 29 mg/dL (8.9-20.6); Calc. Creatinine Clearance 18 mL/min (70-130); Calcium 8.3 mg/dL (7.8-10.44); Carbon Dioxide 25 mmol/L (22-29); Chloride 99 mmol/L (98-107); Glucose 70 mg/dL (70-105); Potassium 4.3 mmol/L (3.5-5.1); Sodium 136 mmol/L (136-145)
[2021-09-05] MEDS: Propofol 1,000 MG/100 ML VIAL IV PRN ×2 (05:47→17:05)
[2021-09-05 06:50] LABS: Band 2 % (5-11); Hemoglobin 12.2 g/dL (14.0-18.0); Lymphocytes 5 % (21-51); MDiff Complete? YES; Mean Corpuscular HGB CONC 30.2 g/dL (32.0-36.0); Mean Corpuscular Hemoglobin 24.5 pg (27.0-31.0); Mean Corpuscular Volume 81.3 fL (78.0-98.0); Mean Platelet Volume 6.7 fL (7.4-10.4); Monocytes 7 % (0-10); Neutrophil 85 % (42-75); Platelet Count 192 thou/uL (130-400); Platelet Morphology Comment Appears Adequate; RBC Distribution Width 22.6 % (11.5-14.5); Red Blood Cell (RBC) Count 4.98 mill/uL (4.70-6.10); White Blood Cell (WBC) Count 12.4 thou/uL (4.8-10.8)
[2021-09-05 08:07] LABS: Actual Bicarbonate (HCO3a) 25.3 mEq/L (22-28); Base Excess (BEa) -0.3 mEq/L (-2.0 to +3.0); Carboxyhemoglobin (COHb) 1.8 gm% (0.0-3.0); Hemoglobin (Hb) 13.4 g/dL (14.0-18.0); O2 Tension (PaO2), arterial 126.6 mmHg (80.0-100.0); Potassium - ABG Lab 4.29 mmol/L (3.70-5.30); pH, Arterial 7.37 (7.35-7.45)
[2021-09-05 08:12] LABS: Puncture Site Arterial Line
[2021-09-05] MEDS: Heparin 5,000 UNITS/ML VIAL SC SCH ×3 (09:04→20:23)
[2021-09-05] MEDS: Famotidine 20 MG TAB PO SCH (09:05)
[2021-09-05] MEDS: Aspirin Chewable 81 MG TAB PO SCH (09:05)
[2021-09-05] MEDS: Piperacillin/Tazobactam 3.375 GM in Sodium Chloride 0.9% 100 ML IVPB SCH ×2 (09:06→19:55)
[2021-09-05] MEDS: Fentanyl CADD 100 ML IV SCH (14:30)
[2021-09-05] MEDS: Dextrose 50% Abboject 50 ML SYRINGE SLOW IVP PRN (20:22)
[2021-09-06] MEDS: Piperacillin/Tazobactam 3.375 GM in Sodium Chloride 0.9% 100 ML IVPB SCH ×2 (08:51→21:11)
[2021-09-06] MEDS: Famotidine 20 MG TAB PO SCH (08:52)
[2021-09-06] MEDS: Aspirin Chewable 81 MG TAB PO SCH (08:52)
[2021-09-06 08:53] LABS: #Eosinphils 0.2 thou/uL (0.0-0.7); #Lymphocytes 1.1 thou/uL (1.20-3.40); #Monocytes 1.4 thou/uL (0.11-0.59); #Neutrophils 8.7 thou/uL (1.40-6.50); %Basophils 0.4 % (0.0-1.0); %Eosinophils 1.7 % (0.0-10.0); %Lymphocytes 9.6 % (21.0-51.0); %Monocytes 12.2 % (0.0-10.0); Anisocytosis MODERATE=16-30 cells (100X) (0-5/hpf); Hemoglobin 12.6 g/dL (14.0-18.0); Hypochromia SLIGHT = 6-15 cells (100X) (0-5/hpf); MDiff Complete? YES; Mean Corpuscular Hemoglobin 24.5 pg (27.0-31.0); Mean Corpuscular Volume 81.5 fL (78.0-98.0); Platelet Count 230 thou/uL (130-400); RBC Distribution Width 22.6 % (11.5-14.5); Red Blood Cell (RBC) Count 5.14 mill/uL (4.70-6.10); Target Cells SLIGHT = 2-5 cells (100X) (0-1/hpf); White Blood Cell (WBC) Count 11.4 thou/uL (4.8-10.8)
[2021-09-06 08:57] LABS: Anion Gap 17 mmol/L (10-20); BUN (Urea Nitrogen) 24 mg/dL (8.9-20.6); Calc. Creatinine Clearance 21 mL/min (70-130); Calcium 8.1 mg/dL (7.8-10.44); Carbon Dioxide 23 mmol/L (22-29); Chloride 99 mmol/L (98-107); Glucose 93 mg/dL (70-105); Sodium 135 mmol/L (136-145)
[2021-09-06] MEDS: Morphine 4 MG/ML VIAL SLOW IVP PRN (10:06)
[2021-09-06 10:40] LABS: INR-International Normal Ratio 1.2; Prothrombin Time 14.9 sec (12.0-14.7)
[2021-09-06] MEDS: Fentanyl CADD 100 ML IV SCH (11:45)
[2021-09-06] MEDS: Heparin 5,000 UNITS/ML VIAL SC SCH (11:54)
[2021-09-06] MEDS: Norepinephrine 8 MG in Dextrose 5% in Water 242 ML IVPB PRN (12:39)
[2021-09-06 14:20] LABS: Platelet Count 214 thou/uL (130-400)
[2021-09-06] MEDS: Heparin 25,000 units/D5W 500 ML IVPB SCH (16:20)
[2021-09-06 20:20] LABS: PTT 225.7 sec (22.9-36.1)
[2021-09-07] MEDS: Propofol 1,000 MG/100 ML VIAL IV PRN ×3 (01:11→20:28)
[2021-09-07] MEDS: Fentanyl CADD 100 ML IV SCH ×2 (03:34→19:53)
[2021-09-07 04:09] LABS: Anion Gap 17 mmol/L (10-20); BUN (Urea Nitrogen) 30 mg/dL (8.9-20.6); Calc. Creatinine Clearance 19 mL/min (70-130); Calcium 8.1 mg/dL (7.8-10.44); Carbon Dioxide 23 mmol/L (22-29); Chloride 98 mmol/L (98-107); Glucose 88 mg/dL (70-105); Potassium 3.7 mmol/L (3.5-5.1); Sodium 134 mmol/L (136-145)
[2021-09-07 04:25] LABS: #Eosinphils 0.3 thou/uL (0.0-0.7); #Lymphocytes 1.4 thou/uL (1.20-3.40); #Monocytes 1.1 thou/uL (0.11-0.59); #Neutrophils 6.5 thou/uL (1.40-6.50); %Basophils 0.1 % (0.0-1.0); %Eosinophils 2.8 % (0.0-10.0); %Lymphocytes 15.4 % (21.0-51.0); %Monocytes 12.2 % (0.0-10.0); %Neutrophils 69.4 % (42.0-75.0); Hemoglobin 12.7 g/dL (14.0-18.0); Mean Corpuscular HGB CONC 30.7 g/dL (32.0-36.0); Mean Corpuscular Hemoglobin 24.7 pg (27.0-31.0); Mean Corpuscular Volume 80.4 fL (78.0-98.0); Mean Platelet Volume 5.9 fL (7.4-10.4); Platelet Count 239 thou/uL (130-400); RBC Distribution Width 22.7 % (11.5-14.5); Red Blood Cell (RBC) Count 5.14 mill/uL (4.70-6.10); White Blood Cell (WBC) Count 9.3 thou/uL (4.8-10.8)
[2021-09-07 06:54] LABS: PTT Greater than 250.0 sec (22.9-36.1)
[2021-09-07 08:26] LABS: Unfractionated Heparin 0.34 IU/mL
[2021-09-07] MEDS: Piperacillin/Tazobactam 3.375 GM in Sodium Chloride 0.9% 100 ML IVPB SCH ×2 (08:45→20:25)
[2021-09-07] MEDS: Aspirin Chewable 81 MG TAB PO SCH (08:45)
[2021-09-07] MEDS: Famotidine 20 MG TAB PO SCH (08:45)
[2021-09-07 09:59] LABS: Vancomycin, Random 10.2 ug/mL (See Comment)
[2021-09-07] MEDS ORDERED: ZOSYN IVPB PRN (10:42)
[2021-09-07] MEDS: Norepinephrine 8 MG in Dextrose 5% in Water 242 ML IVPB PRN (11:31)
[2021-09-07] MEDS: Dextrose 50% Abboject 50 ML SYRINGE SLOW IVP PRN (17:19)
[2021-09-07] MEDS: Heparin 25,000 units/D5W 500 ML IVPB SCH (21:07)
[2021-09-08 00:25] LABS: PTT 177.4 sec (22.9-36.1)
[2021-09-08] MEDS: Propofol 1,000 MG/100 ML VIAL IV PRN ×4 (02:26→21:51)
[2021-09-08 04:03] LABS: Anion Gap 16 mmol/L (10-20); BUN (Urea Nitrogen) 24 mg/dL (8.9-20.6); Calc. Creatinine Clearance 22 mL/min (70-130); Calcium 8.1 mg/dL (7.8-10.44); Carbon Dioxide 24 mmol/L (22-29); Chloride 97 mmol/L (98-107); Glucose 70 mg/dL (70-105); Potassium 3.6 mmol/L (3.5-5.1); Sodium 133 mmol/L (136-145)
[2021-09-08 04:09] LABS: Hemoglobin 12.7 g/dL (14.0-18.0); Mean Corpuscular HGB CONC 32.8 g/dL (32.0-36.0); Mean Corpuscular Hemoglobin 26.4 pg (27.0-31.0); Mean Corpuscular Volume 80.6 fL (78.0-98.0); Mean Platelet Volume 10.3 fL (7.4-10.4); Platelet Count 274 thou/uL (130-400); RBC Distribution Width 22.4 % (11.5-14.5); Red Blood Cell (RBC) Count 4.79 mill/uL (4.70-6.10)
[2021-09-08 04:54] LABS: Anisocytosis MODERATE=16-30 cells (100X) (0-5/hpf); Eosinophils 3 % (0-10); Lymphocytes 17 % (21-51); MDiff Complete? YES; Monocytes 11 % (0-10); Neutrophil 68 % (42-75); Nucleated RBC 3 % (0); Reactive Lymphocytes 1 % (0-10); Target Cells SLIGHT = 2-5 cells (100X) (0-1/hpf)
[2021-09-08] MEDS: Piperacillin/Tazobactam 3.375 GM in Sodium Chloride 0.9% 100 ML IVPB SCH (08:58)
[2021-09-08] MEDS: Famotidine 20 MG TAB PO SCH (08:59)
[2021-09-08] MEDS: Aspirin Chewable 81 MG TAB PO SCH (08:59)
[2021-09-08] MEDS: Norepinephrine 8 MG in Dextrose 5% in Water 242 ML IVPB PRN (10:47)
[2021-09-08 11:07] LABS: SARS-CoV-2 PCR by NAA Not Detected (NotDetected)
[2021-09-08] MEDS: Scopolamine 1.5 mg/72 hour Patch TOP SCH (11:45)
[2021-09-08] MEDS: Fentanyl CADD 100 ML IV SCH (13:58)
[2021-09-08 14:24] LABS: Hemoglobin 13.2 g/dL (14.0-18.0); Platelet Count 336 thou/uL (130-400)
[2021-09-08 14:29] LABS: Magnesium 1.9 mg/dL (1.6-2.6); Potassium 3.6 mmol/L (3.5-5.1)
[2021-09-09] MEDS: Norepinephrine 8 MG in Dextrose 5% in Water 242 ML IVPB PRN (03:34)
[2021-09-09 04:06] LABS: #Basophils 0.1 thou/uL (0.0-0.2); #Eosinphils 0.2 thou/uL (0.0-0.7); #Lymphocytes 1.1 thou/uL (1.20-3.40); #Neutrophils 6.1 thou/uL (1.40-6.50); %Basophils 0.9 % (0.0-1.0); %Eosinophils 2.4 % (0.0-10.0); %Lymphocytes 13.3 % (21.0-51.0); %Monocytes 11.7 % (0.0-10.0); %Neutrophils 71.7 % (42.0-75.0); Hemoglobin 12.5 g/dL (14.0-18.0); Mean Corpuscular HGB CONC 29.3 g/dL (32.0-36.0); Mean Corpuscular Hemoglobin 23.5 pg (27.0-31.0); Mean Corpuscular Volume 80.4 fL (78.0-98.0); Mean Platelet Volume 10.5 fL (7.4-10.4); Platelet Count 360 thou/uL (130-400); RBC Distribution Width 22.6 % (11.5-14.5); Red Blood Cell (RBC) Count 5.31 mill/uL (4.70-6.10); White Blood Cell (WBC) Count 8.6 thou/uL (4.8-10.8)
[2021-09-09 04:19] LABS: Anion Gap 17 mmol/L (10-20); BUN (Urea Nitrogen) 32 mg/dL (8.9-20.6); Calc. Creatinine Clearance 0 mL/min (70-130); Calcium 8.1 mg/dL (7.8-10.44); Carbon Dioxide 24 mmol/L (22-29); Chloride 95 mmol/L (98-107); Glucose 106 mg/dL (70-105); Potassium 3.6 mmol/L (3.5-5.1); Sodium 132 mmol/L (136-145)
[2021-09-09] MEDS: Heparin 25,000 units/D5W 500 ML IVPB SCH (04:38)
[2021-09-09] MEDS: Propofol 1,000 MG/100 ML VIAL IV PRN (06:22)
[2021-09-09] MEDS: Fentanyl CADD 100 ML IV SCH (11:08)
[2021-09-09] MEDS: Aspirin Chewable 81 MG TAB PO SCH (11:21)
[2021-09-09] MEDS: Famotidine 20 MG TAB PO SCH (11:21)
[2021-09-10] MEDS: Heparin 25,000 units/D5W 500 ML IVPB SCH ×2 (00:46→21:07)
[2021-09-10 04:22] LABS: Anion Gap 16 mmol/L (10-20); BUN (Urea Nitrogen) 24 mg/dL (8.9-20.6); Calc. Creatinine Clearance 0 mL/min (70-130); Calcium 8.4 mg/dL (7.8-10.44); Carbon Dioxide 24 mmol/L (22-29); Chloride 95 mmol/L (98-107); Glucose 97 mg/dL (70-105); Potassium 3.9 mmol/L (3.5-5.1); Sodium 131 mmol/L (136-145)
[2021-09-10 04:43] LABS: Anisocytosis MODERATE=16-30 cells (100X) (0-5/hpf); Eosinophils 1 % (0-10); Hemoglobin 12.6 g/dL (14.0-18.0); Lymphocytes 15 % (21-51); MDiff Complete? YES; Mean Corpuscular HGB CONC 29.9 g/dL (32.0-36.0); Mean Corpuscular Hemoglobin 24.1 pg (27.0-31.0); Mean Corpuscular Volume 80.4 fL (78.0-98.0); Mean Platelet Volume 10.2 fL (7.4-10.4); Monocytes 12 % (0-10); Neutrophil 72 % (42-75); Platelet Count 389 thou/uL (130-400); RBC Distribution Width 22.5 % (11.5-14.5); Red Blood Cell (RBC) Count 5.25 mill/uL (4.70-6.10); Target Cells SLIGHT = 2-5 cells (100X) (0-1/hpf); White Blood Cell (WBC) Count 10.8 thou/uL (4.8-10.8)
[2021-09-10 06:57] LABS: Actual Bicarbonate (HCO3a) 25.4 mEq/L (22-28); Base Excess (BEa) 0.6 mEq/L (-2.0 to +3.0); CO2 Tension 41.7 mmHg (35.0-45.0); Calcium, Ionized (arterial) 1.09 mmol/L (1.12-1.30); Carboxyhemoglobin (COHb) 1.2 gm% (0.0-3.0); Hemoglobin (Hb) 13.2 g/dL (14.0-18.0); O2 Tension (PaO2), arterial 113.3 mmHg (80.0-100.0); Potassium - ABG Lab 4.04 mmol/L (3.70-5.30)
[2021-09-10 06:59] LABS: Puncture Site ALINE
[2021-09-10 07:00] LABS: ALV-art Gradient 119.775 mmHg (0-20)
[2021-09-10] MEDS: Fentanyl CADD 100 ML IV SCH (07:12)
[2021-09-10] MEDS: Famotidine 20 MG TAB PO SCH (08:00)
[2021-09-10] MEDS: Aspirin Chewable 81 MG TAB PO SCH (08:00)
[2021-09-11 00:51] LABS: Hemoglobin 11.6 g/dL (14.0-18.0); Platelet Count 373 thou/uL (130-400)
[2021-09-11] MEDS: Norepinephrine 8 MG in Dextrose 5% in Water 242 ML IVPB PRN (00:52)
[2021-09-11] MEDS ORDERED: Protamine Sulfate 50 MG/5 ML VIAL SLOW IVP SCH (01:45)
[2021-09-11] MEDS: Fentanyl CADD 100 ML IV SCH ×2 (02:53→20:48)
[2021-09-11 04:56] LABS: Anion Gap 16 mmol/L (10-20); BUN (Urea Nitrogen) 36 mg/dL (8.9-20.6); Calc. Creatinine Clearance 20 mL/min (70-130); Carbon Dioxide 24 mmol/L (22-29); Chloride 94 mmol/L (98-107); Glucose 88 mg/dL (70-105); Potassium 4.1 mmol/L (3.5-5.1); Sodium 130 mmol/L (136-145)
[2021-09-11 05:25] LABS: Anisocytosis SLIGHT = 6-15 cells (100X) (0-5/hpf); Burr Cells SLIGHT = 2-5 cells (100X) (0-1/hpf); Hemoglobin 10.5 g/dL (14.0-18.0); Hypochromia SLIGHT = 6-15 cells (100X) (0-5/hpf); MDiff Complete? YES; Mean Corpuscular Volume 80.1 fL (78.0-98.0); Mean Platelet Volume 9.4 fL (7.4-10.4); Platelet Count 362 thou/uL (130-400); Platelet Morphology Comment Appears Adequate; Polychromasia SLIGHT = 2-3 cells (100X) (0-2/hpf); RBC Distribution Width 21.4 % (11.5-14.5); Red Blood Cell (RBC) Count 4.36 mill/uL (4.70-6.10); Schistocytes SLIGHT = 2-5 cells (100X) (0-1/hpf); Target Cells SLIGHT = 2-5 cells (100X) (0-1/hpf); White Blood Cell (WBC) Count 8.6 thou/uL (4.8-10.8)
[2021-09-11] MEDS: Aspirin Chewable 81 MG TAB PO SCH (08:17)
[2021-09-11] MEDS: Famotidine 20 MG TAB PO SCH (08:17)
[2021-09-11] MEDS: Scopolamine 1.5 mg/72 hour Patch TOP SCH (11:35)
[2021-09-11] MEDS: Heparin 25,000 units/D5W 500 ML IVPB SCH (22:44)
[2021-09-12 04:13] LABS: Hemoglobin 10.3 g/dL (14.0-18.0); Mean Corpuscular HGB CONC 30.9 g/dL (32.0-36.0); Mean Corpuscular Hemoglobin 24.7 pg (27.0-31.0); Mean Platelet Volume 9.3 fL (7.4-10.4); Platelet Count 376 thou/uL (130-400); RBC Distribution Width 21.4 % (11.5-14.5); Red Blood Cell (RBC) Count 4.17 mill/uL (4.70-6.10); White Blood Cell (WBC) Count 9.9 thou/uL (4.8-10.8)
[2021-09-12 04:28] LABS: Anion Gap 15 mmol/L (10-20); BUN (Urea Nitrogen) 30 mg/dL (8.9-20.6); Calc. Creatinine Clearance 26 mL/min (70-130); Carbon Dioxide 26 mmol/L (22-29); Chloride 96 mmol/L (98-107); Glucose 84 mg/dL (70-105); Potassium 3.7 mmol/L (3.5-5.1); Sodium 133 mmol/L (136-145)
[2021-09-12 04:37] LABS: MDiff Complete? YES
[2021-09-12 04:38] LABS: Burr Cells SLIGHT = 2-5 cells (100X) (0-1/hpf); Eosinophils 2 % (0-10); Hypochromia SLIGHT = 6-15 cells (100X) (0-5/hpf); Lymphocytes 9 % (21-51); Monocytes 10 % (0-10); Myelocyte 1 % (0-0); Neutrophil 77 % (42-75); Platelet Morphology Comment Appears Adequate; Polychromasia SLIGHT = 2-3 cells (100X) (0-2/hpf); Target Cells MODERATE= 6-15 cells (100X) (0-1/hpf); Tear Drops SLIGHT = 2-5 cells (100X) (0-1/hpf)
[2021-09-12] MEDS: Aspirin Chewable 81 MG TAB PO SCH (09:59)
[2021-09-12] MEDS: Famotidine 20 MG TAB PO SCH (10:01)
[2021-09-12] MEDS: Heparin 25,000 units/D5W 500 ML IVPB SCH (14:59)
[2021-09-12] MEDS ORDERED: NOREPINEPHRINE IVPB PRN (15:29)
[2021-09-12] MEDS ORDERED: DEXTROSE IVPB PRN (15:29)
[2021-09-12] MEDS ORDERED: NS IVPB PRN (15:29)
[2021-09-12] MEDS ORDERED: WATER IVPB PRN (15:29)
[2021-09-12 15:35] LABS: Hemoglobin 9.9 g/dL (14.0-18.0); Platelet Count 364 thou/uL (130-400)
[2021-09-12] MEDS: NOREPINEPHRINE IVPB PRN (16:42)
[2021-09-12] MEDS: NS IVPB PRN (16:42)
[2021-09-12] MEDS: Fentanyl CADD 100 ML IV SCH (16:55)
[2021-09-13 04:53] LABS: Anion Gap 15 mmol/L (10-20); BUN (Urea Nitrogen) 37 mg/dL (8.9-20.6); Calc. Creatinine Clearance 23 mL/min (70-130); Calcium 7.9 mg/dL (7.8-10.44); Carbon Dioxide 25 mmol/L (22-29); Chloride 96 mmol/L (98-107); Glucose 86 mg/dL (70-105); Potassium 3.8 mmol/L (3.5-5.1); Sodium 132 mmol/L (136-145)
[2021-09-13 04:56] LABS: Band 1 % (5-11); Elliptocytes SLIGHT = 2-5 cells (100X) (0-1/hpf); Eosinophils 5 % (0-10); Hemoglobin 8.7 g/dL (14.0-18.0); Hypochromia MODERATE=16-30 cells (100X) (0-5/hpf); Lymphocytes 8 % (21-51); MDiff Complete? YES; Mean Corpuscular HGB CONC 30.6 g/dL (32.0-36.0); Mean Corpuscular Hemoglobin 24.3 pg (27.0-31.0); Mean Corpuscular Volume 79.4 fL (78.0-98.0); Mean Platelet Volume 8.9 fL (7.4-10.4); Monocytes 10 % (0-10); Neutrophil 74 % (42-75); Platelet Count 316 thou/uL (130-400); Platelet Morphology Comment Appears Adequate; Polychromasia SLIGHT = 2-3 cells (100X) (0-2/hpf); Red Blood Cell (RBC) Count 3.56 mill/uL (4.70-6.10); Schistocytes SLIGHT = 2-5 cells (100X) (0-1/hpf); Target Cells MODERATE= 6-15 cells (100X) (0-1/hpf); White Blood Cell (WBC) Count 8.3 thou/uL (4.8-10.8)
[2021-09-13] MEDS: Fentanyl CADD 100 ML IV SCH ×2 (06:22→22:22)
[2021-09-13] MEDS: Famotidine 20 MG TAB PO SCH (09:48)
[2021-09-13] MEDS: Aspirin Chewable 81 MG TAB PO SCH ×2 (09:49→10:16)
[2021-09-13] MEDS: Heparin 25,000 units/D5W 500 ML IVPB SCH (09:51)
[2021-09-13] MEDS: Midodrine HCl 5 MG TAB PER TUBE SCH ×2 (15:07→20:37)
[2021-09-13] MEDS ORDERED: Apixaban 5 MG TAB PO SCH (21:00)
[2021-09-13 22:11] LABS: INR-International Normal Ratio 1.5
[2021-09-13 22:12] LABS: PTT 69.4 sec (22.9-36.1)
[2021-09-14 05:07] LABS: Anisocytosis SLIGHT = 6-15 cells (100X) (0-5/hpf); Elliptocytes SLIGHT = 2-5 cells (100X) (0-1/hpf); Eosinophils 9 % (0-10); Hemoglobin 7.6 g/dL (14.0-18.0); Hypochromia SLIGHT = 6-15 cells (100X) (0-5/hpf); MDiff Complete? YES; Mean Corpuscular Hemoglobin 24.5 pg (27.0-31.0); Mean Corpuscular Volume 79.1 fL (78.0-98.0); Mean Platelet Volume 8.8 fL (7.4-10.4); Myelocyte 2 % (0-0); Neutrophil 83 % (42-75); Platelet Count 351 thou/uL (130-400); Platelet Morphology Comment Appears Adequate; Reactive Lymphocytes 6 % (0-10); Red Blood Cell (RBC) Count 3.09 mill/uL (4.70-6.10); Schistocytes SLIGHT = 2-5 cells (100X) (0-1/hpf); Target Cells MODERATE= 6-15 cells (100X) (0-1/hpf); White Blood Cell (WBC) Count 11.2 thou/uL (4.8-10.8)
[2021-09-14 05:11] LABS: Anion Gap 16 mmol/L (10-20); BUN (Urea Nitrogen) 42 mg/dL (8.9-20.6); Calc. Creatinine Clearance 21 mL/min (70-130); Calcium 7.7 mg/dL (7.8-10.44); Carbon Dioxide 24 mmol/L (22-29); Chloride 96 mmol/L (98-107); Glucose 87 mg/dL (70-105); Potassium 4.1 mmol/L (3.5-5.1); Sodium 132 mmol/L (136-145)
[2021-09-14] MEDS: Aspirin Chewable 81 MG TAB PO SCH (08:07)
[2021-09-14] MEDS: Apixaban 2.5 MG TAB PO SCH ×2 (08:07→21:14)
[2021-09-14] MEDS: Famotidine 20 MG TAB PO SCH (08:32)
[2021-09-14] MEDS: Midodrine HCl 5 MG TAB PER TUBE SCH ×3 (08:32→21:16)
[2021-09-14] MEDS: Scopolamine 1.5 mg/72 hour Patch TOP SCH (10:31)
[2021-09-14] MEDS: Fentanyl CADD 100 ML IV SCH (16:25)
[2021-09-14] MEDS: Lorazepam 2 MG/ML VIAL SLOW IVP PRN ×2 (16:51→18:16)
[2021-09-14 17:06] LABS: Hemoglobin 8.2 g/dL (14.0-18.0); Platelet Count 367 thou/uL (130-400)
[2021-09-15 05:26] LABS: Anion Gap 14 mmol/L (10-20); BUN (Urea Nitrogen) 29 mg/dL (8.9-20.6); Calc. Creatinine Clearance 29 mL/min (70-130); Calcium 8.3 mg/dL (7.8-10.44); Carbon Dioxide 26 mmol/L (22-29); Chloride 99 mmol/L (98-107); Glucose 92 mg/dL (70-105); Sodium 135 mmol/L (136-145)
[2021-09-15 05:30] LABS: Anisocytosis SLIGHT = 6-15 cells (100X) (0-5/hpf); Hemoglobin 8.9 g/dL (14.0-18.0); Lymphocytes 4 % (21-51); MDiff Complete? YES; Mean Corpuscular HGB CONC 32.9 g/dL (32.0-36.0); Mean Corpuscular Volume 82.1 fL (78.0-98.0); Mean Platelet Volume 8.7 fL (7.4-10.4); Monocytes 7 % (0-10); Myelocyte 1 % (0-0); Neutrophil 88 % (42-75); Nucleated RBC 2 % (0); Platelet Count 343 thou/uL (130-400); Platelet Morphology Comment Appears Adequate; Polychromasia SLIGHT = 2-3 cells (100X) (0-2/hpf); RBC Distribution Width 20.1 % (11.5-14.5); Red Blood Cell (RBC) Count 3.29 mill/uL (4.70-6.10); Target Cells SLIGHT = 2-5 cells (100X) (0-1/hpf); White Blood Cell (WBC) Count 16.6 thou/uL (4.8-10.8)
[2021-09-15] MEDS: Fentanyl CADD 100 ML IV SCH ×2 (05:53→23:36)
[2021-09-15] MEDS: Midodrine HCl 5 MG TAB PER TUBE SCH ×3 (08:40→20:04)
[2021-09-15] MEDS: Famotidine 20 MG TAB PO SCH (08:40)
[2021-09-15] MEDS: Apixaban 2.5 MG TAB PO SCH ×2 (08:42→19:44)
[2021-09-15] MEDS: Aspirin Chewable 81 MG TAB PO SCH (08:42)
[2021-09-15 08:57] LABS: Platelet Count 353 thou/uL (130-400)
[2021-09-15 09:01] LABS: Fibrinogen 590 mg/dL (253-463)
[2021-09-15 09:02] LABS: INR-International Normal Ratio 1.2; PTT 44.2 sec (22.9-36.1); Prothrombin Time 15.2 sec (12.0-14.7)
[2021-09-15] MEDS: Morphine 4 MG/ML VIAL SLOW IVP PRN (09:44)
[2021-09-15] MEDS: Lorazepam 2 MG/ML VIAL SLOW IVP PRN (09:48)
[2021-09-15] MEDS: Dexmedetomidine 1,000 MCG in Sodium Chloride 0.9% 250 ML 240 ML IVPB SCH ×2 (10:24→23:41)
[2021-09-15] MEDS: NS IVPB PRN (13:59)
[2021-09-15] MEDS: NOREPINEPHRINE IVPB PRN (13:59)
[2021-09-15] MEDS: DOBUTamine 500 mg/250 ml 500 MG in Premix Bag 1 BAG IVPB SCH (13:59)
[2021-09-15] MEDS: Dextrose 50% Abboject 50 ML SYRINGE SLOW IVP PRN (15:00)
[2021-09-15 15:42] LABS: Hemoglobin 7.8 g/dL (14.0-18.0)
[2021-09-16 07:41] LABS: Actual Bicarbonate (HCO3a) 26.7 mEq/L (22-28); Base Excess (BEa) 2.7 mEq/L (-2.0 to +3.0); CO2 Tension 38.6 mmHg (35.0-45.0); Calcium, Ionized (arterial) 1.13 mmol/L (1.12-1.30); Hemoglobin (Hb) 9.9 g/dL (14.0-18.0); O2 Tension (PaO2), arterial 85.9 mmHg (80.0-100.0); Potassium - ABG Lab 4.31 mmol/L (3.70-5.30); pH, Arterial 7.46 (7.35-7.45)
[2021-09-16 07:43] LABS: Puncture Site LRA
[2021-09-16] MEDS: Apixaban 2.5 MG TAB PO SCH ×2 (08:29→20:45)
[2021-09-16 09:21] LABS: Hemoglobin 8.6 g/dL (14.0-18.0); Mean Corpuscular HGB CONC 31.5 g/dL (32.0-36.0); Mean Corpuscular Hemoglobin 26.5 pg (27.0-31.0); Mean Corpuscular Volume 84.2 fL (78.0-98.0); Mean Platelet Volume 8.8 fL (7.4-10.4); Platelet Count 269 thou/uL (130-400); RBC Distribution Width 19.7 % (11.5-14.5); Red Blood Cell (RBC) Count 3.24 mill/uL (4.70-6.10); White Blood Cell (WBC) Count 10.8 thou/uL (4.8-10.8)
[2021-09-16] MEDS: Aspirin Chewable 81 MG TAB PO SCH (09:22)
[2021-09-16] MEDS: Midodrine HCl 5 MG TAB PER TUBE SCH ×3 (09:22→20:44)
[2021-09-16] MEDS: Famotidine 20 MG TAB PO SCH (09:22)
[2021-09-16 09:36] LABS: Anion Gap 14 mmol/L (10-20); BUN (Urea Nitrogen) 30 mg/dL (8.9-20.6); Calc. Creatinine Clearance 29 mL/min (70-130); Calcium 8.2 mg/dL (7.8-10.44); Carbon Dioxide 24 mmol/L (22-29); Chloride 99 mmol/L (98-107); Glucose 90 mg/dL (70-105); Potassium 4.1 mmol/L (3.5-5.1); Sodium 133 mmol/L (136-145)
[2021-09-16 09:52] LABS: Anisocytosis MODERATE=16-30 cells (100X) (0-5/hpf); Band 5 % (5-11); Hypochromia SLIGHT = 6-15 cells (100X) (0-5/hpf); Lymphocytes 7 % (21-51); MDiff Complete? YES; Monocytes 6 % (0-10); Neutrophil 81 % (42-75); Ovalocytes SLIGHT = 2-5 cells (100X) (0-1/hpf); Polychromasia MODERATE = 3-4 cells (100X) (0-2/hpf)
[2021-09-16] MEDS: Dexmedetomidine 1,000 MCG in Sodium Chloride 0.9% 250 ML 240 ML IVPB SCH (11:13)
[2021-09-16] MEDS: NOREPINEPHRINE IVPB PRN (11:14)
[2021-09-16] MEDS: NS IVPB PRN (11:14)
[2021-09-16 11:32] LABS: SARS-CoV-2 PCR by NAA Not Detected (NotDetected)
[2021-09-16] MEDS ORDERED: Bupivacaine PF 0.5% 30 ML VIAL ONE (16:11)
[2021-09-16] MEDS ORDERED: Lidocaine 1% w/Epinephrine 1:100K 20 ML VIAL ONE (16:12)
[2021-09-16] MEDS ORDERED: Fentanyl 100 MCG/2 ML VIAL ONE (16:21)
[2021-09-16] MEDS ORDERED: Midazolam HCl 2 mg/2 ml Vial ONE (16:21)
[2021-09-16] MEDS: Dextrose 50% Abboject 50 ML SYRINGE SLOW IVP PRN ×2 (16:30→22:13)
[2021-09-16] MEDS ORDERED: Rocuronium Bromide 10 MG/ML (10ML VIAL) ONE (17:06)
[2021-09-16] MEDS: Fentanyl CADD 100 ML IV SCH (19:45)
[2021-09-16] MEDS: Morphine 4 MG/ML VIAL SLOW IVP PRN (19:46)
[2021-09-16] MEDS: Lorazepam 2 MG/ML VIAL SLOW IVP PRN (19:46)
[2021-09-17] MEDS: DOBUTamine 500 mg/250 ml 500 MG in Premix Bag 1 BAG IVPB SCH (04:44)
[2021-09-17] MEDS: Dexmedetomidine 1,000 MCG in Sodium Chloride 0.9% 250 ML 240 ML IVPB SCH ×2 (04:44→12:26)
[2021-09-17 05:20] LABS: Anion Gap 12 mmol/L (10-20); BUN (Urea Nitrogen) 21 mg/dL (8.9-20.6); Calc. Creatinine Clearance 34 mL/min (70-130); Calcium 8.2 mg/dL (7.8-10.44); Carbon Dioxide 27 mmol/L (22-29); Chloride 99 mmol/L (98-107); Glucose 82 mg/dL (70-105); Potassium 4.2 mmol/L (3.5-5.1); Sodium 134 mmol/L (136-145)
[2021-09-17 05:24] LABS: Anisocytosis MODERATE=16-30 cells (100X) (0-5/hpf); Band 5 % (5-11); Hemoglobin 8.2 g/dL (14.0-18.0); Hypochromia SLIGHT = 6-15 cells (100X) (0-5/hpf); Lymphocytes 9 % (21-51); MDiff Complete? YES; Mean Corpuscular HGB CONC 32.9 g/dL (32.0-36.0); Mean Corpuscular Hemoglobin 28.3 pg (27.0-31.0); Monocytes 1 % (0-10); Neutrophil 83 % (42-75); Platelet Count 260 thou/uL (130-400); Platelet Morphology Comment Appears Adequate; Polychromasia SLIGHT = 2-3 cells (100X) (0-2/hpf); RBC Distribution Width 20.5 % (11.5-14.5); Red Blood Cell (RBC) Count 2.91 mill/uL (4.70-6.10); Schistocytes SLIGHT = 2-5 cells (100X) (0-1/hpf); Target Cells MODERATE= 6-15 cells (100X) (0-1/hpf); Tear Drops SLIGHT = 2-5 cells (100X) (0-1/hpf); White Blood Cell (WBC) Count 12.7 thou/uL (4.8-10.8)
[2021-09-17 07:43] LABS: Actual Bicarbonate (HCO3a) 27.8 mEq/L (22-28); Base Excess (BEa) 4.7 mEq/L (-2.0 to +3.0); CO2 Tension 34.9 mmHg (35.0-45.0); Calcium, Ionized (arterial) 1.04 mmol/L (1.12-1.30); Carboxyhemoglobin (COHb) 1.2 gm% (0.0-3.0); O2 Tension (PaO2), arterial 103.4 mmHg (80.0-100.0); Potassium - ABG Lab 4.12 mmol/L (3.70-5.30); pH, Arterial 7.52 (7.35-7.45)
[2021-09-17 08:16] LABS: ALV-art Gradient 138.175 mmHg (0-20); Puncture Site LRA
[2021-09-17] MEDS ORDERED: Midodrine HCl 5 MG TAB PO SCH (09:30)
[2021-09-17] MEDS: Scopolamine 1.5 mg/72 hour Patch TOP SCH (09:36)
[2021-09-17] MEDS: Famotidine 20 MG TAB PO SCH (09:37)
[2021-09-17] MEDS: Aspirin Chewable 81 MG TAB PO SCH (09:38)
[2021-09-17] MEDS: Apixaban 2.5 MG TAB PO SCH ×2 (09:38→20:12)
[2021-09-17] MEDS: Midodrine HCl 5 MG TAB PER TUBE SCH ×3 (09:41→20:12)
[2021-09-17] MEDS: NOREPINEPHRINE IVPB PRN (10:05)
[2021-09-17] MEDS: NS IVPB PRN (10:05)
[2021-09-17] MEDS: Fentanyl CADD 100 ML IV SCH (15:29)
[2021-09-17] MEDS: diphenhydrAMINE 25 MG CAP PER TUBE PRN (20:39)
[2021-09-18 04:45] LABS: Hemoglobin 8.2 g/dL (14.0-18.0); Mean Corpuscular HGB CONC 32.1 g/dL (32.0-36.0); Mean Corpuscular Hemoglobin 28.1 pg (27.0-31.0); Mean Corpuscular Volume 87.4 fL (78.0-98.0); Mean Platelet Volume 8.5 fL (7.4-10.4); Platelet Count 276 thou/uL (130-400); RBC Distribution Width 20.9 % (11.5-14.5); Red Blood Cell (RBC) Count 2.93 mill/uL (4.70-6.10); White Blood Cell (WBC) Count 12.8 thou/uL (4.8-10.8)
[2021-09-18 04:49] LABS: Anion Gap 13 mmol/L (10-20); BUN (Urea Nitrogen) 27 mg/dL (8.9-20.6); Calc. Creatinine Clearance 30 mL/min (70-130); Calcium 8.3 mg/dL (7.8-10.44); Carbon Dioxide 28 mmol/L (22-29); Chloride 99 mmol/L (98-107); Glucose 94 mg/dL (70-105); Potassium 4.6 mmol/L (3.5-5.1); Sodium 135 mmol/L (136-145)
[2021-09-18 05:50] LABS: Band 2 % (5-11); Lymphocytes 8 % (21-51); MDiff Complete? YES; Monocytes 6 % (0-10); Neutrophil 84 % (42-75)
[2021-09-18 07:10] LABS: Actual Bicarbonate (HCO3a) 25.7 mEq/L (22-28); Base Excess (BEa) 1.8 mEq/L (-2.0 to +3.0); CO2 Tension 37.1 mmHg (35.0-45.0); Calcium, Ionized (arterial) 1.11 mmol/L (1.12-1.30); Carboxyhemoglobin (COHb) 1.5 gm% (0.0-3.0); Hemoglobin (Hb) 7.7 g/dL (14.0-18.0); O2 Tension (PaO2), arterial 112.4 mmHg (80.0-100.0); pH, Arterial 7.46 (7.35-7.45)
[2021-09-18 07:18] LABS: ALV-art Gradient 126.425 mmHg (0-20); Puncture Site LRA
[2021-09-18] MEDS: Aspirin Chewable 81 MG TAB PO SCH (08:14)
[2021-09-18] MEDS: Apixaban 2.5 MG TAB PO SCH ×2 (08:14→20:08)
[2021-09-18] MEDS: Famotidine 20 MG TAB PO SCH (08:14)
[2021-09-18] MEDS: Midodrine HCl 5 MG TAB PER TUBE SCH ×3 (08:14→20:07)
[2021-09-18] MEDS: Morphine 4 MG/ML VIAL SLOW IVP PRN ×2 (09:53→20:18)
[2021-09-18] MEDS: diphenhydrAMINE 25 MG CAP PER TUBE PRN (09:53)
[2021-09-18] MEDS: Dexmedetomidine 1,000 MCG in Sodium Chloride 0.9% 250 ML 240 ML IVPB SCH ×2 (10:30→18:46)
[2021-09-18] MEDS: Fentanyl CADD 100 ML IV SCH (13:17)
[2021-09-18 14:07] LABS: Hemoglobin 7.6 g/dL (14.0-18.0); Platelet Count 230 thou/uL (130-400)
[2021-09-18] MEDS ORDERED: EPOETIN ALFA-EPBX (ESRD) 10,000 UNIT/ML VIAL SC SCH (16:00)
[2021-09-18] MEDS: NOREPINEPHRINE IVPB PRN (18:46)
[2021-09-18] MEDS: DOBUTamine 500 mg/250 ml 500 MG in Premix Bag 1 BAG IVPB SCH (18:46)
[2021-09-18] MEDS: NS IVPB PRN (18:46)
[2021-09-18] MEDS ORDERED: Cosyntropin 250 MCG VIAL SLOW IVP SCH (20:00)
[2021-09-19] MEDS: Lorazepam 2 MG/ML VIAL SLOW IVP PRN ×3 (02:04→15:35)
[2021-09-19 05:00] LABS: Hemoglobin 7.5 g/dL (14.0-18.0); Mean Corpuscular HGB CONC 31.5 g/dL (32.0-36.0); Mean Corpuscular Hemoglobin 27.5 pg (27.0-31.0); Mean Corpuscular Volume 87.3 fL (78.0-98.0); Mean Platelet Volume 8.4 fL (7.4-10.4); Platelet Count 256 thou/uL (130-400); RBC Distribution Width 20.5 % (11.5-14.5); Red Blood Cell (RBC) Count 2.73 mill/uL (4.70-6.10); White Blood Cell (WBC) Count 11.9 thou/uL (4.8-10.8)
[2021-09-19 05:10] LABS: Anion Gap 12 mmol/L (10-20); BUN (Urea Nitrogen) 18 mg/dL (8.9-20.6); Calc. Creatinine Clearance 46 mL/min (70-130); Calcium 8.2 mg/dL (7.8-10.44); Carbon Dioxide 29 mmol/L (22-29); Chloride 98 mmol/L (98-107); Glucose 85 mg/dL (70-105); Potassium 3.8 mmol/L (3.5-5.1); Sodium 135 mmol/L (136-145)
[2021-09-19 05:17] LABS: Anisocytosis MODERATE=16-30 cells (100X) (0-5/hpf); Band 3 % (5-11); Eosinophils 1 % (0-10); Lymphocytes 6 % (21-51); MDiff Complete? YES; Monocytes 3 % (0-10); Neutrophil 87 % (42-75); Polychromasia MODERATE = 3-4 cells (100X) (0-2/hpf)
[2021-09-19] MEDS: Dexmedetomidine 1,000 MCG in Sodium Chloride 0.9% 250 ML 240 ML IVPB SCH ×2 (06:12→16:52)
[2021-09-19] MEDS: Famotidine 20 MG TAB PO SCH (08:22)
[2021-09-19] MEDS: Midodrine HCl 5 MG TAB PER TUBE SCH ×3 (08:22→19:59)
[2021-09-19] MEDS: Aspirin Chewable 81 MG TAB PO SCH (08:22)
[2021-09-19] MEDS: Apixaban 2.5 MG TAB PO SCH ×2 (08:22→19:59)
[2021-09-19] MEDS: fentaNYL 50 mcg/hour Patch TD SCH (13:44)
[2021-09-20] MEDS: diphenhydrAMINE 25 MG CAP PER TUBE PRN (01:42)
[2021-09-20] MEDS: Dexmedetomidine 1,000 MCG in Sodium Chloride 0.9% 250 ML 240 ML IVPB SCH ×3 (02:27→22:44)
[2021-09-20] MEDS: DOBUTamine 500 mg/250 ml 500 MG in Premix Bag 1 BAG IVPB SCH (02:27)
[2021-09-20] MEDS: Morphine 4 MG/ML VIAL SLOW IVP PRN ×2 (04:14→09:46)
[2021-09-20 04:56] LABS: Anion Gap 11 mmol/L (10-20); BUN (Urea Nitrogen) 31 mg/dL (8.9-20.6); Calc. Creatinine Clearance 37 mL/min (70-130); Calcium 8.1 mg/dL (7.8-10.44); Carbon Dioxide 29 mmol/L (22-29); Chloride 97 mmol/L (98-107); Glucose 92 mg/dL (70-105); Potassium 4.2 mmol/L (3.5-5.1); Sodium 133 mmol/L (136-145)
[2021-09-20 05:08] LABS: Hemoglobin 7.2 g/dL (14.0-18.0); Mean Corpuscular HGB CONC 30.6 g/dL (32.0-36.0); Mean Corpuscular Hemoglobin 26.6 pg (27.0-31.0); Mean Corpuscular Volume 87.1 fL (78.0-98.0); Mean Platelet Volume 8.3 fL (7.4-10.4); Platelet Count 256 thou/uL (130-400); RBC Distribution Width 20.1 % (11.5-14.5); White Blood Cell (WBC) Count 12.3 thou/uL (4.8-10.8)
[2021-09-20 05:27] LABS: Band 6 % (5-11); Lymphocytes 6 % (21-51); MDiff Complete? YES; Monocytes 7 % (0-10); Neutrophil 81 % (42-75)
[2021-09-20 07:57] LABS: Actual Bicarbonate (HCO3a) 27.1 mEq/L (22-28); CO2 Tension 33.9 mmHg (35.0-45.0); Calcium, Ionized (arterial) 1.04 mmol/L (1.12-1.30); Carboxyhemoglobin (COHb) 1.6 gm% (0.0-3.0); Hemoglobin (Hb) 7.2 g/dL (14.0-18.0); O2 Tension (PaO2), arterial 105.4 mmHg (80.0-100.0); Potassium - ABG Lab 3.96 mmol/L (3.70-5.30); pH, Arterial 7.52 (7.35-7.45)
[2021-09-20 08:21] LABS: Puncture Site LRA
[2021-09-20 08:22] LABS: ALV-art Gradient 137.425 mmHg (0-20)
[2021-09-20] MEDS: Famotidine 20 MG TAB PO SCH (08:50)
[2021-09-20] MEDS: Midodrine HCl 5 MG TAB PER TUBE SCH ×3 (08:50→20:04)
[2021-09-20] MEDS: Apixaban 2.5 MG TAB PO SCH ×2 (08:50→20:04)
[2021-09-20] MEDS: Aspirin Chewable 81 MG TAB PO SCH (08:50)
[2021-09-20] MEDS: Scopolamine 1.5 mg/72 hour Patch TOP SCH (09:49)
[2021-09-20] MEDS ORDERED: Polyethylene Glycol 3350 17 GM Packet PO PRN (10:11)
[2021-09-20] MEDS: Lorazepam 2 MG/ML VIAL SLOW IVP PRN (10:42)
[2021-09-20] MEDS: Ondansetron PF 4 MG/2 ML Vial IVP PRN (10:50)
[2021-09-20 13:44] LABS: Hemoglobin 6.8 g/dL (14.0-18.0); Platelet Count 241 thou/uL (130-400)
[2021-09-21] MEDS: Ondansetron PF 4 MG/2 ML Vial IVP PRN (00:56)
[2021-09-21] MEDS: Lorazepam 2 MG/ML VIAL SLOW IVP PRN ×2 (03:46→15:01)
[2021-09-21 04:11] LABS: Hemoglobin 7.1 g/dL (14.0-18.0); Mean Corpuscular HGB CONC 31.1 g/dL (32.0-36.0); Mean Corpuscular Hemoglobin 27.1 pg (27.0-31.0); Mean Corpuscular Volume 87.2 fL (78.0-98.0); Mean Platelet Volume 8.3 fL (7.4-10.4); Platelet Count 262 thou/uL (130-400); RBC Distribution Width 19.9 % (11.5-14.5); White Blood Cell (WBC) Count 11.9 thou/uL (4.8-10.8)
[2021-09-21 04:20] LABS: Anion Gap 14 mmol/L (10-20); BUN (Urea Nitrogen) 40 mg/dL (8.9-20.6); Calc. Creatinine Clearance 32 mL/min (70-130); Calcium 8.2 mg/dL (7.8-10.44); Carbon Dioxide 27 mmol/L (22-29); Chloride 96 mmol/L (98-107); Glucose 78 mg/dL (70-105); Potassium 4.3 mmol/L (3.5-5.1); Sodium 133 mmol/L (136-145)
[2021-09-21 04:41] LABS: Anisocytosis MODERATE=16-30 cells (100X) (0-5/hpf); Eosinophils 1 % (0-10); Lymphocytes 5 % (21-51); MDiff Complete? YES; Monocytes 3 % (0-10); Neutrophil 91 % (42-75); Polychromasia SLIGHT = 2-3 cells (100X) (0-2/hpf)
[2021-09-21 08:02] LABS: Actual Bicarbonate (HCO3a) 26.7 mEq/L (22-28); CO2 Tension 36.3 mmHg (35.0-45.0); Calcium, Ionized (arterial) 1.07 mmol/L (1.12-1.30); Carboxyhemoglobin (COHb) 1.2 gm% (0.0-3.0); Hemoglobin (Hb) 7.3 g/dL (14.0-18.0); O2 Tension (PaO2), arterial 152.9 mmHg (80.0-100.0); Potassium - ABG Lab 4.16 mmol/L (3.70-5.30); pH, Arterial 7.48 (7.35-7.45)
[2021-09-21 08:15] LABS: Puncture Site LRA
[2021-09-21 08:16] LABS: ALV-art Gradient 229.525 mmHg (0-20)
[2021-09-21] MEDS: Dexmedetomidine 1,000 MCG in Sodium Chloride 0.9% 250 ML 240 ML IVPB SCH ×2 (08:52→20:32)
[2021-09-21] MEDS: Morphine 4 MG/ML VIAL SLOW IVP PRN (08:59)
[2021-09-21] MEDS: Aspirin Chewable 81 MG TAB PO SCH (10:22)
[2021-09-21] MEDS: Apixaban 2.5 MG TAB PO SCH ×2 (10:22→20:52)
[2021-09-21] MEDS: Midodrine HCl 5 MG TAB PER TUBE SCH ×3 (10:22→20:52)
[2021-09-21] MEDS: Famotidine 20 MG TAB PO SCH (10:22)
[2021-09-21] MEDS: Dextrose 50% Abboject 50 ML SYRINGE SLOW IVP PRN (20:48)
[2021-09-22 05:04] LABS: Anion Gap 11 mmol/L (10-20); BUN (Urea Nitrogen) 30 mg/dL (8.9-20.6); Calc. Creatinine Clearance 41 mL/min (70-130); Calcium 8.5 mg/dL (7.8-10.44); Carbon Dioxide 29 mmol/L (22-29); Chloride 97 mmol/L (98-107); Glucose 92 mg/dL (70-105); Potassium 4.1 mmol/L (3.5-5.1); Sodium 133 mmol/L (136-145)
[2021-09-22 06:17] LABS: Band 5 % (5-11); Eosinophils 2 % (0-10); Hemoglobin 8.5 g/dL (14.0-18.0); Lymphocytes 10 % (21-51); MDiff Complete? YES; Mean Corpuscular HGB CONC 30.6 g/dL (32.0-36.0); Mean Corpuscular Hemoglobin 26.9 pg (27.0-31.0); Mean Corpuscular Volume 87.7 fL (78.0-98.0); Mean Platelet Volume 8.6 fL (7.4-10.4); Monocytes 10 % (0-10); Neutrophil 73 % (42-75); Platelet Count 273 thou/uL (130-400); RBC Distribution Width 19.1 % (11.5-14.5); Red Blood Cell (RBC) Count 3.17 mill/uL (4.70-6.10); White Blood Cell (WBC) Count 11.2 thou/uL (4.8-10.8)
[2021-09-22] MEDS: Dexmedetomidine 1,000 MCG in Sodium Chloride 0.9% 250 ML 240 ML IVPB SCH ×2 (06:34→16:39)
[2021-09-22] MEDS ORDERED: Morphine 4 MG/ML VIAL SLOW IVP PRN (07:23)
[2021-09-22 07:30] LABS: Actual Bicarbonate (HCO3a) 27.1 mEq/L (22-28); Base Excess (BEa) 3.4 mEq/L (-2.0 to +3.0); CO2 Tension 37.7 mmHg (35.0-45.0); Hemoglobin (Hb) 9.3 g/dL (14.0-18.0); O2 Tension (PaO2), arterial 87.6 mmHg (80.0-100.0); Potassium - ABG Lab 4.01 mmol/L (3.70-5.30); pH, Arterial 7.48 (7.35-7.45)
[2021-09-22 07:31] LABS: Puncture Site RRA
[2021-09-22 07:32] LABS: ALV-art Gradient 221.775 mmHg (0-20)
[2021-09-22] MEDS: Apixaban 2.5 MG TAB PO SCH ×2 (08:23→20:56)
[2021-09-22] MEDS: Aspirin Chewable 81 MG TAB PO SCH (08:23)
[2021-09-22] MEDS: Midodrine HCl 5 MG TAB PER TUBE SCH ×4 (08:23→20:56)
[2021-09-22] MEDS: Lorazepam 2 MG/ML VIAL SLOW IVP PRN (08:24)
[2021-09-22] MEDS: Famotidine 20 MG TAB PO SCH (08:24)
[2021-09-22] MEDS: fentaNYL 50 mcg/hour Patch TD SCH (13:44)
[2021-09-22 14:08] LABS: Hemoglobin 8.9 g/dL (14.0-18.0); Platelet Count 278 thou/uL (130-400)
[2021-09-23] MEDS: Lorazepam 2 MG/ML VIAL SLOW IVP PRN ×5 (03:46→23:54)
[2021-09-23] MEDS: Acetaminophen 325 MG TAB PO PRN (03:46)
[2021-09-23] MEDS: Dexmedetomidine 1,000 MCG in Sodium Chloride 0.9% 250 ML 240 ML IVPB SCH ×2 (03:48→17:18)
[2021-09-23 04:31] LABS: Anion Gap 11 mmol/L (10-20); BUN (Urea Nitrogen) 42 mg/dL (8.9-20.6); Calc. Creatinine Clearance 35 mL/min (70-130); Calcium 8.4 mg/dL (7.8-10.44); Carbon Dioxide 28 mmol/L (22-29); Chloride 97 mmol/L (98-107); Glucose 92 mg/dL (70-105); Hemoglobin 8.8 g/dL (14.0-18.0); Mean Corpuscular HGB CONC 32.1 g/dL (32.0-36.0); Mean Corpuscular Hemoglobin 27.9 pg (27.0-31.0); Mean Corpuscular Volume 86.7 fL (78.0-98.0); Mean Platelet Volume 8.4 fL (7.4-10.4); Platelet Count 288 thou/uL (130-400); Potassium 4.2 mmol/L (3.5-5.1); Red Blood Cell (RBC) Count 3.15 mill/uL (4.70-6.10); Sodium 132 mmol/L (136-145); White Blood Cell (WBC) Count 12.5 thou/uL (4.8-10.8)
[2021-09-23 04:57] LABS: Anisocytosis MODERATE=16-30 cells (100X) (0-5/hpf); Band 2 % (5-11); Eosinophils 2 % (0-10); Lymphocytes 5 % (21-51); MDiff Complete? YES; Monocytes 5 % (0-10); Neutrophil 86 % (42-75); Polychromasia MODERATE = 3-4 cells (100X) (0-2/hpf); Target Cells SLIGHT = 2-5 cells (100X) (0-1/hpf)
[2021-09-23 08:00] LABS: Actual Bicarbonate (HCO3a) 22.9 mEq/L (22-28); Analyzer IN Cardio ER; Base Excess (BEa) -0.5 mEq/L (-2.0 to +3.0); CO2 Tension 32.8 mmHg (35.0-45.0); Calcium, Ionized (arterial) 1.11 mmol/L (1.12-1.30); Carboxyhemoglobin (COHb) 0.8 gm% (0.0-3.0); Hemoglobin (Hb) 10.7 g/dL (14.0-18.0); O2 Tension (PaO2), arterial 103.7 mmHg (80.0-100.0); Potassium - ABG Lab 4.07 mmol/L (3.70-5.30); pH, Arterial 7.46 (7.35-7.45)
[2021-09-23 08:08] LABS: Puncture Site LRA
[2021-09-23] MEDS: Scopolamine 1.5 mg/72 hour Patch TOP SCH (08:41)
[2021-09-23] MEDS: Apixaban 2.5 MG TAB PO SCH ×2 (08:42→20:57)
[2021-09-23] MEDS: Famotidine 20 MG TAB PO SCH (08:42)
[2021-09-23] MEDS: Aspirin Chewable 81 MG TAB PO SCH (08:42)
[2021-09-23] MEDS: Midodrine HCl 5 MG TAB PER TUBE SCH ×3 (08:42→20:57)
[2021-09-23 15:32] LABS: SARS-CoV-2 PCR by NAA Not Detected (NotDetected)
[2021-09-24] MEDS: Lorazepam 2 MG/ML VIAL SLOW IVP PRN (04:22)
[2021-09-24 04:53] LABS: Hemoglobin 8.8 g/dL (14.0-18.0); Mean Corpuscular HGB CONC 30.4 g/dL (32.0-36.0); Mean Corpuscular Hemoglobin 26.5 pg (27.0-31.0); Mean Corpuscular Volume 87.4 fL (78.0-98.0); Mean Platelet Volume 8.4 fL (7.4-10.4); Platelet Count 289 thou/uL (130-400); RBC Distribution Width 19.3 % (11.5-14.5); White Blood Cell (WBC) Count 12.6 thou/uL (4.8-10.8)
[2021-09-24 04:58] LABS: Anion Gap 14 mmol/L (10-20); BUN (Urea Nitrogen) 30 mg/dL (8.9-20.6); Calc. Creatinine Clearance 44 mL/min (70-130); Calcium 8.5 mg/dL (7.8-10.44); Carbon Dioxide 27 mmol/L (22-29); Chloride 99 mmol/L (98-107); Glucose 84 mg/dL (70-105); Potassium 3.9 mmol/L (3.5-5.1); Sodium 136 mmol/L (136-145)
[2021-09-24 05:14] VITALS: BMI 35.8
[2021-09-24 05:45] LABS: Band 3 % (5-11); Eosinophils 2 % (0-10); Lymphocytes 10 % (21-51); MDiff Complete? YES; Monocytes 1 % (0-10); Neutrophil 84 % (42-75)
[2021-09-24 06:32] VITALS: TEMP 99.4
[2021-09-24] MEDS: Famotidine 20 MG TAB PO SCH (09:27)
[2021-09-24] MEDS: Aspirin Chewable 81 MG TAB PO SCH (09:27)
[2021-09-24] MEDS: Midodrine HCl 5 MG TAB PER TUBE SCH (09:28)
[2021-09-24] MEDS: Acetaminophen 325 MG TAB PO PRN (09:28)
[2021-09-24] MEDS: Apixaban 2.5 MG TAB PO SCH (09:28)
[2021-09-24 11:07] VITALS: BP 90/60
[2021-09-24 12:33] LABS: Hemoglobin 8.7 g/dL (14.0-18.0); Platelet Count 271 thou/uL (130-400)
[2021-09-24] MEDS ORDERED: Dexmedetomidine 1,000 MCG in Sodium Chloride 0.9% 250 ML 240 ML IVPB SCH (14:15)
== END 2021-09-24 14:39 | DRG 3 ==
LOC: ERS 15:13 → ERHOLD 19:42 → CCU 09-01 01:46
PROVIDERS: ADMIT Internal Medicine; ATTEND Internal Medicine
PROC: 3E033XZ Introduction of Vasopressor into Peripheral Vein, Percutaneous Approach (ICD-10-PCS; 2021-08-31)
PROC: 5A1D70Z Performance of Urinary Filtration, Intermittent, Less than 6 Hours Per Day (ICD-10-PCS; 2021-08-31)
PROC: 5A1955Z Respiratory Ventilation, Greater than 96 Consecutive Hours (ICD-10-PCS; 2021-09-01)
PROC: 3E043XZ Introduction of Vasopressor into Central Vein, Percutaneous Approach (ICD-10-PCS; 2021-09-01)
PROC: 0BH18EZ Insertion of Endotracheal Airway into Trachea, Via Natural or Artificial Opening Endoscopic (ICD-10-PCS; 2021-09-01)
PROC: 5A09357 Assistance with Respiratory Ventilation, Less than 24 Consecutive Hours, Continuous Positive Airway Pressure (ICD-10-PCS; 2021-09-01)
PROC: 0W9D0ZZ Drainage of Pericardial Cavity, Open Approach (ICD-10-PCS; 2021-09-01)
PROC: 04HY32Z Insertion of Monitoring Device into Lower Artery, Percutaneous Approach (ICD-10-PCS; 2021-09-02)
PROC: 30233N1 Transfusion of Nonautologous Red Blood Cells into Peripheral Vein, Percutaneous Approach (ICD-10-PCS; 2021-09-14)
PROC: 0B110F4 Bypass Trachea to Cutaneous with Tracheostomy Device, Open Approach (ICD-10-PCS; principal; 2021-09-16)
PROC: 0DH63UZ Insertion of Feeding Device into Stomach, Percutaneous Approach (ICD-10-PCS; 2021-09-16)
PROC: B51W1ZZ Fluoroscopy of Dialysis Shunt/Fistula using Low Osmolar Contrast (ICD-10-PCS; 2021-09-17)
PROC: 0DH67UZ Insertion of Feeding Device into Stomach, Via Natural or Artificial Opening (ICD-10-PCS; 2021-09-20)
DX: A41.9 Sepsis, unspecified organism (principal); N18.6 End stage renal disease; R65.21 Severe sepsis with septic shock; I50.23 Acute on chronic systolic (congestive) heart failure; J96.01 Acute respiratory failure with hypoxia; R57.0 Cardiogenic shock; J18.9 Pneumonia, unspecified organism; S75.092 Other specified injury of femoral artery, left leg; I21.A1 Myocardial infarction type 2; I13.2 Hypertensive heart and chronic kidney disease with heart failure and with stage 5 chronic kidney disease, or end stage renal disease; I31.3 Pericardial effusion (noninflammatory); I42.8 Other cardiomyopathies; L97.929 Non-pressure chronic ulcer of unspecified part of left lower leg with unspecified severity; L97.919 Non-pressure chronic ulcer of unspecified part of right lower leg with unspecified severity; Z99.11 Dependence on respirator [ventilator] status; I47.2 Ventricular tachycardia; I82.C11 Acute embolism and thrombosis of right internal jugular vein; I82.611 Acute embolism and thrombosis of superficial veins of right upper extremity; G72.81 Critical illness myopathy; D62 Acute posthemorrhagic anemia; E46 Unspecified protein-calorie malnutrition; I31.4 Cardiac tamponade; I87.1 Compression of vein; Z20.822 Contact with and (suspected) exposure to COVID-19; R13.12 Dysphagia, oropharyngeal phase; F17.210 Nicotine dependence, cigarettes, uncomplicated; K52.9 Noninfective gastroenteritis and colitis, unspecified; R77.8 Other specified abnormalities of plasma proteins; I49.3 Ventricular premature depolarization; I27.20 Pulmonary hypertension, unspecified; I48.0 Paroxysmal atrial fibrillation; I07.1 Rheumatic tricuspid insufficiency; D63.1 Anemia in chronic kidney disease; E66.9 Obesity, unspecified; E83.59 Other disorders of calcium metabolism; I50.813 Acute on chronic right heart failure; I70.203 Unspecified atherosclerosis of native arteries of extremities, bilateral legs; I86.8 Varicose veins of other specified sites; F41.9 Anxiety disorder, unspecified; S30.1XXA Contusion of abdominal wall, initial encounter; E87.6 Hypokalemia; E83.42 Hypomagnesemia; Z68.34 Body mass index [BMI] 34.0-34.9, adult; Z78.1 Physical restraint status; Z91.19 Patient's noncompliance with other medical treatment and regimen; Z99.2 Dependence on renal dialysis; Z28.82 Immunization not carried out because of caregiver refusal; Z95.810 Presence of automatic (implantable) cardiac defibrillator; Z90.49 Acquired absence of other specified parts of digestive tract; Z88.8 Allergy status to other drugs, medicaments and biological substances; Z91.018 Allergy to other foods; Z79.899 Other long term (current) drug therapy; X83.8XXA Intentional self-harm by other specified means, initial encounter; Z79.82 Long term (current) use of aspirin; Z82.49 Family history of ischemic heart disease and other diseases of the circulatory system; Z86.74 Personal history of sudden cardiac arrest; Z95.818 Presence of other cardiac implants and grafts
CPT/HCPCS: 0240U; 36415; 36416; 36430; 36556; 36600; 36901; 71045; 74177; 76936; 80048; 80053; 80076; 80202; 80400; 82553; 82805; 83605; 83690; 83735; 83880; 84145; 84484; 85007; 85014; 85018; 85025; 85027; 85049; 85300; 85362; 85379; 85384; 85520; 85610; 85730; 86850; 86900; 86901; 87040; 87070; 87205; 88112; 88305; 90935; 93005; 93010; 93306; 93923; 94002; 94003; 94660; 94760; 96365; 96366; 96367; C1713; C1887; G0257; J0171; J0696; J0834; J1160; J1250; J1265; J1644; J2060; J2250; J2270; J2405; J2543; J2704; J2720; J3010; J3370; J3475; J3480; J3490; J7030; J7050; J7070; J7120; P9016; P9047; Q5105; Q9967; S0020; U0003; U0005

== ENCOUNTER 2022-03-09 12:36 | Inpatient (IN) | payer MEDICARE, MEDICAID ==
[2022-03-08 13:06] VITALS: BMI 25.2
[2022-03-09] MEDS ORDERED: Heparin 5,000 UNITS/ML VIAL ONE (13:18)
[2022-03-09] MEDS ORDERED: Protamine Sulfate 50 MG/5 ML VIAL ONE (13:18)
[2022-03-09] MEDS ORDERED: Bupivacaine PF 0.5% 30 ML VIAL ONE (13:18)
[2022-03-09] MEDS ORDERED: Lidocaine 1% w/Epinephrine 1:100K 20 ML VIAL ONE (13:18)
[2022-03-09] MEDS ORDERED: hydrALAZINE 20 MG/ML VIAL SLOW IVP PRN (13:36)
[2022-03-09] MEDS ORDERED: GUAIFENESIN SF SOLN 200 MG/10 ML UDCUP PO PRN (13:38)
[2022-03-09] MEDS ORDERED: Midodrine HCl 5 MG TAB PO PRN (13:38)
[2022-03-09] MEDS ORDERED: ALPRAZolam 0.25 MG TAB PO PRN (13:38)
[2022-03-09] MEDS ORDERED: Ondansetron ODT 4 MG TAB SL PRN (13:38)
[2022-03-09] MEDS ORDERED: Polyethylene Glycol 3350 17 GM Packet PO PRN (13:38)
[2022-03-09] MEDS ORDERED: Heparin 1,000 UNITS/ML VIAL ONE (13:42)
[2022-03-09 14:20] LABS: Anion Gap 16 mmol/L (10-20); BUN (Urea Nitrogen) 18 mg/dL (8.9-20.6); Calc. Creatinine Clearance 26 mL/min (70-130); Calcium 9.4 mg/dL (7.8-10.44); Carbon Dioxide 28 mmol/L (22-29); Chloride 100 mmol/L (98-107); Glucose 66 mg/dL (70-105); Potassium 3.5 mmol/L (3.5-5.1); Sodium 140 mmol/L (136-145)
[2022-03-09 14:35] LABS: Anisocytosis SLIGHT = 6-15 cells (100X) (0-5/hpf); Eosinophils 2 % (0-10); Hemoglobin 12.2 g/dL (14.0-18.0); Hypochromia SLIGHT = 6-15 cells (100X) (0-5/hpf); Lymphocytes 16 % (21-51); MDiff Complete? YES; Mean Corpuscular HGB CONC 30.3 g/dL (32.0-36.0); Mean Corpuscular Volume 82.3 fL (78.0-98.0); Mean Platelet Volume 6.2 fL (7.4-10.4); Monocytes 14 % (0-10); Neutrophil 60 % (42-75); Nucleated RBC 1 % (0); Ovalocytes SLIGHT = 2-5 cells (100X) (0-1/hpf); Platelet Count 131 thou/uL (130-400); Platelet Morphology Comment Appears Adequate; Polychromasia SLIGHT = 2-3 cells (100X) (0-2/hpf); RBC Distribution Width 23.2 % (11.5-14.5); Reactive Lymphocytes 7 % (0-10); Target Cells SLIGHT = 2-5 cells (100X) (0-1/hpf); White Blood Cell (WBC) Count 5.5 thou/uL (4.8-10.8)
[2022-03-09] MEDS ORDERED: diphenhydrAMINE 25 MG CAP PO PRN (15:50)
[2022-03-09] MEDS ORDERED: CEFAZOLIN 2 GM in Sodium Chloride 0.9% 100 ML IVPB SCH (16:00)
[2022-03-09] MEDS: Metoprolol Tartrate 50 MG TAB PO SCH ×2 (16:06→20:29)
[2022-03-09] MEDS: Sevelamer Carbonate 800 MG TAB PO SCH ×2 (16:06→20:29)
[2022-03-09 17:58] LABS: SARS-CoV-2 NAA Rapid Test Not Detected (NotDetected)
[2022-03-09] MEDS: Midodrine HCl 5 MG TAB PO SCH (20:29)
[2022-03-09] MEDS: Ascorbic Acid 500 mg Chewable Tablet PO SCH (20:29)
[2022-03-09] MEDS ORDERED: [UNRECOGNIZED DRUG - OTHER] PO SCH (21:00)
[2022-03-09] MEDS ORDERED: Famotidine 20 MG TAB PO SCH (21:00)
[2022-03-09] MEDS ORDERED: AMINO ACIDS PO SCH (21:00)
[2022-03-09] MEDS ORDERED: PROTEIN HYDROLYS PO SCH (21:00)
[2022-03-10] MEDS ORDERED: Heparin 10,000 UNITS/ 10 ML VIAL ONE (08:53)
[2022-03-10] MEDS ORDERED: Cetirizine HCl 10 MG TAB PO SCH (09:00)
[2022-03-10] MEDS: Metoprolol Tartrate 50 MG TAB PO SCH ×3 (09:23→20:26)
[2022-03-10] MEDS: Sevelamer Carbonate 800 MG TAB PO SCH ×3 (09:23→20:26)
[2022-03-10] MEDS: Midodrine HCl 5 MG TAB PO SCH ×3 (09:23→20:26)
[2022-03-10] MEDS: Acetaminophen 325 MG TAB PO PRN ×2 (10:10→20:26)
[2022-03-10] MEDS: Aspirin 81 mg Enteric Coated Tablet PO SCH (13:27)
[2022-03-10] MEDS ORDERED: Midazolam HCl 2 mg/2 ml Vial ONE ×2 (13:47→13:55)
[2022-03-10] MEDS ORDERED: Fentanyl 100 MCG/2 ML VIAL ONE (13:47)
[2022-03-10] MEDS ORDERED: fentaNYL Citrate/PF 100 MCG/2 ML SYRINGE ONE (13:56)
[2022-03-10] MEDS ORDERED: Heparin 5,000 UNITS/ML VIAL ONE (14:01)
[2022-03-10] MEDS ORDERED: Bupivacaine PF 0.5% 30 ML VIAL ONE (14:01)
[2022-03-10] MEDS ORDERED: Ioversol 68 % 50 ML VIAL ONE (14:01)
[2022-03-10] MEDS ORDERED: Protamine Sulfate 50 MG/5 ML VIAL ONE (14:01)
[2022-03-10] MEDS ORDERED: Ropivacaine 0.5% HCl/PF (150 MG/30 ML VIAL) ONE (14:10)
[2022-03-10] MEDS ORDERED: CEFAZOLIN 2 GM VIAL ONE (14:13)
[2022-03-10] MEDS ORDERED: Sodium Chloride 0.9% 100 ML ONE (14:13)
[2022-03-10] MEDS: Ascorbic Acid 500 mg Chewable Tablet PO SCH ×2 (16:29→20:26)
[2022-03-10] MEDS: Multivits W-Minerals Liquid 15 ML LIQ PO SCH (16:29)
[2022-03-10] MEDS: Zinc Sulfate 220 MG CAP PO SCH (16:29)
[2022-03-10] MEDS: Famotidine 20 MG TAB PO SCH (16:29)
[2022-03-10] MEDS: Acetaminophen/Codeine 30-300mg Tablet PO PRN (22:04)
[2022-03-11 05:07] LABS: ALT (SGPT) Less than 7 U/L (8-55); AST (SGOT) 15 U/L (5-34); Albumin 3.2 g/dL (3.5-5.0); Alkaline Phosphatase 204 U/L (40-110); Anion Gap 17 mmol/L (10-20); BUN (Urea Nitrogen) 28 mg/dL (8.9-20.6); Bilirubin, Total 0.7 mg/dL (0.2-1.2); Calc. Creatinine Clearance 19 mL/min (70-130); Calcium 9.2 mg/dL (7.8-10.44); Carbon Dioxide 28 mmol/L (22-29); Chloride 99 mmol/L (98-107); Globulin 3.8 g/dL (2.4-3.5); Glucose 101 mg/dL (70-105); Potassium 3.8 mmol/L (3.5-5.1); Sodium 140 mmol/L (136-145)
[2022-03-11 05:24] LABS: Anisocytosis SLIGHT = 6-15 cells (100X) (0-5/hpf); Eosinophils 3 % (0-10); Hemoglobin 13.2 g/dL (14.0-18.0); Hypochromia SLIGHT = 6-15 cells (100X) (0-5/hpf); Lymphocytes 19 % (21-51); MDiff Complete? YES; Mean Corpuscular HGB CONC 29.5 g/dL (32.0-36.0); Mean Corpuscular Hemoglobin 24.9 pg (27.0-31.0); Mean Corpuscular Volume 84.4 fL (78.0-98.0); Mean Platelet Volume 5.8 fL (7.4-10.4); Monocytes 10 % (0-10); Neutrophil 67 % (42-75); Platelet Count 154 thou/uL (130-400); RBC Distribution Width 23.7 % (11.5-14.5); Reactive Lymphocytes 1 % (0-10); Red Blood Cell (RBC) Count 5.31 mill/uL (4.70-6.10); Target Cells SLIGHT = 2-5 cells (100X) (0-1/hpf); Tear Drops SLIGHT = 2-5 cells (100X) (0-1/hpf)
[2022-03-11] MEDS: Acetaminophen/Codeine 30-300mg Tablet PO PRN ×2 (06:19→21:27)
[2022-03-11] MEDS: Sevelamer Carbonate 800 MG TAB PO SCH ×3 (09:13→20:29)
[2022-03-11] MEDS: Zinc Sulfate 220 MG CAP PO SCH (09:13)
[2022-03-11] MEDS: Ascorbic Acid 500 mg Chewable Tablet PO SCH ×2 (09:13→20:29)
[2022-03-11] MEDS: Famotidine 20 MG TAB PO SCH (09:13)
[2022-03-11] MEDS: Midodrine HCl 5 MG TAB PO SCH ×3 (09:14→20:29)
[2022-03-11] MEDS: Aspirin 81 mg Enteric Coated Tablet PO SCH (09:14)
[2022-03-11] MEDS: Multivits W-Minerals Liquid 15 ML LIQ PO SCH (09:18)
[2022-03-11] MEDS: traMADol HCl 50 MG TAB PO PRN ×2 (11:29→23:37)
[2022-03-11] MEDS: Morphine 2 MG/ML VIAL SLOW IVP PRN ×2 (16:57→20:29)
[2022-03-12] MEDS ORDERED: Heparin 10,000 UNITS/ 10 ML VIAL ONE (09:26)
[2022-03-12] MEDS: Sevelamer Carbonate 800 MG TAB PO SCH ×3 (10:15→21:37)
[2022-03-12] MEDS: Midodrine HCl 5 MG TAB PO SCH ×3 (10:15→21:38)
[2022-03-12] MEDS: Ascorbic Acid 500 mg Chewable Tablet PO SCH ×2 (10:15→21:38)
[2022-03-12] MEDS: Zinc Sulfate 220 MG CAP PO SCH (13:58)
[2022-03-12] MEDS: Aspirin 81 mg Enteric Coated Tablet PO SCH (13:59)
[2022-03-12] MEDS: Famotidine 20 MG TAB PO SCH (13:59)
[2022-03-12] MEDS: Multivits W-Minerals Liquid 15 ML LIQ PO SCH (13:59)
[2022-03-12] MEDS: Acetaminophen/Codeine 30-300mg Tablet PO PRN (17:43)
[2022-03-12] MEDS: traMADol HCl 50 MG TAB PO PRN (21:38)
[2022-03-13 01:45] LABS: Anion Gap 17 mmol/L (10-20); BUN (Urea Nitrogen) 22 mg/dL (8.9-20.6); Calc. Creatinine Clearance 23 mL/min (70-130); Calcium 9.7 mg/dL (7.8-10.44); Carbon Dioxide 26 mmol/L (22-29); Chloride 98 mmol/L (98-107); Glucose 100 mg/dL (70-105); Magnesium 1.9 mg/dL (1.6-2.6); Sodium 137 mmol/L (136-145)
[2022-03-13 02:07] LABS: CKMB 1.3 ng/mL (0-6.6)
[2022-03-13 06:32] LABS: #Basophils 0.1 thou/uL (0.0-0.2); #Eosinphils 0.1 thou/uL (0.0-0.7); #Lymphocytes 1.9 thou/uL (1.20-3.40); #Monocytes 1.5 thou/uL (0.11-0.59); #Neutrophils 7.9 thou/uL (1.40-6.50); %Basophils 0.8 % (0.0-1.0); %Eosinophils 0.8 % (0.0-10.0); %Lymphocytes 16.4 % (21.0-51.0); %Neutrophils 68.9 % (42.0-75.0); Mean Corpuscular HGB CONC 30.4 g/dL (32.0-36.0); Mean Corpuscular Hemoglobin 25.8 pg (27.0-31.0); Mean Corpuscular Volume 84.8 fL (78.0-98.0); Mean Platelet Volume 5.7 fL (7.4-10.4); Platelet Count 152 thou/uL (130-400); RBC Distribution Width 22.9 % (11.5-14.5); Red Blood Cell (RBC) Count 5.02 mill/uL (4.70-6.10); White Blood Cell (WBC) Count 11.4 thou/uL (4.8-10.8)
[2022-03-13 06:56] LABS: Anion Gap 16 mmol/L (10-20); BUN (Urea Nitrogen) 22 mg/dL (8.9-20.6); Calc. Creatinine Clearance 21 mL/min (70-130); Calcium 9.4 mg/dL (7.8-10.44); Carbon Dioxide 27 mmol/L (22-29); Chloride 95 mmol/L (98-107); Glucose 87 mg/dL (70-105); Potassium 4.4 mmol/L (3.5-5.1); Sodium 134 mmol/L (136-145)
[2022-03-13 08:01] VITALS: BP 110/65; TEMP 98.3
[2022-03-13] MEDS: Famotidine 20 MG TAB PO SCH (09:07)
[2022-03-13] MEDS: Midodrine HCl 5 MG TAB PO SCH (09:07)
[2022-03-13] MEDS: Aspirin 81 mg Enteric Coated Tablet PO SCH (09:07)
[2022-03-13] MEDS: traMADol HCl 50 MG TAB PO PRN (09:07)
[2022-03-13] MEDS: Zinc Sulfate 220 MG CAP PO SCH (09:08)
[2022-03-13] MEDS: Multivits W-Minerals Liquid 15 ML LIQ PO SCH (09:08)
[2022-03-13] MEDS: Ascorbic Acid 500 mg Chewable Tablet PO SCH (09:08)
[2022-03-13] MEDS: Sevelamer Carbonate 800 MG TAB PO SCH (09:08)
== END 2022-03-13 09:40 | DRG 252 ==
LOC: SDC 12:36 → 2NO 13:36
PROVIDERS: ADMIT Specialist; ATTEND Internal Medicine
PROC: 031B0ZF Bypass Right Radial Artery to Lower Arm Vein, Open Approach (ICD-10-PCS; principal; 2022-03-10)
PROC: 05LD0ZZ Occlusion of Right Cephalic Vein, Open Approach (ICD-10-PCS; 2022-03-10)
PROC: 5A1D70Z Performance of Urinary Filtration, Intermittent, Less than 6 Hours Per Day (ICD-10-PCS; 2022-03-10)
DX: T82.510A Breakdown (mechanical) of surgically created arteriovenous fistula, initial encounter (principal); Z20.822 Contact with and (suspected) exposure to COVID-19; N18.6 End stage renal disease; J96.01 Acute respiratory failure with hypoxia; I13.2 Hypertensive heart and chronic kidney disease with heart failure and with stage 5 chronic kidney disease, or end stage renal disease; I48.21 Permanent atrial fibrillation; I50.22 Chronic systolic (congestive) heart failure; D63.1 Anemia in chronic kidney disease; I27.20 Pulmonary hypertension, unspecified; I25.5 Ischemic cardiomyopathy; I77.89 Other specified disorders of arteries and arterioles; Y83.2 Surgical operation with anastomosis, bypass or graft as the cause of abnormal reaction of the patient, or of later complication, without mention of misadventure at the time of the procedure; Z95.0 Presence of cardiac pacemaker; Z88.8 Allergy status to other drugs, medicaments and biological substances; Z91.018 Allergy to other foods; Z90.49 Acquired absence of other specified parts of digestive tract; Z98.890 Other specified postprocedural states; Z95.818 Presence of other cardiac implants and grafts; Z82.49 Family history of ischemic heart disease and other diseases of the circulatory system; Z87.891 Personal history of nicotine dependence; Z79.899 Other long term (current) drug therapy; Z79.890 Hormone replacement therapy; Z99.2 Dependence on renal dialysis
CPT/HCPCS: 36415; 71045; 80048; 80053; 82553; 83735; 83880; 84484; 85025; 90935; 93005; 93010; 93306; 93923; C1776; G0257; J1644; J2250; J2270; J2720; J2795; J3010; J3490; Q9967; S0020

== ENCOUNTER 2022-03-21 18:25 | Inpatient (IN) | payer MEDICARE, MEDICAID ==
[~2022-03-21 18:25] MED LIST changes: -Iopamidol-370 76% 500 ML 1 ML ONE
[2022-03-21 19:02] LABS: #Eosinphils 0.1 thou/uL (0.0-0.7); #Lymphocytes 1.4 thou/uL (1.20-3.40); #Monocytes 0.9 thou/uL (0.11-0.59); #Neutrophils 5.5 thou/uL (1.40-6.50); %Basophils 0.5 % (0.0-1.0); %Eosinophils 1.6 % (0.0-10.0); %Neutrophils 68.9 % (42.0-75.0); Hemoglobin 12.1 g/dL (14.0-18.0); Mean Corpuscular HGB CONC 31.7 g/dL (32.0-36.0); Mean Corpuscular Hemoglobin 26.7 pg (27.0-31.0); Mean Corpuscular Volume 84.2 fL (78.0-98.0); Mean Platelet Volume 10.8 fL (7.4-10.4); Platelet Count 202 thou/uL (130-400); RBC Distribution Width 21.8 % (11.5-14.5); Red Blood Cell (RBC) Count 4.52 mill/uL (4.70-6.10)
[2022-03-21] MEDS ORDERED: Morphine 4 MG/ML VIAL ONE (19:12)
[2022-03-21 19:23] LABS: ALT (SGPT) Less than 7 U/L (8-55); AST (SGOT) 16 U/L (5-34); Albumin 2.9 g/dL (3.5-5.0); Alkaline Phosphatase 231 U/L (40-110); Anion Gap 18 mmol/L (10-20); BUN (Urea Nitrogen) 30 mg/dL (8.9-20.6); Bilirubin, Total 0.9 mg/dL (0.2-1.2); Calc. Creatinine Clearance 0 mL/min (70-130); Calcium 9.9 mg/dL (7.8-10.44); Carbon Dioxide 25 mmol/L (22-29); Chloride 98 mmol/L (98-107); Globulin 4.1 g/dL (2.4-3.5); Glucose 85 mg/dL (70-105); INR-International Normal Ratio 1.3; Lipase 12 U/L (8-78); Magnesium 2.1 mg/dL (1.6-2.6); Potassium 4.3 mmol/L (3.5-5.1); Prothrombin Time 16.6 sec (12.0-14.7); Sodium 137 mmol/L (136-145)
[2022-03-21 19:26] LABS: PTT 40.3 sec (22.9-36.1)
[2022-03-21 19:45] LABS: CKMB 1.6 ng/mL (0-6.6)
[2022-03-21] MEDS ORDERED: Cefepime 2 GM VIAL ONE (19:59)
[2022-03-21] MEDS ORDERED: Vancomycin 1 GM/200 ML BAG ONE (20:05)
[2022-03-21] MEDS ORDERED: Acetaminophen 325 MG TAB PO PRN (21:40)
[2022-03-21] MEDS ORDERED: Ondansetron ODT 4 MG TAB PO PRN (21:40)
[2022-03-21] MEDS ORDERED: Ondansetron PF 4 MG/2 ML Vial IVP PRN (21:40)
[2022-03-21] MEDS ORDERED: Acetaminophen 650 MG Suppository PR PRN (21:40)
[2022-03-21] MEDS ORDERED: Heparin 25,000 units/D5W 500 ML IVPB SCH (21:45)
[2022-03-21] MEDS ORDERED: Heparin 10,000 UNITS/ 10 ML VIAL SLOW IVP SCH (21:45)
[2022-03-21 22:50] LABS: Hemoglobin 12.6 g/dL (14.0-18.0); Platelet Count 229 thou/uL (130-400)
[2022-03-22] MEDS ORDERED: Pharmacy to Dose : CEFEPIME IVPB PRN (03:56)
[2022-03-22] MEDS ORDERED: Vancomycin Diaylsis Sliding Scale (Wt 71-99) FS PRN (04:00)
[2022-03-22] MEDS ORDERED: Vancomycin HCl 500 MG in Sodium Chloride 0.9% 100 ML IVPB SCH (04:15)
[2022-03-22 07:12] LABS: #Basophils 0.1 thou/uL (0.0-0.2); #Eosinphils 0.1 thou/uL (0.0-0.7); #Lymphocytes 1.3 thou/uL (1.20-3.40); #Monocytes 0.7 thou/uL (0.11-0.59); #Neutrophils 5.2 thou/uL (1.40-6.50); %Eosinophils 1.2 % (0.0-10.0); %Lymphocytes 17.7 % (21.0-51.0); Hemoglobin 12.6 g/dL (14.0-18.0); Mean Corpuscular HGB CONC 30.1 g/dL (32.0-36.0); Mean Corpuscular Hemoglobin 25.6 pg (27.0-31.0); Mean Corpuscular Volume 85.1 fL (78.0-98.0); Mean Platelet Volume 10.9 fL (7.4-10.4); Platelet Count 210 thou/uL (130-400); RBC Distribution Width 22.2 % (11.5-14.5); Red Blood Cell (RBC) Count 4.91 mill/uL (4.70-6.10); White Blood Cell (WBC) Count 7.4 thou/uL (4.8-10.8)
[2022-03-22 07:24] LABS: Anion Gap 17 mmol/L (10-20); BUN (Urea Nitrogen) 34 mg/dL (8.9-20.6); Calc. Creatinine Clearance 16 mL/min (70-130); Calcium 10.1 mg/dL (7.8-10.44); Carbon Dioxide 25 mmol/L (22-29); Chloride 99 mmol/L (98-107); Glucose 96 mg/dL (70-105); Potassium 4.3 mmol/L (3.5-5.1); Sodium 137 mmol/L (136-145)
[2022-03-22 08:07] LABS: Anisocytosis MODERATE=16-30 cells (100X) (0-5/hpf); Hypochromia SLIGHT = 6-15 cells (100X) (0-5/hpf); MDiff Complete? YES; Ovalocytes SLIGHT = 2-5 cells (100X) (0-1/hpf); Platelet Morphology Comment Appears Adequate; Polychromasia SLIGHT = 2-3 cells (100X) (0-2/hpf)
[2022-03-22] MEDS ORDERED: Heparin 10,000 UNITS/ 10 ML VIAL ONE (08:45)
[2022-03-22] MEDS ORDERED: VANCOMYCIN 1.25 GM/250 ML BAG IVPB SCH (09:00)
[2022-03-22] MEDS: Sevelamer Carbonate 800 MG TAB PO SCH ×3 (09:42→21:30)
[2022-03-22] MEDS: HYDROcodone/Acetaminophen 7.5/325 mg Tablet PO PRN (09:42)
[2022-03-22] MEDS ORDERED: Midodrine HCl 5 MG TAB PO PRN (12:10)
[2022-03-22] MEDS ORDERED: Polyethylene Glycol 3350 17 GM Packet PO PRN (12:11)
[2022-03-22] MEDS ORDERED: ALPRAZolam 0.25 MG TAB PO PRN (12:11)
[2022-03-22] MEDS: Cefepime 0.5 GM, Admixture Fee 1 EACH in Sodium Chloride 0.9% 100 ML IVPB SCH (21:30)
[2022-03-22] MEDS: HYDROcodone/Acetaminophen 10/325 mg Tablet PO PRN (21:47)
[2022-03-22] MEDS: hydrOXYzine 25 MG TAB PO PRN (21:47)
[2022-03-23] MEDS ORDERED: Iopamidol 300 61% 50 ML VIAL FS ONE (08:00)
[2022-03-23] MEDS: HYDROcodone/Acetaminophen 10/325 mg Tablet PO PRN (08:05)
[2022-03-23] MEDS: Aspirin 81 mg Enteric Coated Tablet PO SCH (08:05)
[2022-03-23] MEDS: Sevelamer Carbonate 800 MG TAB PO SCH ×3 (09:00→17:18)
[2022-03-23] MEDS ORDERED: Acetaminophen 325 MG TAB PO PRN (13:22)
[2022-03-23] MEDS ORDERED: CEFAZOLIN 2 GM in Sodium Chloride 0.9% 100 ML IVPB SCH (14:15)
[2022-03-23] MEDS: Midodrine HCl 5 MG TAB PO SCH ×2 (15:20→21:29)
[2022-03-23] MEDS: Cefepime 0.5 GM, Admixture Fee 1 EACH in Sodium Chloride 0.9% 100 ML IVPB SCH (21:29)
[2022-03-24] MEDS: hydrOXYzine 25 MG TAB PO PRN (04:26)
[2022-03-24] MEDS: Sevelamer Carbonate 800 MG TAB PO SCH ×3 (08:00→19:55)
[2022-03-24] MEDS: Ascorbic Acid 500 mg Chewable Tablet PO SCH (08:30)
[2022-03-24] MEDS: Multivitamin W/ Minerals 1 TAB PO SCH (08:30)
[2022-03-24] MEDS: HYDROcodone/Acetaminophen 7.5/325 mg Tablet PO PRN ×2 (08:52→12:42)
[2022-03-24 09:05] LABS: Anion Gap 20 mmol/L (10-20); BUN (Urea Nitrogen) 32 mg/dL (8.9-20.6); Calc. Creatinine Clearance 16 mL/min (70-130); Calcium 10.1 mg/dL (7.8-10.44); Carbon Dioxide 24 mmol/L (22-29); Chloride 100 mmol/L (98-107); Glucose 81 mg/dL (70-105); Potassium 4.3 mmol/L (3.5-5.1); Sodium 140 mmol/L (136-145)
[2022-03-24 09:06] LABS: Hemoglobin 11.9 g/dL (14.0-18.0); Mean Corpuscular HGB CONC 29.5 g/dL (32.0-36.0); Mean Corpuscular Hemoglobin 24.8 pg (27.0-31.0); Mean Corpuscular Volume 84.1 fL (78.0-98.0); Mean Platelet Volume 5.6 fL (7.4-10.4); Platelet Count 217 thou/uL (130-400); RBC Distribution Width 21.8 % (11.5-14.5); Red Blood Cell (RBC) Count 4.78 mill/uL (4.70-6.10); White Blood Cell (WBC) Count 8.2 thou/uL (4.8-10.8)
[2022-03-24 12:03] VITALS: BMI 25.2
[2022-03-24] MEDS: Midodrine HCl 5 MG TAB PO SCH ×3 (12:42→21:17)
[2022-03-24] MEDS: Aspirin 81 mg Enteric Coated Tablet PO SCH (12:43)
[2022-03-24] MEDS ORDERED: fentaNYL Citrate/PF 100 MCG/2 ML SYRINGE ONE (15:42)
[2022-03-24] MEDS ORDERED: Heparin 5,000 UNITS/ML VIAL ONE (15:52)
[2022-03-24] MEDS ORDERED: Bupivacaine PF 0.5% 30 ML VIAL ONE (15:52)
[2022-03-24] MEDS ORDERED: Lidocaine 1% w/Epinephrine 1:100K 20 ML VIAL ONE (15:52)
[2022-03-24] MEDS ORDERED: Protamine Sulfate 50 MG/5 ML VIAL ONE (15:52)
[2022-03-24] MEDS ORDERED: Ketamine 50 MG/ML (10ML VIAL) ONE (17:09)
[2022-03-24] MEDS ORDERED: Propofol 500 MG/50 ML VIAL ONE (17:09)
[2022-03-24] MEDS ORDERED: Sodium Chloride 0.9% 100 ML ONE (17:14)
[2022-03-24] MEDS ORDERED: CEFAZOLIN 2 GM VIAL ONE (17:14)
[2022-03-24] MEDS: Cefepime 0.5 GM, Admixture Fee 1 EACH in Sodium Chloride 0.9% 100 ML IVPB SCH (21:17)
[2022-03-25] MEDS: HYDROcodone/Acetaminophen 10/325 mg Tablet PO PRN ×2 (09:23→15:29)
[2022-03-25] MEDS: Aspirin 81 mg Enteric Coated Tablet PO SCH (09:23)
[2022-03-25] MEDS: Midodrine HCl 5 MG TAB PO SCH ×2 (09:23→15:29)
[2022-03-25] MEDS: Ascorbic Acid 500 mg Chewable Tablet PO SCH (09:23)
[2022-03-25] MEDS: Multivitamin W/ Minerals 1 TAB PO SCH (09:23)
[2022-03-25] MEDS: Sevelamer Carbonate 800 MG TAB PO SCH ×3 (09:23→18:18)
[2022-03-25 16:09] VITALS: BP 110/76; TEMP 97.9
== END 2022-03-25 17:50 | DRG 252 ==
LOC: ERS 18:25 → 2NO 20:24
PROVIDERS: ADMIT Internal Medicine; ATTEND Internal Medicine
PROC: B548ZZA Ultrasonography of Superior Vena Cava, Guidance (ICD-10-PCS; 2022-03-23)
PROC: 02HV33Z Insertion of Infusion Device into Superior Vena Cava, Percutaneous Approach (ICD-10-PCS; 2022-03-23)
PROC: 05LD0ZZ Occlusion of Right Cephalic Vein, Open Approach (ICD-10-PCS; principal; 2022-03-24)
PROC: 05CD0ZZ Extirpation of Matter from Right Cephalic Vein, Open Approach (ICD-10-PCS; 2022-03-24)
DX: T82.7XXA Infection and inflammatory reaction due to other cardiac and vascular devices, implants and grafts, initial encounter (principal); L89.523 Pressure ulcer of left ankle, stage 3; N18.6 End stage renal disease; J96.01 Acute respiratory failure with hypoxia; A41.9 Sepsis, unspecified organism; T82.591A Other mechanical complication of surgically created arteriovenous shunt, initial encounter; I13.2 Hypertensive heart and chronic kidney disease with heart failure and with stage 5 chronic kidney disease, or end stage renal disease; I50.22 Chronic systolic (congestive) heart failure; I87.1 Compression of vein; I82.290 Acute embolism and thrombosis of other thoracic veins; Z20.822 Contact with and (suspected) exposure to COVID-19; F17.210 Nicotine dependence, cigarettes, uncomplicated; I48.0 Paroxysmal atrial fibrillation; T82.838A Hemorrhage due to vascular prosthetic devices, implants and grafts, initial encounter; D63.1 Anemia in chronic kidney disease; I25.10 Atherosclerotic heart disease of native coronary artery without angina pectoris; Y83.8 Other surgical procedures as the cause of abnormal reaction of the patient, or of later complication, without mention of misadventure at the time of the procedure; Z99.2 Dependence on renal dialysis; Z90.49 Acquired absence of other specified parts of digestive tract; Z88.8 Allergy status to other drugs, medicaments and biological substances; Z91.018 Allergy to other foods
CPT/HCPCS: 36005; 36415; 71045; 80048; 80053; 80202; 82553; 83605; 83690; 83735; 83880; 84443; 84484; 85025; 85027; 85610; 85730; 87040; 87070; 87077; 87186; 87205; 90935; 93005; 93970; 96365; 96375; C1776; C1887; G0257; J0690; J0692; J1644; J2270; J2704; J2720; J3370; J3490; Q9967; S0020; U0003; U0005

== ENCOUNTER 2022-03-29 10:05 | Emergency (ER) | payer MEDICARE, MEDICAID ==
[2022-03-29 11:22] LABS: #Eosinphils 0.1 thou/uL (0.0-0.7); #Lymphocytes 1.2 thou/uL (1.20-3.40); #Monocytes 0.6 thou/uL (0.11-0.59); #Neutrophils 4.9 thou/uL (1.40-6.50); %Basophils 0.7 % (0.0-1.0); %Eosinophils 2.1 % (0.0-10.0); %Lymphocytes 17.3 % (21.0-51.0); %Monocytes 9.1 % (0.0-10.0); %Neutrophils 70.8 % (42.0-75.0); Hemoglobin 12.2 g/dL (14.0-18.0); Mean Corpuscular Hemoglobin 24.8 pg (27.0-31.0); Mean Corpuscular Volume 85.3 fL (78.0-98.0); Mean Platelet Volume 11.2 fL (7.4-10.4); Platelet Count 223 thou/uL (130-400); RBC Distribution Width 21.9 % (11.5-14.5); Red Blood Cell (RBC) Count 4.92 mill/uL (4.70-6.10)
[2022-03-29 11:34] LABS: Magnesium 2.1 mg/dL (1.6-2.6)
[2022-03-29 11:36] LABS: ALT (SGPT) Less than 7 U/L (8-55); AST (SGOT) 15 U/L (5-34); Albumin 2.9 g/dL (3.5-5.0); Alkaline Phosphatase 243 U/L (40-110); Anion Gap 18 mmol/L (10-20); BUN (Urea Nitrogen) 34 mg/dL (8.9-20.6); Bilirubin, Total 0.6 mg/dL (0.2-1.2); Calc. Creatinine Clearance 0 mL/min (70-130); Calcium 9.7 mg/dL (7.8-10.44); Carbon Dioxide 29 mmol/L (22-29); Chloride 99 mmol/L (98-107); Globulin 4.3 g/dL (2.4-3.5); Glucose 69 mg/dL (70-105); Phosphorus 4.2 mg/dL (2.3-4.7); Potassium 3.8 mmol/L (3.5-5.1); Protein, Total 7.2 g/dL (6.0-8.3); Sodium 142 mmol/L (136-145)
[2022-03-29 11:46] LABS: Anisocytosis SLIGHT = 6-15 cells (100X) (0-5/hpf); Hypochromia SLIGHT = 6-15 cells (100X) (0-5/hpf); MDiff Complete? YES; Ovalocytes SLIGHT = 2-5 cells (100X) (0-1/hpf); Platelet Morphology Comment Appears Adequate; Polychromasia MODERATE = 3-4 cells (100X) (0-2/hpf); Target Cells MODERATE= 6-15 cells (100X) (0-1/hpf); Tear Drops SLIGHT = 2-5 cells (100X) (0-1/hpf)
== END 2022-03-29 15:55 | disposition home or self-care (01) ==
LOC: ERS 10:05
DX: R60.0 Localized edema (principal); I11.0 Hypertensive heart disease with heart failure; I50.9 Heart failure, unspecified; N18.6 End stage renal disease; I48.91 Unspecified atrial fibrillation; I25.2 Old myocardial infarction; E11.9 Type 2 diabetes mellitus without complications; F17.210 Nicotine dependence, cigarettes, uncomplicated; Z79.899 Other long term (current) drug therapy; Z79.82 Long term (current) use of aspirin
CPT/HCPCS: 36415; 80053; 83735; 84100; 85025; 99284

== ENCOUNTER 2022-06-22 10:21 | Day surgery (SDC) | payer MEDICARE, MEDICAID ==
[2022-06-21 12:37] VITALS: BMI 24.8
[2022-06-22] MEDS ORDERED: Bupivacaine HCl 0.5%/Epinephrine 1:200,000/PF 30 ml Vial ONE (11:03)
[2022-06-22] MEDS ORDERED: Heparin 5,000 UNITS/ML VIAL ONE (11:03)
[2022-06-22] MEDS ORDERED: Protamine Sulfate 50 MG/5 ML VIAL ONE (11:03)
[2022-06-22 11:33] LABS: #Basophils 0.1 thou/uL (0.0-0.2); #Eosinphils 0.2 thou/uL (0.0-0.7); #Lymphocytes 1.2 thou/uL (1.20-3.40); #Monocytes 0.9 thou/uL (0.11-0.59); #Neutrophils 5.2 thou/uL (1.40-6.50); %Basophils 1.2 % (0.0-1.0); %Eosinophils 2.1 % (0.0-10.0); %Lymphocytes 16.5 % (21.0-51.0); %Monocytes 11.3 % (0.0-10.0); Hemoglobin 12.2 g/dL (14.0-18.0); Mean Corpuscular HGB CONC 30.5 g/dL (32.0-36.0); Mean Corpuscular Hemoglobin 25.4 pg (27.0-31.0); Mean Corpuscular Volume 83.2 fL (78.0-98.0); Mean Platelet Volume 6.2 fL (7.4-10.4); Platelet Count 169 thou/uL (130-400); RBC Distribution Width 18.9 % (11.5-14.5); Red Blood Cell (RBC) Count 4.81 mill/uL (4.70-6.10); White Blood Cell (WBC) Count 7.5 thou/uL (4.8-10.8)
[2022-06-22] MEDS ORDERED: Albuterol Sulfate 2.5 mg/3 ml Neb ONE (11:36)
[2022-06-22 11:59] LABS: ALT (SGPT) 10 U/L (8-55); AST (SGOT) 15 U/L (5-34); Albumin 3.3 g/dL (3.5-5.0); Alkaline Phosphatase 187 U/L (40-110); Anion Gap 16 mmol/L (10-20); BUN (Urea Nitrogen) 46 mg/dL (8.9-20.6); Bilirubin, Total 0.8 mg/dL (0.2-1.2); Calc. Creatinine Clearance 18 mL/min (70-130); Calcium 9.7 mg/dL (7.8-10.44); Carbon Dioxide 23 mmol/L (22-29); Chloride 103 mmol/L (98-107); Estimated GFR 13; Globulin 3.8 g/dL (2.4-3.5); Glucose 81 mg/dL (70-105); Potassium 4.3 mmol/L (3.5-5.1); Protein, Total 7.1 g/dL (6.0-8.3); Sodium 138 mmol/L (136-145)
[2022-06-22] MEDS ORDERED: Sodium Chloride 0.9% 100 ML ONE (12:31)
[2022-06-22] MEDS ORDERED: CEFAZOLIN 2 GM VIAL ONE (12:31)
[2022-06-22] MEDS ORDERED: Midazolam HCl 2 mg/2 ml Vial ONE (12:35)
[2022-06-22] MEDS ORDERED: Dexmedetomidine 200 MCG/2 ML VIAL ONE (12:35)
[2022-06-22] MEDS ORDERED: Ketamine 50 MG/ML (10ML VIAL) ONE (12:35)
[2022-06-22] MEDS ORDERED: fentaNYL Citrate/PF 100 MCG/2 ML SYRINGE ONE (12:35)
[2022-06-22] MEDS ORDERED: Ropivacaine 2% HCl/PF (20 MG/10 ML VIAL) ONE (12:40)
[2022-06-22] MEDS ORDERED: Heparin 1,000 UNITS/ML VIAL ONE (14:29)
== END 2022-06-22 15:19 | disposition home or self-care (01) ==
LOC: SDC 10:21
PROVIDERS: ATTEND Specialist
PROC: 031C0ZF Bypass Left Radial Artery to Lower Arm Vein, Open Approach (ICD-10-PCS; principal; 2022-06-22)
DX: N18.6 End stage renal disease (principal); I87.1 Compression of vein; Z79.82 Long term (current) use of aspirin; Z79.899 Other long term (current) drug therapy; Z88.8 Allergy status to other drugs, medicaments and biological substances; Z91.018 Allergy to other foods; Z95.810 Presence of automatic (implantable) cardiac defibrillator
CPT/HCPCS: 80053; 85025; C1776; J0690; J1644; J2250; J2720; J2795; J3490; J7611

== ENCOUNTER 2022-11-17 12:23 | Inpatient (IN) | payer MEDICARE, MEDICAID ==
[~2022-11-17 12:23] MED LIST changes: -Heparin 1,000 UNITS/ML VIAL ONE; +Heparin 10,000 UNITS/ 10 ML VIAL ONE
[2022-11-17 13:09] LABS: #Eosinphils 0.1 thou/uL (0.0-0.7); #Lymphocytes 1.3 thou/uL (1.20-3.40); #Monocytes 0.7 thou/uL (0.11-0.59); #Neutrophils 4.1 thou/uL (1.40-6.50); %Basophils 0.6 % (0.0-1.0); %Eosinophils 1.6 % (0.0-10.0); %Lymphocytes 21.5 % (21.0-51.0); %Monocytes 10.6 % (0.0-10.0); %Neutrophils 65.8 % (42.0-75.0); Hemoglobin 15.4 g/dL (14.0-18.0); Mean Corpuscular HGB CONC 31.7 g/dL (32.0-36.0); Mean Corpuscular Hemoglobin 24.9 pg (27.0-31.0); Mean Corpuscular Volume 78.6 fl (78.0-98.0); Platelet Count 148 10x3/uL (130-400); RBC Distribution Width 18.4 % (11.5-14.5); Red Blood Cell (RBC) Count 6.17 mill/uL (4.70-6.10); White Blood Cell (WBC) Count 6.2 10x3/uL (4.8-10.8)
[2022-11-17 13:21] LABS: ALT (SGPT) 8 U/L (8-55); AST (SGOT) 15 U/L (5-34); Albumin 2.5 g/dL (3.5-5.0); Alkaline Phosphatase 134 U/L (40-110); Anion Gap 25 mmol/L (10-20); BUN (Urea Nitrogen) 106 mg/dL (8.9-20.6); Bilirubin, Total 0.7 mg/dL (0.2-1.2); Calc. Creatinine Clearance 0 mL/min (70-130); Carbon Dioxide 20 mmol/L (22-29); Chloride 101 mmol/L (98-107); Estimated GFR 4; Glucose 92 mg/dL (70-105); Magnesium 1.5 mg/dL (1.6-2.6); Protein, Total 5.5 g/dL (6.0-8.3); Sodium 141 mmol/L (136-145)
[2022-11-17 13:24] LABS: Calcium 6.2 mg/dL (7.8-10.44)
[2022-11-17 13:41] LABS: CKMB 7.8 ng/mL (0-6.6)
[2022-11-17] MEDS ORDERED: Ondansetron PF 4 MG/2 ML Vial IVP PRN (16:23)
[2022-11-17] MEDS ORDERED: Ondansetron ODT 4 MG TAB PO PRN (16:23)
[2022-11-17 17:06] LABS: HBSAg Index 0.29 S/CO (0-0.99); Hep B Core Total Ab Non-Reactive (NonReactive); Hep B Core Total Index 0.04 S/CO (0-0.79); Hep B Surf Ag Non-Reactive S/CO (NonReactive); Hep C IgG Ab Non-Reactive (NonReactive); Hep C Index 0.06 S/CO (0-0.79)
[2022-11-17 17:14] LABS: Hep B Surf AB Reactive (NonReactive)
[2022-11-17 17:29] LABS: Phosphorus 13.6 mg/dL (2.3-4.7)
[2022-11-17] MEDS ORDERED: Magnesium 2 GM/50 ML BAG (IN WATER) ONE (17:56)
[2022-11-17] MEDS ORDERED: Sevelamer Carbonate 800 MG TAB PO SCH (17:58)
[2022-11-17] MEDS: Magnesium 2 GM/50 ML(in water) 2 GM in Premix Bag 1 BAG IVPB SCH (18:01)
[2022-11-17 23:58] VITALS: BMI 30.4
[2022-11-18] MEDS: Magnesium 2 GM/50 ML(in water) 2 GM in Premix Bag 1 BAG IVPB SCH
[2022-11-18 04:44] LABS: #Basophils 0.1 thou/uL (0.0-0.2); #Eosinphils 0.1 thou/uL (0.0-0.7); #Lymphocytes 1.1 thou/uL (1.20-3.40); #Monocytes 0.7 thou/uL (0.11-0.59); #Neutrophils 4.3 thou/uL (1.40-6.50); %Basophils 1.1 % (0.0-1.0); %Eosinophils 1.1 % (0.0-10.0); %Lymphocytes 16.9 % (21.0-51.0); %Monocytes 11.4 % (0.0-10.0); %Neutrophils 69.6 % (42.0-75.0); Hemoglobin 15.1 g/dL (14.0-18.0); Mean Corpuscular HGB CONC 31.6 g/dL (32.0-36.0); Mean Corpuscular Hemoglobin 24.9 pg (27.0-31.0); Mean Corpuscular Volume 78.7 fl (78.0-98.0); Mean Platelet Volume 6.8 fL (7.4-10.4); Platelet Count 142 10x3/uL (130-400); RBC Distribution Width 18.7 % (11.5-14.5); Red Blood Cell (RBC) Count 6.08 mill/uL (4.70-6.10); White Blood Cell (WBC) Count 6.2 10x3/uL (4.8-10.8)
[2022-11-18 05:01] LABS: Anion Gap 20 mmol/L (10-20); BUN (Urea Nitrogen) 57 mg/dL (8.9-20.6); Calc. Creatinine Clearance 12 mL/min (70-130); Carbon Dioxide 27 mmol/L (22-29); Chloride 98 mmol/L (98-107); Estimated GFR 7; Glucose 80 mg/dL (70-105); Potassium 4.1 mmol/L (3.5-5.1); Sodium 141 mmol/L (136-145)
[2022-11-18 05:09] LABS: Calcium 6.9 mg/dL (7.8-10.44); Troponin I 0.115 ng/mL (< 0.028)
[2022-11-18] MEDS ORDERED: Sevelamer Carbonate 800 MG TAB PO SCH (08:00)
[2022-11-18] MEDS ORDERED: Calcium Acetate 667 MG CAP PO SCH ×2 (10:00→17:00)
[2022-11-18 13:46] VITALS: BP 117/73; TEMP 97.7
[2022-11-18] MEDS ORDERED: Calcium Carbonate 600 MG TAB PO SCH (21:00)
== END 2022-11-18 14:55 | disposition home or self-care (01) | DRG 640 ==
LOC: ERS 12:23 → ERHOLD 16:45 → 2SW 21:13
PROVIDERS: ADMIT Family Medicine; ATTEND Hospitalist
PROC: 5A1D70Z Performance of Urinary Filtration, Intermittent, Less than 6 Hours Per Day (ICD-10-PCS; principal; 2022-11-17)
DX: E87.70 Fluid overload, unspecified (principal); N18.6 End stage renal disease; I50.22 Chronic systolic (congestive) heart failure; I13.2 Hypertensive heart and chronic kidney disease with heart failure and with stage 5 chronic kidney disease, or end stage renal disease; I42.9 Cardiomyopathy, unspecified; N25.81 Secondary hyperparathyroidism of renal origin; E87.20 Acidosis, unspecified; I25.10 Atherosclerotic heart disease of native coronary artery without angina pectoris; I48.91 Unspecified atrial fibrillation; E83.42 Hypomagnesemia; E83.51 Hypocalcemia; E87.5 Hyperkalemia; E88.09 Other disorders of plasma-protein metabolism, not elsewhere classified; E83.39 Other disorders of phosphorus metabolism; D63.1 Anemia in chronic kidney disease; Z20.822 Contact with and (suspected) exposure to COVID-19; Z88.8 Allergy status to other drugs, medicaments and biological substances; Z91.018 Allergy to other foods; Z99.2 Dependence on renal dialysis; I25.2 Old myocardial infarction; Z95.810 Presence of automatic (implantable) cardiac defibrillator; Z90.49 Acquired absence of other specified parts of digestive tract; Z79.82 Long term (current) use of aspirin; Z79.899 Other long term (current) drug therapy
CPT/HCPCS: 36415; 71045; 80048; 80053; 82553; 83735; 83880; 84100; 84484; 85025; 86704; 93005; 93931; J1644; J3475; U0003; U0005

== ENCOUNTER 2023-08-07 20:14 | Inpatient (IN) | payer OTHER ==
[2023-08-07 21:05] LABS: #Basophils 0.1 thou/uL (0.0-0.2); #Eosinphils 0.1 thou/uL (0.0-0.7); #Monocytes 0.9 thou/uL (0.11-0.59); #Neutrophils 5.6 thou/uL (1.40-6.50); %Basophils 0.9 % (0.0-1.0); %Lymphocytes 15.8 % (21.0-51.0); %Monocytes 11.4 % (0.0-10.0); %Neutrophils 70.8 % (42.0-75.0); Hematocrit 47.7 % (42.0-52.0); Hemoglobin 14.3 g/dL (14.0-18.0); Mean Corpuscular Hemoglobin 21.4 pg (27.0-31.0); Mean Corpuscular Volume 71.5 fl (78.0-98.0); Platelet Count 221 10x3/uL (130-400); RBC Distribution Width 23.9 % (11.5-14.5); Red Blood Cell (RBC) Count 6.67 mill/uL (4.70-6.10); White Blood Cell (WBC) Count 7.9 10x3/uL (4.8-10.8)
[2023-08-07] MEDS ORDERED: Morphine 4 MG/ML VIAL ONE (21:27)
[2023-08-07] MEDS ORDERED: Ketorolac Tromethamine 30 MG/ML VIAL ONE (21:28)
[2023-08-07 21:30] LABS: ALT (SGPT) 9 U/L (8-55); AST (SGOT) 18 U/L (5-34); Albumin 2.9 g/dL (3.5-5.0); Alkaline Phosphatase 149 U/L (40-110); Anion Gap 19 mmol/L (10-20); BUN (Urea Nitrogen) 64 mg/dL (8.9-20.6); Bilirubin, Total 0.3 mg/dL (0.2-1.2); Calc. Creatinine Clearance 0 mL/min (70-130); Calcium 7.2 mg/dL (7.8-10.44); Carbon Dioxide 25 mmol/L (22-29); Chloride 101 mmol/L (98-107); Estimated GFR 5; Globulin 3.2 g/dL (2.4-3.5); Glucose 95 mg/dL (70-105); Potassium 3.9 mmol/L (3.5-5.1); Protein, Total 6.1 g/dL (6.0-8.3); Sodium 141 mmol/L (136-145)
[2023-08-07 21:42] LABS: Anisocytosis MODERATE=16-30 cells HPF (0-5); Burr Cells SLIGHT = 2-5 cells HPF (0-1); CellaVision Operator ID LAB.JMM; Macrocytosis SLIGHT = 6-15 cells HPF (0-5); Platelet Adequacy Comment Platelets Normal; Poikilocytosis SLIGHT = 6-15 cells HPF (0-5); Polychromasia SLIGHT = 2-3 cells HPF (0-2); Target Cells SLIGHT = 2-5 cells HPF (0-1)
[2023-08-07] MEDS ORDERED: Cefepime 1 GM VIAL ONE (22:00)
[2023-08-07] MEDS ORDERED: Vancomycin 1 GM/200 ML (FROZEN) BAG ONE (22:00)
[2023-08-08] MEDS ORDERED: Acetaminophen 325 MG TAB PO PRN (00:32)
[2023-08-08] MEDS ORDERED: Gabapentin 300 MG CAP PO PRN (00:43)
[2023-08-08] MEDS ORDERED: Vancomycin Diaylsis Sliding Scale (Wt 71-99) FS SCH (01:45)
[2023-08-08] MEDS ORDERED: Vancomycin HCl 750 MG in Sodium Chloride 0.9% 250 ML 250 ML IVPB SCH (02:00)
[2023-08-08 03:12] VITALS: BMI 32.5
[2023-08-08] MEDS ORDERED: Heparin 10,000 UNITS/ 10 ML VIAL ONE (08:28)
[2023-08-08] MEDS: Heparin 5,000 UNITS/ML VIAL SC SCH ×3 (08:54→20:43)
[2023-08-08 10:47] LABS: #Basophils 0.1 thou/uL (0.0-0.2); #Eosinphils 0.1 thou/uL (0.0-0.7); #Monocytes 0.9 thou/uL (0.11-0.59); #Neutrophils 5.1 thou/uL (1.40-6.50); %Eosinophils 1.4 % (0.0-10.0); %Monocytes 12.6 % (0.0-10.0); %Neutrophils 71.4 % (42.0-75.0); Hematocrit 48.8 % (42.0-52.0); Hemoglobin 14.4 g/dL (14.0-18.0); Mean Corpuscular HGB CONC 29.5 g/dL (32.0-36.0); Mean Corpuscular Hemoglobin 21.6 pg (27.0-31.0); Mean Corpuscular Volume 73.1 fl (78.0-98.0); Platelet Count 173 10x3/uL (130-400); Red Blood Cell (RBC) Count 6.68 mill/uL (4.70-6.10); White Blood Cell (WBC) Count 7.2 10x3/uL (4.8-10.8)
[2023-08-08 11:15] LABS: ALT (SGPT) 10 U/L (8-55); AST (SGOT) 15 U/L (5-34); Albumin 2.7 g/dL (3.5-5.0); Alkaline Phosphatase 127 U/L (40-110); Anion Gap 22 mmol/L (10-20); BUN (Urea Nitrogen) 72 mg/dL (8.9-20.6); Bilirubin, Total 0.4 mg/dL (0.2-1.2); Calc. Creatinine Clearance 10 mL/min (70-130); Carbon Dioxide 23 mmol/L (22-29); Chloride 101 mmol/L (98-107); Estimated GFR 5; Globulin 3.1 g/dL (2.4-3.5); Glucose 82 mg/dL (70-105); Potassium 4.2 mmol/L (3.5-5.1); Protein, Total 5.8 g/dL (6.0-8.3); Sodium 142 mmol/L (136-145)
[2023-08-08] MEDS ORDERED: predniSONE 50 MG TAB PO SCH (20:00)
[2023-08-08] MEDS ORDERED: Cefepime 1 GM in Sodium Chloride 0.9% 100 ML IVPB SCH (21:00)
[2023-08-08] MEDS ORDERED: Vancomycin 1 GM in Premix 1 BAG IVPB SCH (22:00)
[2023-08-09] MEDS ORDERED: predniSONE 50 MG TAB PO SCH ×2 (02:00→08:00)
[2023-08-09 02:10] LABS: #Monocytes 0.2 thou/uL (0.11-0.59); #Neutrophils 7.2 thou/uL (1.40-6.50); %Basophils 0.5 % (0.0-1.0); %Eosinophils 0.1 % (0.0-10.0); %Monocytes 2.2 % (0.0-10.0); %Neutrophils 91.1 % (42.0-75.0); Hematocrit 47.4 % (42.0-52.0); Hemoglobin 14.4 g/dL (14.0-18.0); Mean Corpuscular HGB CONC 30.4 g/dL (32.0-36.0); Mean Corpuscular Volume 72.4 fl (78.0-98.0); Platelet Count 189 10x3/uL (130-400); RBC Distribution Width 23.9 % (11.5-14.5); Red Blood Cell (RBC) Count 6.55 mill/uL (4.70-6.10); White Blood Cell (WBC) Count 7.9 10x3/uL (4.8-10.8)
[2023-08-09 02:29] LABS: Vancomycin, Random 16.1 ug/mL (See Comment)
[2023-08-09 03:00] LABS: Anisocytosis SLIGHT = 6-15 cells HPF (0-5); Burr Cells SLIGHT = 2-5 cells HPF (0-1); CellaVision Operator ID lab.abc; Microcytosis SLIGHT = 6-15 cells HPF (0-5); Platelet Adequacy Comment Platelets Normal; Poikilocytosis SLIGHT = 6-15 cells HPF (0-5); Polychromasia SLIGHT = 2-3 cells HPF (0-2)
[2023-08-09 03:22] LABS: ALT (SGPT) 10 U/L (8-55); AST (SGOT) 17 U/L (5-34); Albumin 2.8 g/dL (3.5-5.0); Alkaline Phosphatase 141 U/L (40-110); Anion Gap 22 mmol/L (10-20); BUN (Urea Nitrogen) 42 mg/dL (8.9-20.6); Bilirubin, Total 0.4 mg/dL (0.2-1.2); Calc. Creatinine Clearance 13 mL/min (70-130); Calcium 7.2 mg/dL (7.8-10.44); Carbon Dioxide 19 mmol/L (22-29); Chloride 101 mmol/L (98-107); Estimated GFR 7; Globulin 3.2 g/dL (2.4-3.5); Glucose 110 mg/dL (70-105); Potassium 3.8 mmol/L (3.5-5.1); Sodium 138 mmol/L (136-145)
[2023-08-09] MEDS ORDERED: diphenhydrAMINE 25 MG CAP PO SCH (08:00)
[2023-08-09] MEDS ORDERED: Vancomycin HCl 500 MG in Sodium Chloride 0.9% 100 ML IVPB SCH (08:00)
[2023-08-09] MEDS: Heparin 5,000 UNITS/ML VIAL SC SCH ×2 (08:43→13:23)
[2023-08-09 12:33] VITALS: BP 129/88; TEMP 97.7
[2023-08-09] MEDS: Benzonatate 100 MG CAP PO SCH ×2 (13:12→13:23)
[2023-08-09] MEDS ORDERED: Iopamidol 370 76% 100 ML VIAL ONE (15:05)
== END 2023-08-09 17:21 | disposition home or self-care (01) | DRG 604 ==
LOC: ERS 20:14 → T4-A 23:23 → OBSVTOIN 08-09 09:22
PROVIDERS: ADMIT Family Medicine; ATTEND Family Medicine
DX: S71.102A Unspecified open wound, left thigh, initial encounter (principal); N18.6 End stage renal disease; L03.116 Cellulitis of left lower limb; I48.19 Other persistent atrial fibrillation; I50.22 Chronic systolic (congestive) heart failure; L02.416 Cutaneous abscess of left lower limb; E66.9 Obesity, unspecified; Z99.2 Dependence on renal dialysis; Z95.810 Presence of automatic (implantable) cardiac defibrillator; Z91.018 Allergy to other foods; Z88.8 Allergy status to other drugs, medicaments and biological substances; Z79.899 Other long term (current) drug therapy; Z90.49 Acquired absence of other specified parts of digestive tract; Z98.890 Other specified postprocedural states; Z87.891 Personal history of nicotine dependence; Z68.32 Body mass index [BMI] 32.0-32.9, adult
CPT/HCPCS: 36415; 80053; 80202; 83605; 85025; 87040; 87070; 87077; 87081; 87186; 87205; 93005; 96365; 96366; 96367; 96372; 96375; 96376; 97139; G0378; J0692; J1644; J1885; J2270; J3370; J3370-JW; J3490; J7050; J7512; Q9967

== ENCOUNTER 2023-08-11 18:14 | Inpatient (IN) | payer OTHER ==
[2023-08-11 18:52] LABS: Actual Bicarbonate (HCO3a) 23.1 mEq/L (22-28); Analyzer IN Cardio ER; Base Excess (BEa) -3.8 mEq/L (-2.0 to +3.0); CO2 Tension 48.9 mmHg (35.0-45.0); Calcium, Ionized (arterial) 0.89 mmol/L (1.12-1.30); Carboxyhemoglobin (COHb) 1.5 gm% (0.0-3.0); Hematocrit-ABG 46 % (42.0-52.0); Hemoglobin (Hb) 15.5 g/dL (14.0-18.0); Potassium - ABG Lab 3.61 mmol/L (3.70-5.30); pH, Arterial 7.293 (7.35-7.45)
[2023-08-11 19:07] LABS: #Neutrophils 8.3 thou/uL (1.40-6.50); %Basophils 0.3 % (0.0-1.0); %Lymphocytes 8.7 % (21.0-51.0); %Monocytes 9.4 % (0.0-10.0); Hematocrit 53.5 % (42.0-52.0); Hemoglobin 15.3 g/dL (14.0-18.0); Mean Corpuscular HGB CONC 28.6 g/dL (32.0-36.0); Mean Corpuscular Hemoglobin 21.3 pg (27.0-31.0); Mean Corpuscular Volume 74.5 fl (78.0-98.0); Platelet Count 282 10x3/uL (130-400); RBC Distribution Width 25.2 % (11.5-14.5); Red Blood Cell (RBC) Count 7.18 mill/uL (4.70-6.10); White Blood Cell (WBC) Count 10.2 10x3/uL (4.8-10.8)
[2023-08-11] MEDS ORDERED: Azithromycin 500 MG VIAL ONE (19:23)
[2023-08-11] MEDS ORDERED: cefTRIAXone (ROCEPHIN) 2 GM VIAL ONE (19:23)
[2023-08-11] MEDS ORDERED: Sodium Chloride 0.9% 100 ML ONE (19:24)
[2023-08-11 19:32] LABS: Anisocytosis MODERATE=16-30 cells HPF (0-5); CellaVision Operator ID LAB.MJL; Hypochromia SLIGHT = 6-15 cells HPF (0-5); Microcytosis SLIGHT = 6-15 cells HPF (0-5); Ovalocytes SLIGHT = 2-5 cells HPF (0-1); Platelet Adequacy Comment Platelets Normal; Poikilocytosis SLIGHT = 6-15 cells HPF (0-5); Polychromasia MODERATE = 3-4 cells HPF (0-2); Schistocytes SLIGHT = 2-5 cells HPF (0-1); Target Cells SLIGHT = 2-5 cells HPF (0-1)
[2023-08-11 19:33] LABS: Troponin I 0.104 ng/mL (< 0.028)
[2023-08-11 19:39] LABS: ALT (SGPT) 12 U/L (8-55); AST (SGOT) 19 U/L (5-34); Albumin 3.5 g/dL (3.5-5.0); Alkaline Phosphatase 136 U/L (40-110); Anion Gap 25 mmol/L (10-20); BUN (Urea Nitrogen) 53 mg/dL (8.9-20.6); Bilirubin, Total 0.4 mg/dL (0.2-1.2); Calc. Creatinine Clearance 0 mL/min (70-130); Calcium 7.7 mg/dL (7.8-10.44); Carbon Dioxide 26 mmol/L (22-29); Chloride 94 mmol/L (98-107); Estimated GFR 7; Globulin 3.6 g/dL (2.4-3.5); Glucose 116 mg/dL (70-105); Potassium 3.9 mmol/L (3.5-5.1); Protein, Total 7.1 g/dL (6.0-8.3); Sodium 141 mmol/L (136-145)
[2023-08-11] MEDS ORDERED: Ondansetron PF 4 MG/2 ML Vial IVP PRN (20:15)
[2023-08-11] MEDS ORDERED: Ondansetron ODT 4 MG TAB SL PRN (20:15)
[2023-08-11] MEDS ORDERED: Ondansetron PF 4 MG/2 ML Vial ONE (20:28)
[2023-08-11] MEDS ORDERED: Heparin 5,000 UNITS/ML VIAL SC SCH (21:00)
[2023-08-11] MEDS: Albumin 25% 25 GM/100 ML BOT IVPB SCH (22:12)
[2023-08-11 22:13] LABS: SARS-CoV-2 NAA Rapid Test Not Detected (NotDetected)
[2023-08-11] MEDS ORDERED: Midodrine HCl 5 MG TAB PO SCH (22:30)
[2023-08-11 22:34] LABS: Troponin I 0.107 ng/mL (< 0.028)
[2023-08-11 23:02] LABS: Lactic Acid 4.2 mmol/L (0.5-2.2)
[2023-08-12 01:16] LABS: Troponin I 0.104 ng/mL (< 0.028)
[2023-08-12] MEDS ORDERED: Albumin 25% 100 ML ONE ×2 (01:16→19:22)
[2023-08-12] MEDS ORDERED: Albumin 25% 25 GM/100 ML BOT IVPB SCH ×2 (01:30→02:30)
[2023-08-12] MEDS ORDERED: Cefepime 1 GM in Sodium Chloride 0.9% 100 ML IVPB SCH (01:45)
[2023-08-12] MEDS: Acetaminophen 325 MG TAB PO PRN ×2 (01:55→16:45)
[2023-08-12] MEDS ORDERED: Vancomycin (BATCH) 2 GM in Premix 1 BAG IVPB SCH (02:00)
[2023-08-12] MEDS ORDERED: Vancomycin Diaylsis Sliding Scale (Wt 71-99) FS SCH (02:00)
[2023-08-12] MEDS ORDERED: NOREPINEPHRINE 8 MG/250 ML-D5W 250 ML ONE (02:49)
[2023-08-12 05:08] LABS: #Basophils 0.1 thou/uL (0.0-0.2); #Eosinphils 0.1 thou/uL (0.0-0.7); #Monocytes 1.2 thou/uL (0.11-0.59); #Neutrophils 6.9 thou/uL (1.40-6.50); %Basophils 0.5 % (0.0-1.0); %Eosinophils 0.5 % (0.0-10.0); %Lymphocytes 11.5 % (21.0-51.0); %Monocytes 12.7 % (0.0-10.0); %Neutrophils 74.4 % (42.0-75.0); Hematocrit 45.3 % (42.0-52.0); Hemoglobin 13.4 g/dL (14.0-18.0); Mean Corpuscular HGB CONC 29.6 g/dL (32.0-36.0); Mean Corpuscular Hemoglobin 21.8 pg (27.0-31.0); Mean Corpuscular Volume 73.5 fl (78.0-98.0); Platelet Count 231 10x3/uL (130-400); Red Blood Cell (RBC) Count 6.16 mill/uL (4.70-6.10); White Blood Cell (WBC) Count 9.3 10x3/uL (4.8-10.8)
[2023-08-12] MEDS ORDERED: NOREPINEPHRINE 8 MG/250 ML-D5W 250 ML IVPB SCH (05:15)
[2023-08-12 05:24] LABS: Lactic Acid 0.6 mmol/L (0.5-2.2)
[2023-08-12 05:43] LABS: ALT (SGPT) 11 U/L (8-55); AST (SGOT) 17 U/L (5-34); Alkaline Phosphatase 99 U/L (40-110); Anion Gap 17 mmol/L (10-20); BUN (Urea Nitrogen) 21 mg/dL (8.9-20.6); Bilirubin, Total 0.3 mg/dL (0.2-1.2); Calc. Creatinine Clearance 27 mL/min (70-130); Calcium 8.4 mg/dL (7.8-10.44); Carbon Dioxide 28 mmol/L (22-29); Chloride 95 mmol/L (98-107); Estimated GFR 17; Globulin 2.8 g/dL (2.4-3.5); Glucose 79 mg/dL (70-105); Potassium 2.7 mmol/L (3.5-5.1); Protein, Total 6.8 g/dL (6.0-8.3); Sodium 137 mmol/L (136-145)
[2023-08-12 06:13] LABS: Hematocrit 43.7 % (42.0-52.0); Hemoglobin 12.7 g/dL (14.0-18.0); Platelet Count 222 10x3/uL (130-400)
[2023-08-12 06:23] LABS: INR-International Normal Ratio 1.3; Prothrombin Time 16.5 sec (12.0-14.7)
[2023-08-12] MEDS: Heparin 10,000 UNITS/ 10 ML VIAL SLOW IVP SCH (07:17)
[2023-08-12] MEDS ORDERED: Electrolyte Replacement Protocol 1 EACH FS ONE (08:58)
[2023-08-12] MEDS: Pantoprazole 40 MG VIAL IVP SCH (09:07)
[2023-08-12] MEDS: Potassium Chloride 20 MEQ in Premix 1 BAG IVPB SCH ×2 (09:28→10:56)
[2023-08-12] MEDS ORDERED: Magnesium 2 GM/50 ML(in water) 2 GM in Premix 1 BAG IVPB SCH (11:15)
[2023-08-12 11:56] LABS: Acetaminophen Less than 10 mcg/mL (10.0-30.0); Alcohol Less than 10.0 mg/dL (Less than 10); Salicylate Less than 8.0 mg/dL (15.0-30.0)
[2023-08-12 12:03] LABS: PTT Greater than 250.0 sec (22.9-36.1)
[2023-08-12 13:21] LABS: PTT 240.7 sec (22.9-36.1)
[2023-08-12 13:57] LABS: O2 Tension (PaO2), arterial 56.3 mmHg (80.0-100.0)
[2023-08-12] MEDS: Midodrine HCl 5 MG TAB PO SCH ×2 (14:55→21:36)
[2023-08-12 15:00] LABS: Potassium 4.6 mmol/L (3.5-5.1)
[2023-08-12] MEDS ORDERED: DOBUTamine 500 mg/250 ml 500 MG in Premix 1 BAG IVPB SCH (18:45)
[2023-08-12] MEDS ORDERED: Albumin 25% 25 GM/100 ML BOT IVPB PRN (19:33)
[2023-08-12 20:33] LABS: PTT 122.1 sec (22.9-36.1)
[2023-08-12] MEDS: Cefepime 1 GM in Sodium Chloride 0.9% 100 ML IVPB SCH (21:36)
[2023-08-12] MEDS: Albumin 25% 25 GM/100 ML BOT IVPB SCH (21:36)
[2023-08-12] MEDS ORDERED: Cefepime 0.5 GM, Admixture Fee 1 EACH in Sodium Chloride 0.9% 100 ML IVPB SCH (22:00)
[2023-08-13 02:04] LABS: #Basophils 0.1 thou/uL (0.0-0.2); #Eosinphils 0.1 thou/uL (0.0-0.7); #Neutrophils 5.7 thou/uL (1.40-6.50); %Basophils 0.7 % (0.0-1.0); %Eosinophils 1.1 % (0.0-10.0); %Lymphocytes 15.9 % (21.0-51.0); %Monocytes 12.4 % (0.0-10.0); %Neutrophils 69.4 % (42.0-75.0); Hematocrit 43.1 % (42.0-52.0); Hemoglobin 12.9 g/dL (14.0-18.0); Mean Corpuscular HGB CONC 29.9 g/dL (32.0-36.0); Mean Corpuscular Hemoglobin 21.9 pg (27.0-31.0); Mean Corpuscular Volume 73.3 fl (78.0-98.0); Platelet Count 182 10x3/uL (130-400); RBC Distribution Width 23.8 % (11.5-14.5); Red Blood Cell (RBC) Count 5.88 mill/uL (4.70-6.10); White Blood Cell (WBC) Count 8.2 10x3/uL (4.8-10.8)
[2023-08-13 02:40] LABS: Anisocytosis MODERATE=16-30 cells HPF (0-5); Burr Cells SLIGHT = 2-5 cells HPF (0-1); CellaVision Operator ID lab.sh2; Hypochromia SLIGHT = 6-15 cells HPF (0-5); Macrocytosis SLIGHT = 6-15 cells HPF (0-5); Microcytosis SLIGHT = 6-15 cells HPF (0-5); Ovalocytes MODERATE= 6-15 cells HPF (0-1); Platelet Adequacy Comment Platelets Normal; Polychromasia MODERATE = 3-4 cells HPF (0-2); Target Cells SLIGHT = 2-5 cells HPF (0-1)
[2023-08-13 02:43] LABS: Vancomycin, Random 36.3 ug/mL (See Comment)
[2023-08-13] MEDS: Heparin 10,000 UNITS/ 10 ML VIAL SLOW IVP SCH (02:57)
[2023-08-13 03:19] LABS: ALT (SGPT) Less than 7 U/L (8-55); AST (SGOT) 13 U/L (5-34); Albumin 3.9 g/dL (3.5-5.0); Alkaline Phosphatase 83 U/L (40-110); Anion Gap 20 mmol/L (10-20); BUN (Urea Nitrogen) 46 mg/dL (8.9-20.6); Bilirubin, Total 0.5 mg/dL (0.2-1.2); Calc. Creatinine Clearance 14 mL/min (70-130); Carbon Dioxide 23 mmol/L (22-29); Chloride 96 mmol/L (98-107); Estimated GFR 8; Globulin 2.1 g/dL (2.4-3.5); Glucose 97 mg/dL (70-105); Potassium 4.1 mmol/L (3.5-5.1); Sodium 135 mmol/L (136-145)
[2023-08-13] MEDS ORDERED: DOBUTamine 500 mg/250 ml 500 MG in Premix 1 BAG IVPB SCH (03:45)
[2023-08-13 07:12] LABS: Actual Bicarbonate (HCO3v) 23.9 mEq/L (22-28); Base Excess -4.8 mEq/L (-2.0 to +3.0); Calcium, Ionized (venous) 1.01 mmol/L (1.16-1.32); Chloride (VBG) 94 mmol/L (98-106); Hematocrit-VBG 39 % (42.0-52.0); Hemoglobin (Hb) 13.1 g/dL (13.1-17.2); Potassium (VBG) 4.28 mmol/L (3.70-5.30); Sodium 133 mmol/L (133-146); pH (venous) 7.211 (7.32-7.43)
[2023-08-13] MEDS: Heparin 25,000 units/D5W 500 ML IVPB SCH (07:50)
[2023-08-13] MEDS: Acetaminophen 325 MG TAB PO PRN (07:51)
[2023-08-13] MEDS: Pantoprazole 40 MG VIAL IVP SCH (07:51)
[2023-08-13] MEDS: Midodrine HCl 5 MG TAB PO SCH (08:09)
[2023-08-13] MEDS: Digoxin 0.125 MG TAB PO SCH (08:59)
[2023-08-13] MEDS: Albumin 25% 25 GM/100 ML BOT IVPB PRN ×2 (14:02→15:05)
[2023-08-13] MEDS: Cefepime 1 GM in Sodium Chloride 0.9% 100 ML IVPB SCH (21:13)
[2023-08-13] MEDS: DOBUTamine 500 mg/250 ml 500 MG in Premix 1 BAG IVPB SCH (21:17)
[2023-08-14 03:27] LABS: #Eosinphils 0.1 thou/uL (0.0-0.7); #Monocytes 0.6 thou/uL (0.11-0.59); #Neutrophils 5.8 thou/uL (1.40-6.50); %Basophils 0.5 % (0.0-1.0); %Eosinophils 1.1 % (0.0-10.0); %Lymphocytes 10.2 % (21.0-51.0); %Monocytes 8.7 % (0.0-10.0); %Neutrophils 79.1 % (42.0-75.0); Hematocrit 40.4 % (42.0-52.0); Hemoglobin 12.3 g/dL (14.0-18.0); Mean Corpuscular HGB CONC 30.4 g/dL (32.0-36.0); Mean Corpuscular Volume 72.3 fl (78.0-98.0); Platelet Count 152 10x3/uL (130-400); RBC Distribution Width 23.1 % (11.5-14.5); Red Blood Cell (RBC) Count 5.59 mill/uL (4.70-6.10); White Blood Cell (WBC) Count 7.3 10x3/uL (4.8-10.8)
[2023-08-14 03:50] LABS: ALT (SGPT) Less than 7 U/L (8-55); AST (SGOT) 12 U/L (5-34); Albumin 3.9 g/dL (3.5-5.0); Alkaline Phosphatase 80 U/L (40-110); Anion Gap 20 mmol/L (10-20); BUN (Urea Nitrogen) 55 mg/dL (8.9-20.6); Bilirubin, Total 0.5 mg/dL (0.2-1.2); Calc. Creatinine Clearance 12 mL/min (70-130); Calcium 7.9 mg/dL (7.8-10.44); Carbon Dioxide 23 mmol/L (22-29); Chloride 93 mmol/L (98-107); Estimated GFR 6; Globulin 1.9 g/dL (2.4-3.5); Glucose 93 mg/dL (70-105); Protein, Total 5.8 g/dL (6.0-8.3); Sodium 132 mmol/L (136-145)
[2023-08-14] MEDS: Heparin 25,000 units/D5W 500 ML IVPB SCH (06:26)
[2023-08-14] MEDS: Pantoprazole 40 MG VIAL IVP SCH (08:39)
[2023-08-14] MEDS: Sacubitril 24MG/Valsartan 26 MG TAB PO SCH ×2 (08:39→21:20)
[2023-08-14] MEDS ORDERED: FLU VACC QS2023-24(6MOS UP)/PF 60 MCG/0.5 ML SYRINGE IM ONE (09:00)
[2023-08-14] MEDS: DOBUTamine 500 mg/250 ml 500 MG in Premix 1 BAG IVPB SCH (15:34)
[2023-08-14] MEDS: Cefepime 1 GM in Sodium Chloride 0.9% 100 ML IVPB SCH (21:20)
[2023-08-15] MEDS: Ondansetron PF 4 MG/2 ML Vial IVP PRN ×2 (01:58→09:44)
[2023-08-15 04:46] LABS: #Eosinphils 0.1 thou/uL (0.0-0.7); #Monocytes 0.6 thou/uL (0.11-0.59); #Neutrophils 7.2 thou/uL (1.40-6.50); %Basophils 0.4 % (0.0-1.0); %Eosinophils 1.4 % (0.0-10.0); %Lymphocytes 5.5 % (21.0-51.0); %Monocytes 7.1 % (0.0-10.0); Hematocrit 38.9 % (42.0-52.0); Hemoglobin 11.6 g/dL (14.0-18.0); Mean Corpuscular HGB CONC 29.8 g/dL (32.0-36.0); Mean Corpuscular Hemoglobin 21.5 pg (27.0-31.0); Mean Corpuscular Volume 72.2 fl (78.0-98.0); Platelet Count 158 10x3/uL (130-400); Red Blood Cell (RBC) Count 5.39 mill/uL (4.70-6.10); White Blood Cell (WBC) Count 8.4 10x3/uL (4.8-10.8)
[2023-08-15 05:05] LABS: PTT 150.1 sec (22.9-36.1)
[2023-08-15 05:09] LABS: ALT (SGPT) 7 U/L (8-55); AST (SGOT) 14 U/L (5-34); Albumin 3.5 g/dL (3.5-5.0); Alkaline Phosphatase 80 U/L (40-110); Anion Gap 20 mmol/L (10-20); BUN (Urea Nitrogen) 62 mg/dL (8.9-20.6); Bilirubin, Total 0.5 mg/dL (0.2-1.2); Calc. Creatinine Clearance 10 mL/min (70-130); Calcium 7.5 mg/dL (7.8-10.44); Carbon Dioxide 24 mmol/L (22-29); Chloride 91 mmol/L (98-107); Estimated GFR 5; Glucose 77 mg/dL (70-105); Protein, Total 5.5 g/dL (6.0-8.3); Sodium 131 mmol/L (136-145)
[2023-08-15 05:16] LABS: Anisocytosis MARKED = >30 cells HPF (0-5); CellaVision Operator ID lab.sh2; Hypochromia SLIGHT = 6-15 cells HPF (0-5); Macrocytosis SLIGHT = 6-15 cells HPF (0-5); Microcytosis MODERATE=15-30 cells HPF (0-5); Ovalocytes MODERATE= 6-15 cells HPF (0-1); Platelet Adequacy Comment Platelets Normal; Poikilocytosis SLIGHT = 6-15 cells HPF (0-5); Polychromasia MODERATE = 3-4 cells HPF (0-2); Smudge Cells 10.9 %; Target Cells MODERATE= 6-15 cells HPF (0-1); Tear Drops SLIGHT = 2-5 cells HPF (0-1); Vacuoles SLIGHT
[2023-08-15 07:30] LABS: Vancomycin, Random 27.5 ug/mL (See Comment)
[2023-08-15] MEDS: Heparin 25,000 units/D5W 500 ML IVPB SCH (08:38)
[2023-08-15] MEDS: Digoxin 0.125 MG TAB PO SCH (09:00)
[2023-08-15] MEDS: Pantoprazole 40 MG VIAL IVP SCH (09:50)
[2023-08-15] MEDS: DOBUTamine 500 mg/250 ml 500 MG in Premix 1 BAG IVPB SCH (10:49)
[2023-08-15 11:47] LABS: Actual Bicarbonate (HCO3v) 24.4 mEq/L (22-28); Calcium, Ionized (venous) 0.99 mmol/L (1.16-1.32); Chloride (VBG) 93 mmol/L (98-106); Hematocrit-VBG 39 % (42.0-52.0); Hemoglobin (Hb) 13.2 g/dL (13.1-17.2); Potassium (VBG) 3.65 mmol/L (3.70-5.30); Sodium 132 mmol/L (133-146); pH (venous) 7.229 (7.32-7.43)
[2023-08-15] MEDS: Acetaminophen 325 MG TAB PO PRN (19:41)
[2023-08-15] MEDS: Heparin 5,000 UNITS/ML VIAL SC SCH (22:14)
[2023-08-15] MEDS ORDERED: Morphine 2 MG/ML VIAL SLOW IVP PRN (22:15)
[2023-08-15] MEDS ORDERED: hydrOXYzine 25 MG TAB PO SCH (22:45)
[2023-08-16 04:16] LABS: #Eosinphils 0.1 thou/uL (0.0-0.7); #Monocytes 0.6 thou/uL (0.11-0.59); #Neutrophils 6.5 thou/uL (1.40-6.50); %Basophils 0.4 % (0.0-1.0); %Eosinophils 1.8 % (0.0-10.0); %Lymphocytes 6.3 % (21.0-51.0); %Monocytes 7.9 % (0.0-10.0); Hematocrit 40.6 % (42.0-52.0); Hemoglobin 12.3 g/dL (14.0-18.0); Mean Corpuscular HGB CONC 30.3 g/dL (32.0-36.0); Mean Corpuscular Hemoglobin 21.5 pg (27.0-31.0); Platelet Count 125 10x3/uL (130-400); RBC Distribution Width 23.4 % (11.5-14.5); Red Blood Cell (RBC) Count 5.72 mill/uL (4.70-6.10); White Blood Cell (WBC) Count 7.8 10x3/uL (4.8-10.8)
[2023-08-16 04:39] LABS: ALT (SGPT) 8 U/L (8-55); AST (SGOT) 17 U/L (5-34); Albumin 3.5 g/dL (3.5-5.0); Alkaline Phosphatase 98 U/L (40-110); Anion Gap 18 mmol/L (10-20); BUN (Urea Nitrogen) 31 mg/dL (8.9-20.6); Bilirubin, Total 0.8 mg/dL (0.2-1.2); Calc. Creatinine Clearance 15 mL/min (70-130); Calcium 7.7 mg/dL (7.8-10.44); Carbon Dioxide 24 mmol/L (22-29); Chloride 95 mmol/L (98-107); Estimated GFR 8; Globulin 2.2 g/dL (2.4-3.5); Glucose 62 mg/dL (70-105); Potassium 3.9 mmol/L (3.5-5.1); Protein, Total 5.7 g/dL (6.0-8.3); Sodium 133 mmol/L (136-145)
[2023-08-16] MEDS: DOBUTamine 500 mg/250 ml 500 MG in Premix 1 BAG IVPB SCH (06:16)
[2023-08-16] MEDS ORDERED: Dextrose 5% in Water 1,000 ML IV PRN (09:00)
[2023-08-16] MEDS ORDERED: Glucagon 1 MG/ML KIT IM PRN (09:00)
[2023-08-16] MEDS ORDERED: Dextrose 50% Abboject 50 ML SYRINGE IVP PRN (09:00)
[2023-08-16] MEDS: Pantoprazole 40 MG VIAL IVP SCH ×2 (10:40→10:51)
[2023-08-16] MEDS: Heparin 5,000 UNITS/ML VIAL SC SCH ×3 (10:51→21:32)
[2023-08-17] MEDS ORDERED: Dextrose 5% in Water 1,000 ML IV PRN (03:41)
[2023-08-17 05:03] LABS: ALT (SGPT) 11 U/L (8-55); AST (SGOT) 21 U/L (5-34); Albumin 3.2 g/dL (3.5-5.0); Alkaline Phosphatase 104 U/L (40-110); Anion Gap 23 mmol/L (10-20); BUN (Urea Nitrogen) 39 mg/dL (8.9-20.6); Calc. Creatinine Clearance 12 mL/min (70-130); Calcium 7.9 mg/dL (7.8-10.44); Carbon Dioxide 21 mmol/L (22-29); Chloride 94 mmol/L (98-107); Estimated GFR 7; Globulin 2.4 g/dL (2.4-3.5); Potassium 4.1 mmol/L (3.5-5.1); Protein, Total 5.6 g/dL (6.0-8.3); Sodium 134 mmol/L (136-145)
[2023-08-17 05:06] LABS: Glucose 45 mg/dL (70-105)
[2023-08-17 05:10] LABS: #Eosinphils 0.2 thou/uL (0.0-0.7); #Monocytes 0.8 thou/uL (0.11-0.59); #Neutrophils 5.3 thou/uL (1.40-6.50); %Basophils 0.4 % (0.0-1.0); %Eosinophils 3.3 % (0.0-10.0); %Monocytes 11.3 % (0.0-10.0); %Neutrophils 76.4 % (42.0-75.0); Hematocrit 39.9 % (42.0-52.0); Hemoglobin 12.3 g/dL (14.0-18.0); Mean Corpuscular HGB CONC 30.8 g/dL (32.0-36.0); Mean Corpuscular Hemoglobin 21.6 pg (27.0-31.0); Platelet Count 167 10x3/uL (130-400); RBC Distribution Width 23.2 % (11.5-14.5); White Blood Cell (WBC) Count 6.9 10x3/uL (4.8-10.8)
[2023-08-17 06:06] LABS: Anisocytosis MARKED = >30 cells HPF (0-5); CellaVision Operator ID lab.sh2; Hypochromia SLIGHT = 6-15 cells HPF (0-5); Macrocytosis MODERATE=16-30 cells HPF (0-5); Microcytosis MODERATE=15-30 cells HPF (0-5); Ovalocytes MODERATE= 6-15 cells HPF (0-1); Platelet Adequacy Comment Platelets Normal; Poikilocytosis SLIGHT = 6-15 cells HPF (0-5); Polychromasia MODERATE = 3-4 cells HPF (0-2); Vacuoles SLIGHT
[2023-08-17] MEDS: Pantoprazole 40 MG VIAL IVP SCH (09:20)
[2023-08-17] MEDS: Heparin 5,000 UNITS/ML VIAL SC SCH ×3 (10:15→20:31)
[2023-08-17] MEDS: Digoxin 0.125 MG TAB PO SCH (10:15)
[2023-08-17] MEDS ORDERED: Haloperidol Lactate 5 MG/ML VIAL IM SCH (10:45)
[2023-08-17] MEDS: Haloperidol Lactate 5 MG/ML VIAL IM PRN ×2 (14:42→18:19)
[2023-08-17] MEDS: DOBUTamine 500 mg/250 ml 500 MG in Premix 1 BAG IVPB SCH (20:28)
[2023-08-18] MEDS: Dextrose 10% in Water 1,000 ML IV SCH ×2 (02:24→21:36)
[2023-08-18 04:52] LABS: #Eosinphils 0.2 thou/uL (0.0-0.7); #Monocytes 0.8 thou/uL (0.11-0.59); #Neutrophils 4.7 thou/uL (1.40-6.50); %Basophils 0.6 % (0.0-1.0); %Eosinophils 2.7 % (0.0-10.0); %Lymphocytes 8.6 % (21.0-51.0); %Monocytes 13.1 % (0.0-10.0); %Neutrophils 74.5 % (42.0-75.0); Hemoglobin 11.7 g/dL (14.0-18.0); Mean Corpuscular HGB CONC 30.8 g/dL (32.0-36.0); Mean Corpuscular Volume 71.4 fl (78.0-98.0); Platelet Count 143 10x3/uL (130-400); RBC Distribution Width 22.8 % (11.5-14.5); Red Blood Cell (RBC) Count 5.32 mill/uL (4.70-6.10); White Blood Cell (WBC) Count 6.3 10x3/uL (4.8-10.8)
[2023-08-18] MEDS: DOBUTamine 500 mg/250 ml 500 MG in Premix 1 BAG IVPB SCH ×4 (05:28→20:38)
[2023-08-18 05:29] LABS: ALT (SGPT) 10 U/L (8-55); AST (SGOT) 22 U/L (5-34); Albumin 3.1 g/dL (3.5-5.0); Alkaline Phosphatase 98 U/L (40-110); Anion Gap 15 mmol/L (10-20); BUN (Urea Nitrogen) 18 mg/dL (8.9-20.6); Bilirubin, Total 1.2 mg/dL (0.2-1.2); Calc. Creatinine Clearance 18 mL/min (70-130); Calcium 7.7 mg/dL (7.8-10.44); Carbon Dioxide 26 mmol/L (22-29); Chloride 95 mmol/L (98-107); Estimated GFR 11; Globulin 2.3 g/dL (2.4-3.5); Glucose 79 mg/dL (70-105); Potassium 3.2 mmol/L (3.5-5.1); Protein, Total 5.4 g/dL (6.0-8.3); Sodium 133 mmol/L (136-145)
[2023-08-18] MEDS ORDERED: Potassium Chloride 20 MEQ in Premix 1 BAG IVPB SCH (09:00)
[2023-08-18] MEDS: Heparin 5,000 UNITS/ML VIAL SC SCH ×3 (09:26→20:40)
[2023-08-18] MEDS: Ondansetron PF 4 MG/2 ML Vial IVP PRN (21:32)
[2023-08-19] MEDS: DOBUTamine 500 mg/250 ml 500 MG in Premix 1 BAG IVPB SCH ×3 (01:34→12:13)
[2023-08-19 04:11] LABS: #Eosinphils 0.2 thou/uL (0.0-0.7); #Monocytes 0.6 thou/uL (0.11-0.59); %Basophils 0.6 % (0.0-1.0); %Eosinophils 3.1 % (0.0-10.0); %Lymphocytes 10.5 % (21.0-51.0); %Monocytes 11.8 % (0.0-10.0); %Neutrophils 73.6 % (42.0-75.0); Hematocrit 36.8 % (42.0-52.0); Hemoglobin 11.2 g/dL (14.0-18.0); Mean Corpuscular HGB CONC 30.4 g/dL (32.0-36.0); Mean Corpuscular Hemoglobin 21.6 pg (27.0-31.0); Mean Corpuscular Volume 70.9 fl (78.0-98.0); Platelet Count 141 10x3/uL (130-400); RBC Distribution Width 23.1 % (11.5-14.5); Red Blood Cell (RBC) Count 5.19 mill/uL (4.70-6.10); White Blood Cell (WBC) Count 5.4 10x3/uL (4.8-10.8)
[2023-08-19 04:49] LABS: Anion Gap 13 mmol/L (10-20); BUN (Urea Nitrogen) 20 mg/dL (8.9-20.6); Calc. Creatinine Clearance 16 mL/min (70-130); Calcium 7.3 mg/dL (7.8-10.44); Carbon Dioxide 25 mmol/L (22-29); Chloride 90 mmol/L (98-107); Estimated GFR 9; Glucose 97 mg/dL (70-105); Potassium 3.4 mmol/L (3.5-5.1); Sodium 125 mmol/L (136-145)
[2023-08-19] MEDS: Ondansetron PF 4 MG/2 ML Vial IVP PRN (05:12)
[2023-08-19] MEDS ORDERED: Potassium Chloride 20 MEQ in Premix 1 BAG IVPB SCH ×2 (07:00→18:30)
[2023-08-19] MEDS ORDERED: Dextrose 5 % And 0.9 % NaCl 1,000 ML IV SCH (07:00)
[2023-08-19 07:46] LABS: Anisocytosis MODERATE=16-30 cells HPF (0-5); Burr Cells SLIGHT = 2-5 cells HPF (0-1); CellaVision Operator ID LAB.GE; Elliptocytes SLIGHT = 2-5 cells HPF (0-1); Platelet Adequacy Comment Platelets Normal; Polychromasia SLIGHT = 2-3 cells HPF (0-2)
[2023-08-19] MEDS: Heparin 5,000 UNITS/ML VIAL SC SCH ×3 (09:53→20:00)
[2023-08-19] MEDS: Digoxin 0.125 MG TAB PO SCH (09:53)
[2023-08-19 16:55] LABS: Anion Gap 12 mmol/L (10-20); BUN (Urea Nitrogen) 10 mg/dL (8.9-20.6); Calc. Creatinine Clearance 23 mL/min (70-130); Calcium 7.7 mg/dL (7.8-10.44); Carbon Dioxide 27 mmol/L (22-29); Chloride 95 mmol/L (98-107); Estimated GFR 14; Glucose 80 mg/dL (70-105); Magnesium 1.8 mg/dL (1.6-2.6); Potassium 3.7 mmol/L (3.5-5.1); Sodium 130 mmol/L (136-145)
[2023-08-19] MEDS: Dextrose 10% in Water 1,000 ML IV SCH (17:47)
[2023-08-19] MEDS ORDERED: Magnesium 2 GM/50 ML(in water) 2 GM in Premix 1 BAG IVPB SCH (18:30)
[2023-08-20] MEDS: Acetaminophen 325 MG TAB PO PRN (04:04)
[2023-08-20 04:36] LABS: #Eosinphils 0.1 thou/uL (0.0-0.7); #Monocytes 0.7 thou/uL (0.11-0.59); #Neutrophils 3.4 thou/uL (1.40-6.50); %Basophils 0.8 % (0.0-1.0); %Eosinophils 2.8 % (0.0-10.0); %Lymphocytes 15.4 % (21.0-51.0); %Neutrophils 67.4 % (42.0-75.0); Hematocrit 40.8 % (42.0-52.0); Hemoglobin 12.4 g/dL (14.0-18.0); Mean Corpuscular HGB CONC 30.4 g/dL (32.0-36.0); Mean Corpuscular Volume 72.3 fl (78.0-98.0); Platelet Count 134 10x3/uL (130-400); RBC Distribution Width 23.5 % (11.5-14.5); Red Blood Cell (RBC) Count 5.64 mill/uL (4.70-6.10); White Blood Cell (WBC) Count 5.1 10x3/uL (4.8-10.8)
[2023-08-20 04:59] LABS: Anion Gap 16 mmol/L (10-20); BUN (Urea Nitrogen) 12 mg/dL (8.9-20.6); Calc. Creatinine Clearance 20 mL/min (70-130); Calcium 7.7 mg/dL (7.8-10.44); Carbon Dioxide 24 mmol/L (22-29); Chloride 94 mmol/L (98-107); Estimated GFR 12; Glucose 74 mg/dL (70-105); Potassium 4.1 mmol/L (3.5-5.1); Sodium 130 mmol/L (136-145)
[2023-08-20] MEDS: Heparin 5,000 UNITS/ML VIAL SC SCH ×3 (08:58→20:53)
[2023-08-20] MEDS: Dextrose 10% in Water 1,000 ML IV SCH (17:06)
[2023-08-20] MEDS: Ondansetron PF 4 MG/2 ML Vial IVP PRN (22:52)
[2023-08-21 05:45] LABS: #Eosinphils 0.1 thou/uL (0.0-0.7); #Monocytes 0.7 thou/uL (0.11-0.59); #Neutrophils 2.9 thou/uL (1.40-6.50); %Basophils 0.9 % (0.0-1.0); %Eosinophils 2.6 % (0.0-10.0); %Monocytes 15.1 % (0.0-10.0); %Neutrophils 61.8 % (42.0-75.0); Hematocrit 41.2 % (42.0-52.0); Hemoglobin 12.7 g/dL (14.0-18.0); Mean Corpuscular HGB CONC 30.8 g/dL (32.0-36.0); Mean Corpuscular Volume 71.3 fl (78.0-98.0); Platelet Count 138 10x3/uL (130-400); RBC Distribution Width 23.6 % (11.5-14.5); Red Blood Cell (RBC) Count 5.78 mill/uL (4.70-6.10); White Blood Cell (WBC) Count 4.6 10x3/uL (4.8-10.8)
[2023-08-21] MEDS: Ondansetron PF 4 MG/2 ML Vial IVP PRN (06:00)
[2023-08-21 06:17] LABS: Anion Gap 13 mmol/L (10-20); BUN (Urea Nitrogen) 17 mg/dL (8.9-20.6); Calc. Creatinine Clearance 17 mL/min (70-130); Calcium 7.8 mg/dL (7.8-10.44); Carbon Dioxide 26 mmol/L (22-29); Chloride 90 mmol/L (98-107); Estimated GFR 10; Glucose 84 mg/dL (70-105); Potassium 3.9 mmol/L (3.5-5.1); Sodium 125 mmol/L (136-145)
[2023-08-21 07:52] LABS: Anisocytosis MODERATE=16-30 cells HPF (0-5); CellaVision Operator ID LAB.CMB; Elliptocytes SLIGHT = 2-5 cells HPF (0-1); Macrocytosis MODERATE=16-30 cells HPF (0-5); Platelet Adequacy Comment Platelets Decreased; Poikilocytosis SLIGHT = 6-15 cells HPF (0-5)
[2023-08-21] MEDS: Digoxin 0.125 MG TAB PO SCH (09:11)
[2023-08-21] MEDS: Heparin 5,000 UNITS/ML VIAL SC SCH ×3 (09:12→21:00)
[2023-08-21] MEDS: Acetaminophen 325 MG TAB PO PRN ×2 (09:41→17:18)
[2023-08-22 04:41] LABS: #Eosinphils 0.1 thou/uL (0.0-0.7); #Monocytes 0.6 thou/uL (0.11-0.59); #Neutrophils 2.6 thou/uL (1.40-6.50); %Eosinophils 2.2 % (0.0-10.0); %Lymphocytes 18.6 % (21.0-51.0); %Monocytes 13.3 % (0.0-10.0); %Neutrophils 63.7 % (42.0-75.0); Hematocrit 38.6 % (42.0-52.0); Hemoglobin 12.2 g/dL (14.0-18.0); Mean Corpuscular HGB CONC 31.6 g/dL (32.0-36.0); Mean Corpuscular Hemoglobin 22.2 pg (27.0-31.0); Mean Corpuscular Volume 70.2 fl (78.0-98.0); Platelet Count 139 10x3/uL (130-400); RBC Distribution Width 23.1 % (11.5-14.5); White Blood Cell (WBC) Count 4.1 10x3/uL (4.8-10.8)
[2023-08-22 05:59] LABS: Anion Gap 14 mmol/L (10-20); BUN (Urea Nitrogen) 22 mg/dL (8.9-20.6); Calc. Creatinine Clearance 15 mL/min (70-130); Calcium 7.6 mg/dL (7.8-10.44); Carbon Dioxide 24 mmol/L (22-29); Chloride 90 mmol/L (98-107); Estimated GFR 8; Glucose 77 mg/dL (70-105); Potassium 4.1 mmol/L (3.5-5.1); Sodium 124 mmol/L (136-145)
[2023-08-22] MEDS: Albumin 25% 25 GM/100 ML BOT IVPB SCH ×2 (08:00→09:00)
[2023-08-22] MEDS: Acetaminophen 325 MG TAB PO PRN ×3 (08:16→22:23)
[2023-08-22] MEDS: Heparin 5,000 UNITS/ML VIAL SC SCH ×3 (08:17→20:18)
[2023-08-22 10:05] VITALS: BMI 34.2
[2023-08-23 06:41] LABS: Anion Gap 13 mmol/L (10-20); BUN (Urea Nitrogen) 19 mg/dL (8.9-20.6); Calc. Creatinine Clearance 19 mL/min (70-130); Calcium 7.9 mg/dL (7.8-10.44); Carbon Dioxide 27 mmol/L (22-29); Chloride 96 mmol/L (98-107); Estimated GFR 11; Glucose 75 mg/dL (70-105); Sodium 132 mmol/L (136-145)
[2023-08-23 07:15] LABS: #Basophils 0.1 thou/uL (0.0-0.2); #Eosinphils 0.1 thou/uL (0.0-0.7); #Monocytes 0.6 thou/uL (0.11-0.59); #Neutrophils 3.7 thou/uL (1.40-6.50); %Basophils 1.1 % (0.0-1.0); %Eosinophils 1.1 % (0.0-10.0); %Lymphocytes 14.5 % (21.0-51.0); %Monocytes 12.2 % (0.0-10.0); %Neutrophils 70.7 % (42.0-75.0); Hematocrit 38.7 % (42.0-52.0); Hemoglobin 11.9 g/dL (14.0-18.0); Mean Corpuscular HGB CONC 30.7 g/dL (32.0-36.0); Mean Corpuscular Volume 71.7 fl (78.0-98.0); Platelet Count 142 10x3/uL (130-400); RBC Distribution Width 23.5 % (11.5-14.5); White Blood Cell (WBC) Count 5.2 10x3/uL (4.8-10.8)
[2023-08-23] MEDS: Digoxin 0.125 MG TAB PO SCH (08:15)
[2023-08-23] MEDS: Heparin 5,000 UNITS/ML VIAL SC SCH ×3 (08:15→21:06)
[2023-08-23] MEDS ORDERED: Lidocaine 4% Patch TD SCH (11:45)
[2023-08-23] MEDS: Acetaminophen 325 MG TAB PO PRN (21:05)
[2023-08-23] MEDS: Transdermal Patch Removal TOP SCH (21:06)
[2023-08-24 03:56] LABS: #Basophils 0.1 thou/uL (0.0-0.2); #Eosinphils 0.1 thou/uL (0.0-0.7); #Monocytes 0.8 thou/uL (0.11-0.59); #Neutrophils 4.2 thou/uL (1.40-6.50); %Eosinophils 1.3 % (0.0-10.0); %Lymphocytes 13.5 % (21.0-51.0); %Monocytes 13.7 % (0.0-10.0); %Neutrophils 69.8 % (42.0-75.0); Hematocrit 36.7 % (42.0-52.0); Hemoglobin 11.3 g/dL (14.0-18.0); Mean Corpuscular HGB CONC 30.8 g/dL (32.0-36.0); Mean Corpuscular Hemoglobin 21.7 pg (27.0-31.0); Mean Corpuscular Volume 70.6 fl (78.0-98.0); Platelet Count 145 10x3/uL (130-400); RBC Distribution Width 23.9 % (11.5-14.5)
[2023-08-24 04:21] LABS: Anion Gap 16 mmol/L (10-20); BUN (Urea Nitrogen) 32 mg/dL (8.9-20.6); Calc. Creatinine Clearance 16 mL/min (70-130); Calcium 7.8 mg/dL (7.8-10.44); Carbon Dioxide 26 mmol/L (22-29); Chloride 96 mmol/L (98-107); Estimated GFR 9; Glucose 73 mg/dL (70-105); Potassium 4.3 mmol/L (3.5-5.1); Sodium 134 mmol/L (136-145)
[2023-08-24 04:50] LABS: Anisocytosis MODERATE=16-30 cells HPF (0-5); CellaVision Operator ID lab.abc; Microcytosis SLIGHT = 6-15 cells HPF (0-5); Platelet Adequacy Comment Platelets Normal; Polychromasia SLIGHT = 2-3 cells HPF (0-2); Tear Drops SLIGHT = 2-5 cells HPF (0-1)
[2023-08-24] MEDS: Acetaminophen 325 MG TAB PO PRN ×4 (05:04→23:04)
[2023-08-24] MEDS ORDERED: Lidocaine 4% Patch TD SCH ×2 (09:00→22:15)
[2023-08-24] MEDS: Heparin 5,000 UNITS/ML VIAL SC SCH ×3 (09:40→23:13)
[2023-08-24 11:18] LABS: Actual Bicarbonate (HCO3a) 22.4 mEq/L (22-28); Base Excess (BEa) -2.7 mEq/L (-2.0 to +3.0); Calcium, Ionized (arterial) 1.08 mmol/L (1.12-1.30); Hematocrit-ABG 36 % (42.0-52.0); Hemoglobin (Hb) 12.2 g/dL (14.0-18.0); O2 Tension (PaO2), arterial 75.7 mmHg (80.0-100.0); Potassium - ABG Lab 3.92 mmol/L (3.70-5.30); pH, Arterial 7.366 (7.35-7.45)
[2023-08-24 11:19] LABS: Puncture Site RBA
[2023-08-24] MEDS: Lidocaine 4% Patch TD SCH (15:18)
[2023-08-24] MEDS ORDERED: Magnesium Oxide 400 MG TAB PO SCH (22:15)
[2023-08-24] MEDS ORDERED: pyridOXINE 50 MG (B6) TAB PO SCH (22:15)
[2023-08-24] MEDS: Transdermal Patch Removal TOP SCH (23:05)
[2023-08-24 23:23] LABS: Magnesium 1.7 mg/dL (1.6-2.6)
[2023-08-24] MEDS ORDERED: Magnesium 2 GM/50 ML(in water) 2 GM in Premix 1 BAG IVPB SCH (23:30)
[2023-08-25 05:09] LABS: #Basophils 0.1 thou/uL (0.0-0.2); #Eosinphils 0.1 thou/uL (0.0-0.7); #Monocytes 0.9 thou/uL (0.11-0.59); #Neutrophils 4.1 thou/uL (1.40-6.50); %Lymphocytes 14.4 % (21.0-51.0); %Monocytes 14.9 % (0.0-10.0); %Neutrophils 68.4 % (42.0-75.0); Hematocrit 36.8 % (42.0-52.0); Hemoglobin 11.1 g/dL (14.0-18.0); Mean Corpuscular HGB CONC 30.2 g/dL (32.0-36.0); Mean Corpuscular Hemoglobin 21.7 pg (27.0-31.0); Platelet Count 164 10x3/uL (130-400); RBC Distribution Width 23.6 % (11.5-14.5); Red Blood Cell (RBC) Count 5.11 mill/uL (4.70-6.10); White Blood Cell (WBC) Count 6.1 10x3/uL (4.8-10.8)
[2023-08-25 05:47] LABS: Anion Gap 12 mmol/L (10-20); BUN (Urea Nitrogen) 29 mg/dL (8.9-20.6); Calc. Creatinine Clearance 18 mL/min (70-130); Calcium 8.1 mg/dL (7.8-10.44); Carbon Dioxide 29 mmol/L (22-29); Chloride 100 mmol/L (98-107); Estimated GFR 10; Glucose 77 mg/dL (70-105); Sodium 137 mmol/L (136-145)
[2023-08-25 06:40] LABS: Anisocytosis MODERATE=16-30 cells HPF (0-5); Burr Cells SLIGHT = 2-5 cells HPF (0-1); CellaVision Operator ID LAB.JMM; Elliptocytes SLIGHT = 2-5 cells HPF (0-1); Hypochromia MODERATE=16-30 cells HPF (0-5); Macrocytosis SLIGHT = 6-15 cells HPF (0-5); Platelet Adequacy Comment Platelets Normal; Poikilocytosis SLIGHT = 6-15 cells HPF (0-5); Polychromasia SLIGHT = 2-3 cells HPF (0-2); Target Cells SLIGHT = 2-5 cells HPF (0-1)
[2023-08-25] MEDS: Digoxin 0.125 MG TAB PO SCH (08:31)
[2023-08-25] MEDS: Lidocaine 4% Patch TD SCH (08:32)
[2023-08-25] MEDS: Heparin 5,000 UNITS/ML VIAL SC SCH ×3 (08:32→22:04)
[2023-08-25] MEDS ORDERED: Transdermal Patch Removal TOP SCH (10:00)
[2023-08-25] MEDS: Acetaminophen 325 MG TAB PO PRN (17:52)
[2023-08-25] MEDS: Transdermal Patch Removal TOP SCH (22:05)
[2023-08-26] MEDS: Ondansetron PF 4 MG/2 ML Vial IVP PRN (03:06)
[2023-08-26 05:29] LABS: #Basophils 0.1 thou/uL (0.0-0.2); #Eosinphils 0.1 thou/uL (0.0-0.7); #Monocytes 0.9 thou/uL (0.11-0.59); #Neutrophils 5.7 thou/uL (1.40-6.50); %Basophils 0.8 % (0.0-1.0); %Eosinophils 1.2 % (0.0-10.0); %Lymphocytes 12.7 % (21.0-51.0); %Monocytes 11.6 % (0.0-10.0); %Neutrophils 73.2 % (42.0-75.0); Hematocrit 38.7 % (42.0-52.0); Hemoglobin 11.7 g/dL (14.0-18.0); Mean Corpuscular HGB CONC 30.2 g/dL (32.0-36.0); Mean Corpuscular Volume 72.7 fl (78.0-98.0); Platelet Count 206 10x3/uL (130-400); RBC Distribution Width 24.2 % (11.5-14.5); Red Blood Cell (RBC) Count 5.32 mill/uL (4.70-6.10); White Blood Cell (WBC) Count 7.8 10x3/uL (4.8-10.8)
[2023-08-26 05:56] LABS: Anion Gap 16 mmol/L (10-20); BUN (Urea Nitrogen) 50 mg/dL (8.9-20.6); Calc. Creatinine Clearance 14 mL/min (70-130); Calcium 8.4 mg/dL (7.8-10.44); Carbon Dioxide 26 mmol/L (22-29); Chloride 101 mmol/L (98-107); Estimated GFR 8; Glucose 88 mg/dL (70-105); Potassium 4.5 mmol/L (3.5-5.1); Sodium 138 mmol/L (136-145)
[2023-08-26 06:11] LABS: Anisocytosis MARKED = >30 cells HPF (0-5); Burr Cells MODERATE= 6-15 cells HPF (0-1); CellaVision Operator ID lab.sh2; Hypochromia SLIGHT = 6-15 cells HPF (0-5); Macrocytosis SLIGHT = 6-15 cells HPF (0-5); Microcytosis MODERATE=15-30 cells HPF (0-5); Ovalocytes MODERATE= 6-15 cells HPF (0-1); Platelet Adequacy Comment Platelets Normal; Poikilocytosis MODERATE=16-30 cells HPF (0-5); Polychromasia MODERATE = 3-4 cells HPF (0-2); Target Cells MODERATE= 6-15 cells HPF (0-1); Tear Drops SLIGHT = 2-5 cells HPF (0-1)
[2023-08-26] MEDS: Acetaminophen 325 MG TAB PO PRN ×2 (06:33→22:08)
[2023-08-26] MEDS ORDERED: Albumin 25% 25 GM/100 ML BOT IVPB SCH (07:15)
[2023-08-26] MEDS ORDERED: Albumin 25% 25 GM/100 ML BOT IVPB PRN (07:30)
[2023-08-26] MEDS: Heparin 5,000 UNITS/ML VIAL SC SCH ×3 (08:16→22:10)
[2023-08-26] MEDS: Lidocaine 4% Patch TD SCH (08:17)
[2023-08-26] MEDS: Transdermal Patch Removal TOP SCH (22:10)
[2023-08-26] MEDS ORDERED: traMADol HCl 50 MG TAB PO SCH (22:15)
[2023-08-27 06:26] LABS: Anion Gap 15 mmol/L (10-20); BUN (Urea Nitrogen) 38 mg/dL (8.9-20.6); Calc. Creatinine Clearance 18 mL/min (70-130); Calcium 8.5 mg/dL (7.8-10.44); Carbon Dioxide 27 mmol/L (22-29); Chloride 101 mmol/L (98-107); Estimated GFR 10; Glucose 88 mg/dL (70-105); Potassium 4.2 mmol/L (3.5-5.1); Sodium 139 mmol/L (136-145)
[2023-08-27] MEDS: Heparin 5,000 UNITS/ML VIAL SC SCH ×3 (09:43→21:00)
[2023-08-27] MEDS: Lidocaine 4% Patch TD SCH (09:43)
[2023-08-27] MEDS: Digoxin 0.125 MG TAB PO SCH (09:44)
[2023-08-27] MEDS: Transdermal Patch Removal TOP SCH (21:00)
[2023-08-28] MEDS: Acetaminophen 325 MG TAB PO PRN ×3 (02:56→23:30)
[2023-08-28 05:07] LABS: Anion Gap 18 mmol/L (10-20); BUN (Urea Nitrogen) 62 mg/dL (8.9-20.6); Calc. Creatinine Clearance 14 mL/min (70-130); Calcium 8.5 mg/dL (7.8-10.44); Carbon Dioxide 27 mmol/L (22-29); Chloride 99 mmol/L (98-107); Estimated GFR 7; Glucose 91 mg/dL (70-105); Potassium 4.5 mmol/L (3.5-5.1); Sodium 139 mmol/L (136-145)
[2023-08-28] MEDS: Heparin 5,000 UNITS/ML VIAL SC SCH ×3 (08:54→21:02)
[2023-08-28] MEDS: Lidocaine 4% Patch TD SCH (08:55)
[2023-08-28] MEDS: Transdermal Patch Removal TOP SCH (21:03)
[2023-08-29 06:19] LABS: Anion Gap 17 mmol/L (10-20); BUN (Urea Nitrogen) 79 mg/dL (8.9-20.6); Calc. Creatinine Clearance 12 mL/min (70-130); Calcium 8.3 mg/dL (7.8-10.44); Carbon Dioxide 28 mmol/L (22-29); Chloride 102 mmol/L (98-107); Estimated GFR 6; Glucose 89 mg/dL (70-105); Potassium 4.6 mmol/L (3.5-5.1); Sodium 142 mmol/L (136-145)
[2023-08-29] MEDS: Digoxin 0.125 MG TAB PO SCH (10:16)
[2023-08-29] MEDS: Heparin 5,000 UNITS/ML VIAL SC SCH ×2 (10:18→14:27)
[2023-08-29] MEDS: Lidocaine 4% Patch TD SCH (10:18)
[2023-08-29 15:29] VITALS: BP 110/80; TEMP 98.4
== END 2023-08-29 19:00 | disposition home health service (06) | DRG 314 ==
LOC: ERS 18:14 → IMCU/EMU 19:55 → CCU 08-12 00:32 → IMCU/EMU 08-20 06:29 → 2NO 08-28 21:38
PROVIDERS: ADMIT Family Medicine; ATTEND Family Medicine
PROC: 4A133R1 Monitoring of Arterial Saturation, Peripheral, Percutaneous Approach (ICD-10-PCS; 2023-08-11)
PROC: 02HV33Z Insertion of Infusion Device into Superior Vena Cava, Percutaneous Approach (ICD-10-PCS; principal; 2023-08-12)
PROC: B5181ZA Fluoroscopy of Superior Vena Cava using Low Osmolar Contrast, Guidance (ICD-10-PCS; 2023-08-12)
PROC: 30233J1 Transfusion of Nonautologous Serum Albumin into Peripheral Vein, Percutaneous Approach (ICD-10-PCS; 2023-08-12)
PROC: 3E033XZ Introduction of Vasopressor into Peripheral Vein, Percutaneous Approach (ICD-10-PCS; 2023-08-12)
DX: I42.8 Other cardiomyopathies (principal); G93.41 Metabolic encephalopathy; N18.6 End stage renal disease; J96.01 Acute respiratory failure with hypoxia; I50.23 Acute on chronic systolic (congestive) heart failure; J18.9 Pneumonia, unspecified organism; I13.2 Hypertensive heart and chronic kidney disease with heart failure and with stage 5 chronic kidney disease, or end stage renal disease; I48.19 Other persistent atrial fibrillation; E87.1 Hypo-osmolality and hyponatremia; E87.29 Other acidosis; Z51.5 Encounter for palliative care; I50.810 Right heart failure, unspecified; I25.10 Atherosclerotic heart disease of native coronary artery without angina pectoris; S81.802A Unspecified open wound, left lower leg, initial encounter; I08.1 Rheumatic disorders of both mitral and tricuspid valves; G47.33 Obstructive sleep apnea (adult) (pediatric); E87.6 Hypokalemia; I95.9 Hypotension, unspecified; R45.1 Restlessness and agitation; Z88.8 Allergy status to other drugs, medicaments and biological substances; Z91.018 Allergy to other foods; Z79.899 Other long term (current) drug therapy; Z95.810 Presence of automatic (implantable) cardiac defibrillator; Z90.49 Acquired absence of other specified parts of digestive tract; Z87.891 Personal history of nicotine dependence; Z99.2 Dependence on renal dialysis; R77.8 Other specified abnormalities of plasma proteins; I45.10 Unspecified right bundle-branch block; D63.1 Anemia in chronic kidney disease; E66.9 Obesity, unspecified; Z68.34 Body mass index [BMI] 34.0-34.9, adult
CPT/HCPCS: 36415; 36416; 36600; 71045; 80048; 80053; 80202; 80307; 82140; 82533; 82805; 83605; 83735; 83880; 84100; 84145; 84443; 84484; 85025; 85379; 85610; 85730; 87040; 90935; 93005; 93010; 93306; 93798; 93970; 94660; 94760; 96365; 96367; 97139; C9113; G0257; J0456; J0692; J0696; J1250; J1630; J1644; J2405; J3370; J3475; J3480; J3490; J7070; P9047